=== PATIENT | female | born 1940 | race Caucasian/White ===

== ENCOUNTER → 2017-07-04 14:42 | Outpatient (CLI) | payer MEDICARE, SELFPAY ==
[2017-07-04 15:42] LABS: Absolute Neutrophil Count 4.9 X10^3/uL (2.0-7.7); Basophil# 0.04 X10^3/uL; Basophil% 0.5 % (0-1); Eosinophils% 2.4 % (0-5); Hematocrit 43.8 % (37-47); Hemoglobin 14.2 g/dl (12.0-15.0); Lymphocyte % 29.9 % (19-41); Mean Corp Hgb Conc 32.4 g/gl (32-36); Mean Corpuscular Hgb 28.6 pg (27.0-32.0); Mean Corpuscular Volume 88.3 fL (81-99); Mean Platelet Vol. 11.4 fl (6.2-12.0); Monocyte# 0.65 X10^3/uL; Monocyte% 7.8 % (0-10); Neutrophil # 4.94 X10^3/uL (2.7-7.7); Platelet Count 284 K/mm3 (150-450); RBC Distribution Width CV 13.6 % (11.6-14.6); RBC Distribution Width SD 43.6 fl (35.1-43.9); Red Blood Count 4.96 M/mm3 (4.2-5.4); White Blood Count 8.4 K/mm3 (4.4-11.0)
[2017-07-04 15:50] LABS: Vitamin D,25 Hydroxy 23.8 ng/mL (29.95-100.01)
[2017-07-04 15:55] LABS: ALB/GLOB Ratio 0.9 RATIO (0.9-2.4); AST(SGOT) 24 U/L (15-37); Alanine Aminotransfer ALT/SGPT 22 U/L (13-56); Albumin, Serum 3.6 g/dL (3.2-5.0); Alkaline Phosphatase 93 U/L (45-117); Anion Gap 8 (5-15); BUN 15 mg/dL (7-18); BUN/Creat Ratio 17.2 RATIO (10-20); Calcium,Total 8.7 mg/dL (8.5-10.1); Chloride 107 mmol/L (98-107); Creatinine, Serum 0.87 mg/dL (0.55-1.02); EST Glomerular Filtration Rate 67 mL/min (>60); Est Glom Filt Rate - Afr Amer 81 mL/min (>60); Glucose 98 mg/dL (74-106); Potassium 3.8 mmol/L (3.5-5.1); Protein, Total 7.6 g/dL (6.4-8.2); Sodium Level 141 mmol/L (136-145); Thyroid Stim Hormone (TSH) 1.12 uIU/mL (0.358-3.74)
[2017-07-04 16:31] LABS: POSITIVE COUNT NO; POSITIVE DIFFERENTIAL NO; POSITIVE MORPHOLOGY NO
[2017-07-04 16:56] LABS: Erythrocyte Sedimentation Rate 36 mm/hr (0-30)
[2017-07-04 17:11] LABS: CRP 3.19 mg/L (0.0-3.0)
== END ==
PROVIDERS: Family Provider Family Medicine; PCP Family Medicine; Visit Provider Family Medicine
DX: R53.81 Other malaise (principal); R53.83 Other fatigue; E55.9 Vitamin D deficiency, unspecified
CPT/HCPCS: 36415; 80053; 82306; 84443; 85025; 85652; 86140

== ENCOUNTER → 2017-08-08 11:27 | Outpatient (CLI) | payer MEDICARE, SELFPAY ==
[2017-08-08 14:12] LABS: Rheumatoid Factor < 10.0 IU/mL (<15)
[2017-08-08 14:39] LABS: Erythrocyte Sedimentation Rate 35 mm/hr (0-30)
[2017-08-10 10:50] LABS: ANTINUCLEAR ANTIBODIES DIRECT Negative (Negative)
== END ==
PROVIDERS: Family Provider Family Medicine; PCP Family Medicine; Visit Provider Family Medicine
DX: M79.1 Myalgia (principal)
CPT/HCPCS: 36415; 85652; 86038; 86431

== ENCOUNTER → 2017-08-19 13:09 | Outpatient (CLI) | payer MEDICARE, SELFPAY ==
--- NOTE | 2017-08-19 13:15 | RAD_ITS ---
STUDY: X-RAY CHEST REASON FOR EXAM: Female, 76 years old. 3 week history of worsening cough. TECHNIQUE: PA and lateral views of the chest. COMPARISON: None. FINDINGS: Mild increased markings in the right middle lobe. This may represent early infiltrate. There is also thickening of the right minor fissure. Elevation of the right hemidiaphragm. There is no demonstrated pleural abnormality. Normal size heart. Normal mediastinum and justin. Normal visualized pulmonary arteries. There is atherosclerotic calcification of the aortic arch with tortuosity. There is demineralization of the osseous structures. Increased kyphosis. Loss of height of the lower dorsal vertebrae. Normal visualized ribs, clavicles, and shoulders. There is no demonstrated abnormality of the visualized soft tissue structures of the upper abdomen. RAD/Chest PA and Lateral IMPRESSION: Increased markings in the right middle lobe. Early infiltrate should be ruled out. Thickening of the right minor fissure. Radiographic follow-up is recommended. Electronically Signed: Ken Page MD at 13:37 EDT Tel [phone], Service support ,
== END ==
PROVIDERS: Family Provider Family Medicine; PCP Family Medicine; Visit Provider Family Medicine
DX: R05 Cough (principal)
CPT/HCPCS: 71046

== ENCOUNTER → 2017-09-08 13:48 | Outpatient (CLI) | payer MEDICARE, SELFPAY ==
[2017-09-08 15:50] LABS: Hematocrit 41.8 % (37-47); Hemoglobin 13.3 g/dl (12.0-15.0); Mean Corp Hgb Conc 31.8 g/gl (32-36); Mean Corpuscular Hgb 28.2 pg (27.0-32.0); Mean Corpuscular Volume 88.6 fL (81-99); Mean Platelet Vol. 11.4 fl (6.2-12.0); Platelet Count 282 K/mm3 (150-450); RBC Distribution Width CV 14.7 % (11.6-14.6); RBC Distribution Width SD 47.7 fl (35.1-43.9); Red Blood Count 4.72 M/mm3 (4.2-5.4); White Blood Count 9.2 K/mm3 (4.4-11.0)
[2017-09-08 15:57] LABS: Scan Indicated on CBC? Y/N NO
[2017-09-08 16:11] LABS: ALB/GLOB Ratio 0.9 RATIO (0.9-2.4); AST(SGOT) 16 U/L (15-37); Alanine Aminotransfer ALT/SGPT 21 U/L (13-56); Albumin, Serum 3.4 g/dL (3.2-5.0); Alkaline Phosphatase 67 U/L (45-117); Anion Gap 6 (5-15); BUN 20 mg/dL (7-18); BUN/Creat Ratio 22.9 RATIO (10-20); Calcium,Total 8.4 mg/dL (8.5-10.1); Chloride 103 mmol/L (98-107); Creatinine, Serum 0.87 mg/dL (0.55-1.02); EST Glomerular Filtration Rate 67 mL/min (>60); Est Glom Filt Rate - Afr Amer 81 mL/min (>60); Globulin 3.8 g/dL (2.2-4.2); Glucose 109 mg/dL (74-106); Potassium 3.6 mmol/L (3.5-5.1); Protein, Total 7.2 g/dL (6.4-8.2); Sodium Level 136 mmol/L (136-145); Thyroid Stim Hormone (TSH) 1.03 uIU/mL (0.358-3.74)
[2017-09-09 09:55] LABS: Vitamin D,25 Hydroxy 15.6 ng/mL (29.95-100.01)
== END ==
PROVIDERS: Family Provider Family Medicine; PCP Family Medicine; Visit Provider Family Medicine
DX: R53.81 Other malaise (principal)
CPT/HCPCS: 36415; 80053; 82306; 84443; 85027

== ENCOUNTER → 2017-09-20 16:07 | Outpatient (CLI) | payer MEDICARE, SELFPAY | PROVIDERS: Visit Provider Family Medicine | DX: R39.9 Unspecified symptoms and signs involving the genitourinary system (principal) | CPT/HCPCS: 87086; 87088 ==

== ENCOUNTER → 2017-11-18 14:37 | Outpatient (CLI) | payer MEDICARE, SELFPAY ==
[2017-11-18 16:06] LABS: Vitamin D,25 Hydroxy 30.6 ng/mL (29.95-100.01)
== END ==
PROVIDERS: Family Provider Family Medicine; PCP Family Medicine; Visit Provider Family Medicine
DX: R53.81 Other malaise (principal); R53.83 Other fatigue
CPT/HCPCS: 36415; 82306

== ENCOUNTER 2018-01-17 07:05 | Day surgery (SDC) | payer MEDICARE, SELFPAY ==
[2018-01-17 07:28] VITALS: BP 137/80; PULSE 58; RESP 14; TEMP 37.1; O2SAT 95; BMI 31.6
--- NOTE | 2018-01-17 09:15 | COLBX_PTH ---
PATIENT: MICAELA MARTINEZ LOC: EN U#:[id number] AGE/SX: 77/F ROOM: RE01/17/[address]: Dr. Negrito Darling MD : 1940 BED: DIS: 01/17/2018 SPEC #: [id number] RECD: 01/17/18 11:59 STATUS: MERT SHAINA #: [id number] BRAD: 01/17/18 09:[address]: Negrito Darling DEPT: SURGICAL PATHOLOGY RECD BY: [place] ENTERED: 01/17/18 12:07 SP TYPE: COLON BX OTHR DR: Dr. Demario Madrigal MD Tissues: A - Cecum, NOS B - COLON BIOPSY C - Ascending colon Procedures: Surgery Specimen Level IV HEADER OPERATION: Colonoscopy (MAC) PRE-OP DIAGNOSIS: Personal history of colon polyps TISSUE SUBMITTED: A - Polyp cecum, B - Random colon biopsy, C - Biopsy ascending colon flat polyp MICROSCOPIC DIAGNOSIS A. Polyp cecum, biopsy: Fragments of tubular adenoma. B. Colon, random biopsy: Fragments of colonic mucosa, no pathologic diagnosis. C. Ascending colon, flat polyp, biopsy: A fragment of colonic mucosa, no pathologic diagnosis. LORETO:ray 01/18/18 MICROSCOPIC DESCRIPTION Slides are reviewed. GROSS DESCRIPTION A - Received in fixative is one container labeled with the patient's name and designated polyp cecum. The specimen consists of multiple irregular fragments of light rubio soft tissue that in aggregate measure 2 x 0.3 x 0.1 cm. The specimen is totally submitted in one cassette. B - Received in fixative is one container labeled with the patient's name and designated random colon biopsy. The specimen consists of multiple irregular fragments of light rubio soft tissue that in aggregate measure 1 x 0.5 x 0.1 cm. The specimen is totally submitted in one cassette. C - Received in fixative is one container labeled with the patient's name and designated ascending colon flat polyp. The specimen consists of one irregular fragment of light rubio soft tissue that measures 0.3 x 0.3 x 0.1 cm. The specimen is totally submitted in one cassette. / LORETO:ray 01/17/18 TC:1 CPT: 87223 x3
[2018-01-17 10:37] VITALS: BP 137/80; BP 144/61; PULSE 65; RESP 16; TEMP 36.5; O2SAT 95
--- NOTE | 2018-01-17 10:41 | OP.ENDO_ITS ---
Patient Name: Audrey Olmstead Procedure Date: 01/17/2018 9:56 AM Date of : 1940 Age: 77 Procedure: Colonoscopy Indications: High risk colon cancer surveillance: Personal history of colonic polyps Providers: Negrito Darling MD Referring MD: Negrito Darling MD Medicines: See the Anesthesia note for documentation of the administered medications Patient Profile: Last Colonoscopy: within the past year. Complications: No immediate complications. Procedure: Pre-Anesthesia Assessment: - Prior to the procedure, a History and Physical was performed, and patient medications and allergies were reviewed. The patient's tolerance of previous anesthesia was also reviewed. The risks and benefits of the procedure and the sedation options and risks were discussed with the patient. All questions were answered, and informed consent was obtained. Prior Anticoagulants: The patient has taken no previous anticoagulant or antiplatelet agents. ASA Grade Assessment: II - A patient with mild systemic disease. After reviewing the risks and benefits, the patient was deemed in satisfactory condition to undergo the procedure. After I obtained informed consent, the scope was passed under direct vision. Throughout the procedure, the patient's blood pressure, pulse, and oxygen saturations were monitored continuously. The Colonoscope was introduced through the anus and advanced to the cecum, identified by appendiceal orifice and ileocecal valve. The colonoscopy was performed with difficulty due to a tortuous colon. The patient tolerated the procedure well. The quality of the bowel preparation was good. The ileocecal valve was photographed. Scope In: 10:06:59 AM Scope Withdrawal Time 0 hours 19 minutes 13 seconds Scope Out: 10:32:51 AM Total Procedure Duration Time 0 hours 25 minutes 52 seconds Findings: The digital rectal exam findings include internal hemorrhoids (Grade I). Multiple diverticula were found in the entire colon. Biopsies for histology were taken with a cold forceps from the entire colon for evaluation of microscopic colitis. Three sessile polyps were found in the cecum. The polyps were 5 to 15 mm in size. These polyps were removed with a saline injection-lift technique using a hot snare. Resection and retrieval were complete. Impression: - Internal hemorrhoids (Grade I) found on digital rectal exam. - Diverticulosis in the entire examined colon. Biopsied colon for microcytic colitis - Three 5 to 15 mm polyps in the cecum, removed using injection-lift and a hot snare. Resected and retrieved. Recommendation: - Telephone my office for pathology results in 1 week. - Discharge patient to home. - Resume previous diet. - Continue present medications. - Repeat colonoscopy in 3 years for surveillance based on pathology results. Procedure Code(s): --- Professional --- 89359, Colonoscopy, flexible; with removal of tumor(s), polyp(s), or other lesion(s) by snare technique 35639, 59, Colonoscopy, flexible; with biopsy, single or multiple 97500, Colonoscopy, flexible; with directed submucosal injection(s), any substance Diagnosis Code(s): --- Professional --- Z86.010, Personal history of colonic polyps K64.0, First degree hemorrhoids D12.0, Benign neoplasm of cecum K57.30, Diverticulosis of large intestine without perforation or abscess without bleeding CPT copyright 2017 [employer]. All rights reserved. The codes documented in this report are preliminary and upon heavy media operator review may be revised to meet current compliance requirements. Negrito Darling MD 01/17/2018 10:40:54 AM This report has been signed electronically. Number of Addenda: 1 Note Initiated On: 01/17/2018 9:56 AM Addendum Number: 1 Addendum Date: 01/17/2018 10:55:48 AM Hemostatic clips x2 were applied post polypectomy to the cecal polypectomy sites with good control of the base of the resections for possible bleeding or perforation. There was no adverse finding at the time of clip application. Negrito Darling M.D., F.A.C.S. Negrito Darling MD 01/17/2018 10:57:22 AM This report has been signed electronically.
[2018-01-17 10:42] VITALS: BP 137/80; BP 146/61; PULSE 67; RESP 16; O2SAT 97
[2018-01-17 10:47] VITALS: BP 137/80; BP 142/64; PULSE 66; RESP 16; O2SAT 97
[2018-01-17 10:52] VITALS: BP 137/80; BP 146/61; PULSE 62; RESP 16; TEMP 36.9; O2SAT 96
[2018-01-17 11:10] VITALS: BP 137/80
--- NOTE | 2018-01-17 11:12 | SUR.PHASEII ---
CALL TO LAB PLACED PER THIS NURSE TO REQUEST LAB RESULTS BE SENT TO DR. CROOK AT [facility].
== END 2018-01-17 11:37 | disposition home or self-care (01) ==
LOC: EN 07:05 → AC 07:08
PROVIDERS: Family Provider Family Medicine; PCP Family Medicine; Referring Provider Surgery; Visit Provider Surgery
PROC: 0DJD8ZZ Inspection of Lower Intestinal Tract, Via Natural or Artificial Opening Endoscopic (ICD-10-PCS; CPT 45378; principal; 2018-01-17 09:10)
DX: Z12.11 Encounter for screening for malignant neoplasm of colon (principal); K57.30 Diverticulosis of large intestine without perforation or abscess without bleeding; K64.0 First degree hemorrhoids; K52.839 Microscopic colitis, unspecified; D12.0 Benign neoplasm of cecum; J45.909 Unspecified asthma, uncomplicated; K21.9 Gastro-esophageal reflux disease without esophagitis; I10 Essential (primary) hypertension; F32.9 Major depressive disorder, single episode, unspecified; Z86.010 Personal history of colon polyps; Z87.891 Personal history of nicotine dependence
CPT/HCPCS: 45385; 88305; J7120; A4216

== ENCOUNTER → 2018-02-07 15:48 | Outpatient (CLI) | payer MEDICARE, SELFPAY ==
--- NOTE | 2018-02-07 15:50 | BI_ITS ---
MAMMOGRAPHY - BILATERAL SCREENING REASON FOR EXAM: Female, 77 years old. Routine annual screening examination. PERTINENT HISTORY: Mother with breast cancer. Remote left excisional breast biopsy. TECHNIQUE: Digital bilateral breast carmita (3D mammographic acquisition) in the CC and MLO projections. 2-D mediolateral oblique (MLO) and craniocaudad (CC) views of both breasts were obtained. CAD: Full Field Digital Mammography with Computer Added Detection was performed. COMPARISON: Comparison is made with prior study dated July 09, 2016 and June 27, 2015. FINDINGS: Breast Composition: There are scattered areas of fibroglandular density. There are no dominant masses or suspicious calcifications. Stable small benign-appearing bilateral axillary lymph nodes. No other significant abnormalities are identified. There has been no significant change since the prior study. BI/SCREENING MAMM (CAD), BILAT IMPRESSION: Stable bilateral screening mammogram. Yearly follow-up mammogram recommended. (A) ASSESSMENT CATEGORY: BIRADS Category 2: Benign. A letter regarding these results will be sent to the patient by the facility within 30 days. Approximately 10% of breast cancers are not detected by mammography. A normal mammogram should not delay biopsy of a clinically suspicious abnormality. [id number] Electronically Signed: Ken Page MD at 9:28 EST Tel [phone], Service support ,
== END ==
PROVIDERS: Family Provider Family Medicine; PCP Family Medicine; Visit Provider Obstetrics & Gynecology
DX: Z12.31 Encounter for screening mammogram for malignant neoplasm of breast (principal)
CPT/HCPCS: 77063; 77067

== ENCOUNTER → 2018-03-01 11:22 | Outpatient (CLI) | payer MEDICARE, SELFPAY ==
[2018-03-01 14:26] LABS: Absolute Lymphocyte Count 2.23 X10^3/ul (0.83-4.51); Absolute Neutrophil Count 3.9 X10^3/uL (2.0-7.7); Basophil# 0.05 X10^3/uL; Basophil% 0.7 % (0-1); Eosinophil# 0.14 X10^3/uL; Hematocrit 42.3 % (37-47); Hemoglobin 13.4 g/dl (12.0-15.0); Lymphocyte # 2.23 X10^3/ul (4.0); Lymphocyte % 32.7 % (19-41); Mean Corp Hgb Conc 31.7 g/gl (32-36); Mean Corpuscular Hgb 27.8 pg (27.0-32.0); Mean Corpuscular Volume 87.8 fL (81-99); Mean Platelet Vol. 11.8 fl (6.2-12.0); Monocyte# 0.47 X10^3/uL; Monocyte% 6.9 % (0-10); Neutrophil # 3.93 X10^3/uL (2.7-7.7); Neutrophil % 57.6 % (47-70); Platelet Count 261 K/mm3 (150-450); RBC Distribution Width CV 13.8 % (11.6-14.6); RBC Distribution Width SD 44.1 fl (35.1-43.9); Red Blood Count 4.82 M/mm3 (4.2-5.4); White Blood Count 6.8 K/mm3 (4.4-11.0)
[2018-03-01 14:28] LABS: POSITIVE COUNT NO; POSITIVE DIFFERENTIAL NO; POSITIVE MORPHOLOGY NO
[2018-03-01 14:42] LABS: Vitamin D,25 Hydroxy 21.6 ng/mL (29.95-100.01)
[2018-03-01 14:46] LABS: Anion Gap 9 (5-15); BUN 15 mg/dL (7-18); BUN/Creat Ratio 19.1 RATIO (10-20); Calcium,Total 8.9 mg/dL (8.5-10.1); Chloride 103 mmol/L (98-107); Creatinine, Serum 0.78 mg/dL (0.55-1.02); EST Glomerular Filtration Rate 76 mL/min (>60); Est Glom Filt Rate - Afr Amer 91 mL/min (>60); Glucose 85 mg/dL (74-106); Potassium 3.9 mmol/L (3.5-5.1); Sodium Level 137 mmol/L (136-145); Thyroid Stim Hormone (TSH) 1.44 uIU/mL (0.358-3.74)
--- OUTSIDE RECORDS SUMMARY | 2018-04-17 14:17 | XMS RPT_ITS ---
:1940 Author Organization OHIP Support Name Relationship Address Phone FRANCIS MARTINEZ Unavailable [address] + [place] [address] R Unavailable Unavailable Unavailable FRANCIS MARTINEZ Unavailable [address] + [place] [address] R Unavailable Unavailable Unavailable FRANCIS MARTINEZ Unavailable [address] + [place] [address] R Unavailable Unavailable Unavailable FRANCIS MARTINEZ Unavailable [address] + [place] [address] R Unavailable Unavailable Unavailable FRANCIS MARTINEZ Unavailable [address] + [place] [address] R Unavailable Unavailable Unavailable FRANCIS MARTINEZ Unavailable [address] + [place] [address] R Unavailable Unavailable Unavailable FRANCIS MARTINEZ Unavailable [address] + [place] [address] R Unavailable Unavailable Unavailable FRANCIS MARTINEZ Unavailable [address] + [place] [address] R Unavailable Unavailable Unavailable FRANCIS MARTINEZ Unavailable [address] + [place] [address] R Unavailable Unavailable Unavailable FRANCIS MARTINEZ Unavailable [address] + [place] [address] R Unavailable Unavailable Unavailable FRANCIS MARTINEZ Unavailable [address] + [place] [address] R Unavailable Unavailable Unavailable Care Team Providers Name Role Phone Augusto Cardenas Attending Unavailable Rohan, Augusto Primary Care Unavailable Rohan, Augusto Attending Unavailable Cardenas, Augusto Primary Care Unavailable Augusto Cardenas Attending Unavailable Rohan, Augusto Primary Care Unavailable Rohan, Augusto Attending Unavailable Augusto Cardenas Referring Unavailable Rohan, Augusto Primary Care Unavailable Cardenas, Augusto Attending Unavailable Cardenas, Augusto Primary Care Unavailable Augusto Cardenas Attending Unavailable Cardenas, Augusto Attending Unavailable Cardenas, Augusto Primary Care Unavailable Cebul, Negrito Attending Unavailable Cardenas, Augusto Referring Unavailable Cebul, Negrito Attending Unavailable Cebul, Negrito Referring Unavailable Cardenas, Augusto Primary Care Unavailable Benekos, Attending Unavailable Cardenas, Augusto Primary Care Unavailable Cebul, Negrito Attending Unavailable CARDENAS, AUGUSTO K Referring Unavailable AMBREEN, JOSUE Richardson Attending Unavailable AMBREEN, JOSUE L Referring Unavailable AMBREEN, JOSUE Richardson Attending Unavailable AMBREEN, JOSUE L Referring Unavailable Cardenas, Augusto H Referring Unavailable Cardenas, Augusto H Primary Care Unavailable PROBLEMS PROBLEMS DATE TYPE CONDITION / CODE ATTENDING STATUS SOURCE 02/16/2018 Unknown Z86.010 - Personal CebuNegrito richardson Active [place] history of colonic Community polyps / Hospital Z86.010(ICD-10) Repository 02/16/2018 Unknown D12.0 - Benign CebuNegrito richardson Active [place] neoplasm of cecum / [facility] D12.0(ICD-10) Hospital Repository 02/16/2018 Unknown K64.0 - First degree CebulNegrito Active [place] hemorrhoids / [facility] K64.0(ICD-10) Hospital Repository 02/16/2018 Unknown K57.30 - CebuNegrito richardson Active [place] Diverticulosis of [facility] large intestine [facility] without perforation Repository or abscess without bleeding / K57.30(ICD-10) 11/02/2017 Active Gastro-esophageal JOSUE ROLAND Active [facility] without esophagitis [place] / K21.9(ICD-10) Repository 11/02/2017 Active Personal history of JOSUE ROLAND Active [place] colonic polyps / [facility] Z86.010(ICD-10) [place] Repository 09/20/2017 Unknown R39.9 - Unspecified Augusto Cardenas symptoms and signs Community involving the Hospital genitourinary system Repository / R39.9(ICD-10) 09/16/2017 Active Retention of urine, NA Active [place] unspecified / Clinic Other R33.9(ICD-10) [place] Repository 09/16/2017 Admitting Unknown / NA Active [facility] UNK(Unknown) [facility] Repository 08/19/2017 Unknown R05 - Cough / Augusto Cardenas Active [place] R05(ICD-10) [facility] Repository PROCEDURES PROCEDURES No Procedure Records FoundRESULTS RESULTS CBC W/DIFF, AUTOMATED Collected: 03/01/2018 Status: F Source: [place] 11:23 AM [facility] REPOSITORY TYPE CODE TESTS RESULT OUT OF RANGE REFERENCE UNITS LAB L100.1000 4.4-11.0 K/mm3 Normal WBC 6.8 LAB L100.1200 4.2-5.4 M/mm3 Normal RBC 4.82 LAB L100.1300 12.0-15.0 g/dl Normal HGB 13.4 LAB L100.1400 37-47 % Normal HCT 42.3 LAB L100.1500 81-99 fL Normal MCV 87.8 LAB L100.1600 27.0-32.0 pg Normal MCH 27.8 LAB L100.1700 32-36 g/gl Low MCHC 31.7 LAB L100.1810 11.6-14.6 % Normal RDW CV 13.8 LAB L100.1820 35.1-43.9 fl High RDW SD 44.1 LAB L100.1900 150-450 K/mm3 Normal PLT 261 LAB L100.2000 6.2-12.0 fl Normal MPV 11.8 LAB L100.2100 47-70 % Normal NEUT% 57.6 LAB L100.2200 19-41 % Normal LY% 32.7 LAB L100.2300 0-10 % Normal MONO% 6.9 LAB L100.2400 0-5 % Normal EO% 2.0 LAB L100.2500 0-1 % Normal BASO% 0.7 LAB L100.2550 0.0-0.9 % Normal IM GRAN % 0.100 Result Comment: IG% - Immature Granulocytes (promyelocytes, myelocytes and metamyelocytes) > 1% indicates that a LEFT SHIFT is Present. LAB L100.2620 2.0-7.7 X10 3/uL Normal Absolute Neut 3.9 LAB L100.2720 0.83-4.51 X10 3/ul Normal Absolute Lymph 2.23 Performed By: #### L100.0100 #### [facility] [place], [address] VITAMIN D,25 HYDROXY Collected: 03/01/2018 Status: F Source: [place] 11:23 AM [facility] REPOSITORY TYPE CODE TESTS RESULT OUT OF REFERENCE UNITS RANGE LAB L506.1000 29.95-100.01 ng/mL Low Vitamin D 21.6 25-OH Result Comment: Vitamin D 25(OH) Status Range Deficiency <20 ng/mL (50nmol/L) Insuffciency 20 - 30 ng/mL (50 - 75 nmol/L) Sufficiency 30 - 100 ng/mL (75 - 250 nmol/L) Toxicity >100 ng/mL (>250 nmol/L) Performed By: #### L506.1000 #### [facility] [address] [facility] [place], [place], [address] BASIC METABOLIC Collected: 03/01/2018 Status: F Source: [place] PROFILE (BMP) 11:23 AM [facility] REPOSITORY TYPE CODE TESTS RESULT OUT OF RANGE REFERENCE UNITS LAB L501.0100 74-106 mg/dL Normal GLU 85 Result Comment: Please note revised GLUCOSE reference range effective 2017. LAB L501.1000 7-18 mg/dL Normal BUN 15 LAB L501.1100 0.55-1.02 mg/dL Normal CREAT,SERUM 0.78 Result Comment: The validity of the calculated GFR AND GFRAA in patients over 70 years has not been determined. Clinical correlation is essential. LAB L501.1110 >60 mL/min Normal EST GFR 76 Result Comment: Non- GFR Calc LAB L501.1115 >60 mL/min Normal EST GFR - AA 91 Result Comment: GFR Calc LAB L501.1300 10-20 RATIO Normal BUN/CRE 19.1 LAB L501.2200 8.5-10.1 mg/dL CA Normal 8.9 LAB L501.5300 136-145 mmol/L NA Normal 137 LAB L501.5600 3.5-5.1 mmol/L K Normal 3.9 LAB L501.5900 98-107 mmol/L CL Normal 103 LAB L501.6100 21.0-32.0 mmol/L Normal CO2 25.0 LAB L501.6200 5-15 Normal GAP 9 Performed By: #### L500.2500 #### [facility] [address] [facility] [place], [place], [address] THYROID STIM HORMONE Collected: 03/01/2018 Status: F Source: [place] (TSH) 11:23 AM [facility] REPOSITORY TYPE CODE TESTS RESULT OUT OF RANGE REFERENCE UNITS LAB L501.9520 0.358-3.74 uIU/mL Normal TSH 1.44 Performed By: #### L501.9520 #### [facility] [address] [place], [address] SCREENING MAMM (CAD), Observed: 02/07/2018 Status: F Source: [place] BILAT 3:51 PM [facility] REPOSITORY [facility] Imaging Services [address] [place] [address] SCREENING MAMM (CAD), BILAT MR#: [id number] Acct: [id number] Name: MICAELA MARTINEZ Rep #: [id number] : 1940 F 77 From: Ken Page MD PCP: Augusto Cardenas MD Status: REG CLI Study: SCREENING MAMM (CAD), BILAT Date of Exam: 02/07/18 Exam# [id number] Ordering Dr: Emily Luo MD MAMMOGRAPHY - BILATERAL SCREENING REASON FOR EXAM: Female, 77 years old. Routine annual screening examination. PERTINENT HISTORY: Mother with breast cancer. Remote left excisional breast biopsy. TECHNIQUE: Digital bilateral breast carmita (3D mammographic acquisition) in the CC and MLO projections. 2-D mediolateral oblique (MLO) and craniocaudad (CC) views of both breasts were obtained. CAD: Full Field Digital Mammography with Computer Added Detection was performed. COMPARISON: Comparison is made with prior study dated July 09, 2016 and June 27, 2015. FINDINGS: Breast Composition: There are scattered areas of fibroglandular density. There are no dominant masses or suspicious calcifications. Stable small benign-appearing bilateral axillary lymph nodes. No other significant abnormalities are identified. There has been no significant change since the prior study. BI/SCREENING MAMM (CAD), BILAT IMPRESSION: Stable bilateral screening mammogram. Yearly follow-up mammogram recommended. (A) ASSESSMENT CATEGORY: BIRADS Category 2: Benign. A letter regarding these results will be sent to the patient by the facility within 30 days. Approximately 10% of breast cancers are not detected by mammography. A normal mammogram should not delay biopsy of a clinically suspicious abnormality. [id number] Electronically Signed: Ken Page MD at 9:28 EST Tel [phone], Service support , CC: Emily Luo MD; Augusto Cardenas MD Full Stack Web Developer: Signed OPERATIVE REPORT - Observed: 01/17/2018 Status: F Source: [place] [facility] 10:58 AM [facility] REPOSITORY [facility] Medical Records Department [address] [place] [id number] Operative Report - Endoscopy MR#: [id number] Acct: [id number] Name: MICAELA MARTINEZ Rep #: [id number] : 1940 77 From: Negrito Darling MD PCP: Augusto Cardenas MD Status: [place] [facility] [place] Name: Micaela Martinez Procedure Date: 01/17/2018 9:56 AM Date of : 1940 Age: 77 Procedure: Colonoscopy Indications: High risk colon cancer surveillance: Personal history of colonic polyps Providers: Negrito Darling MD Referring MD: Negrito Darling MD Medicines: See the Anesthesia note for documentation of the administered medications Patient Profile: Last Colonoscopy: within the past year. Complications: No immediate complications. Procedure: Pre-Anesthesia Assessment: - Prior to the procedure, a History and Physical was performed, and patient medications and allergies were reviewed. The patient's tolerance of previous anesthesia was also reviewed. The risks and benefits of the procedure and the sedation options and risks were discussed with the patient. All questions were answered, and informed consent was obtained. Prior Anticoagulants: The patient has taken no previous anticoagulant or antiplatelet agents. ASA Grade Assessment: II - A patient with mild systemic disease. After reviewing the risks and benefits, the patient was deemed in satisfactory condition to undergo the procedure. After I obtained informed consent, the scope was passed under direct vision. Throughout the procedure, the patient's blood pressure, pulse, and oxygen saturations were monitored continuously. The Colonoscope was introduced through the anus and advanced to the cecum, identified by appendiceal orifice and ileocecal valve. The colonoscopy was performed with difficulty due to a tortuous colon. The patient tolerated the procedure well. The quality of the bowel preparation was good. The ileocecal valve was photographed. Scope In: 10:06:59 AM Scope Withdrawal Time 0 hours 19 minutes 13 seconds Scope Out: 10:32:51 AM Total Procedure Duration Time 0 hours 25 minutes 52 seconds Findings: The digital rectal exam findings include internal hemorrhoids (Grade I). Multiple diverticula were found in the entire colon. Biopsies for histology were taken with a cold forceps from the entire colon for evaluation of microscopic colitis. Three sessile polyps were found in the cecum. The polyps were 5 to 15 mm in size. These polyps were removed with a saline injection-lift technique using a hot snare. Resection and retrieval were complete. Impression: - Internal hemorrhoids (Grade I) found on digital rectal exam. - Diverticulosis in the entire examined colon. Biopsied colon for microcytic colitis - Three 5 to 15 mm polyps in the cecum, removed using injection-lift and a hot snare. Resected and retrieved. Recommendation: - Telephone my office for pathology results in 1 week. - Discharge patient to home. - Resume previous diet. - Continue present medications. - Repeat colonoscopy in 3 years for surveillance based on pathology results. Procedure Code(s): --- Professional --- 82118, Colonoscopy, flexible; with removal of tumor(s), polyp(s), or other lesion(s) by snare technique 82257, 59, Colonoscopy, flexible; with biopsy, single or multiple 54712, Colonoscopy, flexible; with directed submucosal injection(s), any substance Diagnosis Code(s): --- Professional --- Z86.010, Personal history of colonic polyps K64.0, First degree hemorrhoids D12.0, Benign neoplasm of cecum K57.30, Diverticulosis of large intestine without perforation or abscess without bleeding CPT copyright 2017 [employer]. All rights reserved. The codes documented in this report are preliminary and upon optical effects line up person review may be revised to meet current compliance requirements. Negrito Darling MD 01/17/2018 10:40:54 AM This report has been signed electronically. Number of Addenda: 1 Note Initiated On: 01/17/2018 9:56 AM Addendum Number: 1 Addendum Date: 01/17/2018 10:55:48 AM Hemostatic clips x2 were applied post polypectomy to the cecal polypectomy sites with good control of the base of the resections for possible bleeding or perforation. There was no adverse finding at the time of clip application. Negrito Darling M.D., F.A.C.S. Negrito Darling MD 01/17/2018 10:57:22 AM This report has been signed electronically. 01/17/18 1057 Date Negrito Darling MD Cosigner Signature: Date (if indicated) CC: Augusto Cardenas MD; Negrito Darling MD Date Dictated: 01/17/18 0956 Date Transcribed: Full Stack Web Developer: GAVIN Signed COLON BIOPSY (CHOOSE Observed: 01/17/2018 Status: F Source: [place] SITE) 9:15 AM [facility] REPOSITORY Patient: MICAELA MARTINEZ : 1940 (77/F) Acct Num: [id number] Phys: Negrito Darling MD Unit Num: [id number] Loc: EN Specimen: [id number] Received: 01/17/18 - 1159 Spec Type: COLON BX TISSUES 1 TISSUES: A. Cecum, NOS B. COLON BIOPSY C. Ascending colon GROSS DESCRIPTION A - Received in fixative is one container labeled with the patient's name and designated polyp cecum. The specimen consists of multiple irregular fragments of light rubio soft tissue that in aggregate measure 2 x 0.3 x 0.1 cm. The specimen is totally submitted in one cassette. B - Received in fixative is one container labeled with the patient's name and designated random colon biopsy. The specimen consists of multiple irregular fragments of light rubio soft tissue that in aggregate measure 1 x 0.5 x 0.1 cm. The specimen is totally submitted in one cassette. C - Received in fixative is one container labeled with the patient's name and designated ascending colon flat polyp. The specimen consists of one irregular fragment of light rubio soft tissue that measures 0.3 x 0.3 x 0.1 cm. The specimen is totally submitted in one cassette. / LORETO:ray 01/17/18 TC:1 CPT: 61209 x3 HEADER OPERATION: Colonoscopy (MAC) PRE-OP DIAGNOSIS: Personal history of colon polyps TISSUE SUBMITTED: A - Polyp cecum, B - Random colon biopsy, C - Biopsy ascending colon flat polyp MICROSCOPIC DESCRIPTION Slides are reviewed. MICROSCOPIC DIAGNOSIS A. Polyp cecum, biopsy: Fragments of tubular adenoma. B. Colon, random biopsy: Fragments of colonic mucosa, no pathologic diagnosis. C. Ascending colon, flat polyp, biopsy: A fragment of colonic mucosa, no pathologic diagnosis. SJ:ray 01/18/18 Signed Bartolome Flower 01/18/18 <signature on file> Performed By: #### PCOLBX #### [facility] [address] [place] [address]. [place], [address] SURGERY VISIT REPORT Observed: 01/03/2018 Status: F Source: [place] 4:53 PM [facility] REPOSITORY [facility] [address] [place] [address]. [address] [place] [address] OFFICE VISIT Date of Service: 01/03/18 MR#: [id number] Acct: [id number] Name: MICHELLEMICAELA E Rep #: [id number] : 1940 Provider: Negrito Darling MD Age/Sex: 77/F Location: [facility] Status: Signed Intake Vital Signs01/03/18 Height 5 ft 3 in 01/03/18 Respiratory Rate 18 01/03/18 Pulse Rate 60 Intake Visit Reasons: needs c-scope,hx of polyps Medical Supply Technician Required: No Is patient in pain?: No Allergies epinephrine Allergy (Severe, Verified 01/03/18 14:57) Anaphylaxis pseudoephedrine [From Sudafed] Allergy (Intermediate, Verified 01/03/18 14:57) Chest tightness Medications albuterol sulfate HFA 90 mcg/actuation aerosol inhaler 1 puff INHALATION Q6H PRN 01/03/18 [History Confirmed 01/03/18] budesonide-formoterol HFA 160 mcg-4.5 mcg/actuation aerosol inhaler 2 puff INHALATION BID 01/03/18 [History Confirmed 01/03/18] hydrochlorothiazide 12.5 mg tablet 12.5 mg PO DAILY 01/03/18 [History Confirmed 01/03/18] losartan 100 mg tablet 100 mg PO DAILY 01/03/18 [History Confirmed 01/03/18] metoprolol succinate ER 25 mg tablet,extended release 24 hr 25 mg PO BID 01/03/18 [History Confirmed 01/03/18] nitrofurantoin macrocrystal 50 mg capsule 50 mg PO Q6H cap 01/03/18 [History Confirmed 01/03/18] omeprazole 40 mg capsule,delayed release 40 mg PO DAILY 01/03/18 [History Confirmed 01/03/18] paroxetine 10 mg tablet 10 mg PO DAILY 01/03/18 [History Confirmed 01/03/18] tamsulosin 0.4 mg capsule 0.4 mg PO DAILY 01/03/18 [History Confirmed 01/03/18] PFSH Medical History Asthma (Acute) Depression (Acute) GERD (gastroesophageal reflux disease) (Acute) UTI (urinary tract infection) (Acute) HTN (hypertension) (Chronic) Surgical History S/P hysterectomy (Acute) S/P right rotator cuff repair (Acute) Status post right hip replacement (Acute) s/p left breast cyst removal (Acute) Social History Smoking Status: Former smoker alcohol intake: current alcohol intake frequency: holidays/special occasions only HPI HPI HPI: MICAELA MARTINEZ, is a 77 F who presents to the office today for surgical consultation regarding follow-up colonoscopy. This was a 15-minute appointment. By patient report she is previously remotely had a colonoscopy performed by Dr. 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 By patient report it was extraordinarily difficult to achieve and the patient awoke during the procedure and discomfort. Approximately 4 years ago the patient believes that Dr. Eran Brown another gastrologist was able to successfully complete a colonoscopy. The patient states that biopsies demonstrated microcytic colitis and then she was placed on Entocort. Her symptoms at that time were diarrhea. She states she was on Entocort for approximately a year and a half. She has also been seen by gastroenterology at [facility]. She has also been seen by gastroenterology at [facility] with the most recent interaction being by Dr. Josue Roland. The patient complained of dysphasia and left lower quadrant abdominal pain and diarrhea. There was a personal history of microcytic colitis and colon polyps. She has a previous history of GE reflux disease. On November 02, 2017 under IV sedation the patient had a upper endoscopy. The examined esophagus was normal. EG junction at 36 cm. 4 cm hiatal hernia noted. Stomach was normal. Duodenum was normal. In addition to the IV sedation the patient received 2 g of ampicillin. The patient had 3 mg of Versed and 75 mcg of fentanyl. At that same setting she then had a colonoscopy. That but it was because of high risk of colon cancer. The colonoscopy note says that 3 mg of Versed and 75 mcg of fentanyl were given but it is not clear from that procedure note whether that was the same medication given for the upper or whether that represented additional medication. A 2 mm polyp was found in the transverse colon. Diverticulosis was seen in the sigmoid and descending colon. The colonoscopy was extremely difficult due to restricted mobility of the colon a redundant colon and a tortuous colon. The note does not state how far the colonoscope was advanced. The patient notes that the patient tolerated it poorly due to discomfort it was recommended that the patient have a repeat exam with anesthesia provided sedation. The transverse colon polyp biopsy was tubular adenoma. ROS General General: Yes weight change, appetite and fatigue; no colon cancer, breast cancer or weakness HEENT HEENT: No difficulty swallowing, eye injury, eye surgery, swollen glands or hoarseness Endo Endocrine: No thyroid disease, diabetes mellitus, thyroid cancer, Hair loss, heat intolerance or cold intolerance Skin Skin: Yes rash; no changing moles Breast Breast: No left breast lump, right breast lump, nipple discharge, breast pain, abnormal mammogram, abnormal US or breast enlargement Musc Musculoskeletal: Yes arthritis; no back problems, rheumatoid arthritis, gout or joint pain Cardio Cardiovascular: Yes high blood pressure; no murmur, pacemaker, heart disease, atrial fibrillation, heart attack, heart stent, palpitations, shortness of breat with exertion or chest pain Psych Psychiatric: Yes depression and anxiety; no hearing voices Resp Respiratory: Yes asthma, No shortness of breath, No sleep apnea, No cough, No COPD, No emphysema, No wheezing Gastro Gastrointestinal: Yes abdominal pain, Yes diarrhea, Yes constipation, Yes acid reflux, No nausea or vomiting, No blood in stool, No hemorrhoids, No ulcers, No gallbladder problem, No black,tarry stools Deep Hematologic: No blood thinners, No blood disorders, No bleeding, No anemia, No blood clots Neuro Neurologic: No system reviewed and no additional complaints, except as docu, No as per HPI, No abnormal walking, No abnormal hearing, No abnormal movements, No abnormal speech, No behavioral changes, No burning sensations, No confusion, No seizure-like activity, No unsteadiness, No dizziness, No localized weakness, No frequent falls, No headache(s), No lack of coordination, No loss of vision, No memory loss, No numbness, No other visual disturbances, No radiating pain, No restless legs, No sensory deficit, No fainting, No tingling, No tremor(s), No weakness, No other Exam Const General: cooperative, no acute distress Nutritional Appearance: overweight Orientation: alert, awake, oriented x3 HENMT Head: normal to inspection Chest Chest palpation AND inspection: normal inspection of the chest Breast Palpation: No nipple discharge Resp Effort AND Inspection: normal respiratory effort Auscultation: clear to auscultation bilaterally Cardio Rate: regular rate Rhythm: regular rhythm Heart Sounds: no murmurs GI Palpation: soft, no hepatosplenomegaly Auscultation: normal bowel sounds Skin General: no rashes or lesions noted Neuro General: CN's II-XI intact bilaterally Extrem General: no calf tenderness Psych Affect: animated Assessment AND Plan Problems 1. Personal history of colonic polyps Z86.010 Plan It has been recommended to the patient by that she has a repeat colonoscopy based upon the finding of a polyp in the current colonoscopy in the incomplete nature of the colonoscopy and the poor patient tolerance. There is recommended that she have this performed with anesthesia provided sedation. The patient provides evidence that Dr. Mickey Egan had great difficulty in achieving a colonoscopy secondary due to patient discomfort. It is noted that Dr. Roland was not able to complete a colonoscopy due to patient discomfort. It is not clear how far he got. It is of note that the patient seemingly had a successful colonoscopy by Dr. Eran Brown gastrology in the past and that was performed with monitored anesthesia care. I have been extraordinarily exacting with the patient stating that at age 77 that she is at increased interventional risk. The indication would be incomplete colonoscopy with finding of colon polyp. In great detail I explained the technique benefit risk complications alternatives. We will schedule this with monitored anesthesia care. The patient is very much acutely aware that the procedure may or may not be able to be accomplished. She is aware of the increased risk of perforation or bleeding. I would anticipate random colonic biopsies since the patient provides a history of microcytic colitis. She has had an opportunity to ask and have questions answered. We will schedule and proceed at her discretion. She has previously weaned her self off of Entocort. She has a degree of diarrhea but nothing severe. Multiple times she suggests that her abdominal pain may be secondary to IBS. She is aware that I am not anticipating an identifying the etiology to her pain. Cc: Dr. KRISTINA Darling M.D., F.A.C.S. Coding Level of Care Code Off vis,new,level 4 Diagnoses Personal history of colonic polyps Z86.010 01/03/18 1653 <Electronically signed by Negrito Darling MD> Date Negrito Darling MD Cosigner Signature: Date (if applicable) CC: Augusto Cardenas MD VITAMIN D,25 HYDROXY Collected: 11/18/2017 Status: F Source: [place] 2:39 PM [facility] REPOSITORY TYPE CODE TESTS RESULT OUT OF RANGE REFERENCE UNITS LAB L506.1000 29.95-100.01 ng/mL Normal Vitamin D 30.6 25-OH Result Comment: Vitamin D 25(OH) Status Range Deficiency <20 ng/mL (50nmol/L) Insuffciency 20 - 30 ng/mL (50 - 75 nmol/L) Sufficiency 30 - 100 ng/mL (75 - 250 nmol/L) Toxicity >100 ng/mL (>250 nmol/L) Performed By: #### L506.1000 #### [place] [facility] [address] [place], [address] SURGICAL PATHOLOGY Observed: 11/02/2017 Status: F Source: [place] 3:40 PM [facility] REPOSITORY Specimen originated from [facility] Specimen #: [id number] Submitting Physician: JOSUE ROLAND MD FINAL DIAGNOSIS Transverse colon polyp, biopsy - Fragments of tubular adenoma. IG/glw 11/03/2017 Guillermina Sheehan M.D., Ph.D. (Electronic Signature) SPECIMEN SUBMITTED A: TRANSVERSE COLON POLYP CLINICAL DATA HX OF POLYPS R/O ADENOMA GROSS DESCRIPTION A. Received in formalin are two pieces of rubio, soft tissue aggregating to 0.5 x 0.2 x 0.1 cm. Totally submitted in one cassette. Gross examination performed at [facility], [address] [place] [address] 11/03/2017 12:09:56 AM Date of Report: 11/03/2017 Date of Procedure: 11/02/2017 Date of Receipt: 11/02/2017 Submitted by: JOSUE ROLAND MD Location: [place] [address] Diagnostic interpretation performed at [place] [address]. CNPN Observed: 10/10/2017 Status: COMPLETED Source: [place] 12:00 AM [facility] REPOSITORY Telephone (GASTMN) MICHELLEMICAELA MUNOZ ([id number]) 1940 F CHT Date Time Provider Department 10/10/17 JOSUE ROLAND During your visit today, we recorded the following information about you: Padmini Salas Sec 10/10/2017 1:23 PM Signed Patient called stating that she is scheduled for both colonoscopy and EGD on 11/02/[address] Roland to know that she had a hip replacement in 2013, and MUST take Amoxillin 500 mg - 4 tablets 1 hour PRIOR to certain procedures only. Says she carries a card detailing this important information, and has confirmed with her Surgeons. They are adamant that she must take this only prior to procedures, including any type of dental work. Also, she would like to review the protocol instructions. I informed she could split the dosing due to her afternoon procedures. But questioning this, and getting confused because the instructions details something different. Can an RN call to discuss please? Please contact her at home/cell at [phone] (okay to leave a message) Note: She will be out of town stating Wed (10/12/17) until next Mon (10/17/17) Padmini Salas Sec 10/10/2017 3:28 PM Signed Lorna Canchola LPN ?You; Josue Roland 16 minutes ago (3:10 PM) ?Called Patient and advised her that is ok. ?She cannot take anything by mouth for 2 hours prior to the procedure. ?We can give her IV antibiotic when she gets here, if that is ok .Patient verbalized understanding and Patient was giving complete and full detail instructions for colonoscopy/EGD on 11/02/17 and gave her my phone number if she had any questions or concerns (Routing comment) Allergies As of Date: 10/10/2017 Noted Allergy Reaction EPINEPHRINE 09/26/2015 12 - Shortness of Breath 14 - Other: See Comments Comments: HEART RACING Increased BP, Trouble breathing Eythro [Other] 08/03/2002 5 - Intolerance Comments: hurts stomach Date Reviewed: 11/17/2016 Reviewed by: Amrita ([facility]) Thomas - Fully Assessed Reason for Visit: TCB [1226] Reason For Visit History Recorded Prescriptions as of 10/10/2017 Sig: CEPHALEXIN 500 MG CAPSULE TAMSULOSIN 0.4 MG CAPSULE Take 1 capsule by mouth once * ALPRAZOLAM 1 MG TABLET Take by mouth. OMEPRAZOLE 20 MG CAPSULE,KANDY* Take 1 capsule by mouth once * Patient taking differently: Take 40 mg by mouth once justice* AMOXICILLIN 500 MG CAPSULE Take 1 capsule by mouth PRN(N* DICYCLOMINE 20 MG TABLET Take 1 tablet by mouth three * BUDESONIDE DR - ER 3 MG CAPSU* Take 1 capsule by mouth once * METOPROLOL SUCCINATE ER 25 MG* Take 25 mg by mouth twice isra* ERGOCALCIFEROL (VITAMIN D2) 5* Take 50,000 Units by mouth on* ALIGN ORAL Take by mouth once daily. VITAMIN D-3 ORAL Take by mouth once daily. OTC PRODUCT as needed. Isaak Burnham wit* ALBUTEROL SULFATE HFA 90 MCG/* Inhale 2 Puffs as instructed * SYMBICORT INHALATION Inhale as instructed once da* METOPROLOL TARTRATE 25 MG TAB* Take 25 mg by mouth twice isra* LOSARTAN 100 MG TABLET Take 100 mg by mouth once isra* SIMVASTATIN 40 MG TABLET Take 40 mg by mouth daily at * PAROXETINE 10 MG TABLET Take 10 mg by mouth once justice* FERROUS SULFATE 325 MG (65 MG* Take one(1) tablet daily. ESTRACE 0.5 MG TABLET Take one(1) tablet daily. MIRALAX 17 GRAM/DOSE ORAL POW* as needed PAROXETINE ER 12.5 MG TABLET,* Take one(1) tablet daily. XANAX 0.25 MG TABLET Take one(1) tablet two(2) lucila* LIPITOR 20 MG TABLET Take one(1) tablet daily. NADOLOL 20 MG TABLET Take one(1) tablet daily. CALCIUM 600 + D(3) 600 MG-125* Take one(1) tablet two(2) lucila* Problem List As Of Date 10/10/2017 Noted Resolved ENTHESOPATHY OF HIP [M76.899] INVALID FOR* ABDOMINAL PAIN LLQ [R10.32] INVALID FOR* BENIGN NEOPLASM STOMACH [D13.1] INVALID FOR* ACUTE GASTRITIS W/O HEMORRHAGE [K29.00] INVALID FOR* Anemia [D64.9] INVALID FOR* Retention of urine [R33.9] INVALID FOR* UTI (urinary tract infection) [N39.0] INVALID FOR* Encounter Status:Closed by PADMINI COY on 10/10/17 YU Observed: 10/10/2017 Status: COMPLETED Source: [place] 12:00 AM [facility] REPOSITORY Telephone (GASTMN) MICAELA MARTINEZ ([id number]) 1940 F T Date Time Provider Department 10/10/17 JOSUE ROLAND GASTOR During your visit today, we recorded the following information about you: Lorna Patel Sushant KARISSA 10/10/2017 3:13 PM Signed Called Patient and advised her that is ok. She cannot take anything by mouth for 2 hours prior to the procedure. We can give her IV antibiotic when she gets here, if that is ok .Patient verbalized understanding and Patient was giving complete and full detail instructions for colonoscopy/EGD on 11/02/17 and gave her my phone number if she had any questions or concerns Padmini Calloway 10/26/2017 12:24 PM Signed Patient called again requesting to review the EGD and Colonoscopy (11-02-17) instructions again; doesn't remember what RN discussed with her last time. However, she does have the instructions which I mailed weeks prior, but she's still confused. Also, she wants to review what medications she can / cannot take in the am, which she takes daily in the am. Alprazolam Losartan Xanax AND Paxil (Nerves) Metoproplol Succinate Understands she can be given an IV for the Amoxicillin, but doesn't remember anything else. I again discussed the split dosing method; still confused. Please contact her at home/cell at [phone] (okay to leave a message) Padmini Calloway 10/27/2017 8:11 AM Signed Lorna Canchola LPN ?You; Josue Roland 17 hours ago (2:32 PM) Called Patient and discussed instructions for EGD/Colonoscopy procedures for the second time in full complete detail about medication and times taking prep and any other questions or concerns I had and she wanted to make sure we sent ?prep order to [facility]. ?Patient stated she will pickle pumper her prep at [facility] . Patient thanked me and verbalized understanding. (Routing comment) Allergies As of Date: 10/10/2017 Noted Allergy Reaction EPINEPHRINE 09/26/2015 12 - Shortness of Breath 14 - Other: See Comments Comments: HEART RACING Increased BP, Trouble breathing Eythro [Other] 08/03/2002 5 - Intolerance Comments: hurts stomach Date Reviewed: 11/17/2016 Reviewed by: Amrita ([facility]) Thomas - Fully Assessed Reason for Visit: procedure instructions [Other] Prescriptions as of 10/10/2017 Sig: CEPHALEXIN 500 MG CAPSULE TAMSULOSIN 0.4 MG CAPSULE Take 1 capsule by mouth once * ALPRAZOLAM 1 MG TABLET Take by mouth. OMEPRAZOLE 20 MG CAPSULE,KANDY* Take 1 capsule by mouth once * Patient taking differently: Take 40 mg by mouth once justice* AMOXICILLIN 500 MG CAPSULE Take 1 capsule by mouth PRN(N* DICYCLOMINE 20 MG TABLET Take 1 tablet by mouth three * BUDESONIDE DR - ER 3 MG CAPSU* Take 1 capsule by mouth once * METOPROLOL SUCCINATE ER 25 MG* Take 25 mg by mouth twice isra* ERGOCALCIFEROL (VITAMIN D2) 5* Take 50,000 Units by mouth on* ALIGN ORAL Take by mouth once daily. VITAMIN D-3 ORAL Take by mouth once daily. OTC PRODUCT as needed. Isaak lopez* ALBUTEROL SULFATE HFA 90 MCG/* Inhale 2 Puffs as instructed * SYMBICORT INHALATION Inhale as instructed once da* METOPROLOL TARTRATE 25 MG TAB* Take 25 mg by mouth twice isra* LOSARTAN 100 MG TABLET Take 100 mg by mouth once isra* SIMVASTATIN 40 MG TABLET Take 40 mg by mouth daily at * PAROXETINE 10 MG TABLET Take 10 mg by mouth once justice* FERROUS SULFATE 325 MG (65 MG* Take one(1) tablet daily. ESTRACE 0.5 MG TABLET Take one(1) tablet daily. MIRALAX 17 GRAM/DOSE ORAL POW* as needed PAROXETINE ER 12.5 MG TABLET,* Take one(1) tablet daily. XANAX 0.25 MG TABLET Take one(1) tablet two(2) lucila* LIPITOR 20 MG TABLET Take one(1) tablet daily. NADOLOL 20 MG TABLET Take one(1) tablet daily. CALCIUM 600 + D(3) 600 MG-125* Take one(1) tablet two(2) lucila* Problem List As Of Date 10/10/2017 Noted Resolved ENTHESOPATHY OF HIP [M76.899] INVALID FOR* ABDOMINAL PAIN LLQ [R10.32] INVALID FOR* BENIGN NEOPLASM STOMACH [D13.1] INVALID FOR* ACUTE GASTRITIS W/O HEMORRHAGE [K29.00] INVALID FOR* Anemia [D64.9] INVALID FOR* Retention of urine [R33.9] INVALID FOR* UTI (urinary tract infection) [N39.0] INVALID FOR* Encounter Status:Closed by LORNA WOODSON LPN on 10/10/17 Observed: 09/20/2017 Status: F Source: [place] CULTURE, URINE 4:08 PM [facility] REPOSITORY Urine Culture ORGANISM 1: Mixed Gram Pos AND Gram Neg Org [place] Count 11,000-25,000 MIX CULTURE Mixed contaminants. Submit a new specimen if indicated. Performed By: #### M100.0650 #### [facility] [address] [place], [address] CNNURSE Observed: 09/16/2017 Status: COMPLETED Source: [place] 10:00 AM [facility] REPOSITORY Nurse Visit (UROLAE) MICAELA MARTINEZ ([id number]) 1940 F CHT Date Time Provider Department 09/16/17 10:00 AM NURSE UROL EXCHANGE UROLAE During your visit today, we recorded the following information about you: Evans Salmeron, RN, RN 09/16/2017 10:12 AM Signed Patient is in today for a PVR. PVR result is 18ml of urine. Patient co lower pubic pain and pressure. CHIRAG Guzman advised. Patient to be straight cathed and urine culture sent to the lab. Patient refused the straight cath to get a urine sample for testing. Patient left office. Evans Salmeron RN Referring Provider: AUGUSTO CARDENAS [[id number]] Allergies As of Date: 09/16/2017 Noted Allergy Reaction EPINEPHRINE 09/26/2015 12 - Shortness of Breath 14 - Other: See Comments Comments: HEART RACING Increased BP, Trouble breathing Eythro [Other] 08/03/2002 5 - Intolerance Comments: hurts stomach Date Reviewed: 11/17/2016 Reviewed by: Amrita (Chirag) Thomas - Fully Assessed Reason for Visit: Post Void Residual [355] Primary Visit Diagnosis:Retention of urine, unspecified [R33.9] Prescriptions as of 09/16/2017 Sig: CEPHALEXIN 500 MG CAPSULE TAMSULOSIN 0.4 MG CAPSULE Take 1 capsule by mouth once * ALPRAZOLAM 1 MG TABLET Take by mouth. OMEPRAZOLE 20 MG CAPSULE,KANDY* Take 1 capsule by mouth once * Patient taking differently: Take 40 mg by mouth once justice* AMOXICILLIN 500 MG CAPSULE Take 1 capsule by mouth PRN(N* DICYCLOMINE 20 MG TABLET Take 1 tablet by mouth three * BUDESONIDE DR - ER 3 MG CAPSU* Take 1 capsule by mouth once * METOPROLOL SUCCINATE ER 25 MG* Take 25 mg by mouth twice isra* ERGOCALCIFEROL (VITAMIN D2) 5* Take 50,000 Units by mouth on* ALIGN ORAL Take by mouth once daily. VITAMIN D-3 ORAL Take by mouth once daily. OTC PRODUCT as needed. Isaak lopez* ALBUTEROL SULFATE HFA 90 MCG/* Inhale 2 Puffs as instructed * SYMBICORT INHALATION Inhale as instructed once da* METOPROLOL TARTRATE 25 MG TAB* Take 25 mg by mouth twice isra* LOSARTAN 100 MG TABLET Take 100 mg by mouth once isra* SIMVASTATIN 40 MG TABLET Take 40 mg by mouth daily at * PAROXETINE 10 MG TABLET Take 10 mg by mouth once justice* FERROUS SULFATE 325 MG (65 MG* Take one(1) tablet daily. ESTRACE 0.5 MG TABLET Take one(1) tablet daily. MIRALAX 17 GRAM/DOSE ORAL POW* as needed PAROXETINE ER 12.5 MG TABLET,* Take one(1) tablet daily. XANAX 0.25 MG TABLET Take one(1) tablet two(2) lucila* LIPITOR 20 MG TABLET Take one(1) tablet daily. NADOLOL 20 MG TABLET Take one(1) tablet daily. CALCIUM 600 + D(3) 600 MG-125* Take one(1) tablet two(2) lucila* Problem List As Of Date 09/16/2017 Noted Resolved ENTHESOPATHY OF HIP [M76.899] INVALID FOR* ABDOMINAL PAIN LLQ [R10.32] INVALID FOR* BENIGN NEOPLASM STOMACH [D13.1] INVALID FOR* ACUTE GASTRITIS W/O HEMORRHAGE [K29.00] INVALID FOR* Anemia [D64.9] INVALID FOR* Retention of urine [R33.9] INVALID FOR* UTI (urinary tract infection) [N39.0] INVALID FOR* Visit Notes: >> Evans (Dino) DINO Salmeron TueSep 16, 2017 10:01 AM Status: Signed Patient is in today for a PVR. PVR result is 18ml of urine. Patient co lower pubic pain and pressure. CHIRAG Guzman advised. Patient to be straight cathed and urine culture sent to the lab. Patient refused the straight cath to get a urine sample for testing. Patient left office. Evans Salmeron RN Encounter Status:Closed by EVANS SALMERON on 09/16/17 CBC-COMPLETE BLOOD CNT Collected: 09/08/2017 Status: F Source: [place] NO DIFF 1:49 PM [facility] REPOSITORY Order Comment: Order Date: 09/07/17 Order Info: [id number] - CBC TYPE CODE TESTS RESULT OUT OF RANGE REFERENCE UNITS LAB L100.1000 4.4-11.0 K/mm3 Normal WBC 9.2 LAB L100.1200 4.2-5.4 M/mm3 Normal RBC 4.72 LAB L100.1300 12.0-15.0 g/dl Normal HGB 13.3 LAB L100.1400 37-47 % Normal HCT 41.8 LAB L100.1500 81-99 fL Normal MCV 88.6 LAB L100.1600 27.0-32.0 pg Normal MCH 28.2 LAB L100.1700 32-36 g/gl Low MCHC 31.8 LAB L100.1810 11.6-14.6 % High RDW CV 14.7 LAB L100.1820 35.1-43.9 fl High RDW SD 47.7 LAB L100.1900 150-450 K/mm3 Normal PLT 282 LAB L100.2000 6.2-12.0 fl Normal MPV 11.4 Performed By: #### L100.0500, L500.4050, L501.9520, L506.1000 #### [facility] [address] [place], [address] COMPREHENSIVE METABOLIC Collected: 09/08/2017 Status: F Source: [facility] 1:49 PM [facility] REPOSITORY Order Comment: Order Date: 09/07/17 Order Info: [id number] - CMP Order Info: 3016-3 - TSH TYPE CODE TESTS RESULT OUT OF RANGE REFERENCE UNITS LAB L501.0100 74-106 mg/dL High GLU 109 Result Comment: Fasting Glucose result from 100 to 125 mg/dL suggests IMPAIRED HOMEOSTASIS per A.D.A. criteria. Please note revised GLUCOSE reference range effective 2017. LAB L501.1000 7-18 mg/dL High BUN 20 LAB L501.1100 0.55-1.02 mg/dL Normal CREAT,SERUM 0.87 Result Comment: The validity of the calculated GFR AND GFRAA in patients over 70 years has not been determined. Clinical correlation is essential. LAB L501.1110 >60 mL/min Normal EST GFR 67 Result Comment: Non- GFR Calc LAB L501.1115 >60 mL/min Normal EST GFR - AA 81 Result Comment: GFR Calc LAB L501.1300 10-20 RATIO High BUN/CRE 22.9 LAB L501.1500 6.4-8.2 g/dL T Normal PROT 7.2 LAB L501.1800 3.2-5.0 g/dL Normal ALB 3.4 LAB L501.1950 2.2-4.2 g/dL Normal GLOB 3.8 LAB L501.2000 0.9-2.4 RATIO Normal A/G 0.9 LAB L501.2200 8.5-10.1 mg/dL Low CA 8.4 LAB L501.4100 15-37 U/L Normal AST 16 LAB L501.4305 45-117 U/L Normal ALK P 67 LAB L501.4405 13-56 U/L Normal ALT 21 LAB L501.4600 0.20-1.00 mg/dL T Normal BILI 0.40 LAB L501.5300 136-145 mmol/L NA Normal 136 LAB L501.5600 3.5-5.1 mmol/L K Normal 3.6 LAB L501.5900 98-107 mmol/L CL Normal 103 LAB L501.6100 21.0-32.0 mmol/L Normal CO2 27.0 LAB L501.6200 5-15 Normal GAP 6 Performed By: #### L100.0500, L500.4050, L501.9520, L506.1000 #### [facility] [address] [place], [address] THYROID STIM HORMONE Collected: 09/08/2017 Status: F Source: [place] (TSH) 1:49 PM [facility] REPOSITORY Order Comment: Order Date: 09/07/17 Order Info: [id number] - CMP Order Info: 3016-3 - TSH TYPE CODE TESTS RESULT OUT OF RANGE REFERENCE UNITS LAB L501.9520 0.358-3.74 uIU/mL Normal TSH 1.03 Performed By: #### L100.0500, L500.4050, L501.9520, L506.1000 #### [facility] [address] [facility] [place], [address] VITAMIN D,25 HYDROXY Collected: 09/08/2017 Status: F Source: [place] 1:49 PM [facility] REPOSITORY Order Comment: Order Date: 09/07/17 Order Info: [id number] - VITD25 TYPE CODE TESTS RESULT OUT OF REFERENCE UNITS RANGE LAB L506.1000 29.95-100.01 ng/mL Low Vitamin D 15.6 25-OH Result Comment: Vitamin D 25(OH) Status Range Deficiency <20 ng/mL (50nmol/L) Insuffciency 20 - 30 ng/mL (50 - 75 nmol/L) Sufficiency 30 - 100 ng/mL (75 - 250 nmol/L) Toxicity >100 ng/mL (>250 nmol/L) Performed By: #### L100.0500, L500.4050, L501.9520, L506.1000 #### [facility] [address] [place], [address] CNPN Observed: 08/24/2017 Status: COMPLETED Source: [place] 12:00 AM [facility] REPOSITORY Telephone (GASTMN) MICAELA MARTINEZ ([id number]) 1940 F CHT Date Time Provider Department 08/24/17 JOSUE ROLAND GASTMN During your visit today, we recorded the following information about you: Padmini Calloway 08/24/2017 3:10 PM Signed Patient called stating that her EGD is next Tue (08/31/17). Does Dr. Roland recommend she still proceed with procedure? Please advise. Details Face had clamminess and sweats Found to have bronchitis Started and Finished on Z-tom Coughing BADLY X-ray showed she has Pneumonia Given Amoxicillin Taking Prednisone One week left of taking Dicyclomine 10 mg BID As of this Tuesday, dosing will be reduced to once daily Now she is up and about; coughing is diminishing Getting around slowly NO fever Still using her Asthma Inhalers Please contact her at home/cell at [phone] (okay to leave a message) Josue Roland MD 08/24/2017 3:18 PM Signed I would recommend delaying the procedure for a few weeks. She should see her PCP or sheet metal contractor prior to the procedure, to ensure that she is fully recovered from pneumonia/bronchitis and ok to be sedated safely Padmini Salas Sec 08/24/2017 3:46 PM Signed Called and relayed physician's below message to patient. She verbalized understanding. [facility] Allergies As of Date: 08/24/2017 Noted Allergy Reaction EPINEPHRINE 09/26/2015 12 - Shortness of Breath 14 - Other: See Comments Comments: HEART RACING Increased BP, Trouble breathing [place] [Other] 08/03/2002 5 - Intolerance Comments: hurts stomach Date Reviewed: 11/17/2016 Reviewed by: Amrita ([facility]) Thomas - Fully Assessed Reason for Visit: Cough [28] Prescriptions as of 08/24/2017 Sig: CEPHALEXIN 500 MG CAPSULE TAMSULOSIN 0.4 MG CAPSULE Take 1 capsule by mouth once * ALPRAZOLAM 1 MG TABLET Take by mouth. OMEPRAZOLE 20 MG CAPSULE,KANDY* Take 1 capsule by mouth once * Patient taking differently: Take 40 mg by mouth once justice* AMOXICILLIN 500 MG CAPSULE Take 1 capsule by mouth PRN(N* DICYCLOMINE 20 MG TABLET Take 1 tablet by mouth three * BUDESONIDE DR - ER 3 MG CAPSU* Take 1 capsule by mouth once * METOPROLOL SUCCINATE ER 25 MG* Take 25 mg by mouth twice isra* ERGOCALCIFEROL (VITAMIN D2) 5* Take 50,000 Units by mouth on* ALIGN ORAL Take by mouth once daily. VITAMIN D-3 ORAL Take by mouth once daily. OTC PRODUCT as needed. Isaak Burnham wit* ALBUTEROL SULFATE HFA 90 MCG/* Inhale 2 Puffs as instructed * SYMBICORT INHALATION Inhale as instructed once da* METOPROLOL TARTRATE 25 MG TAB* Take 25 mg by mouth twice isra* LOSARTAN 100 MG TABLET Take 100 mg by mouth once isra* SIMVASTATIN 40 MG TABLET Take 40 mg by mouth daily at * PAROXETINE 10 MG TABLET Take 10 mg by mouth once justice* FERROUS SULFATE 325 MG (65 MG* Take one(1) tablet daily. ESTRACE 0.5 MG TABLET Take one(1) tablet daily. MIRALAX 17 GRAM/DOSE ORAL POW* as needed PAROXETINE ER 12.5 MG TABLET,* Take one(1) tablet daily. XANAX 0.25 MG TABLET Take one(1) tablet two(2) lucila* LIPITOR 20 MG TABLET Take one(1) tablet daily. NADOLOL 20 MG TABLET Take one(1) tablet daily. CALCIUM 600 + D(3) 600 MG-125* Take one(1) tablet two(2) lucila* Problem List As Of Date 08/24/2017 Noted Resolved ENTHESOPATHY OF HIP [M76.459] INVALID FOR* ABDOMINAL PAIN LLQ [R10.32] INVALID FOR* BENIGN NEOPLASM STOMACH [D13.1] INVALID FOR* ACUTE GASTRITIS W/O HEMORRHAGE [K29.00] INVALID FOR* Anemia [D64.9] INVALID FOR* Retention of urine [R33.9] INVALID FOR* UTI (urinary tract infection) [N39.0] INVALID FOR* Encounter Status:Closed by JOSUE ROLAND MD on 08/24/17 CHEST PA AND LATERAL Observed: 08/19/2017 Status: F Source: [place] 1:16 PM [facility] REPOSITORY [facility] Imaging Services [address] [place] [address] Chest PA and Lateral MR#: [id number] Acct: [id number] Name: MICAELA MARTINEZ Rep #: [id number] : 1940 F 76 From: Ken Page MD PCP: Augusto Cardenas MD Status: REG CLI Study: Chest PA and Lateral Date of Exam: 08/19/17 Exam# [id number] Ordering Dr: Augusto Cardenas MD STUDY: X-RAY CHEST REASON FOR EXAM: Female, 76 years old. 3 week history of worsening cough. TECHNIQUE: PA and lateral views of the chest. COMPARISON: None. FINDINGS: Mild increased markings in the right middle lobe. This may represent early infiltrate. There is also thickening of the right minor fissure. Elevation of the right hemidiaphragm. There is no demonstrated pleural abnormality. Normal size heart. Normal mediastinum and justin. Normal visualized pulmonary arteries. There is atherosclerotic calcification of the aortic arch with tortuosity. There is demineralization of the osseous structures. Increased kyphosis. Loss of height of the lower dorsal vertebrae. Normal visualized ribs, clavicles, and shoulders. There is no demonstrated abnormality of the visualized soft tissue structures of the upper abdomen. RAD/Chest PA and Lateral IMPRESSION: Increased markings in the right middle lobe. Early infiltrate should be ruled out. Thickening of the right minor fissure. Radiographic follow-up is recommended. Electronically Signed: Ken Page MD at 13:37 EDT Tel [phone], Service support , CC: Augusto Cardenas MD Full Stack Web Developer: Signed RHEUMATOID FACTOR Collected: 08/08/2017 Status: F Source: [place] 11:33 AM [facility] [facility] Order Comment: Order Date: 07/12/17 Order Info: 65581-6 - RA TYPE CODE TESTS RESULT OUT OF RANGE REFERENCE UNITS LAB L505.7010 <15 IU/mL Normal RHEUMATOID FAC < 10.0 Performed By: #### L505.7010, L101.9900 #### [facility] [address] [place] [address], [address] #### L3100.5475 #### [facility] (refer to report for specific site) refer to report for address and phone number ERYTHROCYTE SED RATE Collected: 08/08/2017 Status: F Source: [place] 11:33 AM [facility] Order Comment: Order Date: 07/12/17 Order Info: 15355-8 - SED TYPE CODE TESTS RESULT OUT OF RANGE REFERENCE UNITS LAB L102.0000 0-30 mm/hr High SED RATE 35 Performed By: #### L505.7010, L101.9900 #### [facility] [address] [place] [address]. [place], [address] #### L3100.5475 #### [facility] (refer to report for specific site) refer to report for address and phone number ANTINUCLEAR ANTIBODIES Collected: 08/08/2017 Status: F Source: [place] DIRECT 11:33 AM [facility] Order Comment: Order Date: 07/12/17 Order Info: 0270-1 - ALEK TYPE CODE TESTS RESULT OUT OF RANGE REFERENCE UNITS LAB L3100.5475 Negative Normal Negative ALEK-DIRECT Result Comment: Performed at: - [facility] [id number] Backer Up: Eran Valencia PhD, Phone: [phone] Performed By: #### L505.7010, L101.9900 #### [facility] [address] [place], [place], [address] #### L3100.5475 #### [facility] (refer to report for specific site) refer to report for address and phone number VITAMIN D,25 HYDROXY Collected: 07/04/2017 Status: F Source: [place] 2:43 PM [facility] Order Comment: Order Date: 07/04/17 Order Info: 67329-0 - VITD25 TYPE CODE TESTS RESULT OUT OF REFERENCE UNITS RANGE LAB L506.1000 29.95-100.01 ng/mL Low Vitamin D 23.8 25-OH Result Comment: Vitamin D 25(OH) Status Range Deficiency <20 ng/mL (50nmol/L) Insuffciency 20 - 30 ng/mL (50 - 75 nmol/L) Sufficiency 30 - 100 ng/mL (75 - 250 nmol/L) Toxicity >100 ng/mL (>250 nmol/L) Performed By: #### L506.1000, L500.4050, L501.9520, L100.0100 #### [facility] [address] [place], [address] COMPREHENSIVE METABOLIC Collected: 07/04/2017 Status: F Source: [facility] 2:43 PM [facility] Order Comment: Order Date: 07/04/17 Order Info: 0786-1 - CMP Order Info: 3016-3 - TSH TYPE CODE TESTS RESULT OUT OF RANGE REFERENCE UNITS LAB L501.0100 74-106 mg/dL Normal GLU 98 Result Comment: Please note revised GLUCOSE reference range effective 2017. LAB L501.1000 7-18 mg/dL Normal BUN 15 LAB L501.1100 0.55-1.02 mg/dL Normal CREAT,SERUM 0.87 Result Comment: The validity of the calculated GFR AND GFRAA in patients over 70 years has not been determined. Clinical correlation is essential. LAB L501.1110 >60 mL/min Normal EST GFR 67 Result Comment: Non- GFR Calc LAB L501.1115 >60 mL/min Normal EST GFR - AA 81 Result Comment: GFR Calc LAB L501.1300 10-20 RATIO Normal BUN/CRE 17.2 LAB L501.1500 6.4-8.2 g/dL T Normal PROT 7.6 LAB L501.1800 3.2-5.0 g/dL Normal ALB 3.6 LAB L501.1950 2.2-4.2 g/dL Normal GLOB 4.0 LAB L501.2000 0.9-2.4 RATIO Normal A/G 0.9 LAB L501.2200 8.5-10.1 mg/dL CA Normal 8.7 LAB L501.4100 15-37 U/L Normal AST 24 LAB L501.4305 45-117 U/L Normal ALK P 93 LAB L501.4405 13-56 U/L Normal ALT 22 LAB L501.4600 0.20-1.00 mg/dL T Normal BILI 0.40 LAB L501.5300 136-145 mmol/L NA Normal 141 LAB L501.5600 3.5-5.1 mmol/L K Normal 3.8 LAB L501.5900 98-107 mmol/L CL Normal 107 LAB L501.6100 21.0-32.0 mmol/L Normal CO2 26.0 LAB L501.6200 5-15 Normal GAP 8 Performed By: #### L506.1000, L500.4050, L501.9520, L100.0100 #### [facility] [address] [place], [address] THYROID STIM HORMONE Collected: 07/04/2017 Status: F Source: [place] (TSH) 2:43 PM [facility] Order Comment: Order Date: 07/04/17 Order Info: 0786-1 - CMP Order Info: 3016-3 - TSH TYPE CODE TESTS RESULT OUT OF RANGE REFERENCE UNITS LAB L501.9520 0.358-3.74 uIU/mL Normal TSH 1.12 Performed By: #### L506.1000, L500.4050, L501.9520, L100.0100 #### [facility] [address] [place], [address] CBC W/DIFF, AUTOMATED Collected: 07/04/2017 Status: F Source: [place] 2:43 PM [facility] Order Comment: Order Date: 07/04/17 Order Info: 0184-1 - CBCD TYPE CODE TESTS RESULT OUT OF RANGE REFERENCE UNITS LAB L100.1000 4.4-11.0 K/mm3 Normal WBC 8.4 LAB L100.1200 4.2-5.4 M/mm3 Normal RBC 4.96 LAB L100.1300 12.0-15.0 g/dl Normal HGB 14.2 LAB L100.1400 37-47 % Normal HCT 43.8 LAB L100.1500 81-99 fL Normal MCV 88.3 LAB L100.1600 27.0-32.0 pg Normal MCH 28.6 LAB L100.1700 32-36 g/gl Normal MCHC 32.4 LAB L100.1810 11.6-14.6 % Normal RDW CV 13.6 LAB L100.1820 35.1-43.9 fl Normal RDW SD 43.6 LAB L100.1900 150-450 K/mm3 Normal PLT 284 LAB L100.2000 6.2-12.0 fl Normal MPV 11.4 LAB L100.2100 47-70 % Normal NEUT% 59.0 LAB L100.2200 19-41 % Normal LY% 29.9 LAB L100.2300 0-10 % Normal MONO% 7.8 LAB L100.2400 0-5 % Normal EO% 2.4 LAB L100.2500 0-1 % Normal BASO% 0.5 LAB L100.2550 0.0-0.9 % Normal IM GRAN % 0.400 Result Comment: IG% - Immature Granulocytes (promyelocytes, myelocytes and metamyelocytes) > 1% indicates that a LEFT SHIFT is Present. LAB L100.2620 2.0-7.7 X10 3/uL Normal Absolute Neut 4.9 LAB L100.2720 0.83-4.51 X10 3/ul Normal Absolute Lymph 2.50 Performed By: #### L506.1000, L500.4050, L501.9520, L100.0100 #### [facility] [address] [place], [address] ERYTHROCYTE SED RATE Collected: 07/04/2017 Status: F Source: [place] 2:43 PM [facility] Order Comment: Order Date: 07/04/17 Order Info: 0184-1 - CBCD TYPE CODE TESTS RESULT OUT OF RANGE REFERENCE UNITS LAB L102.0000 0-30 mm/hr High SED RATE 36 Performed By: #### L101.9900 #### [facility] [address] [place], [address] CRP Collected: 07/04/2017 Status: F Source: [place] 2:43 PM [facility] Order Comment: Order Date: 07/04/17 Order Info: 0786-1 - CMP Order Info: 3016-3 - TSH TYPE CODE TESTS RESULT OUT OF RANGE REFERENCE UNITS LAB L501.6710 0.0-3.0 mg/L High 3.19 C-REACTIVE PROT Result Comment: C-Reactive Protein (CRP) provides useful information for the diagnosis, therapy and monitoring of inflammatory processes and associated diseases. For the evaluation of Relative Risk for Cardiovascular Disease, a High Sensitivity CRP (HSCRP) should be ordered. Performed By: #### L501.6710 #### [facility] [address] [place], [address] ALLERGIES ALLERGIES DATE TYPE / CODE NAME / CODE REACTION SEVERITY SOURCE Drug prednisone/F0060 HEART RACES Unknown [place] [facility] Allergy/117813131( 21958(RXNORM) Community SNOMED CT) Hospital Repository Drug epinephrine/F006 Anaphylaxis SV [place] 8 Allergy/068319716( 576056(RXNORM) Community SNOMED CT) Hospital Repository Drug pseudoephedrine/ Chest tightness MO [place] 8 Allergy/286606017( [id number](RXNOR Community SNOMED CT) ) Hospital Repository DRUG EPINEPHRINE SHORTNESS OF [place] 6 INGREDI/735782083( Clinic Other SNOMED CT) [place] [facility] DRUG/325605477(SNO HYDROCODONE-PSEU OTHER: SEE C [place] [address]) DOEPHED-GUAIF Clinic Other [place] [facility] DRUG PREDNISONE OTHER: SEE C [place] [facility] INGREDI/979242715( Clinic Other SNOMED CT) [place] [facility] Miscellaneous OTHER INTOLERANCE [facility] 3 Allergy/936624101( Clinic Other SNOMED CT) [place] [facility] Drug SULFA RASH Low [place] 3 Class/543815918(SN (SULFONAMIDE Clinic Other OMED CT) ANTIBIOTICS) [place] [facility] NG/095565377(SNOME EPINEPHRINE [facility] D [facility]) [facility] Repository NG/994620346(SNOME OTHER [facility] D [facility]) [facility] Repository NG/413414716(SNOME HYDROCODONE-PSEU [facility] D CT) [facility] Repository NG/536050849(SNOME PREDNISONE [facility] D CT) Health System Repository NG/509929623(SNOME SULFA [facility] D CT) (SULFONAMIDE Health System ANTIBIOTICS) Repository ENCOUNTERS ENCOUNTERS ADMIT/DISCHARGE ACCOUNT NUMBER ADMITTING ENCOUNTER LOCATION SOURCE CLASS 03/01/2018 [id number] Ambulatory [facility] ding:MFPLAB Repository 02/07/2018 [id number] [facility] ding:OPBI Repository 01/17/2018/01/18/20 [id number] Ambulatory [address] ding:ENRoom: Repository AC17 01/17/2018/01/18/20 [id number] Ambulatory BMSBuilding: [place] 18 [facility] Repository 01/03/2018/01/04/20 [id number] Ambulatory BMSBuilding: [place] 18 [facility] Repository 11/18/2017 [id number] [facility] ding:MFPLAB Repository 11/02/2017/11/03/19 [id number] Ambulatory [address] Main [place] [facility] 11/02/2017/11/03/19 [id number] Ambulatory [address] [facility] [place] [facility] 09/20/2017 [id number] Ambulatory [facility] ding:LABSPEC Repository 09/16/2017/09/17/19 [id number] Ambulatory [address] Other [place] Rep[facility] 09/16/2017/09/17/19 [id number] Ambulatory [address] System MEDICAL Repository CENTERBuildi ng:URAE 09/08/2017 [id number] Ambulatory [facility] ding:MFPLAB Repository 08/19/2017 [id number] [facility] ding:MTRAD Repository 08/08/2017 [id number] [facility] ding:MFPLAB Repository 07/04/2017 [id number] [facility] ding:MFPLAB Repository PAYERS PAYERS ENCOUNTER GUARANTOR PAYER SUBSCRIBER SOURCE 03/01/2018 MICEALA E Primary MICAELA E [place] [id number] Insurance:HUMANA CATALANODOB: Community [place] [employer] [facility] [id number] Number: Repository [address]Jdu: 330 [id number] [phone] (HP) Date:9528-61-37NI [address] [address]AT: 03/01/2018 Secondary NOT GIVENUNK [place] Insurance:SELF PAY [facility] Number: Effective Repository Date:2018-03-01 02/07/2018 MICAELA E Primary MICAELA E [place] [id number] Insurance:HUMANA CATALANODOB: Community [employer] [employer] [facility] [id number] Number: Repository [address]Zbu: 330 [id number] [phone] (HP) Date:3442-23-11VN [address] [address]SK: 02/07/2018 Secondary NOT GIVENUNK [place] Insurance:SELF PAY [facility] Number: Effective Repository Date:2018-01-20 01/17/2018 MICAELA E Primary MICAELA E [place] [id number] Insurance:HUMANA CATALANODOB: Community [employer] [employer] [facility] [id number] Number: Repository [address]Fsu: 330 [id number] [phone] (HP) Date:3288-36-21LS [address] [address]FN: 01/17/2018 Secondary NOT GIVENUNK [place] Insurance:SELF PAY [facility] Number: Effective Repository Date:2018-01-04 01/17/2018 MICAELA E Primary MICAELA E [place] [id number] Insurance:HUMANA CATALANODOB: Community [employer] [employer] [facility] [id number] Number: Repository [address]Vzp: 330 [id number] [phone] (HP) Date:3398-95-14CR[address]4601WP: 01/17/2018 Secondary NOT GIVENUNK [place] Insurance:SELF PAY [facility] Number: Effective Repository Date:2018-01-17 01/03/2018 MICAELA E Primary MICAELA E [place] [id number] Insurance:HUMANA CATALANODOB: Community [employer] [employer] [facility] [id number] [place] Number: Repository [address]Rfk: 330 [id number] [phone] (HP) Date:5992-24-37GV[address]4601WP: 01/03/2018 Secondary NOT GIVENUNK [place] Insurance:SELF PAY [facility] Number: Effective Repository Date:2018-01-03 11/18/2017 MICAELA E Primary MICAELA E [place] [id number] Insurance:HUMANA CATALANODOB: Community [employer] [employer] [facility] [id number] [facility] [place] Number: Repository [address]Iza: (330 [id number] [phone] (HP) Date:5825-38-44TZ [place] [id number]: 11/18/2017 Secondary NOT GIVENUNK [place] Insurance:SELF PAY [facility] Number: Effective Repository Date:2017-11-18 09/20/2017 MICAELA E Primary MICAELA E [place] [id number] Insurance:HUMANA CATALANODOB: Community [employer] [employer] [facility] [id number] [facility] [place] Number: Repository [address]Aau: 330 [id number] [phone] (HP) Date:8529-31-89EF [address] [place] [address]QD: 09/20/2017 Secondary NOT GIVENUNK [place] Insurance:SELF PAY [facility] Number: Effective Repository Date:2017-09-20 09/16/2017 MICAELA Primary MICAELA [facility] CATALANODOB: Insurance:HUMANA CATALANODOB: [facility] [id number] Repository [place] Number: [place], [place] [id number]: (330) Date: [phone] (HP) 09/08/2017 MICAELA E Primary MICAELA E [place] [id number] Insurance:HUMANA CATALANODOB: Community [employer] [employer] [facility] [id number], [place] Number: Repository [address]Bqe: (330) [id number] [phone] (HP) Date:6686-50-17TH [address] [address]FE: 09/08/2017 Secondary NOT GIVENUNK [place] Insurance:SELF PAY [facility] Number: Effective Repository Date:2017-09-08 08/19/2017 MICAELA E Primary MICAELA E [place] [id number] Insurance:HUMANA CATALANODOB: Community [employer] [employer] [facility] [id number], [place] Number: Repository [id number]: (330) [id number] [phone] (HP) Date:7622-81-92TZ [address] [address]JU: 08/19/2017 Secondary NOT GIVENUNK [place] Insurance:SELF PAY [facility] Number: Effective Repository Date:2017-08-19 08/08/2017 MICAELA E Primary MICAELA E [place] [id number] Insurance:HUMANA CATALANODOB: Community [employer] [employer] [facility] [id number], [place] Number: Repository [address]Xmt: (330 [id number] [phone] () Date:7014-63-03DU [address] [place] [address]FE: 08/08/2017 Secondary NOT GIVENUNK [place] Insurance:SELF PAY [facility] Number: Effective Repository Date:2017-08-08 07/04/2017 MICAELA E Primary MICAELA [id number] Insurance:HUMANA CATALALEXANDERDOB: Community [place] [employer] [facility] [id number], [place] Number: Repository [address]Uvz: 330 [id number] [phone] () Date:9665-20-33WM [address] [place] [address]QH: 07/04/2017 Secondary NOT GIVENUNK [place] Insurance:SELF PAY [facility] Number: Effective Repository Date:2017-07-04
== END ==
PROVIDERS: Family Provider Family Medicine; PCP Family Medicine; Visit Provider Family Medicine
DX: R53.81 Other malaise (principal)
CPT/HCPCS: 36415; 80048; 82306; 84443; 85025

== ENCOUNTER → 2018-08-08 12:57 | Outpatient (CLI) | payer MEDICARE, SELFPAY ==
--- NOTE | 2018-08-08 13:03 | CDU_ITS ---
Reason For Study: CAD Rt. Velocities/BP Lt. Velocities/BP Prox CCA 54.2/9.1 cm/sec. Prox CCA 55/6.9 cm/sec. Mid CCA 55.3/10.2 cm/sec. Mid CCA 52.2/9.7 cm/sec. Dist CCA 41.9/9.7 cm/sec. Dist CCA 54.1/13.5 cm/sec. Prox ICA 67.4/20.1 cm/sec. Prox ICA 45.6/9.7 cm/sec. Mid ICA 74/17.3 cm/sec. Mid ICA 59.8/15.4 cm/sec. Dist ICA 76.8/19.2 cm/sec. Dist ICA 90.9/19.2 cm/sec. Rt. ICA/CCA = 1.4. Lt. ICA/CCA = 1.7. Prox ECA 77.8/4.1 cm/sec. Prox ECA 94.7/6.9 cm/sec. Rt. Vert. 54.1/11.6 cm/sec. Lt. Vert. 43.9/12.5 cm/sec. Right Extracranial There is homogeneous, smooth atherosclerotic plaque noted in the right common carotid artery. There is heterogeneous, smooth atherosclerotic plaque noted in the right internal carotid artery. There is intimal thickening but no significant atherosclerotic plaque noted in the right external carotid artery. Antegrade flow is noted in the right vertebral artery. Left Extracranial There is homogeneous, smooth atherosclerotic plaque noted in the left common carotid artery. There is heterogeneous, irregular atherosclerotic plaque noted in the left internal carotid artery. There is intimal thickening but no significant atherosclerotic plaque noted in the left external carotid artery. Antegrade flow is noted in the left vertebral artery. Procedure Carotid Duplex [id number]. Exam performed in department. Interpretation Summary Mild (<50%) stenosis right extracranial internal carotid. Mild (<50%) stenosis left extracranial internal carotid. Flow within the vertebral arteries is antegrade bilaterally. Ordering Physician: Demario Madrigal Referring Physician: Demario Madrigal Performed By: Katie Reid RVT
== END ==
PROVIDERS: Family Provider Family Medicine; PCP Family Medicine; Referring Provider Family Medicine; Visit Provider Family Medicine
DX: I65.23 Occlusion and stenosis of bilateral carotid arteries (principal); I77.9 Disorder of arteries and arterioles, unspecified
CPT/HCPCS: 93880

== ENCOUNTER → 2018-10-18 09:36 | Outpatient (CLI) | payer MEDICARE, SELFPAY ==
[2018-10-18 12:48] LABS: Vitamin D,25 Hydroxy 14.7 ng/mL (29.95-100.01)
[2018-10-18 12:52] LABS: Anion Gap 8 (5-15); BUN 13 mg/dL (7-18); BUN/Creat Ratio 16.1 RATIO (10-20); Chloride 103 mmol/L (98-107); Cholesterol 296 mg/dL (200); Creatinine, Serum 0.81 mg/dL (0.55-1.02); EST Glomerular Filtration Rate 73 mL/min (>60); Est Glom Filt Rate - Afr Amer 88 mL/min (>60); Glucose 82 mg/dL (74-106); High Density Lipoprotein 55 mg/dL; Sodium Level 139 mmol/L (136-145); Triglycerides 334 mg/dL; Very Low Density Lipoprotein 67 mg/dL (5-40)
== END ==
PROVIDERS: Family Provider Family Medicine; PCP Family Medicine; Referring Provider Family Medicine; Visit Provider Family Medicine
DX: E78.00 Pure hypercholesterolemia, unspecified (principal); D50.9 Iron deficiency anemia, unspecified; I10 Essential (primary) hypertension; E55.9 Vitamin D deficiency, unspecified
CPT/HCPCS: 36415; 80048; 80061; 82306

== ENCOUNTER → 2019-01-04 14:24 | Outpatient (CLI) | payer MEDICARE, SELFPAY ==
[2019-01-04 15:07] LABS: Mucous, Urine 0 SEEN /hpf (<or=2+)
[2019-01-04 15:21] LABS: Color, Urine Yellow (Yellow); Glucose, Dipstick Normal (Normal); Ketone-Dipstick Negative (Negative); Leukocyte Esterase-Dipstick 500 /ul (Negative); Nitrite-Dipstick Positive (Negative); Occult Blood-Urine Negative /ul (Negative); Protein-Dipstick Negative (Negative); Specific Gravity, Urine 1.015 (1.002-1.030); Urine Bilirubin Dipstick Negative (Negative); Urine Clarity Clear (Clear); Urine Urobilinogen Normal (Normal)
[2019-01-04 15:29] LABS: Red Blood Cells-Urine 0-5 SEEN /hpf (0-5); Renal Epithelial Cells 0-5 SEEN /hpf (0-5); Squamous Epithelial Cells - UA 0-5 SEEN /hpf (5-10); White Blood Cells 10-25 SEEN /hpf (0-5)
[2019-01-04 15:30] LABS: Bacteria 2+ /hpf (None Seen)
== END ==
PROVIDERS: Family Provider Family Medicine; PCP Family Medicine; Referring Provider Obstetrics & Gynecology; Visit Provider Obstetrics & Gynecology
DX: N39.0 Urinary tract infection, site not specified (principal)
CPT/HCPCS: 81001; 87077; 87086; 87088; 87186

== ENCOUNTER → 2019-02-08 14:30 | Outpatient (CLI) | payer MEDICARE, SELFPAY ==
--- NOTE | 2019-02-08 14:33 | BI_ITS ---
MAMMOGRAPHY - BILATERAL SCREENING REASON FOR EXAM: Female, 78 years old. Routine annual screening examination. PERTINENT HISTORY: Mother with breast cancer. Remote left excisional breast biopsy. TECHNIQUE: Digital bilateral breast stacey (3D mammographic acquisition) in the CC and MLO projections. 2-D mediolateral oblique (MLO) and craniocaudad (CC) views of both breasts were obtained. CAD: Full Field Digital Mammography with Computer Added Detection was performed. COMPARISON: Comparison is made with prior study of February 07, 2018 and July 09, 2016. FINDINGS: Breast Composition: There are scattered areas of fibroglandular density. There are no dominant masses or suspicious calcifications. Stable benign-appearing bilateral axillary lymph nodes. No other significant abnormalities are identified. There has been no significant change since the prior study. BI/SCREEN MAMM (CAD) W/STACEY BILAT IMPRESSION: Stable bilateral screening mammogram. Yearly follow-up mammogram recommended. (A) ASSESSMENT CATEGORY: BIRADS Category 2: Benign. A letter regarding these results will be sent to the patient by the facility within 30 days. Approximately 10% of breast cancers are not detected by mammography. A normal mammogram should not delay biopsy of a clinically suspicious abnormality. [id number] Electronically Signed: Ken Page, at 8:32 EST , Service support ,
== END ==
PROVIDERS: Family Provider Family Medicine; PCP Family Medicine; Referring Provider Obstetrics & Gynecology; Visit Provider Obstetrics & Gynecology
DX: Z12.31 Encounter for screening mammogram for malignant neoplasm of breast (principal); Z80.3 Family history of malignant neoplasm of breast
CPT/HCPCS: 77063; 77067

== ENCOUNTER → 2019-02-20 15:14 | Outpatient (CLI) | payer MEDICARE, SELFPAY ==
[2019-02-21 12:28] LABS: Vitamin D,25 Hydroxy 38.6 ng/mL (29.95-100.01)
[2019-02-22 20:07] LABS: Endomysial Antibody IgA Negative (Negative)
[2019-02-23 15:37] LABS: Immunoglobulin A 261 mg/dL (64-422); t-Transglutaminase IgA <2 U/mL (0-3)
== END ==
PROVIDERS: Family Provider Family Medicine; PCP Family Medicine; Visit Provider Family Medicine
DX: K52.831 Collagenous colitis (principal); E55.9 Vitamin D deficiency, unspecified
CPT/HCPCS: 36415; 82306; 82784; 83516; 86255

== ENCOUNTER → 2019-03-29 09:46 | Outpatient (CLI) | payer MEDICARE, SELFPAY ==
[2019-03-29 12:45] LABS: AST(SGOT) 21 U/L (15-37); Alanine Aminotransfer ALT/SGPT 24 U/L (13-56); Albumin, Serum 3.8 g/dL (3.2-5.0); Alkaline Phosphatase 75 U/L (45-117); Anion Gap 5 (5-15); BUN 13 mg/dL (7-18); BUN/Creat Ratio 14.4 RATIO (10-20); Chloride 105 mmol/L (98-107); Cholesterol 187 mg/dL (200); EST Glomerular Filtration Rate 64 mL/min (>60); Est Glom Filt Rate - Afr Amer 78 mL/min (>60); Glucose 88 mg/dL (74-106); High Density Lipoprotein 61 mg/dL; Potassium 3.5 mmol/L (3.5-5.1); Protein, Total 7.8 g/dL (6.4-8.2); Sodium Level 139 mmol/L (136-145); Triglycerides 151 mg/dL; Very Low Density Lipoprotein 30 mg/dL (5-40)
[2019-03-29 12:52] LABS: Absolute Lymphocyte Count 2.99 X10^3/uL (0.83-4.51); Absolute Neutrophil Count 4.6 X10^3/uL (2.0-7.7); Basophil# 0.08 X10^3/uL; Basophil% 0.9 % (0-1); Eosinophil# 0.23 X10^3/uL; Eosinophils% 2.7 % (0-5); Hematocrit 42.3 % (37-47); Hemoglobin 13.5 g/dL (12.0-15.0); Lymphocyte # 2.99 X10^3/ul (4.0); Lymphocyte % 34.9 % (19-41); Mean Corp Hgb Conc 31.9 g/dL (32-36); Mean Corpuscular Hgb 28.7 pg (27.0-32.0); Mean Corpuscular Volume 89.8 fL (81-99); Mean Platelet Vol. 11.5 fl (6.2-12.0); Monocyte# 0.66 X10^3/uL; Monocyte% 7.7 % (0-10); NRBC Flagged by Analyzer 0 % (0-5); Neutrophil # 4.58 X10^3/uL (2.7-7.7); Neutrophil % 53.6 % (47-70); Platelet Count 301 K/mm3 (150-450); RBC Distribution Width CV 12.9 % (11.6-14.6); RBC Distribution Width SD 42.2 fl (35.1-43.9); Red Blood Count 4.71 M/mm3 (4.2-5.4); White Blood Count 8.6 K/mm3 (4.4-11.0)
== END ==
PROVIDERS: Family Provider Family Medicine; PCP Family Medicine; Visit Provider Family Medicine
DX: E78.5 Hyperlipidemia, unspecified (principal); I10 Essential (primary) hypertension; K52.831 Collagenous colitis
CPT/HCPCS: 36415; 80053; 80061; 85025

== ENCOUNTER → 2019-12-28 11:04 | Outpatient (CLI) | payer MEDICARE, SELFPAY ==
[2019-12-28 12:17] LABS: Absolute Lymphocyte Count 2.85 X10^3/uL (0.83-4.51); Absolute Neutrophil Count 4.1 X10^3/uL (2.0-7.7); Basophil# 0.07 X10^3/uL; Basophil% 0.9 % (0-1); Eosinophil# 0.22 X10^3/uL; Eosinophils% 2.8 % (0-5); Hematocrit 44.6 % (37-47); Hemoglobin 13.7 g/dL (12.0-15.0); Lymphocyte # 2.85 X10^3/ul (4.0); Lymphocyte % 36.2 % (19-41); Mean Corp Hgb Conc 30.7 g/dL (32-36); Mean Corpuscular Hgb 27.6 pg (27.0-32.0); Mean Corpuscular Volume 89.9 fL (81-99); Mean Platelet Vol. 11.3 fl (6.2-12.0); Monocyte# 0.61 X10^3/uL; Monocyte% 7.7 % (0-10); NRBC Flagged by Analyzer 0 % (0-5); Neutrophil # 4.08 X10^3/uL (2.7-7.7); Neutrophil % 51.8 % (47-70); Platelet Count 331 K/mm3 (150-450); RBC Distribution Width CV 13.1 % (11.6-14.6); RBC Distribution Width SD 42.9 fl (35.1-43.9); Red Blood Count 4.96 M/mm3 (4.2-5.4); White Blood Count 7.9 K/mm3 (4.4-11.0)
[2019-12-28 12:51] LABS: AST(SGOT) 20 U/L (15-37); Alanine Aminotransfer ALT/SGPT 17 U/L (13-56); Albumin, Serum 3.8 g/dL (3.2-5.0); Alkaline Phosphatase 77 U/L (45-117); Anion Gap 6 (5-15); BUN 20 mg/dL (7-18); BUN/Creat Ratio 22.4 RATIO (10-20); Calcium,Total 8.7 mg/dL (8.5-10.1); Chloride 101 mmol/L (98-107); Cholesterol 321 mg/dL (200); Creatinine, Serum 0.89 mg/dL (0.55-1.02); EST Glomerular Filtration Rate 65 mL/min (>60); Est Glom Filt Rate - Afr Amer 79 mL/min (>60); Glucose 91 mg/dL (74-106); High Density Lipoprotein 58 mg/dL; Potassium 3.9 mmol/L (3.5-5.1); Protein, Total 7.8 g/dL (6.4-8.2); Sodium Level 136 mmol/L (136-145); Triglycerides 231 mg/dL; Very Low Density Lipoprotein 46 mg/dL (5-40)
[2019-12-28 12:55] LABS: Vitamin D,25 Hydroxy 21.2 ng/mL
== END ==
PROVIDERS: PCP Family Medicine; Visit Provider Family Medicine
DX: I10 Essential (primary) hypertension (principal); E78.5 Hyperlipidemia, unspecified; E55.9 Vitamin D deficiency, unspecified
CPT/HCPCS: 36415; 80053; 80061; 82306; 85025

== ENCOUNTER 2020-03-13 17:35 | Emergency (ER) | payer MEDICARE, SELFPAY ==
[2020-03-13 17:36] VITALS: BP 187/89; PULSE 64; RESP 15; TEMP 36.2; O2SAT 97; BMI 31.8
--- NOTE | 2020-03-13 17:59 | ED.DCSUM_ITS ---
History of Present Illness Chief Complaint: Numb/Ting Narrative: Patient is a 79-year-old female who presents with a change in sensation in her right arm and face. Initially about 2 weeks ago she developed a sinusitis-like illness with sinus congestion pressure rhinorrhea. She had associated vertigo with this. She was managing her symptoms at home and seems to improve. However she states symptoms began to return yesterday. She contacted her physician who called in an antibiotic. She had not mention at that time that yesterday she also had an episode lasting a few minutes of change in sensation in her right arm and face. She states it felt like a fluttering as if it wanted to go numb and that it just did not feel right. She called her physician back to mention this today and she advised her to take an aspirin but if it recurred to seek evaluation in the emergency department. She had 2 further episodes today. No chest pain no difficulty breathing. No vomiting or diarrhea. No history of prior TIA or stroke. Past Medical History - Allergies and Home Meds Allergies/Adverse Reactions: Allergies epinephrine Allergy (Severe, Verified 03/13/20 17:38) Anaphylaxis pseudoephedrine [From Sudafed] Allergy (Intermediate, Verified 03/13/20 17:38) Chest tightness prednisone Adverse Reaction (Verified 03/13/20 17:38) heart races Primary Care Physician: Jennifer Monzon MD [Primary Care Provider] - Past Medical History: - - Hypertension Smoking Status: Former smoker Review of Systems All systems negative except as indicated General: Denies: Fever Eyes: Denies: Visual changes - bilaterally ENT: Reports: Rhinorrhea, - - Sinus congestion. Denies: Bilateral ear pain Cardiovascular: Denies: Chest pain Respiratory: Denies: Dyspnea Gastrointestinal: Denies: Nausea, Vomiting Musculoskeletal: Denies: Myalgias, Arthralgias Skin: Denies: Rash Neurological: Reports: - - Dizziness/vertigo. Denies: Headache Hematologic: Denies: Easy bruising Allergy: Denies: Uticaria Physical Exam Vital Signs/Narrative: Vital Signs Temp Pulse Resp BP Pulse Ox 03/13/20 17:36 97.2 F L 64 15 187/89 H 97 Inital Vital Signs reviewed: Yes General: Well nourished, Well developed Head: Normocephalic Eyes: EOMI ENT: Moist mucous membranes Neck: Supple Cardiovascular: Regular rate, Regular rhythm Respiratory: No distress, CTA bilaterally Abdomen: Soft, Nontender Skin: Normal color Neurological: Alert, Oriented x3, - - NIH stroke scale equals 0 normal strength normal sensation clear speech Psychological: Normal affect Diagnostic/Tx/Re-eval Impressions Chest X-Ray 03/13/20 18:43 IMPRESSION: No acute cardiopulmonary process. Electronically Signed: Renata Cisse MD at 19:18 EST Tel , Service support , Head/Neck CTA 03/13/20 18:48 IMPRESSION: Minimal bilateral atherosclerosis with no hemodynamically significant stenosis. Small vessel ischemia. Electronically Signed: Renata Cisse MD at 19:10 EST Tel , Service support , 03/13/20 18:43 CXR [Chest 1 View (Portable)] [RAD] Stat 03/13/20 18:48 CTA Head AND Neck W/ Contrast [CT] Stat 03/13/20 18:03 Mucosa - Nose SARS-CoV-2 Antigen (Rapid) - Final Laboratory Results 03/13/20 03/13/20 03/13/20 16:00 16:00 16:00 WBC 9.3 RBC 4.51 Hgb 12.7 Hct 39.7 MCV 88.0 MCH 28.2 MCHC 32.0 RDW Std Deviation 41.5 RDW Coeff of [place] 12.9 Plt Count 281 MPV 11.1 Immature Gran % (Auto) 0.200 Neut % (Auto) 50.8 Lymph % (Auto) 38.2 [place] % (Auto) 7.9 Eos % (Auto) 2.4 Baso % (Auto) 0.5 Absolute Neuts (auto) 4.7 Absolute Lymphs (auto) 3.56 Nucleated RBC % 0 PT 12.8 INR 1.0 Sodium 137 Potassium 3.3 L Chloride 104 Carbon Dioxide 28.0 Anion Gap 5 BUN 15 Creatinine 0.75 Estim Creat Clear Calc 37.74 Est GFR (MDRD) Af Amer 96 Est GFR (MDRD) Non-Af 79 BUN/Creatinine Ratio 20.1 H Glucose 82 Calcium 8.7 Troponin I < 0.015 - Medical Decision Making EKG shows sinus bradycardia with a sinus arrhythmia, nonspecific ST T wave changes. There is T wave flattening or inversions in the inferior and lateral precordial leads. Serum laboratory studies are unremarkable with normal coagulation studies and a negative troponin. CTAs of the head and neck show no acute occlusion or acute infarction. However given her symptoms age and risk factors I did recommend observation for further work-up including MRI and echocardiogram. The patient is unwilling to stay. We discussed risks and benefits including having a stroke permanent disability or at home. She vocalized understanding. She wishes to sign out AGAINST MEDICAL ADVICE. She stands she is welcome to return at any point. I also spoke to her primary care physician to update her on the presentation evaluation and recommendation. Patient will follow-up as an outpatient. Patient discharged. ED Disposition - Plan for ED Patient: Disposition: Home or Assisted Living Diagnosis: Paresthesias Instructions: ED Paraesthesias Referrals: Jennifer Monzon MD [Primary Care Provider] -
[2020-03-13 18:25] LABS: Absolute Lymphocyte Count 3.56 X10^3/uL (0.83-4.51); Absolute Neutrophil Count 4.7 X10^3/uL (2.0-7.7); Basophil# 0.05 X10^3/uL; Basophil% 0.5 % (0-1); Eosinophil# 0.22 X10^3/uL; Eosinophils% 2.4 % (0-5); Hematocrit 39.7 % (37-47); Hemoglobin 12.7 g/dL (12.0-15.0); Lymphocyte # 3.56 X10^3/ul (4.0); Lymphocyte % 38.2 % (19-41); Mean Corpuscular Hgb 28.2 pg (27.0-32.0); Mean Platelet Vol. 11.1 fl (6.2-12.0); Monocyte# 0.74 X10^3/uL; Monocyte% 7.9 % (0-10); NRBC Flagged by Analyzer 0 % (0-5); Neutrophil # 4.73 X10^3/uL (2.7-7.7); Neutrophil % 50.8 % (47-70); Platelet Count 281 K/mm3 (150-450); RBC Distribution Width CV 12.9 % (11.6-14.6); RBC Distribution Width SD 41.5 fl (35.1-43.9); Red Blood Count 4.51 M/mm3 (4.2-5.4); White Blood Count 9.3 K/mm3 (4.4-11.0)
[2020-03-13 18:32] LABS: Prothrombin Time (Protime)PT. 12.8 SECONDS (11.7-14.9)
[2020-03-13 18:37] LABS: Anion Gap 5 (5-15); BUN 15 mg/dL (7-18); BUN/Creat Ratio 20.1 RATIO (10-20); Calcium,Total 8.7 mg/dL (8.5-10.1); Chloride 104 mmol/L (98-107); Creatinine, Serum 0.75 mg/dL (0.55-1.02); EST Glomerular Filtration Rate 79 mL/min (>60); Est Glom Filt Rate - Afr Amer 96 mL/min (>60); Estimated Creatinine Clearance 37.74 ml/min; Glucose 82 mg/dL (74-106); Potassium 3.3 mmol/L (3.5-5.1); Sodium Level 137 mmol/L (136-145)
--- NOTE | 2020-03-13 18:43 | RAD_ITS ---
STUDY: X-RAY CHEST REASON FOR EXAM: Female, 79 years old. RT SIDED FACE TINGLING/NUMBNESS; HIGH BLOOD PRESSURE TECHNIQUE: Frontal and lateral views of the chest. COMPARISON: 08/19/2017 FINDINGS: There is no new focal consolidation. There is a stable curvilinear opacity within the right midlung which may be secondary to pleural thickening or may reflect atelectasis and/or scarring. Normal size heart. Normal mediastinum and justin. Normal visualized pulmonary arteries. There is atherosclerotic calcification of the aortic arch with tortuosity. Normal visualized thoracic spine. Normal visualized ribs, clavicles, and shoulders. There is no demonstrated abnormality of the visualized soft tissue structures of the upper abdomen. RAD/Chest 1 View (Portable) IMPRESSION: No acute cardiopulmonary process. Electronically Signed: Renata Cisse MD at 19:18 EST Tel , Service support ,
--- NOTE | 2020-03-13 18:48 | CT_ITS ---
STUDY: CTA HEAD AND NECK WITH CONTRAST REASON FOR EXAM: Female, 79 years old. Right sided numbness and tingling. Last for about 3 mins. Currently being treated for sinus infection. RADIATION DOSAGE (If Supplied By Facility): CTDIvol = ( 29.40 ) mGy, DLP = ( 1455.28 ) mGycm TECHNIQUE: CT angiography was performed with a multi-detector CT scanner. Data acquisition was obtained from the skull base through the vertex following intravenous administration of IV 100mL [id number]-370. MIP images were reconstructed from the axial data set. Post-processing of the angiographic images was performed, with multiplanar reformation and 3D reconstruction. Individualized dose optimization techniques were used for this CT. COMPARISON: No relevant priors. FINDINGS: Normal bilateral petrous carotid arteries. Normal right cavernous carotid artery with a normal supraclinoid bifurcation. Normal left cavernous carotid artery with a normal supraclinoid bifurcation. Normal right A1 segments of the anterior cerebral artery. Normal left A1 segments of the anterior cerebral artery. Normal intact anterior communicating artery (ACOM). Normal bilateral A2 segments of the anterior cerebral arteries. Normal right M1 and M2 segments of the middle cerebral arteries, with a normal M1 bifurcation. Normal left M1 and M2 segments of the middle cerebral arteries, with a normal M1 bifurcation. Normal right posterior communicating artery (PCOM). Normal left posterior communicating artery (PCOM). Normal bilateral vertebral arteries. Normal basilar artery with a normal basilar bifurcation. The visualized bilateral superior cerebellar (SCA) arteries are normal. Normal bilateral P1, P2 and visualized P3 segments of the posterior cerebral arteries. There is no demonstrated aneurysm of the [place]. There are patchy areas of low attenuation within the white matter of the cerebral hemispheres most consistent with small vessel ischemia. AORTIC ARCH: There is atherosclerotic calcific plaque formation of the aortic arch and great vessels arising from the aortic arch, without a hemodynamically significant stenosis. There is a bovine origin of the great vessels with a common origin of the brachiocephalic and left common carotid artery. Normal origin of the left subclavian artery. RIGHT CAROTID ARTERIES: Normal right common carotid artery (CCA). There is mild atherosclerotic plaque formation without narrowing of the right carotid bulb. Normal origin of the right internal carotid (ICA) artery without a hemodynamically significant stenosis. Normal visualized cervical portion of the right internal carotid artery. Normal origin of the right external carotid artery (ECA). LEFT CAROTID ARTERIES: Normal left common carotid artery (CCA). There is mild atherosclerotic plaque formation without narrowing of the left carotid bulb. Normal origin of the left internal carotid (ICA) artery without a hemodynamically significant stenosis. Normal visualized cervical portion of the left internal carotid artery. Normal origin of the left external carotid artery (ECA). VERTEBRAL ARTERIES: Normal bilateral vertebral arteries. There are degenerative changes of the cervical spine. CT/CTA Head AND Neck W/ Contrast IMPRESSION: Minimal bilateral atherosclerosis with no hemodynamically significant stenosis. Small vessel ischemia. Electronically Signed: Renata Cisse MD at 19:10 EST Tel , Service support ,
[2020-03-13 19:54] VITALS: BP 179/89; PULSE 73; RESP 16; O2SAT 96
== END 2020-03-13 20:09 | disposition home or self-care (01) ==
PROVIDERS: Emergency Provider Emergency Medicine; PCP Family Medicine
DX: R20.2 Paresthesia of skin (principal); I67.82 Cerebral ischemia; I10 Essential (primary) hypertension; Z87.891 Personal history of nicotine dependence
CPT/HCPCS: 70496; 70498; 71045; 80048; 84484; 85025; 85610; 87426; 93005; 99283; Q9967; A4216

== ENCOUNTER 2020-03-21 01:02 | Observation (INO) | payer MEDICARE, SELFPAY ==
[2020-03-21] VITALS (12 sets, daily range): BP systolic 131–196; BP diastolic 57–118; PULSE 71–92; RESP 16–17; TEMP 36.7–36.9; O2SAT 93–96; BMI 32.9; BMI 32.4; BMI 32.5
--- NOTE | 2020-03-21 01:32 | EKG12_ITS ---
Test Reason : DYSRYTHMIA Blood Pressure : / mmHG Vent. Rate : 080 BPM Atrial Rate : 080 BPM P-R Int : 162 ms QRS Dur : 086 ms QT Int : 406 ms P-R-T Axes : 057 -17 -86 degrees QTc Int : 468 ms Normal sinus rhythm Minimal voltage criteria for LVH, may be normal variant Septal infarct , age undetermined ST & T wave abnormality, consider inferior ischemia ST & T wave abnormality, consider anterolateral ischemia Abnormal ECG Confirmed by CASSIUS RG, YOLANDA ([id number]), telegraph editor KASSY DE LA GARZA ([id number]) on 03/24/2020 9:04:06 AM Referred By: Myrna Celestin Confirmed By:YOLANDA HAMMONDS MD
--- NOTE | 2020-03-21 01:32 | CT_ITS ---
STUDY: CT BRAIN WITHOUT CONTRAST REASON FOR EXAM: Female, 79 years old. HOWELL/N/T BILATERAL ARMS. Same symptoms continuing from 03/13/20 when patient was here and had CTA head and neck done RADIATION DOSAGE (If Supplied By Facility): CTDIvol = ( 44.99 ) mGy, DLP = ( 779.24 ) mGycm TECHNIQUE: Transaxial CT imaging of the brain was performed without administration of intravenous contrast material. Individualized dose optimization techniques were used for this CT. COMPARISON: No relevant priors. FINDINGS: Normal soft tissue structures. Normal calvarium. There is mild cerebral atrophy with widening of the extra-axial spaces and ventricular dilatation. There are areas of decreased attenuation within the white matter tracts of the supratentorial brain, consistent with microvascular disease changes. Normal basal ganglia and thalami. Normal brainstem. Normal cerebellum. There is no intracranial hemorrhage. There are no findings of an acute ischemic infarction. Normal visualized paranasal sinuses. CT/Brain/Head without Contrast IMPRESSION: Involutional changes along with microangiopathic white matter disease. No acute intracranial hemorrhage or space-occupying lesion. Electronically Signed: Delmis David MD at 2:30 EST , Service support ,
--- NOTE | 2020-03-21 01:35 | ED.VIS.GEN ---
History of Present Illness Chief Complaint: Numb/Ting Informant: Patient Narrative: Patient stated she was here on [place]. She had a sinus infection that developed some vertigo prior to coming in on [place] [facility]. She subsequently developed some paresthesias on her right lower lip and bilateral hands that come and go. She was seen in the emergency department and had a work-up that showed nothing acute at the time. She had a CT angio of her head and neck that showed minimal disease and no significant blockage. Patient did sign out AGAINST MEDICAL ADVICE as the physician requested she be admitted for an inpatient MRI. No history of stroke in the past patient followed up with her family doctor who did order an outpatient MRI to be done next Tuesday. The patient stated she has continued to intermittently for a few seconds have some numbness and tingling in her bilateral hands and right lower lip. Today she stated she developed a mild frontal achy headache. She did take Tylenol twice with good relief of symptoms. It is minimal at this time. Patient stated when she lays down flat she is noticed some palpitations this evening. She denies any chest pain. This concerned her so she came in for further evaluation. No history of arrhythmia in the past. She does not significantly have palpitations when she sits up per patient. Is on 2 different blood pressure medications at this time. - Past Medical History (1) Personal history of colonic polyps Status: Acute Past Medical History - Allergies and Home Meds Allergies/Adverse Reactions: Allergies epinephrine Allergy (Severe, Verified 03/21/20 01:03) Anaphylaxis pseudoephedrine [From Sudafed] Allergy (Intermediate, Verified 03/21/20 01:03) Chest tightness prednisone Adverse Reaction (Verified 03/21/20 01:03) heart races Primary Care Physician: Jennifer Monzon MD [Primary Care Provider] - Prior records reviewed: Yes Past Medical History: - - Problem list Surgical History: - - Reviewed Lives: With Family Smoking Status: Former smoker Alcohol: None Drugs: None - Family History Maternal Family History: Reports: Cancer - Mother with a history of breast cancer, past age 64. Paternal Family History: Reports: Cancer - Father with a history of metastatic prostate cancer passed in his 60s. Review of Systems General: Denies: Chills, Fever, Sweats Eyes: Denies: Visual changes - bilaterally, Diplopia ENT: Denies: Rhinorrhea, Sore throat Cardiovascular: Reports: Palpitations. Denies: Chest pain Respiratory: Denies: Dyspnea, Cough, Dyspnea on exertion Gastrointestinal: Denies: Abdominal pain, Nausea, Vomiting, Diarrhea, Melena, Hematochezia Genitourinary: Denies: Dysuria, Hematuria, Frequency Musculoskeletal: Denies: Back pain, Extremity Pain Skin: Denies: Rash, Wounds Neurological: Reports: Headache, Parasthesia. Denies: Weakness Physical Exam Vital Signs/Narrative: Vital Signs Temp Pulse Resp BP Pulse Ox 03/21/20 01:03 98.2 F 92 16 195/118 H 95 General: Well nourished, Well developed, No Acute Distress Head: Normocephalic, Atraumatic Eyes: Perrl, EOMI ENT: Moist mucous membranes, No rhinorrhea Neck: Supple, Nontender Cardiovascular: Regular rate, Regular rhythm, No murmurs Respiratory: No distress, CTA bilaterally, Chest nontender Abdomen: Soft, Nontender, Nondistended, Normal bowel sounds Back: Nontender, Normal Inspection Extremities: Nontender, No edema Skin: Normal color, No rash Neurological: Alert, Oriented x3, Cranial nerves II-XII grossly intact, Normal Strength, Normal Sensation, - - NIH stroke scale 0. Negative for: Parasthesia Psychological: Normal affect, Normal Mood Diagnostic/Tx/Re-eval - Medical Decision Making Patient resting comfortably. Blood pressure is elevated on arrival given a dose of labetalol. Lab work EKG CT head obtained. Shows nothing acute including CBC BMP troponin. EKG shows normal sinus rhythm at a rate of 80. Old Q waves V1 and V2. T wave inversion lead 4 and 5[address] CT head shows chronic changes with no acute findings. Blood pressure remains elevated therefore given a second dose of labetalol. At this time the patient will be admitted for her intermittent paresthesias and hypertension established [id number]. ED Disposition - Plan for ED Patient: Disposition: Home or Assisted Living Diagnosis: Hypertension, Paresthesia
[2020-03-21] MEDS: Labetalol (Prefilled) 20 MG/4 ML 10 MG IV (01:47)
[2020-03-21 01:48] LABS: Absolute Lymphocyte Count 4.15 X10^3/uL (0.83-4.51); Absolute Neutrophil Count 4.7 X10^3/uL (2.0-7.7); Basophil# 0.08 X10^3/uL; Basophil% 0.8 % (0-1); Eosinophil# 0.22 X10^3/uL; Eosinophils% 2.2 % (0-5); Hematocrit 44.3 % (37-47); Hemoglobin 14.3 g/dL (12.0-15.0); Lymphocyte # 4.15 X10^3/ul (4.0); Lymphocyte % 41.3 % (19-41); Mean Corp Hgb Conc 32.3 g/dL (32-36); Mean Corpuscular Hgb 28.4 pg (27.0-32.0); Mean Corpuscular Volume 88.1 fL (81-99); Mean Platelet Vol. 10.9 fl (6.2-12.0); Monocyte# 0.84 X10^3/uL; Monocyte% 8.4 % (0-10); NRBC Flagged by Analyzer 0 % (0-5); Neutrophil # 4.72 X10^3/uL (2.7-7.7); Platelet Count 314 K/mm3 (150-450); RBC Distribution Width CV 13.2 % (11.6-14.6); RBC Distribution Width SD 42.4 fl (35.1-43.9); Red Blood Count 5.03 M/mm3 (4.2-5.4)
[2020-03-21 02:02] LABS: Anion Gap 8 (5-15); BUN 14 mg/dL (7-18); BUN/Creat Ratio 15.4 RATIO (10-20); Calcium,Total 9.2 mg/dL (8.5-10.1); Chloride 105 mmol/L (98-107); Creatinine, Serum 0.91 mg/dL (0.55-1.02); EST Glomerular Filtration Rate 63 mL/min (>60); Est Glom Filt Rate - Afr Amer 77 mL/min (>60); Estimated Creatinine Clearance 41.47 ml/min; Glucose 96 mg/dL (74-106); Potassium 3.5 mmol/L (3.5-5.1); Sodium Level 139 mmol/L (136-145)
--- NOTE | 2020-03-21 02:08 | PCM.HP.STD ---
Problem List (1) Paresthesias Status: Acute (2) Uncontrolled hypertension Status: Acute (3) Hyperlipidemia Status: Chronic Qualifiers: Hyperlipidemia type: unspecified Qualified Code(s): E78.5 - Hyperlipidemia, unspecified (4) Asthma Status: Chronic Qualifiers: Asthma severity: unspecified severity Asthma persistence: unspecified Asthma complication type: unspecified Qualified Code(s): J45.909 - Unspecified asthma, uncomplicated (5) GERD (gastroesophageal reflux disease) Status: Chronic Qualifiers: Esophagitis presence: esophagitis presence not specified Qualified Code(s): K21.9 - Gastro-esophageal reflux disease without esophagitis (6) Anxiety and depression Status: Chronic (7) Obesity (BMI 30.0-34.9) Status: Chronic History of Present Illness Date of Admission: 03/21/20 Chief Complaint: Paresthesias The patient is a 79 y/o F w/ PMHx: Asthma, Depression and Anxiety, GERD, HTN, HLD who recently presented to the [facility] ED on 03/13/20 with history of ongoing intermittent paresthesias to the R lower lip and BL hands with also concurrent history of recent URI/sinus type symptoms ~ 2 weeks prior with associated vertigo which seemed initially to improve but again returned prompting her to contact her PCP who initiated abx regimen with TIA evaluation with unremarkable labs, EKG w/ sinus bradycardia with a sinus arrhythmia, nonspecific ST-T wave changes, CTA head and neck unremarkable with no acute occlusion or acute infarction, unremarkable cardiac enzyme, negative rapid covid testing, signing out AMA at that time who now re-presents to the [facility] ED on 03/21/19 with similar symptoms, lasting only seconds as well as a mild frontal headache in addition to occasional sensation of palpitations. Work-up in the ED included T 98.2, HR 92, BP 195/118, RR 16, 95% on RA. Of note per records 08/08/18 Carotid US w/ < 50% stenosis R extracranial internal carotid, M 50% stenosis L extracranial internal carotid, vertebral arteries with antegrade bilaterally. Repeat CT head, CBC, BMP and troponin ordered per ED physician. Past Medical History Past Medical History (Chronic Problems): Chronic Problems (Last Reviewed 01/03/18 @ 14:55 by Karissa Barrera) Hyperlipidemia (Chronic) Asthma (Chronic) GERD (gastroesophageal reflux disease) (Chronic) Anxiety and depression (Chronic) Obesity (BMI 30.0-34.9) (Chronic) Medical History: Medical History (Last Reviewed 01/03/18 @ 14:55 by Karissa Barrera) Personal history of colonic polyps (Acute) Z86.010 Asthma J45.909 Depression F32.9 GERD (gastroesophageal reflux disease) K21.9 UTI (urinary tract infection) N39.0 HTN (hypertension) I10 Allergies epinephrine Allergy (Severe, Verified 03/21/20 01:03) Anaphylaxis pseudoephedrine [From Sudafed] Allergy (Intermediate, Verified 03/21/20 01:03) Chest tightness prednisone Adverse Reaction (Verified 03/21/20 01:03) heart races Home Medications: Ambulatory Orders Medication Instructions Recorded albuterol sulfate 90 mcg/actuation 1 puff INHALATION Q6H PRN 01/03/18 aerosol inhaler hydrochlorothiazide 12.5 mg tablet 12.5 mg PO DAILY 01/03/18 losartan 100 mg tablet 100 mg PO DAILY 01/03/18 omeprazole 40 mg capsule,delayed 20 mg PO DAILY 01/03/18 release paroxetine HCl 10 mg tablet 10 mg PO DAILY 01/03/18 Alprazolam [Xanax] 0.5 - 1 mg PO TID PRN PRN 01/12/18 Amlodipine [Norvasc] 5 mg PO DAILY 03/21/20 Aspirin 81 mg PO DAILY 03/21/20 Atorvastatin Calcium 20 mg PO DAILY 03/21/20 Budesonide/Formoterol Fumarate 6 gm IH DAILY 03/21/20 [Symbicort 160-4.5 Mcg Inhaler] Fluticasone 0.05% [Flonase Nasal 1 spray NASAL DAILY 03/21/20 [place]] Surgical History: Surgical History (Last Reviewed 01/03/18 @ 14:56 by Karissa Barrera) S/P hysterectomy Z90.710 S/P right rotator cuff repair Z98.890 Status post right hip replacement Z96.641 s/p left breast cyst removal Surgical History: - - Hysterectomy, left breast cyst removal, right rotator cuff surgery, right total hip replacement. 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 Paternal History Items: Cancer - Father with a history of metastatic prostate cancer passed in his 60s. Review of Systems Constitutional: Reports: Fatigue. Denies: Anorexia, Chills, Fever, Malaise, Weakness, Weight Change HEENT: Reports: Head Aches, - - Intermittent facial paresthesias.. Denies: Sinus Congestion, Sinus Drainage Cardiovascular: Reports: Palpitations. Denies: Chest Pain Respiratory: Denies: Cough, Shortness of breath at rest, Sputum production Gastrointestinal: Denies: Abdominal Pain, Nausea, Vomiting Genitourinary: Denies: Dysuria Musculoskeletal: Reports: Joint Pain. Denies: Joint Tenderness Skin: Denies: Rash, Wounds Neurological: Reports: Headaches, Numbness, Tingling. Denies: Focal weakness Psychiatric: Reports: Anxiety, Depression. Denies: Homicidal Ideations, Suicidal Ideations Hematologic/ Lymphatic: Denies: Easy Bruising, Easy Bleeding VTE Information - Inpt Only VTE Present on Admission: No VTE Mechan Device Prophylaxis: SCD's VTE Pharm Prophylaxis ordered?: Yes Patient Problems: Active and Suspected Problems (Last Reviewed 01/03/18 @ 14:55 by aKrissa Barrera) Paresthesias (Acute) Uncontrolled hypertension (Acute) Personal history of colonic polyps (Acute) Subjective: Patient seated upright in the ED bed, denies any current paresthesias, no obvious distress. Objective: Physical Examination: General: awake, alert, oriented x 3 and cooperative, seated upright in the ED bed in no apparent distress. Skin: normal color, turgor, no icterus, cyanosis. HEENT: AT/NC, EOMI, PERRLA, MMM, no carotid bruits or JVD noted. Lungs: Diminished breath sounds, greater bases, no rales, ronchi or wheezing. Heart: Regular rate and rhythm; no gallop, rub audible. Abdomen: soft, obese, NTTP, ND, normal BS, no HSM. Extremities: no cyanosis, clubbing, or edema. Neurological: patient awake, alert, oriented x 3; cognitive function appears baseline intact; pupils equally reactive to light and accomodation; cranial nerves II-XII grossly normal, moving all 4 extremities, no focal deficits, strength preserved, currently sensation normal and intact, [id number] and [id number] intact, negative Babinski. Psychiatric: affect appears fatigued otherwise normal, no acute evidence of depressive or anxiety feelings. - Physical Exam Vitals/I&O's: Vital Signs Temp Pulse Resp BP Pulse Ox 98.2 F 75 16 196/88 H 93 03/21/20 01:03 03/21/20 01:50 03/21/20 01:50 03/21/20 01:50 03/21/20 01:50 Oxygen Delivery Method Room Air Weight: 186 lb 1.122 oz Body Mass Index (BMI) 32.9 Laboratory Results 03/21/20 01:14: WBC 10.0, RBC 5.03, Hgb 14.3, Hct 44.3, MCV 88.1, MCH 28.4, MCHC 32.3, RDW Std Deviation 42.4, RDW Coeff of [place] 13.2, Plt Count 314, MPV 10.9, Immature Gran % (Auto) 0.300, Neut % (Auto) 47.0, Lymph % (Auto) 41.3 H, [place] % (Auto) 8.4, Eos % (Auto) 2.2, Baso % (Auto) 0.8, Absolute Neuts (auto) 4.7, Absolute Lymphs (auto) 4.15, Nucleated RBC % 0 03/21/20 01:14: Sodium 139, Potassium 3.5, Chloride 105, Carbon Dioxide 26.0, Anion Gap 8, BUN 14, Creatinine 0.91, Estim Creat Clear Calc 41.47, Est GFR (MDRD) Af Amer 77, Est GFR (MDRD) Non-Af 63, BUN/Creatinine Ratio 15.4, Glucose 96, Calcium 9.2, Troponin I < 0.015 Assessment/Plan All Active Problems (Last Reviewed 01/03/18 @ 14:55 by Karissa Barrera) Paresthesias (Acute) Uncontrolled hypertension (Acute) Personal history of colonic polyps (Acute) The patient is a 79 y/o F w/ PMHx: Asthma, Depression and Anxiety, GERD, HTN, HLD who recently presented to the [facility] ED on 03/13/20 with history of ongoing intermittent paresthesias to the R lower lip and BL hands with also concurrent history of recent URI/sinus type symptoms ~ 2 weeks prior with associated vertigo which seemed initially to improve but again returned. 1. Atypical Facial and BL Hand paresthesias, Possible CVA: Will admit to PCU, will obtain MRI Brain, recent CTA Head and Neck not marked appearing, will obtain ECHO, PT/OT/Speech/Nutrition evaluation per protocol. Given ongoing timeline will continue patient HTN regimen with additionally PRN agents given elevated BPs, maintain on asa, continue home statin with consideration for increase w/ AM FLP, fall precautions. Mag, TSH, HgbA1c requested. 2. Hypertension: Given ongoing symptoms x 2 weeks will continue patient HTN regimen including metoprolol, losartan, HCTZ and initiate additional IV PRN agents given elevated BPs, likely contributing to her headache. Likely will require additional oral agent addition. 3. Chronic Asthma: Will continue PRN albuterol, symbicort, encourage HOB, IS. 4. Anxiety and Depression: Will continue home paroxetine and xanax regimen. 5. GERD: Continue home PPI. 6. Hyperlipidemia: Continue home statin regimen, may need increase pending evaluation as noted above, FLP in AM. 7. DVT Prophylaxis: SCDs, lovenox. 8. CODE status: Patient KRISTEN is her and she is not sure if she has a living will in place. Encouraged her to review these items and to set up a living will if it has not been done. Discussed CODE status at length including difference between FULL code, DNR-CCA and DNR-CC status. Following discussions about the differences in these status, requested Full Code status. Advanced Care Planning Face to Face Time: 16 minutes. OBSV E&M: 60523 Initial observation care L3 Procedures: 22808 Advncd Care Plan 30 Min
--- NOTE | 2020-03-21 03:06 | ED.RN ---
PT PRIMARY PHONE NUMBER [phone], SECONDARY [phone]. PER PT REQUEST NOTIFIED OF PT ADMISSION.
--- NOTE | 2020-03-21 03:28 | MRI_ITS ---
STUDY: MRI BRAIN WITHOUT CONTRAST REASON FOR EXAM: Female, 79 years old. Bilateral upper extremity paresthesia, numbness and tingling. TECHNIQUE: Standardized multiplanar fat and water weighted pulse sequences were obtained. COMPARISON: MRI brain with and without contrast 10/13/2013. CT head without contrast 03/21/2020. FINDINGS: No diffusion restriction throughout the brain parenchyma. Normal size of the ventricles and extra-axial spaces for the patient''s age. Progression of T2 FLAIR hyperintensity foci in the white matter of both cerebral hemispheres due to chronic white matter ischemic changes. Normal bilateral basal ganglia. Normal thalami. There is no extra-axial fluid accumulation. Normal flow voids within the major intracranial circulation suggesting patency by spin echo criteria. Normal sella turcica, pituitary gland, infundibular stalk, optic chiasm and hypothalamus. Normal tectal plate and pineal gland. Normal midbrain, hardik and medulla. Normal cerebellum. Normal basal cisterns. Normal bilateral temporal bones. Normal bilateral internal auditory canals. No demonstrated orbital abnormality, within the constraints of a routine brain study. Normal visualized paranasal sinuses. Normal calvarium and skull base. Normal visualized soft tissue structures. Normal visualized upper cervical spine. MRI/Brain without Contrast IMPRESSION: 1. Progression of chronic white matter ischemic changes in both cerebral hemispheres. 2. No MRI evidence of acute or subacute ischemic infarct or acute intracranial abnormality. Electronically Signed: Ravi Zelaya MD at 12:21 EST , Service support ,
[2020-03-21 04:02] LABS: Absolute Lymphocyte Count 3.68 X10^3/uL (0.83-4.51); Absolute Neutrophil Count 4.7 X10^3/uL (2.0-7.7); Basophil# 0.06 X10^3/uL; Basophil% 0.6 % (0-1); Eosinophil# 0.21 X10^3/uL; Eosinophils% 2.2 % (0-5); Hematocrit 40.4 % (37-47); Hemoglobin 13.1 g/dL (12.0-15.0); Lymphocyte # 3.68 X10^3/ul (4.0); Lymphocyte % 39.3 % (19-41); Mean Corp Hgb Conc 32.4 g/dL (32-36); Mean Corpuscular Hgb 28.6 pg (27.0-32.0); Mean Corpuscular Volume 88.2 fL (81-99); Mean Platelet Vol. 10.8 fl (6.2-12.0); Monocyte# 0.69 X10^3/uL; Monocyte% 7.4 % (0-10); NRBC Flagged by Analyzer 0 % (0-5); Neutrophil % 50.2 % (47-70); Platelet Count 292 K/mm3 (150-450); RBC Distribution Width CV 13.2 % (11.6-14.6); RBC Distribution Width SD 42.9 fl (35.1-43.9); Red Blood Count 4.58 M/mm3 (4.2-5.4); White Blood Count 9.4 K/mm3 (4.4-11.0)
[2020-03-21 04:19] LABS: ALB/GLOB Ratio 1.2 RATIO (0.9-2.4); AST(SGOT) 25 U/L (15-37); Alanine Aminotransfer ALT/SGPT 25 U/L (13-56); Albumin, Serum 3.8 g/dL (3.2-5.0); Alkaline Phosphatase 83 U/L (45-117); Anion Gap 10 (5-15); BUN 14 mg/dL (7-18); BUN/Creat Ratio 16.4 RATIO (10-20); Calcium,Total 8.8 mg/dL (8.5-10.1); Chloride 106 mmol/L (98-107); Cholesterol 271 mg/dL (200); Creatinine, Serum 0.85 mg/dL (0.55-1.02); EST Glomerular Filtration Rate 68 mL/min (>60); Est Glom Filt Rate - Afr Amer 82 mL/min (>60); Estimated Creatinine Clearance 44.39 ml/min; Globulin 3.3 g/dL (2.2-4.2); Glucose 115 mg/dL (74-106); High Density Lipoprotein 65 mg/dL; Potassium 3.4 mmol/L (3.5-5.1); Protein, Total 7.1 g/dL (6.4-8.2); Sodium Level 140 mmol/L (136-145); Triglycerides 142 mg/dL; Very Low Density Lipoprotein 28 mg/dL (5-40)
[2020-03-21 04:40] LABS: Magnesium 1.8 mg/dL (1.6-2.6); T4 Free Direct 0.88 ng/dL (0.76-1.46); Thyroid Stim Hormone (TSH) 3.77 uIU/mL (0.358-3.74)
[2020-03-21] MEDS: ALPRAZolam 0.5 MG Tablet PO ×2 (05:18→10:36)
[2020-03-21] MEDS: Acetaminophen 325 MG Tablet 650 MG PO (05:18)
--- NOTE | 2020-03-21 05:55 | EKG12_ITS ---
Test Reason : AM EKG Blood Pressure : / mmHG Vent. Rate : 078 BPM Atrial Rate : 078 BPM P-R Int : 140 ms QRS Dur : 084 ms QT Int : 432 ms P-R-T Axes : 054 -05 -88 degrees QTc Int : 492 ms Normal sinus rhythm Septal infarct , age undetermined ST & T wave abnormality, consider inferior ischemia ST & T wave abnormality, consider anterolateral ischemia Abnormal ECG Confirmed by CASSIUS RG, YOLANDA ([id number]), food editor KASSY DE LA GARZA ([id number]) on 03/25/2020 9:22:36 AM Referred By: Myrna Celestin Confirmed By:YOLANDA HAMMONDS MD
--- NOTE | 2020-03-21 07:12 | CPS ---
Pt takes ProAir prn @home so she doesn't want Albuterol scheduled. She will call if she feels she needs it. Lis did talk with patient about her Symbicort use at home. She takes Symbicort prn, R.T. explained that it is a maintenance drug and needed to be used BID, not prn. Pk. answered all of her questions about it.
[2020-03-21] MEDS: Budesonide Respules 0.5 MG/2 ML AMPUL.NEB. INHALATION (07:21)
[2020-03-21 07:45] LABS: Hemoglobin A1c 5.5 % (3.8-5.6)
[2020-03-21] MEDS: Pantoprazole Sodium 20 MG Tablet PO (09:34)
[2020-03-21] MEDS: hydroCHLOROthiazide 12.5mg 12.5 MG PO (09:34)
[2020-03-21] MEDS: PARoxetine 10 MG Tablet PO (09:34)
[2020-03-21] MEDS: amLODIPine 5 MG Tablet PO (09:34)
[2020-03-21] MEDS: Losartan Potassium 100 MG Tablet PO (09:35)
[2020-03-21] MEDS: Aspirin 81 MG TAB.CHEW PO (09:35)
--- NOTE | 2020-03-21 09:39 | MRI_ITS ---
STUDY: MRI CERVICAL SPINE WITHOUT CONTRAST REASON FOR EXAM: Female, 79 years old. BILATERAL UPPER EXTREMITY PARATHESIA, NUMBNESS/TINGLING IN MOUTH TECHNIQUE: Standardized fat and water weighted pulse sequences were obtained in the sagittal and axial planes. COMPARISON: None FINDINGS: Normal foramen magnum and brainstem-cervical cord junction. Normal craniovertebral junction. Normal anterior atlantoaxial articulation. Normal odontoid process. Normal cervical lordosis. Normal vertebral bodies and posterior osseous elements. C2-3: Normal endplates. Normal disc height, signal and morphology. Normal central canal and intervertebral neural foramina. C3-4: Small central disc protrusion produces mild spinal stenosis but no neural foraminal stenosis. C4-5: Moderate broad disc osteophyte complex with a central disc protrusion produces moderate spinal stenosis with abutment the central spinal cord. Mild bilateral neural foraminal stenosis. C5-6: Moderate broad disc osteophyte complex produces moderate spinal stenosis with abutment central spinal cord and mild bilateral neural foraminal stenosis. C6-7: Mild broad disc osteophyte complex produces mild spinal stenosis. No neural foraminal stenosis. C7-T1: Normal endplates. Normal disc height, signal and morphology. Normal central canal and intervertebral neural foramina. Normal cervical cord. Normal visualized soft tissue structures. MRI/Spine Cervical (Routine) IMPRESSION: Multilevel degenerative changes, as described above. Electronically Signed: Brooks Proctor MD at 12:33 EST Tel , Service support ,
[2020-03-21] MEDS: Enoxaparin 40 MG/0.4 ML Syringe SC (10:01)
--- NOTE | 2020-03-21 13:11 | PCM.DC.SUM ---
Discharge Date and Diagnosis - Problem List Patient Problems: Active and Suspected Problems (Last Reviewed 01/03/18 @ 14:55 by Karissa Barrera) Paresthesias (Acute) Uncontrolled hypertension (Acute) Personal history of colonic polyps (Acute) Date of Admission: 03/21/20 Date of Discharge: 03/21/20 - Primary Discharge Diagnosis Acute Problems: Active Problems (Last Reviewed 01/03/18 @ 14:55 by Karissa Barrera) Paresthesias (Acute) Uncontrolled hypertension (Acute) Personal history of colonic polyps (Acute) - Secondary Discharge Diagnosis Chronic Problems: Chronic Problems (Last Reviewed 01/03/18 @ 14:55 by Karissa Barrera) Hyperlipidemia (Chronic) Asthma (Chronic) GERD (gastroesophageal reflux disease) (Chronic) Anxiety and depression (Chronic) Obesity (BMI 30.0-34.9) (Chronic) Hypertension (Chronic) Hospital Course and Treatment Imaging Results: Clinical Impression(s) from Imaging Studies Brain CT 03/21/20 01:32 IMPRESSION: Involutional changes along with microangiopathic white matter disease. No acute intracranial hemorrhage or space-occupying lesion. Electronically Signed: Delmis David MD at 2:30 EST , Service support , Brain MRI 03/21/20 03:28 IMPRESSION: 1. Progression of chronic white matter ischemic changes in both cerebral hemispheres. 2. No MRI evidence of acute or subacute ischemic infarct or acute intracranial abnormality. Electronically Signed: Ravi Zelaya MD at 12:21 EST , Service support , Cervical Spine MRI 03/21/20 09:39 IMPRESSION: Multilevel degenerative changes, as described above. Electronically Signed: Brooks Proctor MD at 12:33 EST Tel , Service support , Summary of Care Provided: The patient is a 79 year old F with multiple comorbidities B paresthesias involving the left lower leg and both hands 1. Seizures ?Admitted to monitored bed acute CVA was ruled out with a negative MRI. Patient had undergone CTA of the head and neck on 13 March 2020 which did not show any hemodynamically significant lesions involving the carotid arteries. Patient also underwent MRI of the cervical spine consistent with joint disease involving the cervical spine 2. Hypertension - Blood pressure controlled, home medications continued with dose adjustment as needed 3. Depression with anxiety ?Patient is on SSRI as well as the Xanax did continue 4. Dyslipidemia -Patient is on statin therapy, continued at home dose 5. GERD ?On PPI 6. Obesity with BMI of 32.5 ?Weight loss advised Patient Problems: Active and Suspected Problems (Last Reviewed 01/03/18 @ 14:55 by Karissa Barrera) Paresthesias (Acute) Uncontrolled hypertension (Acute) Personal history of colonic polyps (Acute) - Physical Exam Vitals/I&O's: Vital Signs Temp Pulse Resp BP Pulse Ox 98.1 F 81 16 131/57 H 94 03/21/20 09:15 03/21/20 09:15 03/21/20 09:15 03/21/20 09:15 03/21/20 10:55 Oxygen Delivery Method Room Air Weight: 83.1 kg Body Mass Index (BMI) 32.4 Intake and Output for Last 24 Hours 03/19/20 03/20/20 03/21/20 23:59 23:59 23:59 Intake Total 510 / 510 Balance 510 / 510 General: Alert HEENT: Atraumatic Lungs: Normal air movement Neurological: Neuro grossly intact Psych/Mental Status: Flat Affect Laboratory Results 03/21/20 01:14: WBC 10.0, RBC 5.03, Hgb 14.3, Hct 44.3, MCV 88.1, MCH 28.4, MCHC 32.3, RDW Std Deviation 42.4, RDW Coeff of [place] 13.2, Plt Count 314, MPV 10.9, Immature Gran % (Auto) 0.300, Neut % (Auto) 47.0, Lymph % (Auto) 41.3 H, Butts % (Auto) 8.4, Eos % (Auto) 2.2, Baso % (Auto) 0.8, Absolute Neuts (auto) 4.7, Absolute Lymphs (auto) 4.15, Nucleated RBC % 0 03/21/20 01:14: Sodium 139, Potassium 3.5, Chloride 105, Carbon Dioxide 26.0, Anion Gap 8, BUN 14, Creatinine 0.91, Estim Creat Clear Calc 41.47, Est GFR (MDRD) Af Amer 77, Est GFR (MDRD) Non-Af 63, BUN/Creatinine Ratio 15.4, Glucose 96, Calcium 9.2, Troponin I < 0.015 03/21/20 02:30: Troponin I Cancelled 03/21/20 02:30: Hemoglobin A1c 5.5 03/21/20 03:55: Magnesium 1.8, TSH 3.77 H, Free T4 0.88 03/21/20 03:55: WBC 9.4, RBC 4.58, Hgb 13.1, Hct 40.4, MCV 88.2, MCH 28.6, MCHC 32.4, RDW Std Deviation 42.9, RDW Coeff of [place] 13.2, Plt Count 292, MPV 10.8, Immature Gran % (Auto) 0.300, Neut % (Auto) 50.2, Lymph % (Auto) 39.3, Butts % (Auto) 7.4, Eos % (Auto) 2.2, Baso % (Auto) 0.6, Absolute Neuts (auto) 4.7, Absolute Lymphs (auto) 3.68, Nucleated RBC % 0 03/21/20 03:55: Sodium 140, Potassium 3.4 L, Chloride 106, Carbon Dioxide 24.0, Anion Gap 10, BUN 14, Creatinine 0.85, Estim Creat Clear Calc 44.39, Est GFR (MDRD) Af Amer 82, Est GFR (MDRD) Non-Af 68, BUN/Creatinine Ratio 16.4, Glucose 115 H, Calcium 8.8, Total Bilirubin 0.30, AST 25, ALT 25, Alkaline Phosphatase 83, Total Protein 7.1, Albumin 3.8, Globulin 3.3, Albumin/Globulin Ratio 1.2, Triglycerides 142, Cholesterol 271 H, LDL Cholesterol 178 H, VLDL Cholesterol 28, HDL Cholesterol 65 03/21/20 03:55: Troponin I < 0.015 03/21/20 06:33: Troponin I < 0.015 Current Medications Acetaminophen (Acetaminophen 325 Mg Tablet) 650 mg PO Q6H PRN PRN PRN Reason: Pain Score 1-10/Temp > 100.7 F Last Admin: 03/21/20 05:18 Dose: 650 mg Documented by: Acetaminophen (Acetaminophen 325 Mg Suppository) 650 mg RECTAL Q4H PRN PRN PRN Reason: Pain Score 1-10/Temp > 100.7 F Al Hydroxide/Mg Hydroxide (Mag Hydrox/Al Hydrox/Simeth 30 Ml Udc) 30 ml PO Q6H PRN PRN PRN Reason: Gastric Burning Albuterol Sulfate (Albuterol 2.5 Mg/3 Ml Vial.Neb.) 2.5 mg INHALATION Q2H PRN PRN PRN Reason: Dyspnea, wheezing Albuterol Sulfate (Albuterol 2.5 Mg/3 Ml Vial.Neb.) 2.5 mg INHALATION Q6HWA.RT [facility] Alprazolam (Alprazolam 0.5 Mg Tablet) 0.5 - 1 mg PO TID PRN PRN PRN Reason: ANXIETY Last Admin: 03/21/20 10:36 Dose: 0.5 mg Documented by: Amlodipine Besylate (Amlodipine 5 Mg Tablet) 5 mg PO DAILY [facility] Last Admin: 03/21/20 09:34 Dose: 5 mg Documented by: Aspirin (Aspirin 81 Mg Tab.Chew) 81 mg PO DAILYCM [facility] Last Admin: 03/21/20 09:35 Dose: 81 mg Documented by: Atorvastatin Calcium (Atorvastatin Calcium 20 Mg Tablet) 20 mg PO QHS [facility] Budesonide (Budesonide Respules 0.5 Mg/2 Ml Ampul.Neb.) 0.5 mg INHALATION Q12H.RT [facility] Last Admin: 03/21/20 07:21 Dose: 0.5 mg Documented by: Enoxaparin Sodium (Enoxaparin 40 Mg/0.4 Ml Syringe) 40 mg SC DAILY [facility] Last Admin: 03/21/20 10:01 Dose: 40 mg Documented by: Fluticasone Propionate (Fluticasone 0.05% 1 [place] Nasal.Sry) 1 spray NASAL DAILY [facility] Last Admin: 03/21/20 09:32 Dose: Not Given Documented by: Guaifenesin (Guaifenesin 10 Ml Udc (200mg/10ml)) 20 ml PO Q4H PRN PRN PRN Reason: COUGH Hydralazine HCl (Hydralazine 20 Mg/Ml Vial) 10 mg IV Q4H PRN PRN PRN Reason: SBP > 160 Hydrochlorothiazide (Hydrochlorothiazide 12.5mg) 12.5 mg PO DAILY [facility] Last Admin: 03/21/20 09:34 Dose: 12.5 mg Documented by: Sodium Chloride () 250 mls @ 15 mls/hr IV .[id number] PRN PRN Reason: Saline Flush Sodium Chloride () 250 mls @ 15 mls/hr IV .[id number] PRN PRN Reason: Additional IVPB Infusion Labetalol HCl (Labetalol (Prefilled) 20 Mg/4 Ml) 10 - 20 mg IV Q4H PRN PRN PRN Reason: SBP > 160 Losartan Potassium (Losartan Potassium 100 Mg Tablet) 100 mg PO DAILY [facility] Last Admin: 03/21/20 09:35 Dose: 100 mg Documented by: Magnesium Hydroxide (Magnesium Hydroxide 30 Ml Udc) 30 ml PO DAILY PRN PRN PRN Reason: Constipation Melatonin (Melatonin 3 Mg Tablet) 3 mg PO QHS PRN PRN PRN Reason: INSOMNIA Nitroglycerin (Nitroglycerin (Inpatient Use) 0.4 Mg Tab.Subl) 0.4 mg SUBLINGUAL Q5M PRN PRN Reason: CARDIAC/CHEST PAIN Ondansetron HCl (Ondansetron 4 Mg/2 Ml Vial) 4 mg IV Q8H PRN PRN PRN Reason: NAUSEA/VOMITING Pantoprazole Sodium (Pantoprazole Sodium 20 Mg Tablet) 20 mg PO DAILY [facility] Last Admin: 03/21/20 09:34 Dose: 20 mg Documented by: Paroxetine HCl (Paroxetine 10 Mg Tablet) 10 mg PO DAILY [facility] Last Admin: 03/21/20 09:34 Dose: 10 mg Documented by: Potassium Chloride (Potassium Chloride 20 Meq Tablet) 40 meq PO X1 ONE Stop: 03/21/20 12:46 Prochlorperazine Edisylate (Prochlorperazine 10 Mg/2 Ml Vial) 5 mg IV Q4H PRN PRN PRN Reason: Breakthrough Nausea/Vomiting Psyllium Hydrophilic Mucilloid (Psyllium 1 Packet) 1 packet PO DAILY PRN PRN PRN Reason: Constipation Senna/Docusate Sodium (Senna/Docusate Sodium 1 Tablet) 2 tablet PO BID PRN PRN PRN Reason: Constipation Sodium Chloride (0.9% Saline Lock 10 Ml Syringe) 10 - 40 ml IV UD PRN PRN Reason: SALINE FLUSH Throat Lozenges (Benzocaine/Menthol 1 Lozenge) 1 lozenge MUCOUS MEM Q2H PRN PRN PRN Reason: SORE THROAT Discharge Diet: No Restrictions Discharge Activity: Return to Normal Activity Home Medications: Medications to take at Discharge albuterol sulfate 90 mcg/actuation aerosol inhaler 1 puff INHALATION Q6H PRN 01/03/18 hydrochlorothiazide 12.5 mg tablet 12.5 mg PO DAILY 01/03/18 losartan 100 mg tablet 100 mg PO DAILY 01/03/18 omeprazole 40 mg capsule,delayed release 20 mg PO DAILY 01/03/18 paroxetine HCl 10 mg tablet 10 mg PO DAILY 01/03/18 Alprazolam [Xanax] 0.5 - 1 mg PO TID PRN PRN 01/12/18 Amlodipine [Norvasc] 5 mg PO DAILY 03/21/20 Aspirin 81 mg PO DAILY 03/21/20 Atorvastatin Calcium 20 mg PO DAILY 03/21/20 Budesonide/Formoterol Fumarate [Symbicort 160-4.5 Mcg Inhaler] 6 gm IH DAILY 03/21/20 Fluticasone 0.05% [Flonase Nasal [place]] 1 spray NASAL DAILY 03/21/20 Primary Care Physician: Jennifer Monzon MD [Primary Care Provider] - Please follow up with your Primary Care Physician in: in 1 week Disposition: Home Minutes spent on discharge:: 35 Patient Condition:: Stable Medical Necessity - Tobacco Use Smoking Status: Former smoker Tobacco Use: Non-smoker Meaningful Use Info Meaningful Use Diagnoses (Choose all that apply): None applicable OBSV E&M: 26203 Observation care discharge
--- NOTE | 2020-03-21 14:00 | PCM.DC ---
- Discharge Diagnoses Current Active Problems: Current Active and Chronic Problems (Last Reviewed 01/03/18 @ 14:55 by Karissa Barrera) Paresthesias (Acute) Uncontrolled hypertension (Acute) Hyperlipidemia (Chronic) Asthma (Chronic) GERD (gastroesophageal reflux disease) (Chronic) Anxiety and depression (Chronic) Obesity (BMI 30.0-34.9) (Chronic) Hypertension (Chronic) Personal history of colonic polyps (Acute) You will use the following diet at home:: No restrictions Discharge Activity: Return to Normal Activity Allergies/Adverse Reactions: Allergies epinephrine Allergy (Severe, Verified 03/21/20 01:03) Anaphylaxis pseudoephedrine [From Sudafed] Allergy (Intermediate, Verified 03/21/20 01:03) Chest tightness prednisone Adverse Reaction (Verified 03/21/20 01:03) heart races Medications to take at Discharge albuterol sulfate 90 mcg/actuation aerosol inhaler 1 puff INHALATION Q6H PRN 01/03/18 hydrochlorothiazide 12.5 mg tablet 12.5 mg PO DAILY 01/03/18 losartan 100 mg tablet 100 mg PO DAILY 01/03/18 omeprazole 40 mg capsule,delayed release 20 mg PO DAILY 01/03/18 paroxetine HCl 10 mg tablet 10 mg PO DAILY 01/03/18 Alprazolam [Xanax] 0.5 - 1 mg PO TID PRN PRN 01/12/18 Amlodipine [Norvasc] 5 mg PO DAILY 03/21/20 Aspirin 81 mg PO DAILY 03/21/20 Atorvastatin Calcium 20 mg PO DAILY 03/21/20 Budesonide/Formoterol Fumarate [Symbicort 160-4.5 Mcg Inhaler] 6 gm IH DAILY 03/21/20 Fluticasone 0.05% [Flonase Nasal [place]] 1 spray NASAL DAILY 03/21/20 Primary Care Physician: Jennifer Monzon MD [Primary Care Provider] - Please follow up with your Primary Care Physician in: in 1 week Test Results: Test results from this visit will be discussed in further detail at your follow-up appointment, if applicable. Proposed Discharge Date: 03/21/20
== END 2020-03-21 14:01 | disposition home or self-care (01) ==
LOC: ED 02:41 → PCU 02:57
PROVIDERS: Admitting Provider Family Medicine; Emergency Provider Emergency Medicine; PCP Family Medicine; Referring Provider Family Medicine; Visit Provider Internal Medicine
DX: R20.2 Paresthesia of skin (principal); I10 Essential (primary) hypertension; E78.5 Hyperlipidemia, unspecified; J45.909 Unspecified asthma, uncomplicated; K21.9 Gastro-esophageal reflux disease without esophagitis; F41.8 Other specified anxiety disorders; E66.9 Obesity, unspecified; Z79.51 Long term (current) use of inhaled steroids; Z79.899 Other long term (current) drug therapy; Z79.82 Long term (current) use of aspirin; Z87.19 Personal history of other diseases of the digestive system; Z87.891 Personal history of nicotine dependence; Z68.32 Body mass index [BMI] 32.0-32.9, adult; R56.9 Unspecified convulsions
CPT/HCPCS: 70450; 70551; 72141; 80048; 80053; 80061; 83036; 83735; 84439; 84443; 84484; 85025; 92610; 93005; 94640; 94762; 96372; 96374; 97162; 97165; 99218; 99251; 99285; A4216; G0378; G0463

== ENCOUNTER 2020-08-12 20:32 | Inpatient (IN) | payer MEDICARE, SELFPAY ==
[2020-03-21 10:40] VITALS: BMI 32.4
[2020-08-12 20:46] VITALS: BP 148/55; PULSE 92; RESP 16; RESP 18; TEMP 36.9; O2SAT 95; BMI 31.8
--- NOTE | 2020-08-12 20:46 | HP.PCM_ITS ---
HPI - General General Date of Admission: 08/12/20 HPI Narrative 07/27/2020 MICAELA MARTINEZ, is a 79 Female admitted to [facility] with left hip fracture. 07/28/2020 Dr. Zelaya performed left hip fracture repair, recommended orthopedic follow up in [place], Aspirin 81MG twice daily for DVT prophylaxis. Patient developed acute metabolic encephalopathy secondary to urinary tract infection, hospital related delirium. UTI treated with Rocephin IV. Psychiatry consulted for delirium, recommended Seroquel 25MG TID with plan to taper over 3 weeks following discharge. 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 Patient developed urinary retention but family states this is a chronic p roblem, discharge on Flomax BID. 08/12/2020 Admit to TCU with debility, here for rehabilitation, strengthening, prior to discharge home with . [facility] Medical History (Updated 08/12/20 @ 20:[address] Renan Ovalle MD) Asthma Depression Fracture of left hip requiring operative repair GERD (gastroesophageal reflux disease) HTN (hypertension) Personal history of colonic polyps UTI (urinary tract infection) Home Medications albuterol sulfate 90 mcg/actuation aerosol inhaler 2 puff INHALATION Q6H PRN 01/03/18 [History Last Taken Unknown] hydrochlorothiazide 12.5 mg tablet 12.5 mg PO DAILY 01/03/18 [History Last Taken 03/20/20] losartan 100 mg tablet 100 mg PO DAILY 01/03/18 [History Last Taken 03/20/20] omeprazole 40 mg capsule,delayed release 20 mg PO DAILY 01/03/18 [History Last Taken 03/20/20] paroxetine HCl 10 mg tablet 10 mg PO DAILY 01/03/18 [History Last Taken 03/20/20] alprazolam [Xanax] 0.5 mg PO BID 01/12/18 [History Last Taken 01/17/18 04:00 0.5 MG] amlodipine 5 mg PO DAILY 03/21/20 [History Last Taken Unknown] aspirin 81 mg PO BID 03/21/20 [History Last Taken 03/20/20] atorvastatin 20 mg PO DAILY 03/21/20 [History Last Taken 03/20/20] budesonide-formoterol 6 gm IH DAILY 03/21/20 [History Last Taken Unknown] fluticasone propionate 1 spray NASAL DAILY 03/21/20 [History Last Taken Unknown] Allergy/AdvReac Type Severity Reaction Status Date / Time epinephrine Allergy Severe Anaphylaxis Verified 03/21/20 01:03 pseudoephedrine Allergy Intermediate Chest Verified 03/21/20 01:03 [From [facility]] tightness prednisone AdvReac heart races Verified 03/21/20 01:03 Surgical History (Updated 03/13/20 @ 18:[address] Sim Siu MD) S/P hysterectomy s/p left breast cyst removal S/P right rotator cuff repair Status post right hip replacement Social History (Updated 08/12/20 @ 20:[address] Renan Ovalle MD) household members: spouse Smoking Status: Former smoker alcohol intake: current alcohol intake frequency: holidays/special occasions only ROS Constitutional Constitutional: Denies chills, fever(s) or weight gain ENT HEENT: Denies headache(s), nasal congestion or nasal discharge Cardiovascular Cardiovascular: Denies chest pain or palpitations Respiratory/Chest Respiratory/Chest: Denies cough, excessive phlegm production or shortness of breath with exertion Gastrointestinal Gastrointestinal: Denies abdominal pain, nausea or vomiting Genitourinary Genitourinary: Denies dysuria Musculoskeletal Musculoskeletal: Denies joint pain or joint swelling Integumentary Integumentary: Denies rash or wounds Neurologic Neurologic: Denies focal weakness, numbness or tingling Psychiatric Psychiatric: Reports auditory hallucinations; Denies anxiety, depression, homicidal ideation or suicidal ideation Vital Signs Vital Signs Vital Signs: Weight Body Mass Index (BMI) 32.4 Physical Exam Const alert and oriented x3 General Appearance: cooperative HEENT normocephalic Eyes PERRL and EOMs intact bilaterally Neck supple, no JVD and no carotid bruits Resp normal respiratory effort, normal air movement and clear to auscultation bilaterally Cardio regular rate and regular rhythm GI normal to inspection, nondistended, normoactive bowel sounds, non-tender and non -distended Extremity normal capillary refill General Extremity: Negative for edema Skin no rashes or lesions noted General Skin Exam: no breakdown Psych affect normal Appearance: appropriate Lab / Micro Data Result Diagrams: 08/13/20 05:22 08/13/20 05:22 Assessment & Plan Assessment/Plan (1) Debility: (2) Closed left hip fracture: (3) Urinary tract infection: (4) Urinary retention: (5) Acute metabolic encephalopathy: (6) Gastroesophageal reflux disease: (7) Anxiety: (8) Benzodiazepine dependence: (9) Asthma: (10) Hyperlipidemia: (11) Hypertension: (12) Depression: PLAN: 79 year old female with below past medical history hospitalized for left hip fracture, underwent intramedullary nail fixation 07/28/2020, postoperative course complicated by urinary tract infection, urinary retention, acute encephalopathy, admitted to TCU with debility, here for rehabilitation, strengthening, prior to discharge home with . * Debility - PT/OT. * Pain - Tylenol 1000MG Q6H PRN pain (1-10). * Bowel - Miralax 17GM daily, Senna/colace 1 tablet BID, Dulcolax 10MG daily PRN. * Adult immunization - Administer Prevnar 13, Pneumovax 23, COVID19 vaccine as appropriate. * DVT prophylaxis - Aspirin 81MG twice daily thru 08/28/2020. * GERD - Pantoprazole 40MG daily. * Acute encephalopathy - Seroquel 25MG TID x7 days, 25MG BID x 7 days, 25MG QPM x 7 days, then stop. GDR implemented. * Urinary retention - Tamsulosin 0.4MG BID. * Anxiety - Xanax 0.5MG BID, Hydroxyzine 25MG TID PRN. * Asthma - Symbicort 160/4.5MG 2 puffs BID, Albuterol 2 puffs Q6H PRN. * Hyperlipidemia - Atorvastatin 20MG QHS. * Hypertension - Metoprolol 25MG BID, Losartan 100MG daily, HCTZ 25MG daily. 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
--- NOTE | 2020-08-12 21:09 | NURSING ---
Patient wishes to be a Full Code at this time.
--- NOTE | 2020-08-12 21:45 | NURSING ---
Patient stated her will be in today to sign paperwork.
[2020-08-12] MEDS: Atorvastatin Calcium 20 MG Tablet PO (22:26)
[2020-08-12 22:27] VITALS: PULSE 92
[2020-08-12] MEDS: hydrOXYzine PAM 25 MG Capsule PO (22:27)
[2020-08-12] MEDS: Metoprolol Tartrate 25 MG Tablet PO (22:27)
[2020-08-12] MEDS: QUEtiapine 25 MG Tablet PO (22:27)
[2020-08-12] MEDS: ALPRAZolam 0.5 MG Tablet PO (22:30)
--- NOTE | 2020-08-13 02:45 | NURSING ---
Patient still awake at this time. Very anxious. States shes having restless legs. Patient offered pain analgesic x2 and patient refused. {patio
--- NOTE | 2020-08-13 02:45 | NURSING ---
Addendum entered by Sara Ramos 08/13/20 05:27: Patient resting comfortably at this time. Original Note: Patient awake still at this time. Complaining of restless legs and very anxious. 1:1 with patient in room. Attempted to administer pain analgesic to patient x2, but patient refused. Repositioned several times.
[2020-08-13 05:46] LABS: Absolute Lymphocyte Count 2.36 X10^3/uL (0.83-4.51); Absolute Neutrophil Count 5.3 X10^3/uL (2.0-7.7); Basophil# 0.09 X10^3/uL; Eosinophils% 6.4 % (0-5); Hematocrit 32.5 % (37-47); Hemoglobin 9.8 g/dL (12.0-15.0); Lymphocyte # 2.36 X10^3/ul (0.83-4.51); Lymphocyte % 25.1 % (19-41); Mean Corp Hgb Conc 30.2 g/dL (32-36); Mean Corpuscular Hgb 28.5 pg (27.0-32.0); Mean Corpuscular Volume 94.5 fL (81-99); Mean Platelet Vol. 10.1 fl (6.2-12.0); Monocyte# 0.93 X10^3/uL; Monocyte% 9.9 % (0-10); NRBC Flagged by Analyzer 0 % (0-5); Neutrophil # 5.27 X10^3/uL (2.7-7.7); Neutrophil % 55.8 % (47-70); Platelet Count 421 K/mm3 (150-450); RBC Distribution Width CV 15.3 % (11.6-14.6); Red Blood Count 3.44 M/mm3 (4.2-5.4); White Blood Count 9.4 K/mm3 (4.4-11.0)
[2020-08-13 06:04] LABS: Anion Gap 6 (5-15); BUN 13 mg/dL (7-18); Calcium,Total 8.8 mg/dL (8.5-10.1); Chloride 110 mmol/L (98-107); Creatinine, Serum 0.59 mg/dL (0.55-1.02); EST Glomerular Filtration Rate 104 mL/min (>60); Est Glom Filt Rate - Afr Amer 126 mL/min (>60); Estimated Creatinine Clearance 37.74 ml/min; Glucose 117 mg/dL (74-106); Potassium 3.7 mmol/L (3.5-5.1); Sodium Level 142 mmol/L (136-145)
[2020-08-13 08:12] VITALS: PULSE 97
[2020-08-13] MEDS: Senna/Docusate Sodium 1 Tablet PO ×2 (08:12→17:15)
[2020-08-13] MEDS: Metoprolol Tartrate 25 MG Tablet PO ×2 (08:12→17:14)
[2020-08-13] MEDS: Pantoprazole Sodium 40 MG Tablet PO (08:12)
[2020-08-13] MEDS: Tamsulosin HCl 0.4 MG Capsule PO ×2 (08:12→17:15)
[2020-08-13] MEDS: hydroCHLOROthiazide 12.5mg 12.5 MG PO (08:12)
[2020-08-13] MEDS: Losartan Potassium 100 MG Tablet PO (08:12)
[2020-08-13] MEDS: QUEtiapine 25 MG Tablet PO ×3 (08:13→21:18)
[2020-08-13] MEDS: Aspirin 81 MG TAB.CHEW PO ×2 (08:13→17:15)
[2020-08-13] MEDS: Fluticasone/Salmeterol 232-14 Inhaler 1 PUFF INHALATION ×2 (08:14→17:13)
[2020-08-13] MEDS: ALPRAZolam 0.5 MG Tablet PO ×2 (08:20→17:15)
[2020-08-13 10:00] VITALS: PULSE 102; RESP 18; O2SAT 91
--- NOTE | 2020-08-13 10:38 | CASEMGMT ---
Social Work SW met w/pt in room for initial assessment. SW did not review CODE status or MOLST form as pt's family requested pt not sign anything yet, given the delirium she had at the hospital prior to TCU stay, and her anxiety. Pt's goal is to return home. Pt fell at her granddaughter's graduation in [place] and was hospitalized there. Pt arrived yesterday evening to TCU for rehab. Pt has five children who are supportive, however they all live out of town. Some are visiting at present and are going home on the weekend. Pt's and daughter Radha from [place] entered room while SW was speaking w/pt. They confirm plan will be for pt to return home at discharge. Daughter Radha spoke w/SW in the hallway to reiterate the family's concern about pt having delirium at the hospital prior to this stay in TCU, and her concern for pt's mental health. She asked if pt could have compassionate visitation as much as is allowed to help w/pt's mental status. SW advised her to speak w/Raya in activities, she states she has already and told Raya the same thing. (SW did speak w/Raya, she is fully aware of family's request.) SW explained to daughter that pt's insurance will be having the first review tomorrow to help determine how long pt will be authorized to be here. SW explained to her that if more time is needed beyond what is authorized initially, TCU staff will go back to insurance and ask for more time. Daughter states understanding. Plan will be for home w/home health, SW will continue to follow. EMELY Ayoub
--- NOTE | 2020-08-13 11:01 | NURSING ---
Contacted Ghazala Paniagua CNP, received order to remove dressing from left hip surgical site.
[2020-08-13] MEDS: FLUCONAZOLE 150 MG TABLET PO (11:39)
--- NOTE | 2020-08-13 11:53 | PHA.CONS_ITS ---
Progress Note - Pharmacy Subjective: TCU Admission Objective: Allergies epinephrine Allergy (Severe, Verified 03/21/20 01:03) Anaphylaxis pseudoephedrine [From Sudafed] Allergy (Intermediate, Verified 03/21/20 01:03) Chest tightness prednisone Adverse Reaction (Verified 03/21/20 01:03) heart races Current Medications Generic Name Dose Route Start Last Admin Trade Name Freq PRN Reason Stop Dose Admin Acetaminophen 1,000 mg 08/12/20 21:20 Acetaminophen 500 Mg Tablet PO Q6H PRN PRN Pain Score 1-10 Albuterol Sulfate 2 puff 08/12/20 21:05 Albuterol Sulfate 8 Gm Inhaler (60 Puffs) INHALATION Q6H PRN PRN COUGH Alprazolam 0.5 mg 08/12/20 21:15 08/13/20 08:20 Alprazolam 0.5 Mg Tablet PO 08/17/20 21:16 0.5 mg BID BLAIR Administration Aspirin 81 mg 08/13/20 08:00 08/13/20 08:13 Aspirin 81 Mg Tab.Chew PO 08/28/20 23:59 81 mg BIDCM BLAIR Administration Atorvastatin Calcium 20 mg 08/12/20 22:00 08/12/20 22:26 Atorvastatin Calcium 20 Mg Tablet PO 20 mg QHS BLAIR Administration Bisacodyl 10 mg 08/12/20 21:20 Bisacodyl 5 Mg Tablet PO DAILY PRN CONSTIPATION Hydrochlorothiazide 12.5 mg 08/13/20 06:00 08/13/20 08:12 Hydrochlorothiazide 12.5mg PO 12.5 mg DAILY BLAIR Administration Hydroxyzine Pamoate 25 mg 08/12/20 22:00 08/12/20 22:27 Hydroxyzine Yu 25 Mg Capsule PO 25 mg QHS BLAIR Administration Losartan Potassium 100 mg 08/13/20 06:00 08/13/20 08:12 Losartan Potassium 100 Mg Tablet PO 100 mg DAILY BLAIR Administration Metoprolol Tartrate 25 mg 08/12/20 21:45 08/13/20 08:12 Metoprolol Tartrate 25 Mg Tablet PO 25 mg BID BLAIR Administration Pantoprazole Sodium 40 mg 08/13/20 06:00 08/13/20 08:12 Pantoprazole Sodium 40 Mg Tablet PO 40 mg DAILY BLAIR Administration Paroxetine HCl 10 mg 08/13/20 06:00 08/13/20 08:16 Paroxetine 10 Mg Tablet PO Not Given DAILY [facility] Pramipexole Dihydrochloride 0.5 mg 08/13/20 22:00 Pramipexole Di-Hcl 0.5 Mg Tablet PO QHS [facility] Psyllium Hydrophilic Mucilloid 1 packet 08/13/20 22:00 Psyllium 1 Packet PO QHS [facility] Quetiapine Fumarate 25 mg 08/12/20 22:00 08/13/20 08:13 Quetiapine 25 Mg Tablet PO 08/19/20 22:01 25 mg TID BLAIR Administration Fluticasone/Salmeterol 1 puff 08/13/20 06:00 08/13/20 08:14 Fluticasone/Salmeterol 232-14 Inhaler INHALATION 1 puff Q12 [facility] Administration Senna/Docusate Sodium 1 tablet 08/13/20 06:00 08/13/20 08:12 Senna/Docusate Sodium 1 Tablet PO 1 tablet BID BLAIR Administration Tamsulosin HCl 0.4 mg 08/13/20 06:00 08/13/20 08:12 Tamsulosin Hcl 0.4 Mg Capsule PO 0.4 mg BID BLAIR Administration Tramadol HCl 50 mg 08/12/20 21:48 Tramadol 50 Mg Tablet PO Q6H PRN PRN Pain Score 1-10 Tuberculin PPD 0.1 ml 08/20/20 10:00 Tuberculin,Purif.Prot.Deriv. 50 Tu/Ml Vial ID 08/20/20 10:01 X1 ONE Problem List (Last Updated 08/12/20 @ 20:[address] Renan Ovalle MD) Depression (Acute) Hypertension (Chronic) Hyperlipidemia (Acute) Asthma (Acute) Benzodiazepine dependence (Acute) Anxiety (Acute) Gastroesophageal reflux disease (Acute) Acute metabolic encephalopathy (Acute) Urinary retention (Acute) Urinary tract infection (Acute) Closed left hip fracture (Acute) Debility (Acute) Vital Signs Temp Pulse Resp BP Pulse Ox 98.5 F 97 16 148/55 H 95 08/12/20 20:46 08/13/20 08:12 08/12/20 20:46 08/12/20 20:46 08/12/20 20:46 Oxygen Delivery Method Room Air Weight: 81.647 kg Body Mass Index (BMI) 31.8 Sodium 142 mmol/L (136-145) 08/13/20 05:22 Potassium 3.7 mmol/L (3.5-5.1) 08/13/20 05:22 Chloride 110 mmol/L (98-107) H 08/13/20 05:22 Carbon Dioxide 26.0 mmol/L (21.0-32.0) 08/13/20 05:22 Anion Gap 6 (5-15) 08/13/20 05:22 BUN 13 mg/dL (7-18) 08/13/20 05:22 Creatinine 0.59 mg/dL (0.55-1.02) 08/13/20 05:22 Est GFR (MDRD) Af Amer 126 mL/min (>60) 08/13/20 05:22 Est GFR (MDRD) Non-Af 104 mL/min (>60) 08/13/20 05:22 BUN/Creatinine Ratio 22.0 RATIO (10-20) H 08/13/20 05:22 Glucose 117 mg/dL (74-106) H 08/13/20 05:22 Assessment/Plan: 1. Pain: acetaminophen 1000mg PO Q6H PRN pain 1-10 and tramadol 50mg PO Q6H PRN pain. Please continue to monitor for pain and PRN usage. 2. DVT prophylaxis: aspirin 81mg PO BIDCM thru 08/28/20. Please continue to monitor for S/S of bleeding/DVT and hemoglobin (last 9.8g/dL). 3. GERD: pantoprazole 40mg PO daily. Please continue to monitor for S/S of GERD and diarrhea. 4. Urinary retention: tamsulosin 0.4mg PO BID. Please continue to monitor for hypotension and urinary retention. 5. Asthma: fluticasone/salmeterol 232/14mcg 1inhalation BID and albuterol inhaler 2puffs Q6H PRN cough. Please continue to monitor for S/S of asthma and PRN usage. Please have patient rinse mouth with water and spit to prevent thrush after administration of fluticasone/salmeterol. 6. Hyperlipidemia: atorvastatin 20mg PO QHS. Please continue to monitor for muscle pain and lipid panel (last 03/21/20). 7. Hypertension: metoprolol 25mg PO BID, losartan 100mg PO daily and hydrochlorothiazide 25mg PO daily. Please continue to monitor BP (last 148/55), HR (last 97) and potassium (3.7mmol/L). Psychotropic Medications: 1. Acute encephalopathy: quetiapine 25mg PO TID x 7 days, then 25mg PO BID x 7 days, then 25mg PO QHS x 7 days, then stop. (GDR in place). Please continue to monitor. 2. Depression: paroxetine 10mg PO daily. Please see physician note regrading GDR. 3. Anxiety: alprazolam 0.5mg PO BID thru 08/17/20 and hydroxyzine 25mg PO QHS. Please continue to monitor for S/S of withdrawal. *Unnecessary Medications: Pramipexole 0.5mg PO QHS. There is no documented indication for this medication. Please consider adding an indication if clinically indicated. Bowel Regimen: Miralax 17gm PO daily, senna/docusate 1T PO BID, psyllium 1packet PO QHS and bisacodyl 10mg PO daily PRN constipation. Please continue to monitor for constipation and PRN usage. Date of Note:: 08/13/20
[2020-08-13] MEDS: Tuberculin,Purif.prot.deriv. 50 TU/ML Vial 0.1 ML ID (13:20)
[2020-08-13 13:57] VITALS: BP 104/53; PULSE 91; RESP 16; TEMP 36.8; O2SAT 93
[2020-08-13 17:14] VITALS: PULSE 91
[2020-08-13] MEDS: hydrOXYzine PAM 25 MG Capsule PO (21:18)
[2020-08-13] MEDS: Pramipexole Di-HCl 0.5 MG Tablet PO (21:18)
[2020-08-13] MEDS: Atorvastatin Calcium 20 MG Tablet PO (21:19)
[2020-08-13] MEDS: Psyllium 1 PACKET PO (21:19)
[2020-08-14 05:16] VITALS: BP 137/62; PULSE 94; RESP 17; TEMP 36.3; O2SAT 95
[2020-08-14] MEDS: Tamsulosin HCl 0.4 MG Capsule PO ×2 (05:16→18:15)
[2020-08-14] MEDS: Metoprolol Tartrate 25 MG Tablet PO ×2 (05:16→18:15)
[2020-08-14] MEDS: hydroCHLOROthiazide 12.5mg 12.5 MG PO (05:17)
[2020-08-14] MEDS: PARoxetine 10 MG Tablet PO (05:17)
[2020-08-14] MEDS: QUEtiapine 25 MG Tablet PO ×3 (05:17→21:01)
[2020-08-14] MEDS: Losartan Potassium 100 MG Tablet PO (05:17)
[2020-08-14] MEDS: Senna/Docusate Sodium 1 Tablet PO ×2 (05:17→18:18)
[2020-08-14] MEDS: Omeprazole 20 MG Capsule PO (05:18)
[2020-08-14] MEDS: ALPRAZolam 0.5 MG Tablet PO ×2 (05:21→18:14)
[2020-08-14] MEDS: Fluticasone/Salmeterol 232-14 Inhaler 1 PUFF INHALATION ×2 (05:23→18:17)
[2020-08-14] MEDS: Acetaminophen 500 MG Tablet 1000 MG PO (08:40)
[2020-08-14] MEDS: Aspirin 81 MG TAB.CHEW PO ×2 (08:41→18:19)
[2020-08-14 13:58] VITALS: BP 111/66; PULSE 87; RESP 18; TEMP 36.1; O2SAT 95
--- NOTE | 2020-08-14 17:22 | CHAPLAIN ---
Type of Pastoral Visit _x__ Initial Visit ___ Follow-up Visit ___ On-call Visit ___ General Patient Visit ___ Spiritual Assessment ___ Family Conference ___ Bereavement ___ Rapid Response ___ Code Blue ___ Other (describe below) Pastoral Care Referral From _x__ Patient ___ Family ___ Nurse ___ Physician ___ Electrical Systems Design Engineer ___ Associate Professor Of Radiology ___ Other (describe below) Sacrament/Intervention _x__ Active listening ___ Anointing ___ Orthodox ___ Bereavement ___ Communion ___ Rita exploration ___ _x__ Life review _x__ Prayer ___ Reconciliation ___ Sacrament of Sick _x__ Supportive presence ___ Wedding ___ Other (describe below) Pastoral Comments
[2020-08-14 18:15] VITALS: PULSE 72
[2020-08-14] MEDS: Pramipexole Di-HCl 0.5 MG Tablet PO (21:01)
[2020-08-14] MEDS: Atorvastatin Calcium 20 MG Tablet PO (21:01)
[2020-08-14] MEDS: Psyllium 1 PACKET PO (21:01)
[2020-08-14] MEDS: hydrOXYzine PAM 25 MG Capsule PO (21:01)
[2020-08-15 04:00] VITALS: BP 131/77; PULSE 92; RESP 18; TEMP 36.7; O2SAT 91
[2020-08-15] MEDS: ALPRAZolam 0.5 MG Tablet PO ×2 (06:15→17:35)
[2020-08-15] MEDS: Fluticasone/Salmeterol 232-14 Inhaler 1 PUFF INHALATION (06:15)
[2020-08-15] MEDS: hydroCHLOROthiazide 12.5mg 12.5 MG PO (06:15)
[2020-08-15] MEDS: Losartan Potassium 100 MG Tablet PO (06:15)
[2020-08-15] MEDS: PARoxetine 10 MG Tablet PO (06:15)
[2020-08-15 06:16] VITALS: BP 131/77; PULSE 92
[2020-08-15] MEDS: Tamsulosin HCl 0.4 MG Capsule PO ×2 (06:16→17:35)
[2020-08-15] MEDS: Metoprolol Tartrate 25 MG Tablet PO ×2 (06:16→17:35)
[2020-08-15] MEDS: Senna/Docusate Sodium 1 Tablet PO ×2 (06:17→17:35)
[2020-08-15] MEDS: QUEtiapine 25 MG Tablet PO ×3 (06:18→21:02)
[2020-08-15] MEDS: Omeprazole 20 MG Capsule PO (06:18)
[2020-08-15] MEDS: Aspirin 81 MG TAB.CHEW PO ×2 (08:43→17:40)
[2020-08-15] MEDS: Acetaminophen 500 MG Tablet 1000 MG PO (11:38)
[2020-08-15 14:12] VITALS: BP 147/62; PULSE 88; RESP 17; TEMP 36.4; O2SAT 94
--- NOTE | 2020-08-15 14:58 | CASEMGMT ---
BIMS and PHQ9 interviews completed on this date for MDS assessment. JITENDRA Conti
[2020-08-15 17:35] VITALS: BP 148/61; PULSE 94
[2020-08-15] MEDS: Psyllium 1 PACKET PO (21:00)
[2020-08-15] MEDS: hydrOXYzine PAM 25 MG Capsule PO (21:01)
[2020-08-15] MEDS: Atorvastatin Calcium 20 MG Tablet PO (21:01)
[2020-08-15] MEDS: Pramipexole Di-HCl 0.5 MG Tablet PO (21:02)
[2020-08-16 02:51] VITALS: BP 126/56; PULSE 83; RESP 16; TEMP 37.2; O2SAT 97
--- NOTE | 2020-08-16 02:59 | NURSING ---
DINO Alanis, calls this nurse to room. Gown and linens wet. Vitals obtained and recorded. Temp 99.0. Gown and wet linens changed. Purwick not working properly. Incontinent of urine. Calmoseptine applied to buttocks. Positioned for comfort. Pt consumed some water. Call light w/ in reach. Will continue to monitor.
[2020-08-16 06:34] VITALS: BP 146/61; PULSE 87; RESP 16; TEMP 36.7; O2SAT 95
[2020-08-16] MEDS: QUEtiapine 25 MG Tablet PO ×3 (06:39→22:33)
[2020-08-16] MEDS: hydroCHLOROthiazide 12.5mg 12.5 MG PO (06:39)
[2020-08-16] MEDS: Losartan Potassium 100 MG Tablet PO (06:39)
[2020-08-16] MEDS: Menthol/Lanolin/Calamine/Znox 113 GM Tube 1 APPLIC TOPICAL ×2 (06:39→17:36)
[2020-08-16 06:40] VITALS: BP 146/61; PULSE 87
[2020-08-16] MEDS: Metoprolol Tartrate 25 MG Tablet PO ×2 (06:40→17:31)
[2020-08-16] MEDS: Tamsulosin HCl 0.4 MG Capsule PO ×2 (06:40→17:31)
[2020-08-16] MEDS: PARoxetine 10 MG Tablet PO (06:40)
[2020-08-16] MEDS: ALPRAZolam 0.5 MG Tablet PO ×2 (06:49→17:34)
[2020-08-16] MEDS: Omeprazole 20 MG Capsule PO (06:50)
[2020-08-16] MEDS: Aspirin 81 MG TAB.CHEW PO ×2 (08:32→17:31)
[2020-08-16] MEDS: Acetaminophen 500 MG Tablet 1000 MG PO (12:08)
[2020-08-16 15:41] VITALS: BP 139/64; PULSE 91; RESP 18; TEMP 36.9; O2SAT 97
[2020-08-16 17:31] VITALS: PULSE 91
[2020-08-16] MEDS: Senna/Docusate Sodium 1 Tablet PO (17:31)
[2020-08-16] MEDS: Fluticasone/Salmeterol 232-14 Inhaler 1 PUFF INHALATION (17:31)
[2020-08-16] MEDS: Psyllium 1 PACKET PO (22:24)
[2020-08-16] MEDS: Atorvastatin Calcium 20 MG Tablet PO (22:31)
[2020-08-16] MEDS: Pramipexole Di-HCl 0.5 MG Tablet PO (22:32)
[2020-08-16] MEDS: hydrOXYzine PAM 25 MG Capsule PO (22:36)
[2020-08-17 04:00] VITALS: BP 151/72; PULSE 93; RESP 18; TEMP 36.7; O2SAT 92
[2020-08-17] MEDS: Menthol/Lanolin/Calamine/Znox 113 GM Tube 1 APPLIC TOPICAL ×2 (06:03→17:04)
[2020-08-17] MEDS: ALPRAZolam 0.5 MG Tablet PO ×2 (06:03→17:09)
[2020-08-17] MEDS: PARoxetine 10 MG Tablet PO (06:03)
[2020-08-17 06:04] VITALS: BP 151/72; PULSE 93
[2020-08-17] MEDS: Fluticasone/Salmeterol 232-14 Inhaler 1 PUFF INHALATION (06:04)
[2020-08-17] MEDS: hydroCHLOROthiazide 12.5mg 12.5 MG PO (06:04)
[2020-08-17] MEDS: Metoprolol Tartrate 25 MG Tablet PO ×2 (06:04→17:02)
[2020-08-17] MEDS: Tamsulosin HCl 0.4 MG Capsule PO ×2 (06:04→17:02)
[2020-08-17] MEDS: Losartan Potassium 100 MG Tablet PO (06:04)
[2020-08-17] MEDS: Omeprazole 20 MG Capsule PO (06:04)
[2020-08-17] MEDS: QUEtiapine 25 MG Tablet PO ×3 (06:04→20:40)
[2020-08-17] MEDS: Aspirin 81 MG TAB.CHEW PO ×2 (08:12→17:09)
[2020-08-17 15:47] VITALS: BP 141/67; PULSE 92; RESP 18; TEMP 36.9; O2SAT 92
[2020-08-17 17:02] VITALS: BP 141/67; PULSE 92
[2020-08-17] MEDS: Psyllium 1 PACKET PO (20:39)
[2020-08-17] MEDS: hydrOXYzine PAM 25 MG Capsule PO (20:39)
[2020-08-17] MEDS: Pramipexole Di-HCl 0.5 MG Tablet PO (20:40)
[2020-08-17] MEDS: Atorvastatin Calcium 20 MG Tablet PO (20:41)
[2020-08-18 04:34] VITALS: BP 110/68; PULSE 86; RESP 15; TEMP 36.6; O2SAT 92
[2020-08-18] MEDS: Omeprazole 20 MG Capsule PO (05:46)
[2020-08-18 05:47] VITALS: PULSE 88
[2020-08-18] MEDS: Metoprolol Tartrate 25 MG Tablet PO ×2 (05:47→16:57)
[2020-08-18] MEDS: PARoxetine 10 MG Tablet PO (05:47)
[2020-08-18] MEDS: Tamsulosin HCl 0.4 MG Capsule PO ×2 (05:48→16:58)
[2020-08-18] MEDS: Senna/Docusate Sodium 1 Tablet PO ×2 (05:48→16:58)
[2020-08-18] MEDS: hydroCHLOROthiazide 12.5mg 12.5 MG PO (05:48)
[2020-08-18] MEDS: QUEtiapine 25 MG Tablet PO ×3 (05:48→20:29)
[2020-08-18] MEDS: Losartan Potassium 100 MG Tablet PO (05:48)
[2020-08-18] MEDS: Menthol/Lanolin/Calamine/Znox 113 GM Tube 1 APPLIC TOPICAL ×2 (05:55→16:58)
[2020-08-18] MEDS: Aspirin 81 MG TAB.CHEW PO ×2 (08:22→16:57)
[2020-08-18 09:03] VITALS: PULSE 97; RESP 18; O2SAT 96
[2020-08-18 14:17] VITALS: BP 135/71; PULSE 88; RESP 18; TEMP 36.7; O2SAT 90
[2020-08-18 16:57] VITALS: PULSE 88
[2020-08-18] MEDS: Fluticasone/Salmeterol 232-14 Inhaler 1 PUFF INHALATION (16:57)
[2020-08-18] MEDS: Pramipexole Di-HCl 0.5 MG Tablet PO ×2 (20:28→20:29)
[2020-08-18] MEDS: Atorvastatin Calcium 20 MG Tablet PO (20:29)
[2020-08-18] MEDS: hydrOXYzine PAM 25 MG Capsule PO (20:29)
[2020-08-18] MEDS: Acetaminophen 500 MG Tablet 1000 MG PO (20:30)
[2020-08-18] MEDS: Psyllium 1 PACKET PO (20:30)
--- NOTE | 2020-08-18 22:48 | PCA ---
patient care done by RN due to request for no male care
[2020-08-19 04:00] VITALS: BP 141/99; PULSE 89; RESP 16; TEMP 36.7; O2SAT 95
[2020-08-19] MEDS: QUEtiapine 25 MG Tablet PO ×3 (06:24→20:04)
[2020-08-19 06:25] VITALS: BP 141/99; PULSE 89
[2020-08-19] MEDS: Losartan Potassium 100 MG Tablet PO (06:25)
[2020-08-19] MEDS: Tamsulosin HCl 0.4 MG Capsule PO ×2 (06:25→17:33)
[2020-08-19] MEDS: hydroCHLOROthiazide 12.5mg 12.5 MG PO (06:25)
[2020-08-19] MEDS: Senna/Docusate Sodium 1 Tablet PO ×2 (06:25→17:34)
[2020-08-19] MEDS: Metoprolol Tartrate 25 MG Tablet PO ×2 (06:25→17:33)
[2020-08-19] MEDS: PARoxetine 10 MG Tablet PO (06:26)
[2020-08-19] MEDS: Menthol/Lanolin/Calamine/Znox 113 GM Tube 1 APPLIC TOPICAL ×2 (06:50→17:33)
[2020-08-19] MEDS: Omeprazole 20 MG Capsule PO (06:51)
[2020-08-19] MEDS: Aspirin 81 MG TAB.CHEW PO ×2 (08:49→18:20)
[2020-08-19 13:34] VITALS: BP 111/54; PULSE 91; RESP 17; TEMP 36.7; O2SAT 92
--- NOTE | 2020-08-19 14:40 | MDS.RN ---
Resident resting in bed, eyes closed, will do staff assessment for pain.
[2020-08-19 14:47] VITALS: RESP 18
[2020-08-19 17:33] VITALS: BP 125/53; PULSE 104
--- NOTE | 2020-08-19 18:33 | NURSING ---
Updated Family in pt's Room.
[2020-08-19] MEDS: hydrOXYzine PAM 25 MG Capsule PO (20:03)
[2020-08-19] MEDS: Atorvastatin Calcium 20 MG Tablet PO (20:05)
[2020-08-19] MEDS: MELATONIN 10 MG TABLET PO (20:05)
[2020-08-20 05:41] VITALS: BP 116/58; PULSE 85
[2020-08-20] MEDS: Metoprolol Tartrate 25 MG Tablet PO ×2 (05:41→16:46)
[2020-08-20] MEDS: Tamsulosin HCl 0.4 MG Capsule PO ×2 (05:41→16:45)
[2020-08-20] MEDS: Losartan Potassium 100 MG Tablet PO (05:41)
[2020-08-20 05:43] LABS: Absolute Lymphocyte Count 2.47 X10^3/uL (0.83-4.51); Absolute Neutrophil Count 5.4 X10^3/uL (2.0-7.7); Basophil# 0.07 X10^3/uL; Basophil% 0.8 % (0-1); Eosinophil# 0.43 X10^3/uL; Eosinophils% 4.7 % (0-5); Hematocrit 32.5 % (37-47); Hemoglobin 10.1 g/dL (12.0-15.0); Lymphocyte # 2.47 X10^3/ul (0.83-4.51); Lymphocyte % 26.9 % (19-41); Mean Corp Hgb Conc 31.1 g/dL (32-36); Mean Corpuscular Hgb 28.4 pg (27.0-32.0); Mean Corpuscular Volume 91.3 fL (81-99); Mean Platelet Vol. 10.4 fl (6.2-12.0); Monocyte# 0.78 X10^3/uL; Monocyte% 8.5 % (0-10); NRBC Flagged by Analyzer 0 % (0-5); Neutrophil # 5.35 X10^3/uL (2.7-7.7); Neutrophil % 58.2 % (47-70); Platelet Count 424 K/mm3 (150-450); RBC Distribution Width CV 14.7 % (11.6-14.6); RBC Distribution Width SD 49.5 fl (35.1-43.9); Red Blood Count 3.56 M/mm3 (4.2-5.4); White Blood Count 9.2 K/mm3 (4.4-11.0)
[2020-08-20] MEDS: Omeprazole 20 MG Capsule PO (05:45)
[2020-08-20] MEDS: hydroCHLOROthiazide 12.5mg 12.5 MG PO (05:45)
[2020-08-20] MEDS: PARoxetine 10 MG Tablet PO (05:45)
[2020-08-20] MEDS: QUEtiapine 25 MG Tablet PO ×2 (05:47→16:46)
[2020-08-20] MEDS: Menthol/Lanolin/Calamine/Znox 113 GM Tube 1 APPLIC TOPICAL ×2 (05:54→16:47)
[2020-08-20 05:55] VITALS: BP 116/58; PULSE 83; RESP 18; TEMP 36.3; O2SAT 91
[2020-08-20 06:00] LABS: Anion Gap 7 (5-15); BUN 23 mg/dL (7-18); BUN/Creat Ratio 27.5 RATIO (10-20); Calcium,Total 8.9 mg/dL (8.5-10.1); Chloride 103 mmol/L (98-107); Creatinine, Serum 0.84 mg/dL (0.55-1.02); EST Glomerular Filtration Rate 70 mL/min (>60); Est Glom Filt Rate - Afr Amer 84 mL/min (>60); Estimated Creatinine Clearance 44.92 ml/min; Glucose 109 mg/dL (74-106); Potassium 3.7 mmol/L (3.5-5.1); Sodium Level 136 mmol/L (136-145)
[2020-08-20] MEDS: Aspirin 81 MG TAB.CHEW PO ×2 (07:59→16:49)
[2020-08-20] MEDS: Tuberculin,Purif.prot.deriv. 50 TU/ML Vial 0.1 ML ID (12:18)
--- NOTE | 2020-08-20 12:22 | CASEMGMT ---
Social Work IDT met with patient, and dtr for care plan meeting. Discussed patient's progress in therapy and nursing. Pt progressing well. Explained [facility] insurance with NRD 08/21 and continued stay is not guaranteed. Discussed goal's for DC as she was independent prior. states he can assist CGA-SBA but not more r/t strength. SW discussed at length resources available for pt at DC and provided resources to dtr - skilled and nonskilled HHC, driving test, counseling resources, ramp/handrail/grab bar, insurance plans. Pt requesting 3-in-1 commode, PT/OT/HOWELL at DC. SW will order once DC date is issued. Family appreciative of resources and information. SW to continue to follow. NAIDA PedrazaW
--- NOTE | 2020-08-20 13:50 | PCA ---
Called and spoke with Dejuan regarding a follow up appt with an orthopedic doctor around this area. Per , family needs to discuss and get recommendations. Family will call us once they decide. Nursing updated
[2020-08-20 14:43] VITALS: BP 138/58; PULSE 76; RESP 16; TEMP 36.3; O2SAT 95
[2020-08-20 16:46] VITALS: PULSE 76
[2020-08-20] MEDS: MELATONIN 10 MG TABLET PO (22:11)
[2020-08-20] MEDS: Psyllium 1 PACKET PO (22:11)
[2020-08-20] MEDS: Atorvastatin Calcium 20 MG Tablet PO (22:11)
[2020-08-20] MEDS: hydrOXYzine PAM 25 MG Capsule PO (22:11)
[2020-08-20] MEDS: Pramipexole Di-HCl 0.5 MG Tablet PO (22:11)
[2020-08-21 04:00] VITALS: BP 152/68; PULSE 85; RESP 16; TEMP 36.5; O2SAT 93
[2020-08-21 05:47] VITALS: BP 152/68; PULSE 85
[2020-08-21] MEDS: Tamsulosin HCl 0.4 MG Capsule PO ×2 (05:47→18:15)
[2020-08-21] MEDS: PARoxetine 10 MG Tablet PO (05:47)
[2020-08-21] MEDS: Omeprazole 20 MG Capsule PO (05:47)
[2020-08-21] MEDS: Metoprolol Tartrate 25 MG Tablet PO ×2 (05:47→18:15)
[2020-08-21] MEDS: QUEtiapine 25 MG Tablet PO ×2 (05:49→18:14)
[2020-08-21] MEDS: hydroCHLOROthiazide 12.5mg 12.5 MG PO (05:49)
[2020-08-21] MEDS: Losartan Potassium 100 MG Tablet PO (05:50)
[2020-08-21] MEDS: Aspirin 81 MG TAB.CHEW PO ×2 (08:28→18:18)
[2020-08-21] MEDS: Menthol/Lanolin/Calamine/Znox 113 GM Tube 1 APPLIC TOPICAL ×2 (08:29→18:18)
[2020-08-21] MEDS: Acetaminophen 500 MG Tablet 1000 MG PO (09:37)
[2020-08-21 14:00] VITALS: BP 132/54; PULSE 93; RESP 18; TEMP 36.5; O2SAT 92
[2020-08-21 18:15] VITALS: PULSE 82
[2020-08-21] MEDS: MELATONIN 10 MG TABLET PO (22:33)
[2020-08-21] MEDS: Pramipexole Di-HCl 0.5 MG Tablet PO (22:33)
[2020-08-21] MEDS: hydrOXYzine PAM 25 MG Capsule PO (22:33)
[2020-08-21] MEDS: Atorvastatin Calcium 20 MG Tablet PO (22:34)
--- NOTE | 2020-08-21 22:35 | NURSING ---
Pt questions this nurse if purewick is in place when INSIDE PARTS SALES recently exited room. Assessed status of purewick and informed pt device is connected to tubing, canister, and wall suction. Verbalizes continued struggles w/ insomnia. Given Melatonin and Hydroxyzine per dr order. Offered Tylenol in addition to hs regimen and pt declines. Encouraged to call staff if unable to sleep for additional intervention. Has own supply of Metamucil from home. Unsure why pt does not wish to utilize hospital's supply. Pt mixed Metamucil w/ own supply of ICE water and consumed entire dose. Assessment completed. Call light w/ in reach. Curtain pulled partially and all lights turned out when this nurse finished in pt's room to prevent insomnia.
[2020-08-22 06:18] VITALS: BP 147/65; PULSE 81; RESP 16; TEMP 36.8; O2SAT 91
[2020-08-22] MEDS: Menthol/Lanolin/Calamine/Znox 113 GM Tube 1 APPLIC TOPICAL ×2 (06:21→17:17)
[2020-08-22] MEDS: Tamsulosin HCl 0.4 MG Capsule PO ×2 (06:22→17:14)
[2020-08-22] MEDS: QUEtiapine 25 MG Tablet PO ×2 (06:22→17:15)
[2020-08-22] MEDS: hydroCHLOROthiazide 12.5mg 12.5 MG PO (06:22)
[2020-08-22] MEDS: Losartan Potassium 100 MG Tablet PO (06:22)
[2020-08-22 06:23] VITALS: BP 147/65; PULSE 81
[2020-08-22] MEDS: PARoxetine 10 MG Tablet PO (06:23)
[2020-08-22] MEDS: Metoprolol Tartrate 25 MG Tablet PO ×2 (06:23→17:17)
[2020-08-22] MEDS: Omeprazole 20 MG Capsule PO (06:24)
[2020-08-22] MEDS: Aspirin 81 MG TAB.CHEW PO ×2 (08:43→17:29)
[2020-08-22 14:48] VITALS: BP 127/72; PULSE 79; RESP 18; TEMP 36.7; O2SAT 94
--- NOTE | 2020-08-22 15:04 | CASEMGMT ---
Social Work Notified pt and dtr that insurance approved additional days with NRD 08/28 and continued stay is not guaranteed. Both expressed understanding. Will continue to follow. Sherrie Sinclair, SALES AND SERVICE CONSULTANT [employer]
[2020-08-22 17:17] VITALS: BP 127/72; PULSE 79
[2020-08-22] MEDS: Atorvastatin Calcium 20 MG Tablet PO (21:27)
[2020-08-22] MEDS: Pramipexole Di-HCl 0.5 MG Tablet PO (21:27)
[2020-08-22] MEDS: hydrOXYzine PAM 25 MG Capsule PO (21:28)
[2020-08-22] MEDS: MELATONIN 10 MG TABLET PO (21:28)
[2020-08-23 04:15] VITALS: BP 140/61; PULSE 80; RESP 16; TEMP 36.6; O2SAT 93
[2020-08-23 04:21] VITALS: BP 140/61; PULSE 80
[2020-08-23] MEDS: PARoxetine 10 MG Tablet PO (04:21)
[2020-08-23] MEDS: Senna/Docusate Sodium 1 Tablet PO (04:21)
[2020-08-23] MEDS: Metoprolol Tartrate 25 MG Tablet PO ×2 (04:21→17:44)
[2020-08-23] MEDS: hydroCHLOROthiazide 12.5mg 12.5 MG PO (04:22)
[2020-08-23] MEDS: QUEtiapine 25 MG Tablet PO ×2 (04:22→17:45)
[2020-08-23] MEDS: Tamsulosin HCl 0.4 MG Capsule PO ×2 (04:22→17:45)
[2020-08-23] MEDS: Losartan Potassium 100 MG Tablet PO (04:22)
[2020-08-23] MEDS: Omeprazole 20 MG Capsule PO (04:23)
[2020-08-23] MEDS: Menthol/Lanolin/Calamine/Znox 113 GM Tube 1 APPLIC TOPICAL ×2 (04:25→17:48)
[2020-08-23] MEDS: Aspirin 81 MG TAB.CHEW PO ×2 (08:23→17:48)
[2020-08-23 14:16] VITALS: BP 145/60; PULSE 72; RESP 16; TEMP 36.6; O2SAT 93
[2020-08-23 17:44] VITALS: PULSE 72
[2020-08-23] MEDS: Pramipexole Di-HCl 0.5 MG Tablet PO (20:58)
[2020-08-23] MEDS: Atorvastatin Calcium 20 MG Tablet PO (20:58)
[2020-08-23] MEDS: MELATONIN 10 MG TABLET PO (20:58)
[2020-08-23] MEDS: hydrOXYzine PAM 25 MG Capsule PO (20:58)
[2020-08-23] MEDS: Psyllium 1 PACKET PO (20:59)
[2020-08-23 21:02] VITALS: PULSE 79; RESP 16; O2SAT 93
[2020-08-24 03:49] VITALS: BP 123/53; PULSE 79; RESP 16; TEMP 36.9; O2SAT 93
[2020-08-24 05:34] VITALS: BP 123/53; PULSE 79
[2020-08-24] MEDS: PARoxetine 10 MG Tablet PO (05:34)
[2020-08-24] MEDS: QUEtiapine 25 MG Tablet PO ×2 (05:34→17:17)
[2020-08-24] MEDS: Metoprolol Tartrate 25 MG Tablet PO ×2 (05:34→17:16)
[2020-08-24] MEDS: Losartan Potassium 100 MG Tablet PO (05:35)
[2020-08-24] MEDS: Tamsulosin HCl 0.4 MG Capsule PO ×2 (05:35→17:16)
[2020-08-24] MEDS: Omeprazole 20 MG Capsule PO (05:35)
[2020-08-24] MEDS: hydroCHLOROthiazide 12.5mg 12.5 MG PO (05:35)
[2020-08-24] MEDS: Menthol/Lanolin/Calamine/Znox 113 GM Tube 1 APPLIC TOPICAL ×2 (05:37→17:17)
[2020-08-24] MEDS: Aspirin 81 MG TAB.CHEW PO ×2 (08:43→17:16)
[2020-08-24 14:04] VITALS: BP 122/53; PULSE 62; RESP 14; TEMP 36.8; O2SAT 94
[2020-08-24 17:16] VITALS: BP 143/80; PULSE 93
[2020-08-24] MEDS: MELATONIN 10 MG TABLET PO (21:15)
[2020-08-24] MEDS: hydrOXYzine PAM 25 MG Capsule PO (21:15)
[2020-08-24] MEDS: Psyllium 1 PACKET PO (21:15)
[2020-08-24] MEDS: Pramipexole Di-HCl 0.5 MG Tablet PO (21:15)
[2020-08-24] MEDS: Atorvastatin Calcium 20 MG Tablet PO (21:15)
[2020-08-25 04:58] VITALS: PULSE 90
[2020-08-25] MEDS: Tamsulosin HCl 0.4 MG Capsule PO ×2 (04:58→18:38)
[2020-08-25] MEDS: Metoprolol Tartrate 25 MG Tablet PO ×2 (04:58→18:38)
[2020-08-25] MEDS: hydroCHLOROthiazide 12.5mg 12.5 MG PO (04:59)
[2020-08-25] MEDS: Losartan Potassium 100 MG Tablet PO (04:59)
[2020-08-25] MEDS: QUEtiapine 25 MG Tablet PO ×2 (04:59→18:43)
[2020-08-25] MEDS: PARoxetine 10 MG Tablet PO (04:59)
[2020-08-25] MEDS: Omeprazole 20 MG Capsule PO (05:03)
[2020-08-25 05:06] VITALS: BP 143/58; PULSE 77; RESP 16; TEMP 37.1; O2SAT 92
[2020-08-25] MEDS: Menthol/Lanolin/Calamine/Znox 113 GM Tube 1 APPLIC TOPICAL ×2 (05:11→18:37)
[2020-08-25] MEDS: Aspirin 81 MG TAB.CHEW PO ×2 (09:58→18:43)
--- NOTE | 2020-08-25 11:42 | MDS.RN ---
Information for the mds was obtained from review of the clinical record, interview of resident, staff, and direct observation of resident's care.
[2020-08-25 13:00] VITALS: PULSE 76; RESP 18; O2SAT 95
--- NOTE | 2020-08-25 13:56 | CASEMGMT ---
Addendum entered by Sherrie Sinclair 08/26/20 10:35: Spoke with pt. Pt agreeable to remain until insurance issues DC date. Explained NRD is 08/28. Pt will DC home with . No changes in DC plan. Original Note: Social Work Attempted to follow up with pt on DC plans. Pt asleep and did not awaken to knock. Will continue to follow. Sherrie Sinclair, NAIDA ROBLEDOW
[2020-08-25 15:34] VITALS: BP 124/59; PULSE 75; RESP 16; TEMP 36.2; O2SAT 96
[2020-08-25 18:38] VITALS: BP 124/59; PULSE 75
[2020-08-25] MEDS: Atorvastatin Calcium 20 MG Tablet PO (21:20)
[2020-08-25] MEDS: Psyllium 1 PACKET PO (21:21)
[2020-08-25] MEDS: hydrOXYzine PAM 25 MG Capsule PO (21:21)
[2020-08-25] MEDS: Pramipexole Di-HCl 0.5 MG Tablet PO (21:21)
[2020-08-25] MEDS: MELATONIN 10 MG TABLET PO (21:21)
[2020-08-26 04:00] VITALS: BP 147/70; PULSE 75; RESP 18; TEMP 36.6; O2SAT 94
[2020-08-26] MEDS: Menthol/Lanolin/Calamine/Znox 113 GM Tube 1 APPLIC TOPICAL ×2 (04:58→17:43)
[2020-08-26 04:59] VITALS: BP 147/70; PULSE 75
[2020-08-26] MEDS: hydroCHLOROthiazide 12.5mg 12.5 MG PO (04:59)
[2020-08-26] MEDS: Losartan Potassium 100 MG Tablet PO (04:59)
[2020-08-26] MEDS: Metoprolol Tartrate 25 MG Tablet PO ×2 (04:59→17:40)
[2020-08-26] MEDS: Tamsulosin HCl 0.4 MG Capsule PO ×2 (04:59→17:39)
[2020-08-26] MEDS: QUEtiapine 25 MG Tablet PO ×2 (04:59→17:41)
[2020-08-26] MEDS: PARoxetine 10 MG Tablet PO (04:59)
[2020-08-26] MEDS: Omeprazole 20 MG Capsule PO (05:00)
[2020-08-26] MEDS: Aspirin 81 MG TAB.CHEW PO ×2 (08:06→17:39)
[2020-08-26 13:37] VITALS: BP 134/52; PULSE 69; RESP 16; TEMP 36; O2SAT 94
[2020-08-26 17:40] VITALS: BP 134/52; PULSE 69
[2020-08-26] MEDS: Psyllium 1 PACKET PO (20:32)
[2020-08-26] MEDS: Pramipexole Di-HCl 0.5 MG Tablet PO (20:32)
[2020-08-26] MEDS: Atorvastatin Calcium 20 MG Tablet PO (20:32)
[2020-08-26] MEDS: hydrOXYzine PAM 25 MG Capsule PO (20:32)
[2020-08-26] MEDS: MELATONIN 10 MG TABLET PO (20:32)
[2020-08-27 04:00] VITALS: BP 142/57; PULSE 87; RESP 18; TEMP 36.4; O2SAT 91
[2020-08-27 05:48] LABS: Absolute Lymphocyte Count 2.42 X10^3/uL (0.83-4.51); Absolute Neutrophil Count 5.8 X10^3/uL (2.0-7.7); Basophil# 0.08 X10^3/uL; Basophil% 0.8 % (0-1); Eosinophil# 0.42 X10^3/uL; Eosinophils% 4.4 % (0-5); Hemoglobin 10.2 g/dL (12.0-15.0); Lymphocyte # 2.42 X10^3/ul (0.83-4.51); Lymphocyte % 25.5 % (19-41); Mean Corp Hgb Conc 30.9 g/dL (32-36); Mean Corpuscular Hgb 28.4 pg (27.0-32.0); Mean Corpuscular Volume 91.9 fL (81-99); Mean Platelet Vol. 10.1 fl (6.2-12.0); Monocyte# 0.71 X10^3/uL; Monocyte% 7.5 % (0-10); NRBC Flagged by Analyzer 0 % (0-5); Neutrophil % 61.2 % (47-70); Platelet Count 337 K/mm3 (150-450); RBC Distribution Width CV 14.6 % (11.6-14.6); RBC Distribution Width SD 49.1 fl (35.1-43.9); Red Blood Count 3.59 M/mm3 (4.2-5.4); White Blood Count 9.5 K/mm3 (4.4-11.0)
[2020-08-27] MEDS: Polyethylene Glycol 3350 17 GM PACKET PO (06:10)
[2020-08-27 06:11] VITALS: BP 142/57; PULSE 87
[2020-08-27] MEDS: Omeprazole 20 MG Capsule PO (06:11)
[2020-08-27] MEDS: hydroCHLOROthiazide 12.5mg 12.5 MG PO (06:11)
[2020-08-27] MEDS: PARoxetine 10 MG Tablet PO (06:11)
[2020-08-27] MEDS: Tamsulosin HCl 0.4 MG Capsule PO ×2 (06:11→17:04)
[2020-08-27] MEDS: Metoprolol Tartrate 25 MG Tablet PO ×2 (06:11→17:05)
[2020-08-27] MEDS: Menthol/Lanolin/Calamine/Znox 113 GM Tube 1 APPLIC TOPICAL ×2 (06:11→17:05)
[2020-08-27] MEDS: Losartan Potassium 100 MG Tablet PO (06:11)
[2020-08-27 06:12] LABS: Anion Gap 7 (5-15); BUN 20 mg/dL (7-18); BUN/Creat Ratio 26.2 RATIO (10-20); Chloride 107 mmol/L (98-107); Creatinine, Serum 0.76 mg/dL (0.55-1.02); EST Glomerular Filtration Rate 78 mL/min (>60); Est Glom Filt Rate - Afr Amer 94 mL/min (>60); Estimated Creatinine Clearance 37.74 ml/min; Glucose 99 mg/dL (74-106); Potassium 3.7 mmol/L (3.5-5.1); Sodium Level 139 mmol/L (136-145)
[2020-08-27] MEDS: Aspirin 81 MG TAB.CHEW PO ×2 (08:25→17:04)
[2020-08-27 13:54] VITALS: BP 155/64; PULSE 76; RESP 16; TEMP 36.4; O2SAT 93
--- NOTE | 2020-08-27 16:44 | CHAPLAIN ---
Type of Pastoral Visit ___ Initial Visit _x__ Follow-up Visit ___ On-call Visit ___ General Patient Visit ___ Spiritual Assessment ___ Family Conference ___ Bereavement ___ Rapid Response ___ Code Blue ___ Other (describe below) Pastoral Care Referral From _x__ Patient ___ Family ___ Nurse ___ Physician ___ Shag Truck Driver ___ Wood Router ___ Other (describe below) Sacrament/Intervention _x__ Active listening ___ Anointing ___ Spiritism ___ Bereavement ___ Communion ___ Rita exploration ___ _x__ Life review _x__ Prayer ___ Reconciliation ___ Sacrament of Sick ___ Supportive presence ___ Wedding ___ Other (describe below) Pastoral Comments
[2020-08-27 17:05] VITALS: PULSE 76
[2020-08-27] MEDS: MELATONIN 10 MG TABLET PO (21:11)
[2020-08-27] MEDS: Atorvastatin Calcium 20 MG Tablet PO (21:11)
[2020-08-27] MEDS: Psyllium 1 PACKET PO (21:11)
[2020-08-27] MEDS: Pramipexole Di-HCl 0.5 MG Tablet PO (21:11)
[2020-08-27] MEDS: QUEtiapine 25 MG Tablet PO (21:11)
[2020-08-27] MEDS: hydrOXYzine PAM 25 MG Capsule PO (21:11)
[2020-08-28 06:03] VITALS: BP 119/56; PULSE 78; RESP 16; TEMP 37.1; O2SAT 94
[2020-08-28 06:05] VITALS: BP 119/56; PULSE 78
[2020-08-28] MEDS: Omeprazole 20 MG Capsule PO (06:05)
[2020-08-28] MEDS: PARoxetine 10 MG Tablet PO (06:05)
[2020-08-28] MEDS: hydroCHLOROthiazide 12.5mg 12.5 MG PO (06:05)
[2020-08-28] MEDS: Tamsulosin HCl 0.4 MG Capsule PO ×2 (06:05→18:14)
[2020-08-28] MEDS: Metoprolol Tartrate 25 MG Tablet PO ×2 (06:05→18:14)
[2020-08-28] MEDS: Losartan Potassium 100 MG Tablet PO (06:05)
[2020-08-28] MEDS: Menthol/Lanolin/Calamine/Znox 113 GM Tube 1 APPLIC TOPICAL ×2 (06:07→18:15)
[2020-08-28] MEDS: Aspirin 81 MG TAB.CHEW PO ×2 (09:24→18:15)
[2020-08-28 14:12] VITALS: BP 133/54; PULSE 80; RESP 17; TEMP 36.8; O2SAT 94
--- NOTE | 2020-08-28 14:37 | CASEMGMT ---
Social Work Insurance issued LCD 09/01, DC 09/02. Spoke with pt and she is agreeable. Provided list of [facility] agencies. Pt will receive PT/OT/HOWELL. Referred to [facility] for FWW and 3-in-1 commode and [facility] for half-bed rail. Dtr to transport pt. Spoke with dtr Audrey, explained all of the above. Dtr agreeable to DC and services ordered. Plan: DC home 09/02, [facility] PT/OT/SN, FWW, 3-in-1 commode, half-bed rail Sherrie Sinclair, HOISTER SUPERVISOR MARBLE
--- NOTE | 2020-08-28 16:16 | CASEMGMT ---
Addendum entered by Maryuri Hilliard 08/28/20 16:31: Social Work Return call from [facility] and they are able to accept pt with start date of Sunday 09/03. Plan: home with [facility] PT/OT/ASSURANCE MANAGER INSURANCE JITENDRA Conti Original Note: Social Work Pt was provided list of home health providers including quality and resource use data and consistent with the patients preferred geographic region, medical needs, and insurance network. Pt preferred provider is [facility]. Referral made to Zoey at [facility]. SW will await determination of acceptance. JITENDRA Conti
[2020-08-28 18:14] VITALS: BP 153/58; PULSE 92
--- NOTE | 2020-08-28 20:03 | DS.PCM_ITS ---
Providers Date of Admission: 08/12/20 Primary Care Physician: Dr. Jennifer Monzon MD Reason For Visit: LEFT HIP FRACTURE Diagnosis Discharge Diagnosis (1) Debility: Status: Acute Code(s): R53.81 - Other malaise (2) Closed left hip fracture: Status: Acute Code(s): S72.002A - Fracture of unspecified part of neck of left femur, initial encounter for closed fracture (3) Urinary tract infection: Status: Acute Code(s): N39.0 - Urinary tract infection, site not specified (4) Urinary retention: Status: Acute Code(s): R33.9 - Retention of urine, unspecified (5) Acute metabolic encephalopathy: Status: Acute Code(s): G93.41 - Metabolic encephalopathy (6) Gastroesophageal reflux disease: Status: Acute Code(s): K21.9 - Gastro-esophageal reflux disease without esophagitis (7) Anxiety: Status: Acute Code(s): F41.9 - Anxiety disorder, unspecified (8) Benzodiazepine dependence: Status: Acute Code(s): F13.20 - Sedative, hypnotic or anxiolytic dependence, uncomplicated (9) Asthma: Status: Acute Code(s): J45.909 - Unspecified asthma, uncomplicated (10) Hyperlipidemia: Status: Acute Code(s): E78.5 - Hyperlipidemia, unspecified (11) Hypertension: Status: Chronic Code(s): I10 - Essential (primary) hypertension (12) Depression: Status: Acute Code(s): F32.9 - Major depressive disorder, single episode, unspecified Medications at Discharge Home Medications albuterol sulfate 90 mcg/actuation aerosol inhaler 2 puff INHALATION Q6H PRN 01/03/18 hydrochlorothiazide 12.5 mg tablet 12.5 mg PO DAILY 01/03/18 losartan 100 mg tablet 100 mg PO DAILY 01/03/18 omeprazole 40 mg capsule,delayed release 20 mg PO DAILY 01/03/18 paroxetine HCl 10 mg tablet 10 mg PO DAILY 01/03/18 aspirin 81 mg PO BID 03/21/20 atorvastatin 20 mg PO DAILY 03/21/20 budesonide-formoterol 6 gm IH DAILY 03/21/20 fluticasone propionate 1 spray NASAL DAILY 03/21/20 melatonin 10 mg PO QHS #0 tab 06/10/21 metoprolol tartrate 25 mg PO BID 30 Days #60 tab 08/28/20 pramipexole 0.5 mg PO QHS 30 Days #30 tab 08/28/20 tamsulosin 0.4 mg PO BID 30 Days #60 cap 08/28/20 Hospital Course Operations None Procedures None Summary of Care Provided Minutes Spent on Discharge: 35 Hospital Course: 79 year old female with below past medical history hospitalized for left hip fracture, underwent intramedullary nail fixation 07/28/2020, postoperative course complicated by urinary tract infection, urinary retention, acute encephalopathy, admitted to TCU with debility, here for rehabilitation, strengthening, prior to discharge home with . Discharge home with 09/02/2020, [facility] PT/OT/GROUNDS FOREMAN, Front Wheeled Walker, 3-in-1 commode, half-bed rail. Physical Exam Const alert and oriented x3 General Appearance: cooperative HEENT normocephalic Eyes PERRL and EOMs intact bilaterally Neck supple, no JVD and no carotid bruits Resp normal respiratory effort, normal air movement and clear to auscultation bilaterally Cardio regular rate and regular rhythm GI normal to inspection, nondistended, normoactive bowel sounds, non-tender and non-distended Extremity normal capillary refill General Extremity: Negative for edema Skin no rashes or lesions noted General Skin Exam: no breakdown Psych affect normal Appearance: appropriate Weight / BMI Weight Weight: 80.059 kg Body Mass Index (BMI) 31.8 ABG / Lab / Microbiology Data Result Diagrams: 08/27/20 05:22 08/27/20 05:22 D/C Instructions Discharge Diet: No restrictions Discharge Activity: Return to Normal Activity Weight Bearing Status: Weight bearing as tolerated Call your doctor if you observe: Fever of 101 or Higher, Inability to urinate, Inability to have a bowel movement, Shortness of breath, Fainting spells, Chest pain, Calf discomfort and Uncontrolled pain Additional Instructions: Discharge home with 09/02/2020, [facility] PT/OT/GROUNDS FOREMAN, Front Wheeled Walker, 3-in-1 commode, half-bed rail. Please Follow Up With: Jennifer Monzon MD When: 1 week. Meaningful Use Info Meaningful Use Diagnoses (Choose all that apply): None applicable Discharge Plan Admission Admit Date/Time: 08/12/20 20:32 Primary Reason for Your Visit: Debility Attending Provider: Renan Ovalle Chi Primary Care Provider: Jennifer Monzon Instructions Additional Instructions / Restrictions: Discharge home with 09/02/2020, [facility] PT/OT/GROUNDS FOREMAN, Front Wheeled Walker, 3-in-1 commode, half-bed rail. Discharge Orders/Prescriptions Prescriptions: New melatonin 10 mg Tablet, Sublingual 10 mg PO QHS Qty: 0 RF: 0 pramipexole 0.5 mg Tablet 0.5 mg PO QHS 30 Days Qty: 30 RF: 0 tamsulosin 0.4 mg Capsule 0.4 mg PO BID 30 Days Qty: 60 RF: 0 metoprolol tartrate 25 mg Tablet 25 mg PO BID 30 Days Qty: 60 RF: 0 Continued losartan 100 mg tablet 100 mg PO DAILY RF: 0 paroxetine HCl 10 mg tablet 10 mg PO DAILY RF: 0 omeprazole 40 mg capsule,delayed release(DR/EC) 20 mg PO DAILY RF: 0 ProAir HFA 90 mcg/actuation HFA aerosol inhaler 2 puff INHALATION Q6H PRN (Reason: Cough) RF: 0 hydrochlorothiazide 12.5 mg tablet 12.5 mg PO DAILY RF: 0 atorvastatin 20 MG tablet 20 mg PO DAILY RF: 0 aspirin 81 MG tablet,chewable 81 mg PO BID RF: 0 fluticasone propionate 1 SPRAY spray,suspension 1 spray NASAL DAILY RF: 0 budesonide-formoterol 6 GM HFA aerosol inhaler 6 gm IH DAILY RF: 0 Discontinued alprazolam [Xanax] 0.5 MG tablet 0.5 mg PO BID RF: 0 amlodipine 5 MG tablet 5 mg PO DAILY RF: 0 Referrals / Follow Up: Jennifer Monzon MD [Primary Care Provider] - Disposition Disposition (needs filled in before D/C Order can be placed): Home Health Service
[2020-08-28] MEDS: Atorvastatin Calcium 20 MG Tablet PO (22:56)
[2020-08-28] MEDS: MELATONIN 10 MG TABLET PO (22:56)
[2020-08-28] MEDS: hydrOXYzine PAM 25 MG Capsule PO (22:57)
[2020-08-28] MEDS: QUEtiapine 25 MG Tablet PO (22:57)
[2020-08-28] MEDS: Psyllium 1 PACKET PO (22:57)
[2020-08-28] MEDS: Pramipexole Di-HCl 0.5 MG Tablet PO (22:57)
[2020-08-29 04:00] VITALS: BP 139/61; PULSE 73; RESP 16; TEMP 36.7; O2SAT 92
[2020-08-29] MEDS: Losartan Potassium 100 MG Tablet PO (05:16)
[2020-08-29] MEDS: Tamsulosin HCl 0.4 MG Capsule PO ×2 (05:16→16:56)
[2020-08-29] MEDS: Menthol/Lanolin/Calamine/Znox 113 GM Tube 1 APPLIC TOPICAL ×2 (05:16→16:57)
[2020-08-29 05:17] VITALS: PULSE 73
[2020-08-29] MEDS: Metoprolol Tartrate 25 MG Tablet PO ×2 (05:17→16:56)
[2020-08-29] MEDS: hydroCHLOROthiazide 12.5mg 12.5 MG PO (05:17)
[2020-08-29] MEDS: Omeprazole 20 MG Capsule PO (05:18)
[2020-08-29] MEDS: PARoxetine 10 MG Tablet PO (05:18)
--- NOTE | 2020-08-29 08:48 | CASEMGMT ---
Addendum entered by Rosalind Doyle 09/02/20 11:30: [facility] per nursing recommendation. Original Note: Social Work Phone call placed to pt dgt Maryuri and updated on discharge plan. Pt to discharge home on 09/02/20 with family transport at 1200. Home health PT/OT/GREEN BUILDING MATERIALS DISTRIBUTOR has been arranged with [facility] and will call Maryuri to set up start of care. FWW and BSC ordered from [employer] and half bedrail ordered from [employer]. Family to machine operator hop picker. Maryuri agreeable to d/c plan. SW met with pt and reviewed the above. Pt is agreeable. D/C complete. Plan: home 09/02 with [facility] PT/OT/GREEN BUILDING MATERIALS DISTRIBUTOR JITENDRA Gray
[2020-08-29 11:15] VITALS: PULSE 70; RESP 16
[2020-08-29 13:53] VITALS: BP 138/53; PULSE 75; RESP 16; TEMP 36.3; O2SAT 93
[2020-08-29 16:56] VITALS: PULSE 75
[2020-08-29] MEDS: MELATONIN 10 MG TABLET PO (22:25)
[2020-08-29] MEDS: Pramipexole Di-HCl 0.5 MG Tablet PO (22:26)
[2020-08-29] MEDS: Atorvastatin Calcium 20 MG Tablet PO (22:27)
[2020-08-29] MEDS: QUEtiapine 25 MG Tablet PO (22:28)
[2020-08-29] MEDS: hydrOXYzine PAM 25 MG Capsule PO (22:30)
[2020-08-30 04:00] VITALS: BP 154/68; PULSE 78; RESP 18; TEMP 36.7; O2SAT 93
[2020-08-30] MEDS: PARoxetine 10 MG Tablet PO (05:30)
[2020-08-30] MEDS: Tamsulosin HCl 0.4 MG Capsule PO ×2 (05:30→17:10)
[2020-08-30] MEDS: Losartan Potassium 100 MG Tablet PO (05:30)
[2020-08-30 05:31] VITALS: BP 154/68; PULSE 78
[2020-08-30] MEDS: Metoprolol Tartrate 25 MG Tablet PO ×2 (05:31→17:10)
[2020-08-30] MEDS: Omeprazole 20 MG Capsule PO (05:32)
[2020-08-30] MEDS: Menthol/Lanolin/Calamine/Znox 113 GM Tube 1 APPLIC TOPICAL ×2 (05:32→17:11)
[2020-08-30] MEDS: hydroCHLOROthiazide 12.5mg 12.5 MG PO (05:32)
[2020-08-30 10:00] VITALS: PULSE 73; RESP 18; O2SAT 98
[2020-08-30 14:51] VITALS: BP 138/53; PULSE 76; RESP 16; TEMP 36.8; O2SAT 92
[2020-08-30 17:10] VITALS: PULSE 76
[2020-08-30] MEDS: MELATONIN 10 MG TABLET PO (22:21)
[2020-08-30] MEDS: Pramipexole Di-HCl 0.5 MG Tablet PO (22:22)
[2020-08-30] MEDS: QUEtiapine 25 MG Tablet PO (22:22)
[2020-08-30] MEDS: hydrOXYzine PAM 25 MG Capsule PO (22:23)
[2020-08-30] MEDS: Atorvastatin Calcium 20 MG Tablet PO (22:25)
[2020-08-31 06:06] VITALS: BP 147/64; PULSE 78; RESP 16; TEMP 36.6; O2SAT 92
[2020-08-31] MEDS: Menthol/Lanolin/Calamine/Znox 113 GM Tube 1 APPLIC TOPICAL ×2 (06:08→16:51)
[2020-08-31] MEDS: hydroCHLOROthiazide 12.5mg 12.5 MG PO (06:08)
[2020-08-31] MEDS: Tamsulosin HCl 0.4 MG Capsule PO ×2 (06:08→16:51)
[2020-08-31] MEDS: Losartan Potassium 100 MG Tablet PO (06:08)
[2020-08-31 06:09] VITALS: BP 147/64; PULSE 78
[2020-08-31] MEDS: Metoprolol Tartrate 25 MG Tablet PO (06:09)
[2020-08-31] MEDS: Omeprazole 20 MG Capsule PO (06:09)
[2020-08-31] MEDS: PARoxetine 10 MG Tablet PO (06:09)
[2020-08-31 14:45] VITALS: BP 113/44; PULSE 78; RESP 17; TEMP 36.9; O2SAT 95
[2020-08-31] MEDS: Atorvastatin Calcium 20 MG Tablet PO (22:27)
[2020-08-31] MEDS: MELATONIN 10 MG TABLET PO (22:28)
[2020-08-31] MEDS: Polyethylene Glycol 3350 17 GM PACKET PO (22:29)
[2020-08-31] MEDS: Psyllium 1 PACKET PO (22:30)
[2020-08-31] MEDS: Pramipexole Di-HCl 0.5 MG Tablet PO (22:31)
[2020-08-31] MEDS: QUEtiapine 25 MG Tablet PO (22:31)
[2020-08-31] MEDS: hydrOXYzine PAM 25 MG Capsule PO (22:31)
[2020-09-01 06:00] VITALS: BP 163/83; PULSE 96; RESP 16; TEMP 36.6; O2SAT 93
[2020-09-01] MEDS: Menthol/Lanolin/Calamine/Znox 113 GM Tube 1 APPLIC TOPICAL ×2 (06:00→17:15)
[2020-09-01] MEDS: Omeprazole 20 MG Capsule PO (06:01)
[2020-09-01 06:02] VITALS: BP 163/83; PULSE 96
[2020-09-01] MEDS: hydroCHLOROthiazide 12.5mg 12.5 MG PO (06:02)
[2020-09-01] MEDS: Metoprolol Tartrate 25 MG Tablet PO ×2 (06:02→17:15)
[2020-09-01] MEDS: PARoxetine 10 MG Tablet PO (06:02)
[2020-09-01] MEDS: Tamsulosin HCl 0.4 MG Capsule PO ×2 (06:02→17:15)
[2020-09-01] MEDS: Losartan Potassium 100 MG Tablet PO (06:03)
[2020-09-01 13:33] VITALS: PULSE 75; RESP 16; O2SAT 97
[2020-09-01 14:43] VITALS: BP 130/66; PULSE 84; RESP 16; TEMP 36.8; O2SAT 96
--- NOTE | 2020-09-01 15:39 | CASEMGMT ---
Social Work Brief interview for mental status (BIMS) and resident mood assessment (PHQ-9) completed on this day. Yessica PASCAL, ROSARIOS
[2020-09-01 17:15] VITALS: PULSE 84
[2020-09-01] MEDS: Psyllium 1 PACKET PO (21:13)
[2020-09-01] MEDS: hydrOXYzine PAM 25 MG Capsule PO (21:13)
[2020-09-01] MEDS: Atorvastatin Calcium 20 MG Tablet PO (21:13)
[2020-09-01] MEDS: QUEtiapine 25 MG Tablet PO (21:13)
[2020-09-01] MEDS: Pramipexole Di-HCl 0.5 MG Tablet PO (21:14)
[2020-09-01] MEDS: MELATONIN 10 MG TABLET PO (21:14)
[2020-09-02] MEDS: Menthol/Lanolin/Calamine/Znox 113 GM Tube 1 APPLIC TOPICAL (05:45)
[2020-09-02] MEDS: Tamsulosin HCl 0.4 MG Capsule PO (05:46)
[2020-09-02] MEDS: Losartan Potassium 100 MG Tablet PO (05:46)
[2020-09-02 05:47] VITALS: BP 152/61; PULSE 80; RESP 18; TEMP 36.9; O2SAT 95
[2020-09-02] MEDS: hydroCHLOROthiazide 12.5mg 12.5 MG PO (05:47)
[2020-09-02] MEDS: Metoprolol Tartrate 25 MG Tablet PO (05:47)
[2020-09-02] MEDS: PARoxetine 10 MG Tablet PO (05:48)
[2020-09-02] MEDS: Omeprazole 20 MG Capsule PO (05:48)
[2020-09-02 11:10] VITALS: PULSE 71; RESP 18; O2SAT 94
[2020-09-02 11:22] VITALS: BP 147/72; PULSE 77; RESP 18; TEMP 36.8; O2SAT 94
== END 2020-09-02 12:00 | disposition home health service (06) | DRG 559 ==
PROVIDERS: Admitting Provider Family Medicine Geriatric Medicine; PCP Family Medicine; Visit Provider Family Medicine Geriatric Medicine
DX: S72.002D Fracture of unspecified part of neck of left femur, subsequent encounter for closed fracture with routine healing (principal); G93.41 Metabolic encephalopathy; F13.20 Sedative, hypnotic or anxiolytic dependence, uncomplicated; X58.XXXD Exposure to other specified factors, subsequent encounter; E78.5 Hyperlipidemia, unspecified; K21.9 Gastro-esophageal reflux disease without esophagitis; F32.9 Major depressive disorder, single episode, unspecified; I10 Essential (primary) hypertension; J45.909 Unspecified asthma, uncomplicated; F41.9 Anxiety disorder, unspecified; R33.9 Retention of urine, unspecified; Z87.440 Personal history of urinary (tract) infections; Z79.899 Other long term (current) drug therapy; Z79.82 Long term (current) use of aspirin; Z79.51 Long term (current) use of inhaled steroids; Z87.891 Personal history of nicotine dependence
CPT/HCPCS: 36415; 80048; 85025; 87635; 92523; 97110; 97116; 97162; 97166; 97530; 97535; 97802; U0005; U0003

== ENCOUNTER 2020-09-05 14:24 | Outpatient (RCR) | payer MEDICARE, SELFPAY ==
[2020-09-05 15:11] LABS: Color, Urine Yellow (Yellow); Glucose, Dipstick Normal (Normal); Ketone-Dipstick Negative (Negative); Leukocyte Esterase-Dipstick 500 /ul (Negative); Nitrite-Dipstick Negative (Negative); Occult Blood-Urine 10 /ul (Negative); Protein-Dipstick 15 mg/dl (Negative); Urine Bilirubin Dipstick Negative (Negative); Urine Clarity Cloudy (Clear); Urine Urobilinogen Normal (Normal)
== END 2020-09-05 18:00 | disposition home or self-care (01) ==
LOC: HHLAB 14:24
PROVIDERS: PCP Family Medicine; Visit Provider Family Medicine
DX: N39.0 Urinary tract infection, site not specified (principal)
CPT/HCPCS: 81002; 87077; 87086; 87088; 87186

== ENCOUNTER 2020-09-06 06:29 | Emergency (ER) | payer MEDICARE, SELFPAY ==
[2020-09-06 06:30] VITALS: BP 188/85; PULSE 80; RESP 18; TEMP 36.2; O2SAT 100; BMI 32.1
[2020-09-06 06:32] VITALS: BP 188/85; PULSE 80; RESP 18; TEMP 36.2; O2SAT 100
--- NOTE | 2020-09-06 07:19 | EKG12_ITS ---
Test Reason : ILLNESS Blood Pressure : / mmHG Vent. Rate : 072 BPM Atrial Rate : 072 BPM P-R Int : 164 ms QRS Dur : 086 ms QT Int : 412 ms P-R-T Axes : 072 000 001 degrees QTc Int : 451 ms Normal sinus rhythm Normal ECG Confirmed by MANJIT RG, COURT ([id number]), film editor supervisor KASSY DE LA GARZA ([id number]) on 09/08/2020 10:41:40 A M Referred By: BREE Confirmed By:ORTIZ SARAVIA MD
[2020-09-06 07:32] VITALS: BP 219/96; PULSE 73; RESP 14; TEMP 37.2; O2SAT 93
--- NOTE | 2020-09-06 07:34 | EDS_ITS ---
HPI History of Present Illness Chief Complaint: Nausea/Vomiting Narrative Narrative: Vomiting after taking Macrobid for UTI. Patient is status post left hip surgery at [facility] recently rehab at this facility went home doing well she developed UTI symptoms has history of urinary retention UTI had a virtual visit by her physician, had a nurse visit to the house yesterday started on Macrobid took a Macrobid tablet and a few hours later vomited, she is having no abdominal pain no fever no cough no shortness of breath the only new medication and no exposures to the Macrobid she has no known allergies to Macrobid, daughter reports she is constantly urinating she has history of retaining more than 500 cc of urine she has been evaluated by she has dysfunctional bladder she is been told she might need some procedure done to discuss diminish the urinary retention she is not interested in that she is never been told she needs a Grigsby catheter and the patient is not interested in a Grigsby catheter Patient this time states she feels back to her baseline with no complaints, because of the concern for UTI and complications and the vomiting she was brought to the hospital [facility] Medical History (Updated 09/06/20 @ 08:[address] Radha Cook MD) Asthma Depression Fracture of left hip requiring operative repair GERD (gastroesophageal reflux disease) HTN (hypertension) Personal history of colonic polyps UTI (urinary tract infection) Home Medications albuterol sulfate 90 mcg/actuation aerosol inhaler 2 puff INHALATION Q6H PRN 1 [History Last Taken Unknown] hydrochlorothiazide 12.5 mg tablet 12.5 mg PO DAILY 01/03/18 [History Last Taken 03/20/20] losartan 100 mg tablet 100 mg PO DAILY 01/03/18 [History Last Taken 03/20/20] omeprazole 40 mg capsule,delayed release 20 mg PO DAILY 01/03/18 [History Last Taken 03/20/20] paroxetine HCl 10 mg tablet 10 mg PO DAILY 01/03/18 [History Last Taken 03/20/20] aspirin 81 mg PO BID 03/21/20 [History Last Taken 03/20/20] atorvastatin 20 mg PO DAILY 03/21/20 [History Last Taken 03/20/20] budesonide-formoterol 6 gm IH DAILY 03/21/20 [History Last Taken Unknown] fluticasone propionate 1 spray NASAL DAILY 03/21/20 [History Last Taken Unknown] melatonin 10 mg PO QHS #0 tab 08/28/20 [Rx Last Taken Unknown] metoprolol tartrate 25 mg PO BID 30 Days #60 tab 08/28/20 [Rx Last Taken Unknown] pramipexole 0.5 mg PO QHS 30 Days #30 tab 08/28/20 [Rx Last Taken Unknown] tamsulosin 0.4 mg PO BID 30 Days #60 cap 08/28/20 [Rx Last Taken Unknown] cephalexin 500 mg PO Q6 #40 capsule 09/06/20 [Rx Last Taken Unknown] nitrofurantoin monohyd/m-cryst 09/06/20 [History Last Taken Unknown] ondansetron 4 mg PO Q8H PRN PRN #10 tab 09/06/20 [Rx Last Taken Unknown] Allergy/AdvReac Type Severity Reaction Status Date / Time epinephrine Allergy Severe Anaphylaxis Verified 03/21/20 01:03 pseudoephedrine Allergy Intermediate Chest Verified 03/21/20 01:03 [facility] tightness prednisone AdvReac heart races Verified 03/21/20 01:03 Surgical History (Updated 03/13/20 @ 18:[address] Sim Siu MD) S/P hysterectomy s/p left breast cyst removal S/P right rotator cuff repair Status post right hip replacement Social History (Updated 08/12/20 @ 20:[address] Renan Ovalle MD) household members: spouse Smoking Status: Former smoker alcohol intake: current alcohol intake frequency: holidays/special occasions only ROS ROS ED ROS Narrative Vomiting after taking medications as above see below Constitutional Constitutional ED: Reports subjective, sweats and other; Denies chills, fever(s) or weight loss Eyes Eyes: Denies blurry vision or change in vision ENT ENT ED: Denies ear pain Cardiovascular Cardiovascular: Denies chest pain or palpitations Respiratory/Chest Respiratory/Chest: Denies dyspnea Gastrointestinal Gastrointestinal: Denies abdominal pain, nausea or vomiting Genitourinary Genitourinary ED: Denies dysuria or hematuria Musculoskeletal Musculoskeletal: Denies arthralgias or myalgias Integumentary Reports rash; Denies abscess Neurologic Neurologic: Denies weakness Psychiatric Psychiatric: Denies anxiety or depression Endocrine Endocrinology: Denies polydipsia or polyuria Allergic/Immunologic Allergic/Immunologic ED: Denies urticaria EXAM Physical Exam Narrative Exam Narrative: Resting company bed vital signs are unremarkable abdomen soft and nontender awake and alert she may have some slight bladder distention Const Vital Signs: 09/06/20 06:30 09/06/20 06:32 09/06/20 07:32 Temperature 97.2 F L 97.2 F L 98.9 F Temperature Source Temporal Temporal Temporal Pulse Rate 80 80 73 Respiratory Rate 18 18 14 Blood Pressure 188/85 H 188/85 H 219/96 H Blood Pressure Mean 119 119 137 Pulse Ox 100 100 93 Oxygen Delivery Method Room Air Room Air Room Air 09/06/20 08:00 Temperature 98.9 F Temperature Source Temporal Pulse Rate 67 Respiratory Rate 16 Blood Pressure 184/72 H Blood Pressure Mean 109 Pulse Ox 94 Oxygen Delivery Method Room Air Positive well developed General Appearance ED: well developed HEENT Reports normocephalic Negative for trauma Eyes EOMs intact bilaterally Neck supple Chest Wall inspection of chest normal Resp normal respiratory effort Cardio regular rate GI non-tender and non-distended Back/Spine Back/Spine Narrative: unremarkable Extremity normal to inspection Neuro oriented x3 and CN's II-XII intact bilaterally Sensorium / Orientation: alert Psych mental status grossly normal Skin no rashes or lesions noted MDM MDM MDM Narrative Medical decision making narrative: Given all the above 80 screen evaluation straight cath to empty the bladder check residual urine culture UA screening labs IV fluids Zofran, the family states she is doing well at home they do not feel she requires admission they do not recall the last time she had a UTI Patient's ED screening evaluation is generally unremarkable see all those labs are you a shows subtle signs for UTI urine culture sent IV Rocephin given, she was able to take her oral meds without difficulty she is having no abdominal pain the patient and daughter feel comfortable discharge home we will switch her to Keflex family will have a urine culture checked Zofran as needed and return for change in symptoms Home stable Final impression vomiting after taking Macrobid, UTI, recent left hip surgery Lab Data Labs: Laboratory Results - last 24 hr 09/06/20 09/06/20 09/06/20 07:35 07:35 07:50 WBC 12.1 H RBC 4.01 L Hgb 11.5 L Hct 36.2 L MCV 90.3 MCH 28.7 MCHC 31.8 L RDW Std Deviation 46.5 H RDW Coeff of [place] 14.2 Plt Count 305 MPV 10.7 Immature Gran % (Auto) 0.900 Neut % (Auto) 82.8 H Lymph % (Auto) 10.5 L [place] % (Auto) 5.4 Eos % (Auto) 0.1 Baso % (Auto) 0.3 Absolute Neuts (auto) 10.0 H Absolute Lymphs (auto) 1.27 Nucleated RBC % 0 Sodium 140 Potassium 3.4 L Chloride 106 Carbon Dioxide 26.0 Anion Gap 8 BUN 15 Creatinine 0.92 Estim Creat Clear Calc 41.02 Est GFR (MDRD) Af Amer 76 Est GFR (MDRD) Non-Af 63 BUN/Creatinine Ratio 16.3 Glucose 134 H Calcium 9.3 Total Bilirubin 0.40 AST 17 ALT 11 L Alkaline Phosphatase 135 H Troponin I < 0.015 Total Protein 7.8 Albumin 3.7 Globulin 4.1 Albumin/Globulin Ratio 0.9 Lipase 129 Urine Color Yellow Urine Clarity Clear Urine pH 6.0 Ur Specific [place] 1.010 Urine Protein 15 H Urine Glucose (UA) Normal Urine Ketones Negative Urine Occult Blood Negative Urine Nitrite Negative Urine Bilirubin Negative Urine Urobilinogen Normal Ur Leukocyte Esterase 25 H Urine RBC 0 SEEN Urine WBC 0 SEEN Ur Squamous Epith Cells 0-5 SEEN Urine Bacteria 2+ Urine Mucus 0 SEEN Discharge Plan Triage Chief Complaint: Nausea/Vomiting ED Provider: Radha Cook Dx/Rx/DC Orders Clinical Impression: Urinary tract infection Instructions: ED Bladder Infection, Female (Adult), ED Vomiting (Adult) Prescriptions: New cephalexin [cephalexin] 500 MG capsule 500 mg PO Q6 Qty: 40 RF: 0 ondansetron [ondansetron] 4 MG tablet 4 mg PO Q8H PRN PRN (Reason: Nausea) Qty: 10 RF: 0 No Action losartan 100 mg tablet 100 mg PO DAILY RF: 0 paroxetine HCl 10 mg tablet 10 mg PO DAILY RF: 0 omeprazole 40 mg capsule,delayed release(DR/EC) 20 mg PO DAILY RF: 0 ProAir HFA 90 mcg/actuation HFA aerosol inhaler 2 puff INHALATION Q6H PRN (Reason: Cough) RF: 0 hydrochlorothiazide 12.5 mg tablet 12.5 mg PO DAILY RF: 0 atorvastatin 20 MG tablet 20 mg PO DAILY RF: 0 aspirin 81 MG tablet,chewable 81 mg PO BID RF: 0 fluticasone propionate 1 SPRAY spray,suspension 1 spray NASAL DAILY RF: 0 budesonide-formoterol 6 GM HFA aerosol inhaler 6 gm IH DAILY RF: 0 melatonin 10 mg Tablet, Sublingual 10 mg PO QHS Qty: 0 RF: 0 pramipexole 0.5 mg Tablet 0.5 mg PO QHS 30 Days Qty: 30 RF: 0 tamsulosin 0.4 mg Capsule 0.4 mg PO BID 30 Days Qty: 60 RF: 0 metoprolol tartrate 25 mg Tablet 25 mg PO BID 30 Days Qty: 60 RF: 0 nitrofurantoin monohyd/m-cryst 100 mg capsule RF: 0 Primary Care Provider: Ashish Castillo Referrals: Ashish Castillo MD [Primary Care Provider] -
[2020-09-06] MEDS: Ceftriaxone 1 GM/50 ML BAG IV (07:44)
[2020-09-06] MEDS: Ondansetron 4 MG/2 ML Vial IV (07:44)
[2020-09-06 07:46] LABS: Absolute Lymphocyte Count 1.27 X10^3/uL (0.83-4.51); Basophil# 0.04 X10^3/uL; Basophil% 0.3 % (0-1); Eosinophil# 0.01 X10^3/uL; Eosinophils% 0.1 % (0-5); Hematocrit 36.2 % (37-47); Hemoglobin 11.5 g/dL (12.0-15.0); Lymphocyte # 1.27 X10^3/ul (0.83-4.51); Lymphocyte % 10.5 % (19-41); Mean Corp Hgb Conc 31.8 g/dL (32-36); Mean Corpuscular Hgb 28.7 pg (27.0-32.0); Mean Corpuscular Volume 90.3 fL (81-99); Mean Platelet Vol. 10.7 fl (6.2-12.0); Monocyte# 0.65 X10^3/uL; Monocyte% 5.4 % (0-10); NRBC Flagged by Analyzer 0 % (0-5); Neutrophil # 10.04 X10^3/uL (2.7-7.7); Neutrophil % 82.8 % (47-70); Platelet Count 305 K/mm3 (150-450); RBC Distribution Width CV 14.2 % (11.6-14.6); RBC Distribution Width SD 46.5 fl (35.1-43.9); Red Blood Count 4.01 M/mm3 (4.2-5.4); White Blood Count 12.1 K/mm3 (4.4-11.0)
[2020-09-06 07:58] LABS: Mucous, Urine 0 SEEN /hpf (<or=2+); Red Blood Cells-Urine 0 SEEN /hpf (0-5); White Blood Cells 0 SEEN /hpf (0-5)
[2020-09-06 08:00] VITALS: BP 184/72; PULSE 67; RESP 16; TEMP 37.2; O2SAT 94
[2020-09-06 08:03] LABS: ALB/GLOB Ratio 0.9 RATIO (0.9-2.4); AST(SGOT) 17 U/L (15-37); Alanine Aminotransfer ALT/SGPT 11 U/L (13-56); Albumin, Serum 3.7 g/dL (3.2-5.0); Alkaline Phosphatase 135 U/L (45-117); Anion Gap 8 (5-15); BUN 15 mg/dL (7-18); BUN/Creat Ratio 16.3 RATIO (10-20); Calcium,Total 9.3 mg/dL (8.5-10.1); Chloride 106 mmol/L (98-107); Creatinine, Serum 0.92 mg/dL (0.55-1.02); EST Glomerular Filtration Rate 63 mL/min (>60); Est Glom Filt Rate - Afr Amer 76 mL/min (>60); Estimated Creatinine Clearance 41.02 ml/min; Globulin 4.1 g/dL (2.2-4.2); Glucose 134 mg/dL (74-106); Lipase 129 U/L (73-393); Potassium 3.4 mmol/L (3.5-5.1); Protein, Total 7.8 g/dL (6.4-8.2); Sodium Level 140 mmol/L (136-145)
[2020-09-06 08:13] LABS: Color, Urine Yellow (Yellow); Glucose, Dipstick Normal (Normal); Ketone-Dipstick Negative (Negative); Leukocyte Esterase-Dipstick 25 /ul (Negative); Nitrite-Dipstick Negative (Negative); Occult Blood-Urine Negative /ul (Negative); Protein-Dipstick 15 mg/dl (Negative); Urine Bilirubin Dipstick Negative (Negative); Urine Clarity Clear (Clear); Urine Urobilinogen Normal (Normal)
[2020-09-06 08:30] LABS: Bacteria 2+ /hpf (None Seen); Squamous Epithelial Cells - UA 0-5 SEEN /hpf (5-10)
[2020-09-06 09:31] VITALS: BP 177/80
== END 2020-09-06 09:43 | disposition home or self-care (01) ==
PROVIDERS: Emergency Provider Emergency Medicine; PCP Family Medicine
DX: N39.0 Urinary tract infection, site not specified (principal); Z87.891 Personal history of nicotine dependence; F32.9 Major depressive disorder, single episode, unspecified; I10 Essential (primary) hypertension; J45.909 Unspecified asthma, uncomplicated; K21.9 Gastro-esophageal reflux disease without esophagitis; Z79.52 Long term (current) use of systemic steroids; Z79.82 Long term (current) use of aspirin; Z87.19 Personal history of other diseases of the digestive system; Z87.440 Personal history of urinary (tract) infections
CPT/HCPCS: 80053; 81001; 83690; 84484; 85025; 87077; 87086; 87088; 87186; 93005; 96365; 96375; 99285; P9612; A4216; J2405

== ENCOUNTER → 2020-11-27 14:53 | Outpatient (CLI) | payer MEDICARE, SELFPAY | PROVIDERS: PCP Family Medicine; Referring Provider Otolaryngology Otolaryngology/Facial Plastic Surgery; Visit Provider Otolaryngology Otolaryngology/Facial Plastic Surgery | DX: J02.9 Acute pharyngitis, unspecified (principal) | CPT/HCPCS: 87070 ==

== ENCOUNTER → 2021-03-19 15:03 | Outpatient (CLI) | payer MEDICARE, SELFPAY ==
[2021-03-19 16:23] LABS: ALB/GLOB Ratio 0.9 RATIO (0.9-2.4); AST(SGOT) 19 U/L (15-37); Alanine Aminotransfer ALT/SGPT 26 U/L (13-56); Albumin, Serum 3.7 g/dL (3.2-5.0); Alkaline Phosphatase 95 U/L (45-117); Anion Gap 9 (5-15); BUN 18 mg/dL (7-18); BUN/Creat Ratio 18.7 RATIO (10-20); Calcium,Total 8.9 mg/dL (8.5-10.1); Chloride 105 mmol/L (98-107); Creatinine, Serum 0.96 mg/dL (0.55-1.02); EST Glomerular Filtration Rate 59 mL/min (>60); Est Glom Filt Rate - Afr Amer 72 mL/min (>60); Glucose 91 mg/dL (74-106); Potassium 3.6 mmol/L (3.5-5.1); Protein, Total 7.7 g/dL (6.4-8.2); Sodium Level 139 mmol/L (136-145)
== END ==
PROVIDERS: PCP Internal Medicine; Visit Provider Surgery
DX: R10.30 Lower abdominal pain, unspecified (principal)
CPT/HCPCS: 36415; 80053

== ENCOUNTER 2021-03-30 14:55 | Outpatient (CLI) | payer MEDICARE, SELFPAY ==
--- NOTE | 2021-03-30 14:56 | CT_ITS ---
STUDY: CT ABDOMEN AND PELVIS WITH CONTRAST REASON FOR EXAM: Female, 80 years old. Generalized abdominal. Recurrent UTIs. RADIATION DOSAGE (If Supplied By Facility): CTDIvol = ( 20.52 ) mGy, DLP = ( 854.61 ) mGycm TECHNIQUE: Transaxial images were obtained from the dome of the diaphragm to the symphysis pubis with oral contrast. Oral and amp; IV Readi-CAT and amp; 100mL Isovue-300 was administered. Sagittal and coronal images were reconstructed. Individualized dose optimization techniques were used for this CT. COMPARISON: None. FINDINGS: Minimal linear scarring in the posterior medial segment of the left lower lobe. Coronary artery calcification. There is decreased attenuation of the liver consistent with steatosis. Normal gallbladder and extrahepatic biliary system. Normal spleen. Normal pancreas. Normal bilateral adrenal glands. Normal right kidney. Normal left kidney. There is a small hiatal hernia. Normal small intestine. There are scattered colonic diverticula consistent with diverticulosis. The patient is status post appendectomy. There is diffuse atherosclerotic calcification of the abdominal aorta, without a demonstrated aneurysm. Normal inferior vena cava. Normal retroperitoneum. Normal urinary bladder. There is absence of the uterus consistent with a prior hysterectomy. Normal abdominal wall. There are degenerative changes of the visualized lumbar spine. 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 Loss of height of the T10, T11 and T12 vertebral bodies. Status post right total hip replacement and prior left intertrochanteric fracture repair. CT/Abdomen/Pelvis WITH Contrast IMPRESSION: Fatty infiltration of the liver. Small hiatal hernia. Scattered sigmoid diverticula. Electronically Signed: Ken Page MD at 15:37 EST , Service support ,
== END 2021-03-30 23:59 | disposition short-term general hospital (02) ==
LOC: CT 14:56
PROVIDERS: PCP Internal Medicine; Visit Provider Surgery
DX: K76.0 Fatty (change of) liver, not elsewhere classified (principal); K44.9 Diaphragmatic hernia without obstruction or gangrene; K57.30 Diverticulosis of large intestine without perforation or abscess without bleeding; R10.84 Generalized abdominal pain; R10.30 Lower abdominal pain, unspecified
CPT/HCPCS: 74177; Q9967

== ENCOUNTER 2021-05-22 13:36 | Outpatient (CLI) | payer MEDICARE, SELFPAY ==
--- NOTE | 2021-05-22 13:38 | BI_ITS ---
MAMMOGRAPHY - BILATERAL SCREENING REASON FOR EXAM: Female, 80 years old. Routine annual screening examination. PERTINENT HISTORY: Mother with breast cancer. Remote left excisional breast biopsy. TECHNIQUE: Digital bilateral breast carmita (3D mammographic acquisition) in the CC and MLO projections. 2-D mediolateral oblique (MLO) and craniocaudad (CC) views of both breasts were obtained. CAD: Full Field Digital Mammography with Computer Added Detection was performed. COMPARISON: Comparison is made with prior study dated 02/08/2019 and 02/07/2018. FINDINGS: Breast Composition: There are scattered areas of fibroglandular density. There are no dominant masses or suspicious calcifications. Stable small benign-appearing bilateral axillary lymph nodes. No other significant abnormalities are identified. There has been no significant change since the prior study. BI/SCREENING MAMM (CAD), BILAT IMPRESSION: Stable bilateral screening mammogram. Yearly follow-up mammogram recommended. (A) ASSESSMENT CATEGORY: BIRADS Category 2: Benign. A letter regarding these results will be sent to the patient by the facility within 30 days. Approximately 10% of breast cancers are not detected by mammography. A normal mammogram should not delay biopsy of a clinically suspicious abnormality. [id number] Electronically Signed: Ken Page MD at 14:47 EST ,
== END 2021-05-22 23:59 | disposition home or self-care (01) ==
LOC: OPBI 13:36
PROVIDERS: PCP Internal Medicine; Visit Provider Student in an Organized Health Care Education/Training Program
DX: Z12.31 Encounter for screening mammogram for malignant neoplasm of breast (principal); Z80.3 Family history of malignant neoplasm of breast
CPT/HCPCS: 77067

== ENCOUNTER 2021-06-12 15:41 | Outpatient (CLI) | payer MEDICARE, SELFPAY ==
[2021-06-12 15:43] LABS: Bacteria 0 SEEN /hpf (None Seen); Mucous, Urine 0 SEEN /hpf (<or=2+); Red Blood Cells-Urine 0 SEEN /hpf (0-5)
[2021-06-12 16:37] LABS: Color, Urine Yellow (Yellow); Glucose, Dipstick Normal (Normal); Ketone-Dipstick 5 mg/dl (Negative); Leukocyte Esterase-Dipstick 100 /ul (Negative); Nitrite-Dipstick Negative (Negative); Occult Blood-Urine Negative /ul (Negative); Protein-Dipstick 15 mg/dl (Negative); Urine Bilirubin Dipstick Negative (Negative); Urine Clarity Clear (Clear); Urine Urobilinogen Normal (Normal)
[2021-06-12 16:46] LABS: Squamous Epithelial Cells - UA 0-5 SEEN /hpf (5-10); White Blood Cells 0-5 SEEN /hpf (0-5)
== END 2021-06-12 23:59 | disposition home or self-care (01) ==
LOC: LABSPEC 15:42
PROVIDERS: PCP Internal Medicine; Referring Provider Nurse Practitioner Family; Visit Provider Nurse Practitioner Family
DX: R30.0 Dysuria (principal)
CPT/HCPCS: 81001; 87086; 87088

== ENCOUNTER → 2021-07-24 | Outpatient (CLI) | payer MEDICARE, SELFPAY ==
[2021-07-24 14:00] LABS: Absolute Lymphocyte Count 3.08 X10^3/uL (0.83-4.51); Absolute Neutrophil Count 5.7 X10^3/uL (2.0-7.7); Basophil# 0.06 X10^3/uL; Basophil% 0.6 % (0-1); Eosinophil# 0.22 X10^3/uL; Eosinophils% 2.2 % (0-5); Hematocrit 41.5 % (37-47); Hemoglobin 13.4 g/dL (12.0-15.0); Lymphocyte # 3.08 X10^3/ul (0.83-4.51); Lymphocyte % 31.2 % (19-41); Mean Corp Hgb Conc 32.3 g/dL (32-36); Mean Corpuscular Hgb 28.9 pg (27.0-32.0); Mean Corpuscular Volume 89.4 fL (81-99); Mean Platelet Vol. 10.6 fl (6.2-12.0); Monocyte# 0.76 X10^3/uL; Monocyte% 7.7 % (0-10); NRBC Flagged by Analyzer 0 % (0-5); Neutrophil # 5.72 X10^3/uL (2.7-7.7); Neutrophil % 57.9 % (47-70); Platelet Count 309 K/mm3 (150-450); RBC Distribution Width CV 12.5 % (11.6-14.6); RBC Distribution Width SD 40.8 fl (35.1-43.9); Red Blood Count 4.64 M/mm3 (4.2-5.4); White Blood Count 9.9 K/mm3 (4.4-11.0)
[2021-07-24 14:25] LABS: Vitamin D,25 Hydroxy 22.4 ng/mL
[2021-07-24 14:34] LABS: AST(SGOT) 15 U/L (15-37); Alanine Aminotransfer ALT/SGPT 15 U/L (13-56); Albumin, Serum 3.8 g/dL (3.2-5.0); Alkaline Phosphatase 74 U/L (45-117); Anion Gap 7 (5-15); BUN 18 mg/dL (7-18); BUN/Creat Ratio 22.3 RATIO (10-20); Calcium,Total 8.6 mg/dL (8.5-10.1); Chloride 104 mmol/L (98-107); Cholesterol 164 mg/dL (200); Creatinine, Serum 0.81 mg/dL (0.55-1.02); EST Glomerular Filtration Rate 72 mL/min (>60); Est Glom Filt Rate - Afr Amer 88 mL/min (>60); Globulin 3.8 g/dL (2.2-4.2); Glucose 94 mg/dL (74-106); High Density Lipoprotein 60 mg/dL; Potassium 3.7 mmol/L (3.5-5.1); Protein, Total 7.6 g/dL (6.4-8.2); Sodium Level 138 mmol/L (136-145); Triglycerides 185 mg/dL; Very Low Density Lipoprotein 37 mg/dL (5-40)
[2021-07-27 17:14] LABS: Gastrin, Serum 586 pg/mL (0-115)
== END | disposition home or self-care (01) ==
LOC: LAB 13:32
PROVIDERS: Internal Medicine; PCP Family Medicine; Referring Provider Internal Medicine Gastroenterology; Visit Provider Internal Medicine Gastroenterology
DX: E55.9 Vitamin D deficiency, unspecified (principal); R19.7 Diarrhea, unspecified; I10 Essential (primary) hypertension; E78.5 Hyperlipidemia, unspecified; F41.9 Anxiety disorder, unspecified; R20.2 Paresthesia of skin
CPT/HCPCS: 36415; 80053; 80061; 82306; 82941; 84443; 85025

== ENCOUNTER 2021-08-06 07:48 | Day surgery (SDC) | payer MEDICARE, SELFPAY ==
--- NOTE | 2021-08-06 | GASB_PTH ---
PATIENT: MICAELA MARTINEZ LOC: [facility] U#:[id number] AGE/SX: 80/F ROOM: RE08/06/[address]: Dr. Logan Pitts DO : 1940 BED: DIS: 08/06/2021 SPEC #: RECD: 08/06/21 12:05 STATUS: MERT SHAINA #: [id number] BRAD: 08/06/21 00:[address]: Logan Pitts DEPT: SURGICAL PATHOLOGY RECD BY: Van Cross ENTERED: 08/06/21 12:05 SP TYPE: Gastric Bx OTHR DR: Dr. Demario Rivera MD Tissues: A - Gastric mucous membrane B - Gastric mucous membrane C - Esophageal mucous membrane Procedures: Special Stain Group II Surgery Specimen Level IV Alcian Blue/PAS (control) HEADER OPERATION[place] PRE-OP DIAGNOSIS: Diarrhea TISSUE SUBMITTED: A ? Gastric incisor biopsy, B ? Gastric body biopsy, C ? Distal esophageal biopsy MICROSCOPIC DIAGNOSIS A. Gastric incisor, biopsy: Minimal gastritis. B. Gastric body, biopsy: Minimal gastritis. See microscopic description and comment. C. Distal esophagus, biopsy: Fragments of gastroesophageal mucosa with moderate chronic inflammation. Intestinal metaplasia (goblet cell metaplasia) not identified. See comment. SJ:ray 08/07/2021 COMMENT B. The results of immunohistochemistry for Helicobacter pylori will be reported separately ([id number]). C. Alcian blue/PAS stain with matched control is used in the evaluation of the specimen. MICROSCOPIC DESCRIPTION Slides are reviewed. A & B. The specimen shows fragments of gastric mucosa with chronic inflammatory cell infiltrates in the lamina propria consisting of lymphocytes and plasma cells, consistent with minimal chronic gastritis. GROSS DESCRIPTION A - Received in fixative is one container labeled with the patient's name and designated gastric incisor biopsy. The specimen consists of multiple irregular fragments of light rubio soft tissue that in aggregate measure 0.8 x 0.3 x 0.1 cm. The specimen is totally submitted in one cassette. B - Received in fixative is one container labeled with the patient's name and designated gastric body biopsy. The specimen consists of two irregular fragments of light rubio soft tissue that in aggregate measure 0.6 x 0.3 x 0.1 cm. The specimen is totally submitted in one cassette. C - Received in fixative is one container labeled with the patient's name and designated distal esophagus biopsy. The specimen consists of multiple irregular fragments of light rubio soft tissue that in aggregate measure 0.8 x 0.3 x 0.1 cm. The specimen is totally submitted in one cassette. / SJ:ray 08/06/2021 TC:3 CPT: 55780 x3, 95702
[2021-08-06 08:20] VITALS: BP 190/83; PULSE 64; RESP 16; TEMP 36.8; O2SAT 100; BMI 31.7
[2021-08-06] MEDS: Lactated Ringers 1,000 ML 15 ML IV (08:22)
--- NOTE | 2021-08-06 09:00 | IMM_PTH ---
PATIENT: MICAELA MARTINEZ LOC: [facility] U#:[id number] AGE/SX: 80/F ROOM: RE08/06/[address]: Dr. Logan Pitts DO : 1940 BED: DIS: 08/06/2021 SPEC #: [id number] RECD: 08/06/21 13:05 STATUS: MERT REQ #: [id number] BRAD: 08/06/21 09:[address]: Logan Pitts DEPT: IMMUNOHISTOCHEMISTRY RECD BY: Amelia Nelson ENTERED: 08/06/21 13:05 SP TYPE: IMMUNO OTHR DR: Dr. Demario Rivera MD Tissues: B - Stomach, NOS Procedures: H Pylori (initial) PHYSICIAN & INSTITUTION [place] [id number] SPECIMEN INFORMATION: Tissue Source: B ? Gastric body biopsy Clinical Info: Diarrhea Specimen Number: [id number] CPT code: 10268 METHODOLOGY: Deparaffinized sections of prefer/formalin-fixed tissue or PAP/DQ stained slides are incubated with monoclonal/polyclonal antibodies/oligonucleotide probes. Localization is made via biotin free immunoperoxidase method. Appropriate controls are performed and reacted as expected. Results on target cell population are indicated in the following table: RESULTS: ANTIBODY / CLONE RESULT Block B H Pylori (polyclonal) negative These tests were developed and their performance characteristics determined by [facility]. They may not have been cleared or approved by the U.S. Food and Drug Administration. The FDA has determined that such clearance or approval is not necessary. The above immunohistochemical/dualISH markers are ordered and reviewed by the Pathologist. INTERPRETATION: B. Gastric body, biopsy: Negative for Helicobacter pylori organisms. SJ:ray 08/07/2021
--- NOTE | 2021-08-06 09:08 | PCM.HP.BLA ---
History and Physical Date of Admission: 08/06/21 AUDREY MARTINEZ, is a 80 F who presents to the office today for Follow up visit. Audrey established with this clinic 05.25.21 for evaluation of abdominal pain and urgent, watery diarrhea causing some incontinence occurring 2-3 times a day. Onset of symptoms around 1999. She has a hiatal hernia for which she takes omeprazole and feels this may be the cause of her diarrhea. Colonoscopy Biopsy suggestive of collagenous colitis. EGD with noted hiatal hernia. Colonoscopy performed 01.17.[address] Zach Darling finding internal hemorrhoids, diverticulosis in entire examine colon and three polyps removed, one of which was tubular adenoma. Remaining biopsies without pathologic diagnosis. CT abd/pel 03.30.21 finding liver steatosis; small hiatal hernia; colonic diverticulosis; atherosclerotic calcification of abdominal aorta without aneurysm; degenerative changes of lumbar spine. Plan last visit 05.25.21: Diarrhea ? she stopped PPI for two days and reflux has significantly worsened during this time. Recommend baking soda and famotidine. GERD ? see above. Believes the PPI is the cause of her diarrhea; when she does not take it her diarrhea is much improved. Famotidine and baking soda attempted and this has been ineffective. When attempting a different medication she has difficulty with reflux ?feels like my esophagus is eaten up?; denies difficulty swallowing or decreased appetite. ROS Const Constitutional: No fatigue, malaise, night sweats, weight change, sleep problems, abnormal sleep pattern or change in appetite ENT ENT: No difficulty swallowing, hoarseness or sore throat Cardio Cardiology: No chest pain at rest Gastro GI: No abdominal pain, belching, bloating, change in bowel habits, change in stool character, coffee ground emesis, constipation, cramping, difficulty swallowing, feeling full early, excessive flatus, incontinent of stools, Vomiting blood/hematemesis, Blood in stool, loose stools, Black,tarry stools, nausea/dyspepsia, pain with swallowing, vomiting or other Musc Musculoskeletal: No joint pain Skin Skin: No yellowing of the eye or itchy eyes Neuro Neurology: No behavioral changes Psych Psychiatric: No abnormal sleep pattern, No anxiety, No behavioral changes, No change in appetite and No depression Endo Endocrine: No fatigue or weight change Aller/Imm Allergy/Immunologic: No itchy eyes Deep/Lymp Hematologic/Lymphatic: No easy bleeding or easy bruising Exam Const General: cooperative and comfortable Nutritional Appearance: average body habitus and well nourished [facility] Head: normal to inspection Ears: hearing grossly normal bilaterally Nose: external nose normal Face and sinus: normal facial exam Mouth: oral mucosae normal Throat: posterior oropharynx normal Eyes General: appearance normal, both eyes and all related structures Neck Neck: normal visual inspection Chest Chest palpation & inspection: normal inspection of the chest and normal palpation of entire chest wall Resp Effort & Inspection: normal respiratory effort Auscultation: Bilateral: Clear to Auscultation Cardio Palpation: normal PMI Rate: regular rate Rhythm: regular rhythm GI Inspection: normal to inspection Auscultation: normal bowel sounds Percussion: normal to percussion Palpation: no hepatosplenomegaly Skin General: no rashes or lesions noted Neuro General: patient alert Extrem General: normal to inspection Psych Affect: normal affect Quality Reporting Tobacco Screening ([facility] 138) Smoking Status: Former smoker Assessment and Plan Assessment and Plan (1) Diarrhea: Status: Acute Orders: Orders: Gastrin, Serum 07/24/21 Plan - Dr. Ford Friend, DO: Diarrhea in the setting of PPI usage is usually an indicator of hypergastrinemia. The extent of the hypergastrinemia can really tell you if there is elevated gastrin coming from somewhere else in the body besides the stomach. There is documentation from previous surgeon who is seeing her that she had had a diarrhea prior to her using omeprazole therapy. So we will check a gastrin level. I want her to take the omeprazole because her reflux is really bad without it and we will give her her concentrated fiber for her to take because she does not want any other side effects from other medicines at this time. (2) Gastroesophageal reflux disease: Status: Acute Plan - Dr. Ford Friend, DO: She can stop the famotidine and just continue omeprazole therapy because it really works for her. Plan Details Other Medications: I have re-examined the patient. There are no clinical changes since date of exam.
[2021-08-06 09:35] VITALS: BP 190/83; BP 91/67; PULSE 62; RESP 18; TEMP 37.2; O2SAT 94
[2021-08-06 09:40] VITALS: BP 118/53; BP 190/83; PULSE 59; RESP 20; O2SAT 96
--- NOTE | 2021-08-06 09:40 | OP.EGD_ITS ---
Patient Name: Audrey Olmstead Procedure Date: 08/06/2021 9:04 AM Date of : 1940 Age: 80 Procedure: Upper GI endoscopy Indications: Abdominal pain in the left upper quadrant Providers: Logan Pitts DO Medicines: Monitored Anesthesia Care Patient Profile: This is an 80 year old female. Refer to note in patient chart for documentation of history and physical. Patient has symptoms. Complications: No immediate complications. Procedure: Pre-Anesthesia Assessment: - Prior to the procedure, a History and Physical was performed, and patient medications and allergies were reviewed. The patient is competent. The risks and benefits of the procedure and the sedation options and risks were discussed with the patient. All questions were answered and informed consent was obtained. Patient identification and proposed procedure were verified by the physician in the pre-procedure area. Mental Status Examination: alert and oriented. Airway Examination: normal oropharyngeal airway and neck mobility. Respiratory Examination: clear to auscultation. CV Examination: normal. Prophylactic Antibiotics: The patient does not require prophylactic antibiotics. Prior Anticoagulants: The patient has taken no previous anticoagulant or antiplatelet agents. ASA Grade Assessment: II - A patient with mild systemic disease. After reviewing the risks and benefits, the patient was deemed in satisfactory condition to undergo the procedure. The anesthesia plan was to use moderate sedation / analgesia (conscious sedation). Immediately prior to administration of medications, the patient was re-assessed for adequacy to receive sedatives. The heart rate, respiratory rate, oxygen saturations, blood pressure, adequacy of pulmonary ventilation, and response to care were monitored throughout the procedure. The physical status of the patient was re-assessed after the procedure. After obtaining informed consent, the endoscope was passed under direct vision. Throughout the procedure, the patient's blood pressure, pulse, and oxygen saturations were monitored continuously. The gastroscope was introduced through the mouth, and advanced to the second part of duodenum. The upper GI endoscopy was accomplished without difficulty. The patient tolerated the procedure well. Scope In: 9:21:35 AM Scope Out: 9:29:03 AM Total Procedure Duration Time 0 hours 7 minutes 28 seconds Findings: LA Grade A (one or more mucosal breaks less than 5 mm, not extending between tops of 2 mucosal folds) esophagitis with no bleeding was found 37 to 40 cm from the incisors. Biopsies were taken with a cold forceps for histology. Verification of patient identification for the specimen was done. Estimated blood loss was minimal. A medium-sized hiatal hernia was present. Patchy mildly erythematous mucosa without bleeding was found in the gastric body and at the incisura. Patchy mildly erythematous mucosa without active bleeding and with no stigmata of bleeding was found in the duodenal bulb. Impression: - LA Grade A reflux esophagitis. Biopsied. - Medium-sized hiatal hernia. - Erythematous mucosa in the gastric body and incisura. - Erythematous duodenopathy. Recommendation: - Discharge patient to home. - Resume previous diet. - Continue present medications. - Continue present medications. - Await pathology results. -Doxycycline 100 mg p.o. twice daily x1 month for bacterial overgrowth. Procedure Code(s): --- Professional --- 62388, Esophagogastroduodenoscopy, flexible, transoral; with biopsy, single or multiple CPT copyright 2017 [employer]. All rights reserved. The codes documented in this report are preliminary and upon media developer review may be revised to meet current compliance requirements. Logan Pitts DO 08/06/2021 9:39:57 AM This report has been signed electronically. Number of Addenda: 1 Note Initiated On: 08/06/2021 9:04 AM Addendum Number: 1 Addendum Date: 12/18/2021 6:16:25 AM MAC was used as sedation for this procedure. Logan Pitts DO 12/18/2021 6:16:29 AM This report has been signed electronically.
--- NOTE | 2021-08-06 09:41 | OP.CCLET_ITS ---
12/18/2021 Demario Rivera [address] [place] [address] Re : Upper GI endoscopy procedure for Audrey Upano Dear Dr. Rivera This procedure was performed on July. My impressions and recommendations are as follows: Impressions : - LA Grade A reflux esophagitis. Biopsied. - Medium-sized hiatal hernia. - Erythematous mucosa in the gastric body and incisura. - Erythematous duodenopathy. Recommendations : - Discharge patient to home. - Resume previous diet. - Continue present medications. - Continue present medications. - Await pathology results. -Doxycycline 100 mg p.o. twice daily x1 month for bacterial overgrowth. My findings are described in the full procedure note, which is enclosed. If I can be of further assistance, please feel free to contact me at . Sincerely, Logan Friend, 08/06/2021 9:39:57 AM This report has been signed electronically.
[2021-08-06 09:45] VITALS: BP 126/50; BP 190/83; PULSE 58; RESP 18; O2SAT 96
[2021-08-06 09:51] VITALS: BP 144/63; BP 190/83; PULSE 59; RESP 18; TEMP 36.7; O2SAT 95
[2021-08-06 10:20] VITALS: BP 190/83
== END 2021-08-06 10:33 | disposition home or self-care (01) ==
LOC: EN 07:49 → AC 07:53
PROVIDERS: PCP Family Medicine; Referring Provider Family Medicine; Visit Provider Internal Medicine Gastroenterology
PROC: 0DJ08ZZ Inspection of Upper Intestinal Tract, Via Natural or Artificial Opening Endoscopic (ICD-10-PCS; CPT 43235; principal; 2021-08-06 08:55)
DX: K21.00 Gastro-esophageal reflux disease with esophagitis, without bleeding (principal); R19.7 Diarrhea, unspecified; K44.9 Diaphragmatic hernia without obstruction or gangrene; Z87.891 Personal history of nicotine dependence
CPT/HCPCS: 43239; 88305; 88313; 88342; J7120; J2405

== ENCOUNTER → 2021-08-10 | Outpatient (CLI) | payer MEDICARE, SELFPAY ==
--- NOTE | 2021-08-10 09:28 | NM_ITS ---
INDICATION: abd pain, elevated gastrin level EXAMINATION: NUCLEAR MEDICINE OCTREOTIDE SCAN - NM SPECT Tumor Localization, Single Area, 2 or more days with Vascular Flow and Blood Pool Imaging i TECHNIQUE: 6.7 mCi of indium 111 octreotide were intravenously administered. Six hour anterior and posterior whole body images were obtained. 24 hour whole body images and SPECT images were also obtained. COMPARISON: None. FINDINGS: There is physiologic activity seen in the liver, spleen, kidneys, and GI tract. There is no abnormal accumulation. NM/Tumor Localization SPECT IMPRESSION: Negative octreotide scan. Electronically Signed: Jacob Sabillon MD at 3:41 EDT ,
== END | disposition home or self-care (01) ==
LOC: NM 09:25
PROVIDERS: PCP Family Medicine; Visit Provider Internal Medicine Gastroenterology
DX: R10.84 Generalized abdominal pain (principal)
CPT/HCPCS: 78803; 78804; A9572

== ENCOUNTER 2021-09-07 13:23 | Observation (INO) | payer MEDICARE, SELFPAY ==
[2021-09-07] VITALS (14 sets, daily range): BP systolic 133–251; BP diastolic 68–154; PULSE 64–92; RESP 14–20; TEMP 36.4–36.9; O2SAT 94–97; BMI 30.9; BMI 30.6
--- NOTE | 2021-09-07 14:19 | EKG12_ITS ---
Test Reason : HTN Blood Pressure : / mmHG Vent. Rate : 062 BPM Atrial Rate : 062 BPM P-R Int : 160 ms QRS Dur : 090 ms QT Int : 442 ms P-R-T Axes : 053 -06 -25 degrees QTc Int : 448 ms Normal sinus rhythm Septal infarct , age undetermined Nonspecific T wave abnormality Abnormal ECG Confirmed by MIKE GR, LUIZA ([id number]), health editor KASSY DE LA GARZA ([id number]) on 09/08/2021 9:02:12 AM Referred By: YUSUF Confirmed By:LUIZA MCKEON MD
--- NOTE | 2021-09-07 14:20 | EX.ED.DYSGE1 ---
HPI History of Present Illness Chief Complaint: Hypertension Narrative Narrative: Patient presents with her because of elevated blood pressure above 200 systolic. She states that she went to her primary care physician recently, sometime last week, and was started on lisinopril once a day. She has noticed that her blood pressures have been elevated over the last week. She called Dr. Blackman's office the other day and was told to take another lisinopril because she only takes it once a day. She had intermittent headaches and fogginess. She denies any chest pain or shortness of breath. No leg swelling or other symptoms. She presents mainly because her blood pressure has been elevated consistently above 200 today according to her . Her heart rate ranges in the 60s. She denies any dysuria or hematuria or any other symptoms but is here for better control of her blood pressure. [facility] Medical History (Updated 09/07/21 @ 18:[address] Francisco Moon MD) Acute cystitis Asthma COPD (chronic obstructive pulmonary disease) Depression Femur fracture Former smoker Fracture of left hip requiring operative repair GERD (gastroesophageal reflux disease) High cholesterol History of stress test HTN (hypertension) Hypergastrinemia Lower abdominal pain Personal history of colonic polyps Uncontrolled hypertension UTI (urinary tract infection) Wears hearing aid Home Medications albuterol sulfate 90 mcg/actuation aerosol inhaler (ProAir HFA) 2 puff inhalation Q6H PRN Cough 01/03/18 [History Last Taken 09/06/21] fluticasone propionate 50 mcg/actuation nasal spray,suspension 1 spray NASAL DAILY Check with primary doctor 03/21/20 [History Last Taken Unknown] hydrochlorothiazide 12.5 mg tablet 12.5 mg PO DAILY BP #90 tabs 04/22/21 [Rx Last Taken 09/07/21] paroxetine HCl 10 mg tablet 10 mg PO DAILY depression/anxiety #90 tabs 05/29/21 [Rx Last Taken 09/07/21] atorvastatin 20 mg tablet 20 mg PO DAILY cholesterol 08/04/21 [History Last Taken 09/06/21] hydroxyzine HCl 25 mg tablet 25 mg PO QHS PRN Sleep 08/04/21 [History Last Taken Unknown] omeprazole 20 mg delayed release,disintegrating tablet 20 mg PO DAILY acid refulx 08/04/21 [History Last Taken 09/07/21] latanoprost 0.005 % eye drops 1 drp RIGHT EYE QHS eye health 09/07/21 [History Last Taken 09/06/21] lisinopril 20 mg tablet 1 tab PO DAILY blood pressure 09/07/21 [History Last Taken 09/07/21] metoprolol tartrate 25 mg tablet 25 mg PO BID blood pressure 09/07/21 [History Last Taken 09/07/21] zolpidem 5 mg tablet 5 tab PO QHS PRN PRN Sleep 09/07/21 [History Last Taken 09/06/21] Allergy/AdvReac Type Severity Reaction Status Date / Time epinephrine Allergy Severe Anaphylaxis Verified 08/10/21 13:47 pseudoephedrine Allergy Intermediate Chest Verified 08/10/21 13:47 [From Sudafed] tightness prednisone AdvReac heart races Verified 08/10/21 13:47 Family History (Updated 09/07/21 @ 18:[address] Francisco Moon MD) Other Hypertension Surgical History History of colonoscopy History of surgery on lower extremity S/P hysterectomy s/p left breast cyst removal S/P right rotator cuff repair Status post right hip replacement Social History household members: spouse Smoking Status: Former smoker alcohol intake: current alcohol intake frequency: holidays/special occasions only ROS ROS ED ROS Narrative Constitutional: No fever, no chills. Consistently elevated systolic blood pressure. HEENT: No sore throat. No neck pain. No loss of vision. No rhinorrhea. Cardiovascular: No chest pain. No palpitations. No pedal edema. Respiratory: No cough, no shortness of breath. Abdominal: No abdominal pain. No nausea. No vomiting. Genitourinary: No dysuria. No hematuria. Musculoskeletal: No myalgias. No arthralgias. Neurologic: Intermittent headaches. No dizziness. No lightheadedness. Reports fogginess. Skin: No rash. No change in color. Psychiatric: No depression. No anxiety. EXAM Physical Exam Narrative Exam Narrative: Afebrile. Vital signs noted. HEENT: Normocephalic. Atraumatic. PERRL, EOMI. Neck soft and supple. No point tenderness or step off. Cardiovascular: Regular rate and rhythm. No murmurs, rubs, or gallops appreciated. Respiratory: No tachypnea. Lungs clear to auscultation bilaterally. Gastrointestinal: Abdomen soft, nontender, with normoactive bowel sounds. No rebound or guarding. Neurological: Awake. Alert. Nonfocal, nonlateralizing. Skin: No rash. Normal color. No pallor. Musculoskeletal: No pedal edema. Full range of motion extremities. Const Vital Signs: 09/07/21 13:24 09/07/21 13:44 09/07/21 13:44 Temperature 97.5 F L Temperature Source Temporal Pulse Rate 71 64 Respiratory Rate 16 19 H Respiratory Effort Normal Respiratory Pattern Normal Blood Pressure 224/80 H Blood Pressure Mean 128 Pulse Ox 95 Oxygen Delivery Method Room Air 09/07/21 14:15 09/07/21 14:45 09/07/21 15:19 Temperature Temperature Source Pulse Rate 67 68 65 Respiratory Rate Respiratory Effort Respiratory Pattern Blood Pressure 159/121 H 251/96 H 203/68 H Blood Pressure Mean 133 147 113 Pulse Ox Oxygen Delivery Method 09/07/21 15:48 09/07/21 16:16 Temperature Temperature Source Pulse Rate 73 83 Respiratory Rate 18 20 H Respiratory Effort Respiratory Pattern Blood Pressure 236/90 H 181/154 H Blood Pressure Mean 138 163 Pulse Ox Oxygen Delivery Method MDM MDM MDM Narrative Medical decision making narrative: Comprehensive work-up was pursued. Her initial blood pressure was 224 systolic. She was administered hydralazine 10 mg intravenously and placed on a residential monitor. Given her fogginess and concern for encephalopathy, CT of the brain was ordered including chest x-ray, EKG, and basic lab work to look for endorgan damage. Her EKG which was interpreted by myself demonstrates normal sinus rhythm at 62 bpm without ectopy or acute ST changes. No STEMI. CBC shows slightly elevated white count of 11.6 which think is nonspecific, hemoglobin normal at 13.8 with hematocrit 41.1. Normal platelet count of 279. CMP shows potassium slightly low at 3.1 which was replaced orally. Glucose appropriately elevated at 109 with a normal anion gap of 9. LFTs are grossly unremarkable. High-sensitivity troponin normal at 6. Urinalysis is positive for nitrites with 25-50 WBCs. I will send her urine for culture, and give her a dose of Rocephin. Chest x-ray in 1 view interpreted by myself shows no acute process, no pneumonia or pneumothorax. CT of the brain shows no acute process, no hemorrhage. Her blood pressure continues to fluctuate with the most recent reading of 236/90. She was given an additional dose of hydralazine. I will consider starting her on a Cardene drip. Given her uncontrolled hypertension, patient was discussed with the hospitalist for admission. I discussed the patient with Dr. Moon. Additional antihypertensives were deferred. She was admitted to the PCU in stable condition. Lab Data Attestation: I reviewed the patient's lab results. Labs: Laboratory Results - last 24 hr 09/07/21 09/07/21 09/07/21 14:30 15:00 15:00 WBC 11.6 H RBC 4.74 Hgb 13.8 Hct 41.1 MCV 86.7 MCH 29.1 MCHC 33.6 RDW Std Deviation 39.5 RDW Coeff of [place] 12.5 Plt Count 279 MPV 10.8 Immature Gran % (Auto) 0.400 Neut % (Auto) 69.5 Lymph % (Auto) 21.3 Brooke % (Auto) 7.9 Eos % (Auto) 0.4 Baso % (Auto) 0.5 Absolute Neuts (auto) 8.0 H Absolute Lymphs (auto) 2.47 Nucleated RBC % 0 Sodium 138 Potassium 3.1 L Chloride 104 Carbon Dioxide 25.0 Anion Gap 9 BUN 13 Creatinine 0.76 Estim Creat Clear Calc 37.12 Est GFR (MDRD) Af Amer 94 Est GFR (MDRD) Non-Af 78 BUN/Creatinine Ratio 17.1 Glucose 109 H Calcium 9.5 Total Bilirubin 0.60 AST 17 ALT 14 Alkaline Phosphatase 77 Troponin I High Sens 6 Total Protein 7.8 Albumin 3.8 Globulin 4.0 Albumin/Globulin Ratio 1.0 Urine Color Straw Urine Clarity Clear Urine pH 6.5 Ur Specific [place] 1.010 Urine Protein 15 H Urine Glucose (UA) Normal Urine Ketones Negative Urine Occult Blood Negative Urine Nitrite Positive H Urine Bilirubin Negative Urine Urobilinogen Normal Ur Leukocyte Esterase 500 H Urine RBC 0-5 SEEN Urine WBC 25-50 SEEN Ur Squamous Epith Cells 0-5 SEEN Urine Bacteria 4+ Urine Mucus 0 SEEN Radiography Diagnostic Testing: Clinical Impression(s) from Imaging Studies Chest X-Ray 09/07/21 15:02 IMPRESSION: There are no acute findings. Electronically Signed: Giovanni Patel MD at 15:16 EDT , Brain CT 09/07/21 15:07 IMPRESSION: There are no acute intracranial findings. Electronically Signed: Giovanni Patel MD at 15:19 EDT , Discharge Plan Dx/Rx/DC Orders Clinical Impression: Severe uncontrolled hypertension, Hypertensive encephalopathy, Hypokalemia, UTI (urinary tract infection) Disposition Disposition: Acute Care [facility] Discharge Date/Time: 09/07/21 16:53
[2021-09-07 14:46] LABS: Mucous, Urine 0 SEEN /hpf (<or=2+)
[2021-09-07 14:49] LABS: Color, Urine Straw (Yellow); Glucose, Dipstick Normal (Normal); Ketone-Dipstick Negative (Negative); Leukocyte Esterase-Dipstick 500 /ul (Negative); Nitrite-Dipstick Positive (Negative); Occult Blood-Urine Negative /ul (Negative); Protein-Dipstick 15 mg/dl (Negative); Urine Bilirubin Dipstick Negative (Negative); Urine Clarity Clear (Clear); Urine Urobilinogen Normal (Normal); Urine pH 6.5 (5.0 - 8.0)
[2021-09-07] MEDS: hydrALAZINE 20 MG/ML Vial 10 MG IV ×3 (14:51→18:41)
[2021-09-07 14:59] LABS: Bacteria 4+ /hpf (None Seen); Red Blood Cells-Urine 0-5 SEEN /hpf (0-5); Squamous Epithelial Cells - UA 0-5 SEEN /hpf (5-10); White Blood Cells 25-50 SEEN /hpf (0-5)
--- NOTE | 2021-09-07 15:02 | RAD_ITS ---
STUDY: X-RAY CHEST REASON FOR EXAM: Female, 80 years old. Technologist Notes HIGH BLOOD PRESSURE Coronary artery disease TECHNIQUE: XR Chest 1 View COMPARISON: Prior comparison studies are not available for review at this time. FINDINGS: There is no demonstrated pleural abnormality. Normal size heart. Normal mediastinum and justin. Normal visualized pulmonary arteries. There is atherosclerotic calcification of the aortic arch with tortuosity. There are diffuse degenerative changes of the visualized thoracic spine. There is degenerative osteoarthritis of the bilateral shoulders. There is no demonstrated abnormality of the visualized soft tissue structures of the upper abdomen. RAD/Chest 1 View (Portable) IMPRESSION: There are no acute findings. Electronically Signed: Giovanni Patel MD at 15:16 EDT ,
--- NOTE | 2021-09-07 15:07 | CT_ITS ---
STUDY: CT BRAIN WITHOUT CONTRAST REASON FOR EXAM: Female, 80 years old. Encephalopathy TECHNIQUE: Transaxial CT imaging of the brain was performed without administration of intravenous contrast material. Individualized dose optimization techniques were used for this CT. COMPARISON: 03.21.20 FINDINGS: Normal calvarium. Normal soft tissues. There is mild cerebral atrophy with widening of the extra-axial spaces and ventricular dilatation. There are areas of decreased attenuation within the white matter tracts of the supratentorial brain, consistent with microvascular disease changes. Normal basal ganglia and thalami. Normal brainstem. Normal cerebellum. There is no intracranial hemorrhage. There are no findings of an acute ischemic infarction. Normal visualized paranasal sinuses. ASPECTS 10 CT/Brain/Head without Contrast IMPRESSION: There are no acute intracranial findings. Electronically Signed: Giovanni Patel MD at 15:19 EDT ,
[2021-09-07 15:12] LABS: Absolute Lymphocyte Count 2.47 X10^3/uL (0.83-4.51); Basophil# 0.06 X10^3/uL; Basophil% 0.5 % (0-1); Eosinophil# 0.05 X10^3/uL; Eosinophils% 0.4 % (0-5); Hematocrit 41.1 % (37-47); Hemoglobin 13.8 g/dL (12.0-15.0); Lymphocyte # 2.47 X10^3/ul (0.83-4.51); Lymphocyte % 21.3 % (19-41); Mean Corp Hgb Conc 33.6 g/dL (32-36); Mean Corpuscular Hgb 29.1 pg (27.0-32.0); Mean Corpuscular Volume 86.7 fL (81-99); Mean Platelet Vol. 10.8 fl (6.2-12.0); Monocyte# 0.92 X10^3/uL; Monocyte% 7.9 % (0-10); NRBC Flagged by Analyzer 0 % (0-5); Neutrophil # 8.03 X10^3/uL (2.7-7.7); Neutrophil % 69.5 % (47-70); Platelet Count 279 K/mm3 (150-450); RBC Distribution Width CV 12.5 % (11.6-14.6); RBC Distribution Width SD 39.5 fl (35.1-43.9); Red Blood Count 4.74 M/mm3 (4.2-5.4); White Blood Count 11.6 K/mm3 (4.4-11.0)
[2021-09-07 15:48] LABS: AST(SGOT) 17 U/L (15-37); Alanine Aminotransfer ALT/SGPT 14 U/L (13-56); Albumin, Serum 3.8 g/dL (3.2-5.0); Alkaline Phosphatase 77 U/L (45-117); Anion Gap 9 (5-15); BUN 13 mg/dL (7-18); BUN/Creat Ratio 17.1 RATIO (10-20); Calcium,Total 9.5 mg/dL (8.5-10.1); Chloride 104 mmol/L (98-107); Creatinine, Serum 0.76 mg/dL (0.55-1.02); EST Glomerular Filtration Rate 78 mL/min (>60); Est Glom Filt Rate - Afr Amer 94 mL/min (>60); Estimated Creatinine Clearance 37.12 ml/min; Glucose 109 mg/dL (74-106); Potassium 3.1 mmol/L (3.5-5.1); Protein, Total 7.8 g/dL (6.4-8.2); Sodium Level 138 mmol/L (136-145); Troponin-I HS 6 pg/mL (3.0-54.0)
[2021-09-07] MEDS: Potassium Chloride Oral Tablet 20 MEQ 40 MEQ PO (16:07)
[2021-09-07] MEDS: Ceftriaxone 1 GM/50 ML BAG IV (16:34)
--- NOTE | 2021-09-07 17:05 | ECHOD_ITS ---
Reason For Study: HYPERTENSION Procedure This was a 2D Doppler, Color Flow transthoracic echocardiogram. The exam was of adequate technical quality. Exam performed portable in patient room. Left Ventricle Normal LV size. Left ventricular systolic function is normal. The estimated ejection fraction is 70 %. Diastolic function is indeterminate. No regional wall motion abnormalities noted. Right Ventricle Normal RV size. Normal systolic function. Atria Normal left atrium. Normal right atrium. No doppler evidence for ASD. Mitral Valve There is no mitral annular calcification. Normal mitral valve. Trivial mitral valve insufficiency. Tricuspid Valve Normal tricuspid valve. Trivial tricuspid valve insufficiency. Right ventricular systolic pressure estimated to be 32 mmHg. Aortic Valve Trisinus/trileaflet aortic valve. Mild focal aortic valve calcification. Trivial aortic valve insufficiency. Pulmonic Valve The pulmonic valve is not well visualized. Trivial pulmonic valve insufficiency. Great Vessels Normal sized aortic root. Pericardium/Pleural No pericardial effusion. MMode/2D Measurements & Calculations LVIDd: 4.2 cm IVSd: 1.0 cm Ao root diam: 3.0 cm LVIDs: 2.7 cm LVPWd: 1.1 cm RVDd: 3.4 cm FS: 35.4 % LAV(MOD-bp): 45.6 ml LVAd ap4: 33.0 cm2 SV(MOD-sp4): 80.1 ml LAV(MOD-bp) Indexed: 25.1 ml/m2 LVLd ap4: 7.5 cm LAV(MOD-sp2): 45.1 ml EDV(MOD-sp4): 118.4 ml LAV(MOD-sp4): 45.4 ml EDV(sp4-el): 123.1 ml LVAs ap4: 16.9 cm2 LVLs ap4: 6.5 cm ESV(MOD-sp4): 38.4 ml ESV(sp4-el): 37.4 ml EF(MOD-sp4): 67.6 % EF(sp4-el): 69.6 % SV(sp4-el): 85.7 ml LA A4 area: 16.8 cm2 LA dimension(2D): 3.8 cm RA A4 area: 15.3 cm2 Time Measurements MV dec time: 0.30 sec Doppler Measurements & Calculations MV E max marcello: 74.0 cm/sec Lat Peak E' Marcello: 9.9 cm/sec Med Peak E' Marcello: 5.2 cm/sec MV A max marcello: 111.2 cm/sec E/E' lat: 7.5 E/E' med: 14.3 MV E/A: 0.67 Ao V2 max: 133.9 cm/sec AI max marcello: 330.4 cm/sec LV V1 max: 121.5 cm/sec Ao max P.2 mmHg AI max P.7 mmHg LV V1 max P.9 mmHg AI dec slope: 200.9 cm/sec2 AI P1/2t: 481.7 msec PA V2 max: 135.9 cm/sec TR max marcello: 268.0 cm/sec TR max P.7 mmHg ECHO/Echo Complete Interpretation Summary Left ventricular systolic function is normal. The estimated ejection fraction is 70 %. Trivial mitral valve insufficiency. Trivial tricuspid valve insufficiency. Mild focal aortic valve calcification. Trivial aortic valve insufficiency. Trivial pulmonic valve insufficiency. Right ventricular systolic pressure estimated to be 32 mmHg. Diastolic function is indeterminate. Ordering Physician: Francisco Moon Referring Physician: AUGUSTO RENEE Performed By: Ruth Jade RDCS
--- NOTE | 2021-09-07 18:00 | HP.PCM.HOS_ITS ---
HPI - General General Date of Admission: 09/07/21 HPI Narrative MICAELA MARTINEZ, is a 80 F who presents after she knows that her blood pressure was high on her home blood pressure machine. She denies any significant symptoms, she denies any blurry vision or headache. She has been dealing with a sinus infection and been having head pressure but she has been seeing ENT as an outpatient for that. She denies any significant chest pain or shortness of breath and in the ER they noticed that her blood pressure was over 200 and she was given some doses of hydralazine. Urine did show a possible UTI with 500 leukocyte esterase as well as urine nitrites and she was given a dose of Rocephi n as well. Brain CT and chest x-ray were unremarkable [facility] Medical History (Updated 09/07/21 @ 18:[address] Francisco Moon MD) Acute cystitis Asthma COPD (chronic obstructive pulmonary disease) Depression Femur fracture Former smoker Fracture of left hip requiring operative repair GERD (gastroesophageal reflux disease) High cholesterol History of stress test HTN (hypertension) Hypergastrinemia Lower abdominal pain Personal history of colonic polyps Uncontrolled hypertension UTI (urinary tract infection) Wears hearing aid Home Medications albuterol sulfate 90 mcg/actuation aerosol inhaler (ProAir HFA) 2 puff inhalation Q6H PRN Cough 01/03/18 [History Last Taken 09/06/21] fluticasone propionate 50 mcg/actuation nasal spray,suspension 1 spray NASAL DAILY Check with primary doctor 03/21/20 [History Last Taken Unknown] hydrochlorothiazide 12.5 mg tablet 12.5 mg PO DAILY BP #90 tabs 04/22/21 [Rx Last Taken 09/07/21] paroxetine HCl 10 mg tablet 10 mg PO DAILY depression/anxiety #90 tabs 05/29/21 [Rx Last Taken 09/07/21] atorvastatin 20 mg tablet 20 mg PO DAILY cholesterol 08/04/21 [History Last Taken 09/06/21] hydroxyzine HCl 25 mg tablet 25 mg PO QHS PRN Sleep 08/04/21 [History Last Taken Unknown] omeprazole 20 mg delayed release,disintegrating tablet 20 mg PO DAILY acid refulx 08/04/21 [History Last Taken 09/07/21] latanoprost 0.005 % eye drops 1 drp RIGHT EYE QHS eye health 09/07/21 [History Last Taken 09/06/21] lisinopril 20 mg tablet 1 tab PO DAILY blood pressure 09/07/21 [History Last Taken 09/07/21] metoprolol tartrate 25 mg tablet 25 mg PO BID blood pressure 09/07/21 [History Last Taken 09/07/21] zolpidem 5 mg tablet 5 tab PO QHS PRN PRN Sleep 09/07/21 [History Last Taken 09/06/21] Allergy/AdvReac Type Severity Reaction Status Date / Time epinephrine Allergy Severe Anaphylaxis Verified 08/10/21 13:47 pseudoephedrine Allergy Intermediate Chest Verified 08/10/21 13:47 [From Sudafed] tightness prednisone AdvReac heart races Verified 08/10/21 13:47 Family History (Updated 09/07/21 @ 18:[address] Francisco Moon MD) Other Hypertension Surgical History History of colonoscopy History of surgery on lower extremity S/P hysterectomy s/p left breast cyst removal S/P right rotator cuff repair Status post right hip replacement Social History household members: spouse Smoking Status: Former smoker alcohol intake: current alcohol intake frequency: holidays/special occasions only ROS Constitutional Constitutional: Denies chills, fatigue, fever(s) or malaise Eyes Eyes: Denies blurry vision ENT HEENT: Reports post nasal drip and sinus pressure; Denies headache(s) or nasal discharge Cardiovascular Cardiovascular: Denies chest pain, dyspnea on exertion or syncope Respiratory/Chest Respiratory/Chest: Denies cough, shortness of breath at rest or shortness of breath with exertion Gastrointestinal Gastrointestinal: Denies constipation, diarrhea, nausea or vomiting Genitourinary Genitourinary: Denies dysuria Neurologic Neurologic: Denies focal weakness, numbness or tremor(s) Psychiatric Psychiatric: Denies anxiety or depression Vital Signs Vital Signs Vital Signs: 09/07/21 13:24 09/07/21 13:44 09/07/21 13:44 Temperature 97.5 F L Temperature Source Temporal Pulse Rate 71 64 Respiratory Rate 16 19 H Respiratory Effort Normal Respiratory Depth Respiratory Pattern Normal Blood Pressure 224/80 H Blood Pressure Mean 128 Blood Pressure Source Blood Pressure Position Blood Pressure Location Pulse Ox 95 Oxygen Delivery Method Room Air 09/07/21 14:15 09/07/21 14:45 09/07/21 15:19 Temperature Temperature Source Pulse Rate 67 68 65 Respiratory Rate Respiratory Effort Respiratory Depth Respiratory Pattern Blood Pressure 159/121 H 251/96 H 203/68 H Blood Pressure Mean 133 147 113 Blood Pressure Source Blood Pressure Position Blood Pressure Location Pulse Ox Oxygen Delivery Method 09/07/21 15:48 09/07/21 16:16 09/07/21 16:52 Temperature 98.0 F Temperature Source Temporal Pulse Rate 73 83 67 Respiratory Rate 18 20 H 19 H Respiratory Effort Respiratory Depth Respiratory Pattern Blood Pressure 236/90 H 181/154 H 133/119 H Blood Pressure Mean 138 163 123 Blood Pressure Source Blood Pressure Position Blood Pressure Location Pulse Ox Oxygen Delivery Method 09/07/21 17:15 09/07/21 17:41 Temperature 98.4 F Temperature Source Oral Pulse Rate 84 Respiratory Rate 18 Respiratory Effort Normal Respiratory Depth Normal Respiratory Pattern Normal Blood Pressure 189/77 H Blood Pressure Mean 114 Blood Pressure Source Monitor Blood Pressure Position Semi-Fowlers Blood Pressure Location Right Arm Pulse Ox 96 Oxygen Delivery Method Room Air Room Air Weight Weight: 173 lb Body Mass Index (BMI) 30.6 Physical Exam Const alert, oriented x3 and no apparent distress General Appearance: cooperative HEENT normocephalic and moist oral mucous membranes Eyes PERRL, EOMs intact bilaterally and conjunctivae normal Neck supple and no JVD Resp normal respiratory effort, no retractions, no use of accessory muscles and clear to auscultation bilaterally Auscultation: Negative for crackles, rales, rhonchi or wheezes Cardio regular rate, regular rhythm, S1 normal heart sound, S2 normal heart sound and no murmurs GI soft to palpation, non-tender and non-distended; Negative for hepatosplenomegaly Extremity no clubbing, cyanosis or edema Skin no rashes or lesions noted Neuro no focal motor deficits and no sensory deficits noted Psych affect normal Appearance: appropriate Results Lab / Micro Data Result Diagrams: 09/08/21 05:30 09/08/21 05:30 Labs: Laboratory Results - last 24 hr 09/07/21 14:30: Urine Color Straw, Urine Clarity Clear, Urine pH 6.5, Ur Specifi c [place] 1.010, Urine Protein 15 H, Urine Glucose (UA) Normal, Urine Ketones Negative, Urine Occult Blood Negative, Urine Nitrite Positive H, Urine Bilirubin Negative, Urine Urobilinogen Normal, Ur Leukocyte Esterase 500 H, Urine RBC 0-5 SEEN, Urine WBC 25-50 SEEN, Ur Squamous Epith Cells 0-5 SEEN, Urine Bacteria 4+, Urine Mucus 0 SEEN 09/07/21 15:00: WBC 11.6 H, RBC 4.74, Hgb 13.8, Hct 41.1, MCV 86.7, MCH 29.1, MCHC 33.6, RDW Std Deviation 39.5, RDW Coeff of [place] 12.5, Plt Count 279, MPV 10.8, Immature Gran % (Auto) 0.400, Neut % (Auto) 69.5, Lymph % (Auto) 21.3, [place] % (Auto) 7.9, Eos % (Auto) 0.4, Baso % (Auto) 0.5, Absolute Neuts (auto) 8.0 H, Absolute Lymphs (auto) 2.47, Nucleated RBC % 0 09/07/21 15:00: Sodium 138, Potassium 3.1 L, Chloride 104, Carbon Dioxide 25.0, Anion Gap 9, BUN 13, Creatinine 0.76, Estim Creat Clear Calc 37.12, Est GFR (MDRD) Af Amer 94, Est GFR (MDRD) Non-Af 78, BUN/Creatinine Ratio 17.1, Glucose 109 H, Calcium 9.5, Total Bilirubin 0.60, AST 17, ALT 14, Alkaline Phosphatase 77, Troponin I High Sens 6, Total Protein 7.8, Albumin 3.8, Globulin 4.0, A lbumin/Globulin Ratio 1.0 Radiology Impression Chest X-Ray 09/07/21 15:02 IMPRESSION: There are no acute findings. Electronically Signed: Giovanni Patel MD at 15:16 EDT , Brain CT 09/07/21 15:07 IMPRESSION: There are no acute intracranial findings. Electronically Signed: Giovanni Patel MD at 15:19 EDT , Assessment & Plan Assessment/Plan (1) Urinary tract infection: (2) Hypertensive urgency: PLAN: Plan 1. Hypertensive urgency, there is no signs of endorgan damage at this time/H ? We will obtain an echo ? Continue with Coreg, lisinopril, hydrochlorothiazide ? We will discontinue her home metoprolol ? As needed hydralazine ? Continue with Lipitor 2. Sinus congestion ? She follows up with ENT as an outpatient and does have an outpatient CT of her sinuses scheduled 3. GERD ? Stable ? Continue with PPI 4. Anxiety/depression ? Stable ? Continue with Paxil DVT: Lovenox Charges/Coding Visit Charges Inpatient E&M: 79929 Init Hosp L2
[2021-09-07] MEDS: Acetaminophen 325 MG Tablet 650 MG PO (18:05)
[2021-09-07] MEDS: Ondansetron 4 MG/2 ML Vial IV (18:53)
[2021-09-07] MEDS: Atorvastatin Calcium 20 MG Tablet PO (20:13)
[2021-09-07] MEDS: Carvedilol 6.25 MG Tablet PO (20:13)
[2021-09-07] MEDS: LORazepam 1 MG Tablet PO (20:23)
[2021-09-08] VITALS (9 sets, daily range): BP systolic 132–227; BP diastolic 75–102; PULSE 71–98; RESP 16–20; TEMP 36.2–36.9; O2SAT 94–95
[2021-09-08] MEDS: Acetaminophen 325 MG Tablet 650 MG PO ×3 (00:12→20:32)
[2021-09-08] MEDS: Zolpidem Tartrate 5 MG Tablet PO ×2 (00:12→01:42)
[2021-09-08 06:43] LABS: Absolute Neutrophil Count 7.9 X10^3/uL (2.0-7.7); Basophil# 0.07 X10^3/uL; Basophil% 0.5 % (0-1); Eosinophil# 0.13 X10^3/uL; Hematocrit 38.1 % (37-47); Hemoglobin 12.6 g/dL (12.0-15.0); Lymphocyte % 26.7 % (19-41); Mean Corp Hgb Conc 33.1 g/dL (32-36); Mean Corpuscular Volume 87.6 fL (81-99); Mean Platelet Vol. 11.5 fl (6.2-12.0); Monocyte# 1.39 X10^3/uL; Monocyte% 10.6 % (0-10); NRBC Flagged by Analyzer 0 % (0-5); Neutrophil # 7.94 X10^3/uL (2.7-7.7); Neutrophil % 60.6 % (47-70); Platelet Count 298 K/mm3 (150-450); RBC Distribution Width CV 12.8 % (11.6-14.6); RBC Distribution Width SD 41.2 fl (35.1-43.9); Red Blood Count 4.35 M/mm3 (4.2-5.4); White Blood Count 13.1 K/mm3 (4.4-11.0)
[2021-09-08 07:04] LABS: BUN 15 mg/dL (7-18); BUN/Creat Ratio 19.7 RATIO (10-20); Calcium,Total 8.6 mg/dL (8.5-10.1); Creatinine, Serum 0.76 mg/dL (0.55-1.02); EST Glomerular Filtration Rate 78 mL/min (>60); Est Glom Filt Rate - Afr Amer 94 mL/min (>60); Estimated Creatinine Clearance 37.12 ml/min; Glucose 106 mg/dL (74-106)
[2021-09-08 07:05] LABS: Anion Gap 11 (5-15); Chloride 98 mmol/L (98-107); Sodium Level 133 mmol/L (136-145)
[2021-09-08] MEDS: Potassium Chloride Oral Tablet 20 MEQ 40 MEQ PO (09:13)
[2021-09-08] MEDS: hydroCHLOROthiazide 12.5mg 12.5 MG PO (09:13)
[2021-09-08] MEDS: Lisinopril 20 MG Tablet PO (09:13)
[2021-09-08] MEDS: Carvedilol 6.25 MG Tablet PO ×2 (09:13→20:31)
[2021-09-08] MEDS: Enoxaparin 40 MG/0.4 ML Syringe SC (09:14)
[2021-09-08] MEDS: Ceftriaxone 1 GM/50 ML BAG IV (09:14)
--- NOTE | 2021-09-08 11:10 | CASEMGMT ---
DINO ALAMO Face to Face with patient for initial transition planning/care coordination assessment. RN CM introduced self and role at [facility]. Patient lying in bed, alert and oriented, at bedside. Patient willing to participate in assessment and is able to answer all questions appropriately. Care providers, pharmacy, and demographics verified. Patient wishes to discharge home, denies need for home health at this time. Patient states she has no further needs or concerns at this time. CM to follow for discharge planning needs that may arise. PCP: Nicole Specialists: BIBI Baxter Preferred Pharmacy: [facility] Insurance: [place] [facility] Prescription Benefit: yes Living Will/HPOA: none LNOK: Living Arrangements: Patient lives with in a single story home with 3 steps and railing to enter. Patient states she is independent at home. Transportation: self, DME/HHC: Patient states she has shower chair, raised toilet, grab bars, walker, and BP cuff. Patient has been to TCU in the past. Patient has been setup with [facility] previously Disposition Plan: Patient to discharge home with family support and follow-up plans in place. Katie RODGERS, RN, CM
--- NOTE | 2021-09-08 11:30 | PN.HOSP_ITS ---
Subjective Subjective Doing well today, still has some sinus pressure but otherwise blood pressure seem to be a little bit better controlled Objective Data Objective Data Vital Signs: Vital Signs Temp Pulse Resp BP Pulse Ox 97.2 F L 94 20 H 162/77 H 94 09/08/21 09:12 09/08/21 09:12 09/08/21 09:12 09/08/21 09:12 09/08/21 09:12 Oxygen Delivery Method Room Air Weight: 173 lb 1.006 oz Body Mass Index (BMI) 30.6 Intake & Output: Intake and Output for Last 24 Hours 09/07/21 09/08/21 09/09/21 03:59 03:59 03:59 Intake Total 450 / 450 850 / 850 Output Total 1100 / 1100 400 / 400 Balance -650 / -650 450 / 450 Lab / Micro Data Result Diagrams: 09/08/21 05:30 09/08/21 05:30 Labs: Laboratory Results - last 24 hr 09/07/21 14:30: Urine Color Straw, Urine Clarity Clear, Urine pH 6.5, Ur Specific [place] 1.010, Urine Protein 15 H, Urine Glucose (UA) Normal, Urine Ketones Negative, Urine Occult Blood Negative, Urine Nitrite Positive H, Urine Bilirubin Negative, Urine Urobilinogen Normal, Ur Leukocyte Esterase 500 H, Urine RBC 0-5 SEEN, Urine WBC 25-50 SEEN, Ur Squamous Epith Cells 0-5 SEEN, Urine Bacteria 4+, Urine Mucus 0 SEEN 09/07/21 15:00: WBC 11.6 H, RBC 4.74, Hgb 13.8, Hct 41.1, MCV 86.7, MCH 29.1, MCHC 33.6, RDW Std Deviation 39.5, RDW Coeff of [place] 12.5, Plt Count 279, MPV 10.8, Immature Gran % (Auto) 0.400, Neut % (Auto) 69.5, Lymph % (Auto) 21.3, [place] % (Auto) 7.9, Eos % (Auto) 0.4, Baso % (Auto) 0.5, Absolute Neuts (auto) 8.0 H, Absolute Lymphs (auto) 2.47, Nucleated RBC % 0 09/07/21 15:00: Sodium 138, Potassium 3.1 L, Chloride 104, Carbon Dioxide 25.0, Anion Gap 9, BUN 13, Creatinine 0.76, Estim Creat Clear Calc 37.12, Est GFR (MDRD) Af Amer 94, Est GFR (MDRD) Non-Af 78, BUN/Creatinine Ratio 17.1, Glucose 109 H, Calcium 9.5, Total Bilirubin 0.60, AST 17, ALT 14, Alkaline Phosphatase 77, Troponin I High Sens 6, Total Protein 7.8, Albumin 3.8, Globulin 4.0, Albumin/Globulin Ratio 1.0 09/08/21 05:30: WBC 13.1 H, RBC 4.35, Hgb 12.6, Hct 38.1, MCV 87.6, MCH 29.0, MCHC 33.1, RDW Std Deviation 41.2, RDW Coeff of [place] 12.8, Plt Count 298, MPV 11.5, Immature Gran % (Auto) 0.600, Neut % (Auto) 60.6, Lymph % (Auto) 26.7, [place] % (Auto) 10.6 H, Eos % (Auto) 1.0, Baso % (Auto) 0.5, Absolute Neuts (auto) 7.9 H, Absolute Lymphs (auto) 3.50, Nucleated RBC % 0 09/08/21 05:30: Sodium 133 L, Potassium 3.0 L, Chloride 98, Carbon Dioxide 24.0, Anion Gap 11, BUN 15, Creatinine 0.76, Estim Creat Clear Calc 37.12, Est GFR (MDRD) Af Amer 94, Est GFR (MDRD) Non-Af 78, BUN/Creatinine Ratio 19.7, Glucose 106, Calcium 8.6 Micro: Microbiology 09/07/21 14:30 Urine, Clean Catch Urine Culture - Preliminary GNR lactose noise tester Radiography Diagnostic Testing: Radiology Impression Chest X-Ray 09/07/21 15:02 IMPRESSION: There are no acute findings. Electronically Signed: Giovanni Patel MD at 15:16 EDT , Brain CT 09/07/21 15:07 IMPRESSION: There are no acute intracranial findings. Electronically Signed: Giovanni Patel MD at 15:19 EDT , Physical Exam Const alert, oriented x3 and no apparent distress General Appearance: cooperative HEENT normocephalic and moist oral mucous membranes Eyes PERRL, EOMs intact bilaterally and conjunctivae normal Neck supple and no JVD Resp normal respiratory effort, no retractions, no use of accessory muscles and clear to auscultation bilaterally Auscultation: Negative for crackles, rales, rhonchi or wheezes Cardio regular rate, regular rhythm, S1 normal heart sound, S2 normal heart sound and no murmurs GI soft to palpation, non-tender and non-distended; Negative for hepatosplenomegaly Extremity no clubbing, cyanosis or edema Skin no rashes or lesions noted Neuro no focal motor deficits and no sensory deficits noted Psych affect normal Appearance: appropriate Assessment & Plan Assessment/Plan (1) Urinary tract infection: (2) Hypertensive urgency: PLAN: Plan 1. Hypertensive urgency, there is no signs of endorgan damage at this time/HTN ? We will obtain an echo ? Continue with Coreg, lisinopril, hydrochlorothiazide ? We will discontinue her home metoprolol ? As needed hydralazine ? Continue with Lipitor 2. Sinus congestion/UTI ? She follows up with ENT as an outpatient and does have an outpatient CT of her sinuses scheduled ? UA is consistent with UTI, urine culture is coming back with a gram negative organism based on previous urine cultures she has a fairly resistant Klebsiella therefore we will transition her antibiotics from Rocephin to Cipro ? Urine culture still pending sensitivities and identification. 3. GERD ? Stable ? Continue with PPI 4. Anxiety/depression ? Stable ? Continue with Paxil DVT: Lovenox Charges/Coding Visit Charges Inpatient E&M: 22821 Subs Hosp L2
[2021-09-08] MEDS: Ciprofloxacin 500 MG Tablet PO ×2 (13:09→20:32)
[2021-09-08] MEDS: Ondansetron 4 MG/2 ML Vial IV (16:11)
[2021-09-08] MEDS: Latanoprost 0.005% 1 Bottle 1 DRP RIGHT EYE (20:31)
[2021-09-08] MEDS: Atorvastatin Calcium 20 MG Tablet PO (20:31)
[2021-09-08] MEDS: hydrOXYzine PAM 25 MG Capsule PO (20:31)
[2021-09-08] MEDS: 0.9% Saline Lock 10 ML Syringe IV (22:38)
[2021-09-08] MEDS: hydrALAZINE 20 MG/ML Vial 10 MG IV (22:38)
[2021-09-09] VITALS (7 sets, daily range): BP systolic 162–205; BP diastolic 78–114; PULSE 81–114; RESP 16–20; TEMP 36.9–37.1; O2SAT 94–97
[2021-09-09] MEDS: cloNIDine HCl 0.2 MG Tablet PO (01:05)
[2021-09-09 07:08] LABS: Absolute Lymphocyte Count 2.31 X10^3/uL (0.83-4.51); Absolute Neutrophil Count 7.5 X10^3/uL (2.0-7.7); Basophil# 0.05 X10^3/uL; Basophil% 0.5 % (0-1); Eosinophil# 0.09 X10^3/uL; Eosinophils% 0.8 % (0-5); Hematocrit 40.7 % (37-47); Hemoglobin 13.3 g/dL (12.0-15.0); Lymphocyte # 2.31 X10^3/ul (0.83-4.51); Lymphocyte % 20.8 % (19-41); Mean Corp Hgb Conc 32.7 g/dL (32-36); Mean Corpuscular Hgb 28.7 pg (27.0-32.0); Mean Corpuscular Volume 87.9 fL (81-99); Mean Platelet Vol. 11.5 fl (6.2-12.0); Monocyte# 1.12 X10^3/uL; Monocyte% 10.1 % (0-10); NRBC Flagged by Analyzer 0 % (0-5); Neutrophil # 7.48 X10^3/uL (2.7-7.7); Neutrophil % 67.4 % (47-70); Platelet Count 303 K/mm3 (150-450); RBC Distribution Width CV 12.8 % (11.6-14.6); RBC Distribution Width SD 41.6 fl (35.1-43.9); Red Blood Count 4.63 M/mm3 (4.2-5.4); White Blood Count 11.1 K/mm3 (4.4-11.0)
[2021-09-09 07:36] LABS: Anion Gap 10 (5-15); BUN 10 mg/dL (7-18); BUN/Creat Ratio 14.5 RATIO (10-20); Calcium,Total 9.3 mg/dL (8.5-10.1); Chloride 102 mmol/L (98-107); Creatinine, Serum 0.69 mg/dL (0.55-1.02); EST Glomerular Filtration Rate 87 mL/min (>60); Est Glom Filt Rate - Afr Amer 105 mL/min (>60); Estimated Creatinine Clearance 37.12 ml/min; Glucose 115 mg/dL (74-106); Potassium 3.3 mmol/L (3.5-5.1); Sodium Level 135 mmol/L (136-145)
[2021-09-09] MEDS: Enoxaparin 40 MG/0.4 ML Syringe SC (09:32)
[2021-09-09] MEDS: Ciprofloxacin 500 MG Tablet PO (09:33)
[2021-09-09] MEDS: Pantoprazole Sodium 20 MG Tablet PO (09:33)
[2021-09-09] MEDS: Potassium Chloride Oral Tablet 20 MEQ 40 MEQ PO (09:33)
[2021-09-09] MEDS: amLODIPine 5 MG Tablet PO (09:33)
[2021-09-09] MEDS: Lisinopril 20 MG Tablet PO (09:33)
[2021-09-09] MEDS: Paroxetine 20 MG Tablet PO (09:33)
[2021-09-09] MEDS: hydroCHLOROthiazide 12.5mg 12.5 MG PO (09:33)
[2021-09-09] MEDS: Carvedilol 12.5 MG Tablet PO (09:33)
[2021-09-09] MEDS: Fluticasone 0.05% 1 SPRAY NASAL.SRY NASAL (09:34)
--- NOTE | 2021-09-09 14:00 | DCINST_ITS ---
Discharge Instructions Diet Discharge Diet: Low fat / Low cholesterol Activity Discharge Activity: Return to Normal Activity Dressing / Incision Call your doctor if you observe: Fever of 101 or Higher, Shortness of breath, Dizziness, Fainting spells, Swelling in the ankles, Chest pain and Increased palpitations (irregular heartbeat) Follow Up Care Test Results: Test results from this visit will be discussed in further detail at your follow- up appointment, if applicable. Discharge Plan Admission Admit Date/Time: 09/07/21 16:23 Attending Provider: Francisco Moon Primary Care Provider: Demario Rivera Instructions Additional Instructions / Restrictions: Follow-up with your PCP in 3 to 5 days to obtain outpatient lab work to monitor renal function as well as to have your blood pressure closely monitored. Discharge Orders/Prescriptions Prescriptions: New carvedilol 12.5 mg Tablet 12.5 mg PO BID 30 Days Qty: 60 0RF amlodipine 5 mg Tablet 5 mg PO DAILY 30 Days Qty: 30 0RF ciprofloxacin HCl 500 mg Tablet 500 mg PO BID 7 Days Qty: 14 0RF Continued ProAir HFA 90 mcg/actuation HFA aerosol inhaler 2 puff INHALATION Q6H PRN (Reason: Cough) fluticasone propionate 1 SPRAY spray,suspension 1 spray NASAL DAILY omeprazole 20 mg Tablet,Disintegrat, Delay Rel 20 mg PO DAILY atorvastatin 20 mg tablet 20 mg PO DAILY hydroxyzine HCl 25 mg tablet 25 mg PO QHS PRN (Reason: Sleep) lisinopril 20 mg tablet 1 tab PO DAILY Label Comments: Take 1 tablet by mouth daily latanoprost 0.005 % drops 1 drp RIGHT EYE QHS Label Comments: Instill 1 drop in right eye at bedtime zolpidem 5 mg tablet 5 tab PO QHS PRN PRN (Reason: Sleep) Label Comments: TAKE 1 TABLET BY MOUTH EVERY DAY AT BEDTIME NEEDED FOR INSOMNIA hydrochlorothiazide 12.5 mg tablet 12.5 mg PO DAILY Qty: 90 3RF Changed paroxetine HCl 10 mg tablet 20 mg PO DAILY Qty: 90 3RF Discontinued metoprolol tartrate 25 mg tablet 25 mg PO BID Referrals / Follow Up: Demario Rivera MD [Primary Care Provider] - Within 1 Week Disposition Disposition (needs filled in before D/C Order can be placed): Home, Self Care
--- NOTE | 2021-09-09 15:01 | PHA.DC.MC ---
Pharmacy Service has performed discharge medication reconciliation and counseling for this patient. Patient was taking doxycycline 100mg PO BID x [address] Pitts and wanted to know if she should also take the ciprofloxacin. It appears the prescription should be completed because it was filled on 08/06/21 so she should just take the ciprofloxacin. 1. AMLODIPINE 5MG PO DAILY 2. CARVEDILOL 12.5MG PO BID 3. CIPROFLOXACIN 500MG PO BID X 7 DAYS The patient's discharge medication list was reviewed for discrepancies and discrepancies were resolved. Home Medications albuterol sulfate 90 mcg/actuation aerosol inhaler (ProAir HFA) 2 puff inhalation Q6H PRN Cough 01/03/18 fluticasone propionate 50 mcg/actuation nasal spray,suspension 1 spray NASAL DAILY Check with primary doctor 03/21/20 hydrochlorothiazide 12.5 mg tablet 12.5 mg PO DAILY BP #90 tabs 04/22/21 atorvastatin 20 mg tablet 20 mg PO DAILY cholesterol 08/04/21 hydroxyzine HCl 25 mg tablet 25 mg PO QHS PRN Sleep 08/04/21 omeprazole 20 mg delayed release,disintegrating tablet 20 mg PO DAILY acid refulx 08/04/21 latanoprost 0.005 % eye drops 1 drp RIGHT EYE QHS eye health 09/07/21 lisinopril 20 mg tablet 1 tab PO DAILY blood pressure 09/07/21 zolpidem 5 mg tablet 5 tab PO QHS PRN PRN Sleep 09/07/21 amlodipine 5 mg tablet 5 mg PO DAILY 30 days #30 tabs 09/09/21 carvedilol 12.5 mg tablet 12.5 mg PO BID 30 days #60 tabs 09/09/21 ciprofloxacin HCl 500 mg tablet 500 mg PO BID 7 days #14 tabs 09/09/21 paroxetine HCl 10 mg tablet 20 mg PO DAILY depression/anxiety #90 tabs 09/09/21 The patient was counseled on the following discharge medications and changes in medications for homegoing were reviewed. The Reason for Use, instructions for use, and potential side effects were reviewed for all new medications. The patient's questions regarding all of their medications were answered. The patient was able to verbally demonstrate an understanding of their discharge medications.
--- NOTE | 2021-09-09 15:40 | CASEMGMT ---
Per nursing, pt has been up independent in room. No therapy was ordered. Pt declines need for HHC at d/c. Antoni SUN CM
--- NOTE | 2021-09-09 17:08 | DS.PCM_ITS ---
Providers Date of Admission: 09/07/21 Primary Care Physician: Dr. Demario Rivera MD Reason For Visit: HYPERTENSIVE URGENCY Diagnosis Discharge Diagnosis (1) Urinary tract infection: Status: Acute Code(s): N39.0 - Urinary tract infection, site not specified (2) Hypertensive urgency: Status: Acute Code(s): I16.0 - Hypertensive urgency Plan 1. Hypertensive urgency, there is no signs of endorgan damage at this time/HTN ? We will obtain an echo ? Continue with Coreg, lisinopril, hydrochlorothiazide ? We will discontinue her home metoprolol ? As needed hydralazine ? Continue with Lipitor 2. Sinus congestion/UTI ? She follows up with ENT as an outpatient and does have an outpatient CT of her sinuses scheduled ? UA is consistent with UTI, urine culture is coming back with a gram negative organism based on previous urine cultures she has a fairly resistant Klebsiella therefore we will transition her antibiotics from Rocephin to Cipro ? Urine culture still pending sensitivities and identification. 3. GERD ? Stable ? Continue with PPI 4. Anxiety/depression ? Stable ? Continue with Paxil DVT: Lovenox Medications at Discharge Home Medications albuterol sulfate 90 mcg/actuation aerosol inhaler (ProAir HFA) 2 puff inhalation Q6H PRN Cough 01/03/18 fluticasone propionate 50 mcg/actuation nasal spray,suspension 1 spray NASAL DAILY Check with primary doctor 03/21/20 hydrochlorothiazide 12.5 mg tablet 12.5 mg PO DAILY BP #90 tabs 04/22/21 atorvastatin 20 mg tablet 20 mg PO DAILY cholesterol 08/04/21 hydroxyzine HCl 25 mg tablet 25 mg PO QHS PRN Sleep 08/04/21 omeprazole 20 mg delayed release,disintegrating tablet 20 mg PO DAILY acid refulx 08/04/21 latanoprost 0.005 % eye drops 1 drp RIGHT EYE QHS eye health 09/07/21 lisinopril 20 mg tablet 1 tab PO DAILY blood pressure 09/07/21 zolpidem 5 mg tablet 5 tab PO QHS PRN PRN Sleep 09/07/21 amlodipine 5 mg tablet 5 mg PO DAILY 30 days #30 tabs 09/09/21 carvedilol 12.5 mg tablet 12.5 mg PO BID 30 days #60 tabs 09/09/21 ciprofloxacin HCl 500 mg tablet 500 mg PO BID 7 days #14 tabs 09/09/21 paroxetine HCl 10 mg tablet 20 mg PO DAILY depression/anxiety #90 tabs 09/09/21 Hospital Course Operations None Procedures 2-D Echocardiogram Summary of Care Provided Minutes Spent on Discharge: 60 Hospital Course: Per HPI: MICAELA MARTINEZ, is a 80 F who presents after she knows that her blood pressure was high on her home blood pressure machine.? She denies any significant symptoms, she denies any blurry vision or headache.? She has been dealing with a sinus infection and been having head pressure but she has been seeing ENT as an outpatient for that.? She denies any significant chest pain or shortness of breath and in the ER they noticed that her blood pressure was over 200 and she was given some doses of hydralazine.? Urine did show a possible UTI with 500 leukocyte esterase as well as urine nitrites and she was given a dose of Rocephin as well.? Brain CT and chest x-ray were unremarkable. Hospital Course: 1. Hypertensive urgency/UTI/anxiety and depression?80-year-old female presents to the hospital with blood pressures in the 200s. Over the course of her hospitalization does appear that this is related to anxiety. She has baseline blood pressures in the 130s to 150s when she is calm however when she gets extremely agitated and anxious I climbs over 200. I had extensive discussion with her today about her mental health and I did increase her Paxil to 20 mg p.o. daily. I also transitioned her metoprolol to Coreg to 12-1/2 p.o. twice daily, I resumed her lisinopril and her hydrochlorothiazide and also added Norvasc at 5 mg p.o. daily. Echo was unremarkable for any type of endorgan damage. UA did have some protein in it however she also had a UTI which was treated with Cipro 500 mg p.o. twice daily. We will do the treatment for 7 days that she is also been complaining of sinus congestion and follows up with ENT. I do recommend that she follow-up with her PCP as an outpatient in 3 to 5 days for further management of her anxiety and depression. Also recommend following up her blood pressures as well. I discussed with her the plan for discharge t [place] and she expressed understanding of the risk benefits going home and is okay with going home today. Physical Exam Narrative Const alert, oriented x3 and no apparent distress General Appearance: cooperative HEENT normocephalic and moist oral mucous membranes Eyes PERRL, EOMs intact bilaterally and conjunctivae normal Neck supple and no JVD Resp normal respiratory effort, no retractions, no use of accessory muscles and clear to auscultation bilaterally Auscultation: Negative for crackles, rales, rhonchi or wheezes Cardio regular rate, regular rhythm, S1 normal heart sound, S2 normal heart sound and no murmurs GI soft to palpation, non-tender and non-distended; Negative for hepatosplenomegaly Extremity no clubbing, cyanosis or edema Skin no rashes or lesions noted Neuro no focal motor deficits and no sensory deficits noted Psych affect normal Appearance: appropriate Weight / BMI Weight Weight: 174 lb 6.17 oz Body Mass Index (BMI) 30.6 ABG / Lab / Microbiology Data Result Diagrams: 09/09/21 05:46 09/09/21 05:46 Laboratory: Laboratory Results - last 24 hr 09/09/21 05:46: WBC 11.1 H, RBC 4.63, Hgb 13.3, Hct 40.7, MCV 87.9, MCH 28.7, MCHC 32.7, RDW Std Deviation 41.6, RDW Coeff of [place] 12.8, Plt Count 303, MPV 11.5, Immature Gran % (Auto) 0.400, Neut % (Auto) 67.4, Lymph % (Auto) 20.8, [place] % (Auto) 10.1 H, Eos % (Auto) 0.8, Baso % (Auto) 0.5, Absolute Neuts (auto) 7.5, Absolute Lymphs (auto) 2.31, Nucleated RBC % 0 09/09/21 05:46: Sodium 135 L, Potassium 3.3 L, Chloride 102, Carbon Dioxide 23.0, Anion Gap 10, BUN 10, Creatinine 0.69, Estim Creat Clear Calc 37.12, Est GFR (MDRD) Af Amer 105, Est GFR (MDRD) Non-Af 87, BUN/Creatinine Ratio 14.5, Glucose 115 H, Calcium 9.3 Microbiology: Microbiology 09/07/21 14:30 Urine, Clean Catch Urine Culture - Final Klebsiella pneumoniae sp pneum D/C Instructions Discharge Diet: Low fat / Low cholesterol Call your doctor if you observe: Fever of 101 or Higher, Shortness of breath, Dizziness, Fainting spells, Swelling in the ankles, Chest pain and Increased palpitations (irregular heartbeat) Meaningful Use Info Meaningful Use Diagnoses (Choose all that apply): None applicable Discharge Plan Admission Admit Date/Time: 09/07/21 16:23 Attending Provider: Francisco Moon Primary Care Provider: Demario Rivera Instructions Additional Instructions / Restrictions: Follow-up with your PCP in 3 to 5 days to obtain outpatient lab work to monitor renal function as well as to have your blood pressure closely monitored. Discharge Orders/Prescriptions Prescriptions: New carvedilol 12.5 mg Tablet 12.5 mg PO BID 30 Days Qty: 60 0RF amlodipine 5 mg Tablet 5 mg PO DAILY 30 Days Qty: 30 0RF ciprofloxacin HCl 500 mg Tablet 500 mg PO BID 7 Days Qty: 14 0RF Continued ProAir HFA 90 mcg/actuation HFA aerosol inhaler 2 puff INHALATION Q6H PRN (Reason: Cough) fluticasone propionate 1 SPRAY spray,suspension 1 spray NASAL DAILY omeprazole 20 mg Tablet,Disintegrat, Delay Rel 20 mg PO DAILY atorvastatin 20 mg tablet 20 mg PO DAILY hydroxyzine HCl 25 mg tablet 25 mg PO QHS PRN (Reason: Sleep) lisinopril 20 mg tablet 1 tab PO DAILY Label Comments: Take 1 tablet by mouth daily latanoprost 0.005 % drops 1 drp RIGHT EYE QHS Label Comments: Instill 1 drop in right eye at bedtime zolpidem 5 mg tablet 5 tab PO QHS PRN PRN (Reason: Sleep) Label Comments: TAKE 1 TABLET BY MOUTH EVERY DAY AT BEDTIME NEEDED FOR INSOMNIA hydrochlorothiazide 12.5 mg tablet 12.5 mg PO DAILY Qty: 90 3RF Changed paroxetine HCl 10 mg tablet 20 mg PO DAILY Qty: 90 3RF Discontinued metoprolol tartrate 25 mg tablet 25 mg PO BID Referrals / Follow Up: Demario Rivera MD [Primary Care Provider] - Within 1 Week Disposition Disposition (needs filled in before D/C Order can be placed): Home, Self Care Charges/Coding Visit Charges Inpatient E&M: 71701 Disch Hosp
== END 2021-09-09 16:08 | disposition home or self-care (01) | DRG 305 ==
LOC: ED 15:59 → PCU 16:54
PROVIDERS: Admitting Provider Family Medicine; Emergency Provider Emergency Medicine; PCP Family Medicine; Visit Provider Family Medicine
DX: I16.0 Hypertensive urgency (principal); J44.9 Chronic obstructive pulmonary disease, unspecified; N39.0 Urinary tract infection, site not specified; E78.00 Pure hypercholesterolemia, unspecified; E87.6 Hypokalemia; I10 Essential (primary) hypertension; K21.9 Gastro-esophageal reflux disease without esophagitis; F41.9 Anxiety disorder, unspecified; Z87.891 Personal history of nicotine dependence; F32.A Depression, unspecified; Z79.899 Other long term (current) drug therapy
CPT/HCPCS: 36415; 70450; 71045; 80048; 80053; 81001; 84484; 85025; 87077; 87086; 87088; 87186; 93005; 93306; 96365; 96366; 96372; 96375; 96376; 99218; 99285; A4216; G0378; J2405

== ENCOUNTER 2021-09-09 19:13 | Emergency (ER) | payer MEDICARE, SELFPAY ==
[2021-09-09 19:15] VITALS: BP 232/109; PULSE 97; RESP 18; TEMP 36.6; O2SAT 96; BMI 30.8
[2021-09-09 19:58] VITALS: BP 199/105
[2021-09-09 21:27] VITALS: BP 262/116; PULSE 109; RESP 18; O2SAT 95
[2021-09-09 21:31] VITALS: BP 236/84
--- NOTE | 2021-09-09 21:37 | EKG12_ITS ---
Test Reason : DYSRHYTHMIA Blood Pressure : / mmHG Vent. Rate : 109 BPM Atrial Rate : 109 BPM P-R Int : 150 ms QRS Dur : 080 ms QT Int : 382 ms P-R-T Axes : 057 -13 003 degrees QTc Int : 514 ms Sinus tachycardia Septal infarct , age undetermined, cannot be excluded Nonspecific ST-segment abnormality Abnormal ECG Confirmed by MIKE RG, LUIZA ([id number]), news videotape editor KASSY DE LA GARZA ([id number]) on 09/11/2021 11:39:56 AM Referred By: KRISTINA Confirmed By:LUIZA MCKEON MD
--- NOTE | 2021-09-09 21:39 | EX.ED.DYSGE1 ---
HPI History of Present Illness Chief Complaint: Anxiety Detail of Chief Complaint: Hypertension Informant: patient and spouse/S.O. Narrative Narrative: Patient was discharged in the hospital earlier today with a stay for hypertensive urgency. Blood pressures have been in the low 200s. It is felt that her hypertension is significantly related to anxiety as well and she is calm her systolic blood pressures in the 130-160 range. Patient states she was discharged shortly after noon today. She has not yet picked up her new medications from the pharmacy. She became anxious and noted her blood pressure to be significantly elevated tonight and called EMS to come back to the ER. She does complain of some head pressure when she gets anxious. She denies chest pain. He does appear that recent changes to her medications from this hospital stay include increasing her Paxil, changing her metoprolol to Coreg, adding Norvasc, and continuing her lisinopril and hydrochlorothiazide. [facility] Medical History Acute cystitis Asthma COPD (chronic obstructive pulmonary disease) Depression Femur fracture Former smoker Fracture of left hip requiring operative repair GERD (gastroesophageal reflux disease) High cholesterol History of stress test HTN (hypertension) Hypergastrinemia Lower abdominal pain Personal history of colonic polyps Uncontrolled hypertension UTI (urinary tract infection) Wears hearing aid Home Medications albuterol sulfate 90 mcg/actuation aerosol inhaler (ProAir HFA) 2 puff inhalation Q6H PRN Cough 01/03/18 [History Last Taken 09/06/21] fluticasone propionate 50 mcg/actuation nasal spray,suspension 1 spray NASAL DAILY Check with primary doctor 03/21/20 [History Last Taken Unknown] hydrochlorothiazide 12.5 mg tablet 12.5 mg PO DAILY BP #90 tabs 04/22/21 [Rx Last Taken 09/07/21] atorvastatin 20 mg tablet 20 mg PO DAILY cholesterol 08/04/21 [History Last Taken 09/06/21] hydroxyzine HCl 25 mg tablet 25 mg PO QHS PRN Sleep 08/04/21 [History Last Taken Unknown] omeprazole 20 mg delayed release,disintegrating tablet 20 mg PO DAILY acid refulx 08/04/21 [History Last Taken 09/07/21] latanoprost 0.005 % eye drops 1 drp RIGHT EYE QHS eye health 09/07/21 [History Last Taken 09/06/21] lisinopril 20 mg tablet 1 tab PO DAILY blood pressure 09/07/21 [History Last Taken 09/07/21] zolpidem 5 mg tablet 5 tab PO QHS PRN PRN Sleep 09/07/21 [History Last Taken 09/06/21] amlodipine 5 mg tablet 5 mg PO DAILY 30 days #30 tabs 09/09/21 [Rx Last Taken Unknown] carvedilol 12.5 mg tablet 12.5 mg PO BID 30 days #60 tabs 09/09/21 [Rx Last Taken Unknown] ciprofloxacin HCl 500 mg tablet 500 mg PO BID 7 days #14 tabs 09/09/21 [Rx Last Taken Unknown] lorazepam 1 mg tablet (Ativan) 1 mg PO TID PRN anxiety #14 tabs 09/09/21 [Rx Last Taken Unknown] paroxetine HCl 10 mg tablet 20 mg PO DAILY depression/anxiety #90 tabs 09/09/21 [Rx Last Taken 09/07/21] Allergy/AdvReac Type Severity Reaction Status Date / Time epinephrine Allergy Severe Anaphylaxis Verified 09/09/21 19:18 pseudoephedrine Allergy Intermediate Chest Verified 09/09/21 19:18 [From Sudafed] tightness prednisone AdvReac heart races Verified 09/09/21 19:18 Family History Other Hypertension Surgical History History of colonoscopy History of surgery on lower extremity S/P hysterectomy s/p left breast cyst removal S/P right rotator cuff repair Status post right hip replacement Social History household members: spouse Smoking Status: Former smoker alcohol intake: current alcohol intake frequency: holidays/special occasions only ROS ROS ED Constitutional Constitutional ED: Denies chills or fever(s) Eyes Eyes: Denies change in vision or discharge from eye(s) ENT ENT ED: Denies discharge from eye(s), rhinorrhea or sore throat Cardiovascular Cardiovascular: Denies chest pain or palpitations Respiratory/Chest Respiratory/Chest: Denies cough or dyspnea Gastrointestinal Gastrointestinal: Denies abdominal pain, diarrhea, nausea or vomiting Genitourinary Genitourinary ED: Denies difficulty urinating or dysuria Musculoskeletal Musculoskeletal: Denies back pain or extremity pain Integumentary Denies Abrasions or rash Neurologic Neurologic: Denies headache(s) or weakness Psychiatric Psychiatric: Reports anxiety Allergic/Immunologic Allergic/Immunologic ED: Denies lip swelling or urticaria EXAM Physical Exam Const Vital Signs: 09/09/21 19:15 09/09/21 19:58 09/09/21 21:27 Temperature 97.8 F Temperature Source Oral Pulse Rate 97 109 H Respiratory Rate 18 18 Blood Pressure 232/109 H 199/105 H 262/116 H Blood Pressure Mean 150 136 164 Pulse Ox 96 95 Oxygen Delivery Method Room Air Room Air 09/09/21 21:31 09/09/21 23:03 09/09/21 23:34 Temperature Temperature Source Pulse Rate 87 Respiratory Rate 20 H Blood Pressure 236/84 H 159/89 H 161/75 H Blood Pressure Mean 134 112 103 Pulse Ox 94 93 Oxygen Delivery Method Room Air Room Air Positive obese Nutritional Appearance: obese HEENT Reports moist mucous membranes and dry mucous membranes Mouth ED: Yes dry mucous membranes Mouth: dry mucous membranes Eyes PERRL and EOMs intact bilaterally Neck no lymphadenopathy Chest Wall inspection of chest normal and palpation of chest normal Cardio regular rate and regular rhythm GI normal to inspection, nondistended, normoactive bowel sounds, non-tender and non-distended Extremity normal to inspection Neuro oriented x3 and CN's II-XII intact bilaterally Neuro Narrative: No acute focal deficits. Skin no rashes or lesions noted MDM MDM MDM Narrative Medical decision making narrative: Patient is placed on cardiac cath lab manager. EKG and lab work obtained. I did review her notes from her recent hospitalization and discharge instructions. She was given 20 mg of IV labetalol and 0.5 mg of IV Ativan. Patient does admit that she did not make it to the pharmacy today to roller picker her medications. She has not taken any blood pressure medication since leaving the hospital. Lab Data Attestation: I reviewed the patient's lab results. Labs: Laboratory Results - last 24 hr 09/09/21 09/09/21 22:00 22:00 WBC 12.5 H RBC 4.81 Hgb 14.1 Hct 41.4 MCV 86.1 MCH 29.3 MCHC 34.1 RDW Std Deviation 39.4 RDW Coeff of [place] 12.5 Plt Count 305 MPV 11.4 Immature Gran % (Auto) 1.900 H Neut % (Auto) 75.1 H Lymph % (Auto) 16.4 L [place] % (Auto) 5.9 Eos % (Auto) 0.2 Baso % (Auto) 0.5 Absolute Neuts (auto) 9.4 H Absolute Lymphs (auto) 2.04 Nucleated RBC % 0 Sodium 130 L Potassium 3.6 Chloride 97 L Carbon Dioxide 22.0 Anion Gap 11 BUN 9 Creatinine 0.76 Estim Creat Clear Calc 37.12 Est GFR (MDRD) Af Amer 94 Est GFR (MDRD) Non-Af 78 BUN/Creatinine Ratio 11.8 Glucose 131 H Calcium 9.5 EKG Initial EKG: Interpretation: Sinus Tachycardia (Sinus tach at 109. No acute ischemia.) Treatment and Re-Evaluation Narrative: On repeat evaluation patient's blood pressure is 158/84. With patient just having a hospitalization with similar complaints and full work-up obtained, I do not feel there would be great benefit in readmitting her. Her blood pressure at this time is better than it was at discharge from the hospital. We reviewed her discharge instructions and medication changes. She was not given Ativan at home which she thought she did had. I gave her a dose of her Coreg tonight that she had missed. I also gave her her Cipro for her UTI. She is given 1 dose of p.o. Ativan here and a prescription was sent to the pharmacy for her. She is an appointment with her PCP next week. Return instructions are provided. Discharge Plan Triage Chief Complaint: Anxiety ED Provider: Sara Dow Dx/Rx/DC Orders Clinical Impression: Anxiety, Hypertension Instructions: ED Anxiety Reaction, ED Hypertension, Established Prescriptions: New lorazepam [Ativan] 1 mg tablet 1 mg PO TID PRN (Reason: anxiety) Qty: 14 0RF No Action ProAir HFA 90 mcg/actuation HFA aerosol inhaler 2 puff INHALATION Q6H PRN (Reason: Cough) fluticasone propionate 1 SPRAY spray,suspension 1 spray NASAL DAILY omeprazole 20 mg Tablet,Disintegrat, Delay Rel 20 mg PO DAILY atorvastatin 20 mg tablet 20 mg PO DAILY hydroxyzine HCl 25 mg tablet 25 mg PO QHS PRN (Reason: Sleep) lisinopril 20 mg tablet 1 tab PO DAILY Label Comments: Take 1 tablet by mouth daily latanoprost 0.005 % drops 1 drp RIGHT EYE QHS Label Comments: Instill 1 drop in right eye at bedtime zolpidem 5 mg tablet 5 tab PO QHS PRN PRN (Reason: Sleep) Label Comments: TAKE 1 TABLET BY MOUTH EVERY DAY AT BEDTIME NEEDED FOR INSOMNIA carvedilol 12.5 mg Tablet 12.5 mg PO BID 30 Days Qty: 60 0RF amlodipine 5 mg Tablet 5 mg PO DAILY 30 Days Qty: 30 0RF ciprofloxacin HCl 500 mg Tablet 500 mg PO BID 7 Days Qty: 14 0RF paroxetine HCl 10 mg tablet 20 mg PO DAILY Qty: 90 3RF hydrochlorothiazide 12.5 mg tablet 12.5 mg PO DAILY Qty: 90 3RF Primary Care Provider: Demario Rivera Referrals: Demario Rivera MD [Primary Care Provider] - Keep [facility] appointment Disposition Disposition: Home, Self Care Discharge Date/Time: 09/09/21 23:50
[2021-09-09] MEDS: Labetalol (Prefilled) 20 MG/4 ML IV (22:09)
[2021-09-09] MEDS: LORazepam 2 MG/ML Syringe 0.5 MG IV (22:09)
[2021-09-09 22:40] LABS: Absolute Lymphocyte Count 2.04 X10^3/uL (0.83-4.51); Absolute Neutrophil Count 9.4 X10^3/uL (2.0-7.7); Basophil# 0.06 X10^3/uL; Basophil% 0.5 % (0-1); Eosinophil# 0.02 X10^3/uL; Eosinophils% 0.2 % (0-5); Hematocrit 41.4 % (37-47); Hemoglobin 14.1 g/dL (12.0-15.0); Lymphocyte # 2.04 X10^3/ul (0.83-4.51); Lymphocyte % 16.4 % (19-41); Mean Corp Hgb Conc 34.1 g/dL (32-36); Mean Corpuscular Hgb 29.3 pg (27.0-32.0); Mean Corpuscular Volume 86.1 fL (81-99); Mean Platelet Vol. 11.4 fl (6.2-12.0); Monocyte# 0.73 X10^3/uL; Monocyte% 5.9 % (0-10); NRBC Flagged by Analyzer 0 % (0-5); Neutrophil # 9.36 X10^3/uL (2.7-7.7); Neutrophil % 75.1 % (47-70); Platelet Count 305 K/mm3 (150-450); RBC Distribution Width CV 12.5 % (11.6-14.6); RBC Distribution Width SD 39.4 fl (35.1-43.9); Red Blood Count 4.81 M/mm3 (4.2-5.4); White Blood Count 12.5 K/mm3 (4.4-11.0)
[2021-09-09 22:50] LABS: Anion Gap 11 (5-15); BUN 9 mg/dL (7-18); BUN/Creat Ratio 11.8 RATIO (10-20); Calcium,Total 9.5 mg/dL (8.5-10.1); Chloride 97 mmol/L (98-107); Creatinine, Serum 0.76 mg/dL (0.55-1.02); EST Glomerular Filtration Rate 78 mL/min (>60); Est Glom Filt Rate - Afr Amer 94 mL/min (>60); Estimated Creatinine Clearance 37.12 ml/min; Glucose 131 mg/dL (74-106); Potassium 3.6 mmol/L (3.5-5.1); Sodium Level 130 mmol/L (136-145)
[2021-09-09 23:03] VITALS: BP 159/89; PULSE 87; RESP 20; O2SAT 94
[2021-09-09 23:34] VITALS: BP 161/75; O2SAT 93
[2021-09-09] MEDS: LORazepam 1 MG Tablet PO (23:35)
[2021-09-09] MEDS: Ciprofloxacin 500 MG Tablet PO (23:35)
[2021-09-09] MEDS: Carvedilol 12.5 MG Tablet PO (23:35)
--- NOTE | 2021-09-09 23:45 | ED.RN ---
Patients has been called to take patient home. , Dejuan states he will be here in about 20 minutes
--- NOTE | 2021-09-09 23:54 | ED.RN ---
Patient left discharge paperwork. Patients Dejuan called and message was left on answering machine to call ED if he had any questions. Dejuan also informed patient had prescription to picker packer at [facility] to picker packer tomorrow and to keep appointment with Nicole. Patients discharge paperwork left with DINO Robles if patient would like her paperwork.
== END 2021-09-09 23:50 | disposition home or self-care (01) ==
PROVIDERS: Emergency Provider Emergency Medicine; PCP Family Medicine; Visit Provider Emergency Medicine
DX: F41.9 Anxiety disorder, unspecified (principal); J44.9 Chronic obstructive pulmonary disease, unspecified; I10 Essential (primary) hypertension; E78.00 Pure hypercholesterolemia, unspecified; Z87.891 Personal history of nicotine dependence
CPT/HCPCS: 80048; 85025; 93005; 99285; A4216

== ENCOUNTER → 2021-09-15 | Outpatient (CLI) | payer MEDICARE, SELFPAY ==
[2021-09-15 18:43] LABS: Anion Gap 7 (5-15); BUN 18 mg/dL (7-18); BUN/Creat Ratio 15.5 RATIO (10-20); Calcium,Total 9.1 mg/dL (8.5-10.1); Chloride 104 mmol/L (98-107); Creatinine, Serum 1.16 mg/dL (0.55-1.02); EST Glomerular Filtration Rate 48 mL/min (>60); Est Glom Filt Rate - Afr Amer 58 mL/min (>60); Glucose 122 mg/dL (74-106); Potassium 5.5 mmol/L (3.5-5.1); Sodium Level 138 mmol/L (136-145)
== END | disposition home or self-care (01) ==
LOC: MFPLAB 15:58
PROVIDERS: PCP Family Medicine; Visit Provider Family Medicine
DX: I10 Essential (primary) hypertension (principal)
CPT/HCPCS: 36415; 80048

== ENCOUNTER 2021-09-18 16:36 | Emergency (ER) | payer MEDICARE, SELFPAY ==
[2021-09-18 16:37] VITALS: BP 170/89; PULSE 90; RESP 18; TEMP 36.9; O2SAT 97; BMI 30.4
--- NOTE | 2021-09-18 18:10 | EKG12_ITS ---
Test Reason : HTN Blood Pressure : / mmHG Vent. Rate : 093 BPM Atrial Rate : 093 BPM P-R Int : 180 ms QRS Dur : 086 ms QT Int : 402 ms P-R-T Axes : 066 -01 -15 degrees QTc Int : 499 ms Normal sinus rhythm Septal infarct , age undetermined Abnormal ECG Confirmed by MIKE RG, LUIZA ([id number]), city editor KASSY DE LA GARZA ([id number]) on 09/22/2021 10:05:45 AM Referred By: LAURA Confirmed By:LUIZA MCKEON MD
--- NOTE | 2021-09-18 18:10 | CT_ITS ---
STUDY: CT BRAIN WITHOUT CONTRAST REASON FOR EXAM: Female, 80 years old. paresthesias, HTN TECHNIQUE: Transaxial CT imaging of the brain was performed without administration of intravenous contrast material. Individualized dose optimization techniques were used for this CT. COMPARISON: 09.07.21 FINDINGS: Normal calvarium. Normal soft tissues. There is mild cerebral atrophy with widening of the extra-axial spaces and ventricular dilatation. There are areas of decreased attenuation within the white matter tracts of the supratentorial brain, consistent with microvascular disease changes. Normal basal ganglia and thalami. Normal brainstem. Normal cerebellum. There is no intracranial hemorrhage. There are no findings of an acute ischemic infarction. Normal visualized paranasal sinuses. ASPECTS 10 CT/Brain/Head without Contrast IMPRESSION: There are no acute intracranial findings. Electronically Signed: Giovanni Patel MD at 19:25 EDT ,
--- NOTE | 2021-09-18 18:11 | EX.ED.DYSGE1 ---
HPI History of Present Illness Chief Complaint: Hypertension Informant: patient Narrative Narrative: Patient present secondary to continued hypertension. She states today she just does not feel well. Her doctor told her to go ahead and take an extra carvedilol. She states if anything it made her feel worse so she came to the emergency room. Patient did have a recent ED stay as well as a recent hospital admission for hypertensive urgency. Her doctors been making multiple medication adjustments. On her last visit I felt she had significant anxiety and wrote her for a short course of Ativan. She states her primary care physician did not continue this. She states that she will intermittently have a tingling sensation in the left side of her body. [facility] Medical History Acute cystitis Asthma COPD (chronic obstructive pulmonary disease) Depression Femur fracture Former smoker Fracture of left hip requiring operative repair GERD (gastroesophageal reflux disease) High cholesterol History of stress test HTN (hypertension) Hypergastrinemia Lower abdominal pain Personal history of colonic polyps Uncontrolled hypertension UTI (urinary tract infection) Wears hearing aid Home Medications albuterol sulfate 90 mcg/actuation aerosol inhaler (ProAir HFA) 2 puff inhalation Q6H PRN Cough 01/03/18 [History Last Taken 09/06/21] fluticasone propionate 50 mcg/actuation nasal spray,suspension 1 spray NASAL DAILY Check with primary doctor 03/21/20 [History Last Taken Unknown] hydrochlorothiazide 12.5 mg tablet 12.5 mg PO DAILY BP #90 tabs 04/22/21 [Rx Last Taken 09/07/21] atorvastatin 20 mg tablet 20 mg PO DAILY cholesterol 08/04/21 [History Last Taken 09/06/21] omeprazole 20 mg delayed release,disintegrating tablet 20 mg PO DAILY acid refulx 08/04/21 [History Last Taken 09/07/21] latanoprost 0.005 % eye drops 1 drp RIGHT EYE QHS eye health 09/07/21 [History Last Taken 09/06/21] lisinopril 20 mg tablet 1 tab PO DAILY blood pressure 09/07/21 [History Last Taken 09/07/21] zolpidem 5 mg tablet 5 tab PO QHS PRN PRN Sleep 09/07/21 [History Last Taken 09/06/21] amlodipine 5 mg tablet 5 mg PO DAILY 30 days #30 tabs 09/09/21 [Rx Last Taken Unknown] lorazepam 1 mg tablet (Ativan) 1 mg PO TID PRN anxiety #14 tabs 09/09/21 [Rx Last Taken Unknown] paroxetine HCl 10 mg tablet 20 mg PO DAILY depression/anxiety #90 tabs 09/09/21 [Rx Last Taken 09/07/21] calcium carbonate 600 mg calcium (1,500 mg) tablet (Calcium) 600 mg PO DAILY 09/18/21 [History Last Taken Unknown] carvedilol 12.5 mg tablet 25 mg PO BID 09/18/21 [History Last Taken Unknown] cholecalciferol (vitamin D3) 50 mcg (2,000 unit) capsule (Vitamin D3) 50 mcg PO DAILY 09/18/21 [History Last Taken Unknown] lorazepam 1 mg tablet (Ativan) 1 mg PO TID PRN PRN anxiety #10 tabs 09/18/21 [Rx Last Taken Unknown] Allergy/AdvReac Type Severity Reaction Status Date / Time epinephrine Allergy Severe Anaphylaxis Verified 09/18/21 16:37 pseudoephedrine Allergy Intermediate Chest Verified 09/18/21 16:37 [From Sudafed] tightness prednisone AdvReac heart races Verified 09/18/21 16:37 Family History Other Hypertension Surgical History History of colonoscopy History of surgery on lower extremity S/P hysterectomy s/p left breast cyst removal S/P right rotator cuff repair Status post right hip replacement Social History household members: spouse Smoking Status: Former smoker alcohol intake: current alcohol intake frequency: holidays/special occasions only ROS ROS ED Constitutional Constitutional ED: Denies chills or fever(s) Eyes Eyes: Denies change in vision or discharge from eye(s) ENT ENT ED: Denies discharge from eye(s), rhinorrhea or sore throat Cardiovascular Cardiovascular: Denies chest pain or palpitations Respiratory/Chest Respiratory/Chest: Denies cough or dyspnea Gastrointestinal Gastrointestinal: Denies abdominal pain, diarrhea, nausea or vomiting Genitourinary Genitourinary ED: Reports urinary frequency; Denies dysuria Musculoskeletal Musculoskeletal: Reports back pain; Denies extremity pain Integumentary Denies Abrasions or rash Neurologic Neurologic: Reports paresthesias; Denies headache(s) or weakness Psychiatric Psychiatric: Reports anxiety; Denies depression Allergic/Immunologic Allergic/Immunologic ED: Denies lip swelling or urticaria EXAM Physical Exam Const Vital Signs: 09/18/21 16:37 09/18/21 17:46 09/18/21 20:00 Temperature 98.5 F 98.9 F Temperature Source Temporal Temporal Pulse Rate 90 92 Respiratory Rate 18 14 Respiratory Effort Normal Respiratory Pattern Normal Blood Pressure 170/89 H 179/98 H Blood Pressure Mean 116 125 Pulse Ox 97 98 Oxygen Delivery Method Room Air Room Air 09/18/21 21:45 09/18/21 22:26 09/18/21 23:47 Temperature Temperature Source Pulse Rate 84 Respiratory Rate 15 Respiratory Effort Respiratory Pattern Blood Pressure 196/93 H 168/77 H 151/77 H Blood Pressure Mean 127 107 Pulse Ox 99 Oxygen Delivery Method Positive well nourished and well developed General Appearance ED: well developed HEENT Reports normocephalic and head/scalp atraumatic Eyes PERRL and EOMs intact bilaterally Neck supple Chest Wall inspection of chest normal and palpation of chest normal Resp normal respiratory effort and clear to auscultation bilaterally Cardio regular rate and regular rhythm GI normal to inspection, nondistended, normoactive bowel sounds Palpation: soft Extremity normal to inspection Neuro oriented x3 and no sensory deficits noted Sensorium / Orientation: alert Motor Exam: strength 5/5 throughout Psych Mood & Affect: anxious Skin no rashes or lesions noted MDM MDM MDM Narrative Medical decision making narrative: Lab work, urinalysis, head CT obtained. EKG ordered. Lab Data Attestation: I reviewed the patient's lab results. Labs: Laboratory Results - last 24 hr 09/18/21 09/18/21 09/18/21 18:45 18:45 19:10 WBC 11.7 H RBC 4.65 Hgb 13.5 Hct 41.0 MCV 88.2 MCH 29.0 MCHC 32.9 RDW Std Deviation 40.6 RDW Coeff of [place] 12.6 Plt Count 284 MPV 10.5 Immature Gran % (Auto) 0.600 Neut % (Auto) 71.6 H Lymph % (Auto) 21.2 Rains % (Auto) 6.0 Eos % (Auto) 0.3 Baso % (Auto) 0.3 Absolute Neuts (auto) 8.4 H Absolute Lymphs (auto) 2.48 Nucleated RBC % 0 Sodium 133 L Potassium 3.7 Chloride 100 Carbon Dioxide 25.0 Anion Gap 8 BUN 15 Creatinine 1.07 H Estim Creat Clear Calc 34.69 Est GFR (MDRD) Af Amer 63 Est GFR (MDRD) Non-Af 52 L BUN/Creatinine Ratio 14.0 Glucose 109 H Calcium 9.7 Urine Color Yellow Urine Clarity Clear Urine pH 6.5 Ur Specific [place] 1.010 Urine Protein Negative Urine Glucose (UA) Normal Urine Ketones 15 H Urine Occult Blood Negative Urine Nitrite Negative Urine Bilirubin Negative Urine Urobilinogen Normal Ur Leukocyte Esterase 25 H Urine RBC 0 SEEN Urine WBC 0-5 SEEN Ur Squamous Epith Cells 0-5 SEEN Urine Bacteria 0 SEEN Urine Mucus 0 SEEN Radiography Diagnostic Testing: Clinical Impression(s) from Imaging Studies Brain CT 09/18/21 18:10 IMPRESSION: There are no acute intracranial findings. Electronically Signed: Giovanni Patel MD at 19:25 EDT Reading Location ID and State: [facility] / [place] , Service support , Treatment and Re-Evaluation Narrative: Patient's blood pressure was observed and did increase from 170 up to 200. At that time she was given a dose of Ativan and labetalol. This is worked well for her on last ED visit. Lab work is largely unremarkable. Head CT reveals no acute findings. On repeat evaluation she is complaining of a mild headache. She is given Tylenol. Blood pressure has improved down to 151/77. Patient states that the Ativan I prescribed for her previously was stopped by her primary care physician. While I understand we do not want the patient to get addicted, she certainly has a significant component of anxiety leading to her hypertension. When she was taking it at home she was only using a half a tab maybe once a day and then lying down to rest. I will write her for Ativan through this holiday weekend that she does not have her primary care physician available for immediate follow-up. Family will monitor blood pressure at home. Return instructions provided. Discharge Plan Triage Chief Complaint: Hypertension ED Provider: Sara Dow Dx/Rx/DC Orders Clinical Impression: Hypertension, Anxiety Instructions: ED Anxiety Reaction, ED Hypertension, Established Prescriptions: New lorazepam [Ativan] 1 mg tablet 1 mg PO TID PRN PRN (Reason: anxiety) Qty: 10 0RF Rx Instructions: 1/2-1 tab every 8 hours as needed anxiety No Action ProAir HFA 90 mcg/actuation HFA aerosol inhaler 2 puff INHALATION Q6H PRN (Reason: Cough) fluticasone propionate 1 SPRAY spray,suspension 1 spray NASAL DAILY omeprazole 20 mg Tablet,Disintegrat, Delay Rel 20 mg PO DAILY atorvastatin 20 mg tablet 20 mg PO DAILY lisinopril 20 mg tablet 1 tab PO DAILY Label Comments: Take 1 tablet by mouth daily latanoprost 0.005 % drops 1 drp RIGHT EYE QHS Label Comments: Instill 1 drop in right eye at bedtime zolpidem 5 mg tablet 5 tab PO QHS PRN PRN (Reason: Sleep) Label Comments: TAKE 1 TABLET BY MOUTH EVERY DAY AT BEDTIME NEEDED FOR INSOMNIA amlodipine 5 mg Tablet 5 mg PO DAILY 30 Days Qty: 30 0RF paroxetine HCl 10 mg tablet 20 mg PO DAILY Qty: 90 3RF lorazepam [Ativan] 1 mg tablet 1 mg PO TID PRN (Reason: anxiety) Qty: 14 0RF calcium carbonate [Calcium 600] 600 mg calcium (1,500 mg) Tablet 600 mg PO DAILY cholecalciferol (vitamin D3) [Vitamin D3] 50 mcg (2,000 unit) Capsule 50 mcg PO DAILY carvedilol 12.5 mg tablet 25 mg PO BID hydrochlorothiazide 12.5 mg tablet 12.5 mg PO DAILY Qty: 90 3RF Primary Care Provider: Demario Rivera Referrals: Demario Rivera MD [Primary Care Provider] - 1 Week Disposition Disposition: Home, Self Care Discharge Date/Time: 09/18/21 23:48
[2021-09-18 18:53] LABS: Absolute Lymphocyte Count 2.48 X10^3/uL (0.83-4.51); Absolute Neutrophil Count 8.4 X10^3/uL (2.0-7.7); Basophil# 0.04 X10^3/uL; Basophil% 0.3 % (0-1); Eosinophil# 0.04 X10^3/uL; Eosinophils% 0.3 % (0-5); Hemoglobin 13.5 g/dL (12.0-15.0); Lymphocyte # 2.48 X10^3/ul (0.83-4.51); Lymphocyte % 21.2 % (19-41); Mean Corp Hgb Conc 32.9 g/dL (32-36); Mean Corpuscular Volume 88.2 fL (81-99); Mean Platelet Vol. 10.5 fl (6.2-12.0); NRBC Flagged by Analyzer 0 % (0-5); Neutrophil # 8.37 X10^3/uL (2.7-7.7); Neutrophil % 71.6 % (47-70); Platelet Count 284 K/mm3 (150-450); RBC Distribution Width CV 12.6 % (11.6-14.6); RBC Distribution Width SD 40.6 fl (35.1-43.9); Red Blood Count 4.65 M/mm3 (4.2-5.4); White Blood Count 11.7 K/mm3 (4.4-11.0)
[2021-09-18 19:07] LABS: Anion Gap 8 (5-15); BUN 15 mg/dL (7-18); Calcium,Total 9.7 mg/dL (8.5-10.1); Chloride 100 mmol/L (98-107); Creatinine, Serum 1.07 mg/dL (0.55-1.02); EST Glomerular Filtration Rate 52 mL/min (>60); Est Glom Filt Rate - Afr Amer 63 mL/min (>60); Estimated Creatinine Clearance 34.69 ml/min; Glucose 109 mg/dL (74-106); Potassium 3.7 mmol/L (3.5-5.1); Sodium Level 133 mmol/L (136-145)
[2021-09-18 19:18] LABS: Bacteria 0 SEEN /hpf (None Seen); Mucous, Urine 0 SEEN /hpf (<or=2+); Red Blood Cells-Urine 0 SEEN /hpf (0-5)
[2021-09-18 19:19] LABS: Color, Urine Yellow (Yellow); Glucose, Dipstick Normal (Normal); Ketone-Dipstick 15 mg/dl (Negative); Leukocyte Esterase-Dipstick 25 /ul (Negative); Nitrite-Dipstick Negative (Negative); Occult Blood-Urine Negative /ul (Negative); Protein-Dipstick Negative (Negative); Urine Bilirubin Dipstick Negative (Negative); Urine Clarity Clear (Clear); Urine Urobilinogen Normal (Normal); Urine pH 6.5 (5.0 - 8.0)
[2021-09-18 20:00] VITALS: BP 179/98; PULSE 92; RESP 14; TEMP 37.2; O2SAT 98
[2021-09-18 20:07] LABS: Squamous Epithelial Cells - UA 0-5 SEEN /hpf (5-10); White Blood Cells 0-5 SEEN /hpf (0-5)
[2021-09-18] MEDS: LORazepam 2 MG/ML Syringe 0.5 MG IV (21:41)
[2021-09-18] MEDS: Labetalol (Prefilled) 20 MG/4 ML IV (21:41)
[2021-09-18 21:45] VITALS: BP 196/93
[2021-09-18 22:26] VITALS: BP 168/77
[2021-09-18] MEDS: Acetaminophen 500 MG Tablet 1000 MG PO (23:22)
[2021-09-18 23:47] VITALS: BP 151/77; PULSE 84; RESP 15; O2SAT 99
== END 2021-09-18 23:48 | disposition home or self-care (01) ==
PROVIDERS: Emergency Provider Emergency Medicine; PCP Family Medicine; Visit Provider Emergency Medicine
DX: I10 Essential (primary) hypertension (principal); J44.9 Chronic obstructive pulmonary disease, unspecified; F41.9 Anxiety disorder, unspecified; E78.00 Pure hypercholesterolemia, unspecified; Z87.891 Personal history of nicotine dependence
CPT/HCPCS: 36415; 70450; 80048; 81001; 85025; 93005; 96374; 96375; 99285; A4216

== ENCOUNTER → 2021-09-18 | Outpatient (CLI) | payer MEDICARE, SELFPAY ==
[2021-09-18 12:49] LABS: Anion Gap 12 (5-15); BUN 15 mg/dL (7-18); BUN/Creat Ratio 12.6 RATIO (10-20); Calcium,Total 9.5 mg/dL (8.5-10.1); Chloride 100 mmol/L (98-107); Creatinine, Serum 1.19 mg/dL (0.55-1.02); EST Glomerular Filtration Rate 46 mL/min (>60); Est Glom Filt Rate - Afr Amer 56 mL/min (>60); Glucose 125 mg/dL (74-106); Potassium 3.9 mmol/L (3.5-5.1); Sodium Level 135 mmol/L (136-145)
== END | disposition home or self-care (01) ==
LOC: MFPLAB 09:53
PROVIDERS: PCP Family Medicine; Visit Provider Family Medicine
DX: E87.5 Hyperkalemia (principal); I10 Essential (primary) hypertension
CPT/HCPCS: 36415; 80048

== ENCOUNTER → 2021-10-07 | Outpatient (CLI) | payer MEDICARE, SELFPAY ==
--- NOTE | 2021-10-07 12:47 | US_ITS ---
EXAM: US RETROPERITONEAL LIMITED, RENAL CLINICAL INDICATION: FLANK PAIN TECHNIQUE: Limited grayscale and color Doppler sonographic evaluation of the retroperitoneum was performed. This report was created using [employer] report generation technology. COMPARISON: None. FINDINGS: RIGHT KIDNEY: Unremarkable. No hydronephrosis. No shadowing calculus. No perinephric collection is demonstrated. The right kidney measures 9.8 cm in length. LEFT KIDNEY: Unremarkable. No hydronephrosis. No shadowing calculus. No perinephric collection is demonstrated. The left kidney measures 9.7 cm in length. US/Kidney and Bladder IMPRESSION: Normal kidneys. Electronically Signed: Ryder Truong MD at 4:12 EDT ,
== END | disposition home or self-care (01) ==
LOC: US 12:46
PROVIDERS: PCP Family Medicine; Referring Provider Family Medicine; Visit Provider Family Medicine
DX: R10.9 Unspecified abdominal pain (principal); I10 Essential (primary) hypertension
CPT/HCPCS: 76770

== ENCOUNTER 2021-10-08 11:02 | Outpatient (CLI) | payer MEDICARE, SELFPAY ==
[2021-10-08 12:18] LABS: Absolute Neutrophil Count 5.9 X10^3/uL (2.0-7.7); Basophil# 0.05 X10^3/uL; Basophil% 0.5 % (0-1); Eosinophil# 0.33 X10^3/uL; Eosinophils% 3.5 % (0-5); Hematocrit 38.9 % (37-47); Hemoglobin 12.6 g/dL (12.0-15.0); Lymphocyte % 23.5 % (19-41); Mean Corp Hgb Conc 32.4 g/dL (32-36); Mean Corpuscular Hgb 28.8 pg (27.0-32.0); Mean Corpuscular Volume 88.8 fL (81-99); Mean Platelet Vol. 11.1 fl (6.2-12.0); Monocyte# 0.79 X10^3/uL; Monocyte% 8.4 % (0-10); NRBC Flagged by Analyzer 0 % (0-5); Neutrophil # 5.89 X10^3/uL (2.7-7.7); Neutrophil % 63.1 % (47-70); Platelet Count 308 K/mm3 (150-450); RBC Distribution Width CV 13.2 % (11.6-14.6); RBC Distribution Width SD 42.8 fl (35.1-43.9); Red Blood Count 4.38 M/mm3 (4.2-5.4); White Blood Count 9.4 K/mm3 (4.4-11.0)
[2021-10-08 12:55] LABS: AST(SGOT) 17 U/L (15-37); Alanine Aminotransfer ALT/SGPT 24 U/L (13-56); Albumin, Serum 3.7 g/dL (3.2-5.0); Alkaline Phosphatase 76 U/L (45-117); Anion Gap 8 (5-15); BUN 17 mg/dL (7-18); BUN/Creat Ratio 20.5 RATIO (10-20); Calcium,Total 9.3 mg/dL (8.5-10.1); Chloride 107 mmol/L (98-107); Creatinine, Serum 0.83 mg/dL (0.55-1.02); EST Glomerular Filtration Rate 70 mL/min (>60); Est Glom Filt Rate - Afr Amer 85 mL/min (>60); Globulin 3.7 g/dL (2.2-4.2); Glucose 107 mg/dL (74-106); Potassium 3.7 mmol/L (3.5-5.1); Protein, Total 7.4 g/dL (6.4-8.2); Sodium Level 138 mmol/L (136-145)
== END 2021-10-08 23:59 | disposition home or self-care (01) ==
LOC: MFPLAB 11:06
PROVIDERS: PCP Family Medicine; Referring Provider Family Medicine; Visit Provider Family Medicine
DX: E87.5 Hyperkalemia (principal); R19.7 Diarrhea, unspecified; I10 Essential (primary) hypertension; F41.9 Anxiety disorder, unspecified
CPT/HCPCS: 36415; 80053; 85025

== ENCOUNTER → 2021-10-09 | Outpatient (CLI) | payer MEDICARE, SELFPAY ==
--- NOTE | 2021-10-09 12:58 | CT_ITS ---
STUDY: CT MAXILLOFACIAL SINUSES REASON FOR EXAM: Female, 80 years old. SUNSUITS RADIATION DOSAGE (If Supplied By Facility): CTDIvol = ( 28.14 ) mGy, DLP = ( 693.43 ) mGycm TECHNIQUE: The patient was scanned in a multi detector CT scanner. High resolution axial imaging was performed without the administration of intravenous contrast material. Sagittal and coronal images were reconstructed. Individualized dose optimization techniques were used for this CT. COMPARISON: None. FINDINGS: FRONTAL SINUSES: Normal aeration, without mucosal inflammatory disease. ETHMOIDAL SINUSES: Partial opacification of the posterior aspect of the right ethmoid sinus. MAXILLARY SINUSES: Normal aeration, without mucosal inflammatory disease. SPHENOIDAL SINUSES: Normal aeration, without mucosal inflammatory disease. There is patency of the bilateral maxillary infundibuli with normal uncinate processes, ethmoid bullae, and hiatus semilunaris. Normal bilateral middle turbinates. Normal bilateral inferior turbinates. There is a right sided nasal septal deviation with a right sided nasal septal spur. There is patency of the bilateral nasal airways. The visualized osseous structures are normal. The visualized bilateral orbital contents are normal. CT/Sinus/Facial Bone IMPRESSION: Partial opacification of the posterior aspect of the right ethmoid sinus. Electronically Signed: Ken Page MD at 13:44 EDT ,
== END | disposition home or self-care (01) ==
LOC: CT 12:56
PROVIDERS: PCP Family Medicine; Referring Provider Otolaryngology; Visit Provider Otolaryngology
DX: J01.80 Other acute sinusitis (principal)
CPT/HCPCS: 70486

== ENCOUNTER → 2021-10-29 | Outpatient (CLI) | payer MEDICARE, SELFPAY ==
--- NOTE | 2021-10-29 08:58 | RDU_ITS ---
Reason For Study: HTN Right Renal Artery Left Renal Artery Right renal artery ostium Left renal artery ostium 127.1/32.7 108.1/25.9 RSV/EDV. PSV/EDV. Right renal artery proximal Left renal artery proximal PSV/EDV 140.9/31.2 PSV/EDV. 129.3/28.3 . Right renal artery mid 149.7/29.0 Left renal artery mid 153.4/26.1 PSV/EDV. PSV/EDV . Right renal artery distal 97.2/27.8 Left renal artery distal 92.0/26.1 PSV/EDV. PSV/EDV. Right Renal Parenchyma Left Renal Parenchyma Upper Pole Medula 39.7/9.0 PSV/EDV. Left upper pole medulla 35.8/9.3 Right upper pole medulla EDR .23 . PSV/EDV . Right upper pole medulla R.I. .77 . Left upper pole medulla EDR .26 . Upper Michael Cortx 33.1/7.5 PSV/EDV. Left upper pole medulla R.I. .74 . Right upper pole cortex EDR .23 . UP Cortex 19.4/5.7 PSV/EDV. Right upper pole cortex R.I. .77 . Left upper pole cortex EDR .29 . Right lower Pole medulla 25.8/8.4 Left upper pole cortex R.I. .71 . PSV/EDV . Left lower Pole medulla 34.9/10.2 Right lower pole medulla EDR .33 . PSV/EDV . Right lower pole medulla R.I. .67 . Left lower pole medulla EDR .29 . Lower Pole Cortex 24.8/7.5 PSV/EDV. Left lower pole medulla R.I. .71 . Right lower pole cortex EDR .3 . Lower Pole Cortx 28.5/7.5 PSV/EDV. Right lower pole cortex R.I. .7 . Left lower pole cortex EDR .26 . Right Renal Hilar Left lower pole cortex R.I. .74 . Right Hilar avg 46.8/11.1 PSV/EDV. Left Renal Hilar Right hilar acceleration time 50 LT Hilar avg 42.2/11.1 PSV/EDV . m/sec. Left hilar acceleration time 50.0 Right Renal Dimensions m/sec. Right kidney size 9.8 cm . Left Renal Dimensions Right cortical dimension 1.54 cm . Left kidney size 10.19 cm . Left cortical dimension 1.55 cm . Aorta Proximal abdominal aorta 1.24 x 1.33 cm . Proximal abdominal aorta peak systolic velocity is 117.3 cm/sec . Distal abdominal aorta 1.06 x 1.08 cm . Distal abdominal aorta peak systolic velocity is 122.7 cm/sec . Normal renal veins. VL/Renal Artery Duplex Ultrasound Interpretation Summary Dimensions of the intra-abdominal aorta appear normal, without evidence of aneu rysmal dilatation. Renal artery velocities are bilaterally normal. Acceleration times are normal b ilaterally. There is no evidence of hemodynamically significant renal artery stenosis on either side . Renovascular resistance appears to be bilaterally elevated . The right cortical dimension is increased. The left cortical dimension is increased. Kidneys appear normal in size bilaterally. Ordering Physician: Armani Nuñez Performed By: Eric Vieira RVT
== END | disposition home or self-care (01) ==
LOC: US 08:56
PROVIDERS: PCP Family Medicine; Referring Provider Family Medicine; Visit Provider Family Medicine
DX: I10 Essential (primary) hypertension (principal)
CPT/HCPCS: 93975

== ENCOUNTER → 2022-02-23 | Outpatient (CLI) | payer MEDICARE, SELFPAY ==
[2022-02-23 15:06] LABS: Absolute Lymphocyte Count 2.16 X10^3/uL (0.83-4.51); Absolute Neutrophil Count 5.9 X10^3/uL (2.0-7.7); Basophil# 0.06 X10^3/uL; Basophil% 0.7 % (0-1); Eosinophil# 0.18 X10^3/uL; Lymphocyte # 2.16 X10^3/ul (0.83-4.51); Lymphocyte % 23.9 % (19-41); Mean Corp Hgb Conc 31.7 g/dL (32-36); Mean Corpuscular Hgb 29.5 pg (27.0-32.0); Mean Corpuscular Volume 93.2 fL (81-99); Mean Platelet Vol. 11.5 fl (6.2-12.0); Monocyte# 0.71 X10^3/uL; Monocyte% 7.9 % (0-10); NRBC Flagged by Analyzer 0 % (0-5); Neutrophil # 5.88 X10^3/uL (2.7-7.7); Neutrophil % 64.9 % (47-70); Platelet Count 306 K/mm3 (150-450); RBC Distribution Width CV 12.5 % (11.6-14.6); RBC Distribution Width SD 42.7 fl (35.1-43.9)
[2022-02-23 15:23] LABS: Vitamin D,25 Hydroxy 22.6 ng/mL
[2022-02-23 15:51] LABS: ALB/GLOB Ratio 1.1 RATIO (0.9-2.4); AST(SGOT) 19 U/L (15-37); Alanine Aminotransfer ALT/SGPT 15 U/L (13-56); Albumin, Serum 3.9 g/dL (3.2-5.0); Alkaline Phosphatase 72 U/L (45-117); Anion Gap 8 (5-15); BUN 19 mg/dL (7-18); BUN/Creat Ratio 20.8 RATIO (10-20); Calcium,Total 9.1 mg/dL (8.5-10.1); Chloride 107 mmol/L (98-107); Creatinine, Serum 0.91 mg/dL (0.55-1.02); EST Glomerular Filtration Rate 63 mL/min (>60); Est Glom Filt Rate - Afr Amer 76 mL/min (>60); Globulin 3.5 g/dL (2.2-4.2); Glucose 107 mg/dL (74-106); Potassium 4.9 mmol/L (3.5-5.1); Protein, Total 7.4 g/dL (6.4-8.2); Sodium Level 137 mmol/L (136-145); Thyroid Stim Hormone (TSH) 0.82 uIU/mL (0.358-3.74)
[2022-02-24 10:55] LABS: Hemoglobin A1c 5.9 % (3.8-5.6)
== END | disposition home or self-care (01) ==
LOC: MFPLAB 12:23
PROVIDERS: PCP Family Medicine; Referring Provider Family Medicine; Visit Provider Family Medicine
DX: R73.09 Other abnormal glucose (principal); M81.0 Age-related osteoporosis without current pathological fracture; I10 Essential (primary) hypertension
CPT/HCPCS: 36415; 80053; 82306; 83036; 84443; 85025

== ENCOUNTER 2022-06-18 08:42 | Emergency (ER) | payer MEDICARE, SELFPAY ==
[2022-06-18 08:43] VITALS: BP 143/89; PULSE 80; RESP 16; TEMP 36.6; O2SAT 100; BMI 29.2
--- NOTE | 2022-06-18 09:01 | EX.ED.GENINJ ---
HPI History of Present Illness Chief Complaint: Laceration Informant: patient and spouse/S.O. Onset/Context/Timing Onset: Today and Hours Mechanism/Context: Blunt Injury and Fall Current Severity: Mild Associated Symptoms Associated Symptoms: Negative for Parasthesias, Weakness, Loss of function, Inability to ambulate, Loss of consciousness or Amnesia Narrative Narrative: 81-year-old female history of hypertension. She was getting out of bed, rolled and struck her right face and eyebrow against the nightstand causing a laceration. This occurred around 1 AM this morning. She denied any LOC. No headache. No neck pain. No other injuries. She is on no blood thinners. Does not remember if she has had any recent tetanus. Denies any recent illness. Tetanus Immunization: Unknown Prior similar symptoms: No Recent Illness/Hospitalization: No PFSH PFSH Medical History Acute cystitis Asthma COPD (chronic obstructive pulmonary disease) Depression Femur fracture Former smoker Fracture of left hip requiring operative repair GERD (gastroesophageal reflux disease) High cholesterol History of stress test Lower abdominal pain Personal history of colonic polyps Uncontrolled hypertension UTI (urinary tract infection) Wears hearing aid Home Medications albuterol sulfate 90 mcg/actuation aerosol inhaler (ProAir HFA) 2 puff inhalation Q6H PRN Cough 01/03/18 [History Last Taken 09/06/21] fluticasone propionate 50 mcg/actuation nasal spray,suspension 1 spray NASAL DAILY Check with primary doctor 03/21/20 [History Last Taken Unknown] hydrochlorothiazide 12.5 mg tablet 12.5 mg PO DAILY BP #90 tabs 04/22/21 [Rx Last Taken 09/07/21] atorvastatin 20 mg tablet 20 mg PO DAILY cholesterol 08/04/21 [History Last Taken 09/06/21] omeprazole 20 mg delayed release,disintegrating tablet 20 mg PO DAILY acid refulx 08/04/21 [History Last Taken 09/07/21] latanoprost 0.005 % eye drops 1 drp RIGHT EYE QHS eye health 09/07/21 [History Last Taken 09/06/21] lisinopril 20 mg tablet 1 tab PO DAILY blood pressure 09/07/21 [History Last Taken 09/07/21] zolpidem 5 mg tablet 5 tab PO QHS PRN PRN Sleep 09/07/21 [History Last Taken 09/06/21] amlodipine 5 mg tablet 5 mg PO DAILY 30 days #30 tabs 09/09/21 [Rx Last Taken Unknown] paroxetine HCl 10 mg tablet 20 mg PO DAILY depression/anxiety #90 tabs 09/09/21 [Rx Last Taken 09/07/21] calcium carbonate 600 mg calcium (1,500 mg) tablet (Calcium) 600 mg PO DAILY 09/18/21 [History Last Taken Unknown] carvedilol 12.5 mg tablet 25 mg PO BID 09/18/21 [History Last Taken Unknown] cholecalciferol (vitamin D3) 50 mcg (2,000 unit) capsule (Vitamin D3) 50 mcg PO DAILY 09/18/21 [History Last Taken Unknown] olanzapine 5 mg tablet 5 mg PO 10/05/21 [History Last Taken Unknown] Allergy/AdvReac Type Severity Reaction Status Date / Time epinephrine Allergy Severe Anaphylaxis Verified 06/18/22 08:43 pseudoephedrine Allergy Intermediate Chest Verified 06/18/22 08:43 [From [facility]] tightness prednisone AdvReac heart races Verified 06/18/22 08:43 Family History Other Hypertension Surgical History History of colonoscopy History of surgery on lower extremity S/P hysterectomy s/p left breast cyst removal S/P right rotator cuff repair Status post right hip replacement Social History household members: spouse Smoking Status: Former smoker alcohol intake: current alcohol intake frequency: holidays/special occasions only ROS ROS ED ROS Narrative Denies recent illness. Review of Systems ROS Unobtainable: Denies due to encephalopathy Constitutional Constitutional ED: Denies chills or fever(s) Eyes Eyes: Denies blurry vision ENT ENT ED: Denies ear pain Cardiovascular Cardiovascular: Denies chest pain Respiratory/Chest Respiratory/Chest: Denies cough or dyspnea Gastrointestinal Gastrointestinal: Denies abdominal pain Genitourinary Genitourinary ED: Denies dysuria or hematuria Musculoskeletal Musculoskeletal: Denies arthralgias Integumentary Denies abscess Neurologic Neurologic: Denies headache(s) Psychiatric Psychiatric: Denies anxiety Endocrine Endocrinology: Denies cold intolerance or heat intolerance Allergic/Immunologic Allergic/Immunologic ED: Denies mouth swelling EXAM Physical Exam Narrative Exam Narrative: 81-year-old female no acute distress. Vital signs are stable afebrile. HEENT exam she has about a 1 to 2 inch laceration on the medial upper eyelid between her nose and the eyebrow. No active bleeding. Dried blood at the site. Pupils round reactive light. Noticed signs of trauma to her face or scalp. C-spine and nontender. Trachea midline. Lungs clear. Heart regular rhythm no murmur. Chest wall nontender. Back and spine nontender. Abdomen soft nontender. Pelvic girdle intact. Moving all 4 extremities. Nontender. Full range of motion. No deformity. Neurologically she is awake and alert with no focal motor deficits. GCS of 15. Const Vital Signs: 06/18/22 08:43 Temperature 97.8 F Temperature Source Temporal Pulse Rate 80 Respiratory Rate 16 Blood Pressure 143/89 H Blood Pressure Mean 107 Pulse Ox 100 Oxygen Delivery Method Room Air Positive well nourished and well developed; Negative for obese, cachectic, contractures or unkempt General Appearance ED: well developed and NAD; Negative for unkempt, cachectic or contractures Nutritional Appearance: Negative for cachectic or obese HEENT HEENT Narrative: Right upper eyelid and eyebrow laceration 1 to 2 inches in length. trauma and tenderness; Negative for atraumatic Nose: Negative for septum abnormal Eyes PERRL and EOMs intact bilaterally General Eye ED: Negative for other Neck full ROM General: Negative for tenderness Chest Wall inspection of chest normal and palpation of chest normal Breast/Axilla Inspection: Negative for other Resp normal respiratory effort and clear to auscultation bilaterally Effort and Inspection: Negative for pain with movement Auscultation: Negative for rales, rhonchi or wheezes Cardio regular rhythm, S1 normal heart sound, S2 normal heart sound and no murmurs Jugular Venous Distention: Negative for other Palpation: Negative for palpable S3 or palpable S4 Rate: regular rate GI normal to inspection, nondistended, normoactive bowel sounds, non-tender, non-distended and no masses Inspection: Negative for abdominal distention Auscultation: normoactive bowel sounds Palpation: soft; Negative for tender or guarding Back/Spine normal to inspection and no thoracic nor lumbar tenderness General Back: Negative for CVA tenderness Thoracic Spine / Upper Back: Negative for thoracic spinal tenderness Extremity normal to inspection and full ROM General Extremety ED: Negative for deformity or edema General Extremity: Negative for deformity or edema Neuro oriented x3, CN's II-XII intact bilaterally, moves all extremities and no focal motor deficits Jeremy Coma Scale: document GCS findings Spontaneous Obeys Commands Oriented 15 Sensorium / Orientation: alert, oriented to person, oriented to place and oriented to time; Negative for orientation impaired or lethargic Motor Exam: strength 5/5 throughout Psych mental status grossly normal and thought process normal Appearance: Negative for unkempt Attitude: No agitated Mood & Affect: Negative for depressed, anxious or tearful Skin no rashes or lesions noted and No no wounds Skin Narrative: Right eyebrow and eyelid laceration Rashes: No rashes noted Trauma: Negative for abrasion PROC Procedures Lacerations Right medial eyebrow laceration repair:: Length: 2 in Depth: Sub Q Shape: Irregular Prep: Shure-Clens Laceration repair: Irrigated, Lidocaine, Local and Skin sutures Number of Sutures/Chelle: 6 Suture Information: Ethilon, Simple and 5-0 Comment: Right medial eyebrow laceration about 2 inches in length. Involves the skin and subcu tissue. Very irregular. Cleaned using Shur-Clens. Locally anesthetized. Washed and irrigated with saline. Explored. Closed using 6 simple interrupted 5-0 Ethilon sutures. Proper hemostasis and wound closure is obtained. Patient tolerated procedure well. Her and her were instructed on wound care and suture removal. MDM MDM MDM Narrative Medical decision making narrative: 81-year-old female rolled out of bed this morning around 1 AM struck her face on a nightstand causing a laceration. This will need repaired. Her exam otherwise is normal. Her neurologic exam is normal. She is on no blood thinners. She had no LOC and she has a normal exam she does not need a CAT scan. The area will be repaired. Tetanus will be updated. Re-eval post suturing patient doing well. Awake and alert. I instructed her and her on how to take care of the laceration repair and sutures out in a week. Discharge Plan Triage Chief Complaint: Laceration ED Provider: Kenny Lux Dx/Rx/DC Orders Clinical Impression: Facial laceration, Fall Instructions: ED Laceration: All Closures Prescriptions: No Action ProAir HFA 90 mcg/actuation HFA aerosol inhaler 2 puff INHALATION Q6H PRN (Reason: Cough) olanzapine 5 mg tablet 5 mg PO Label Comments: TAKE 1 TABLET BY MOUTH AT BEDTIME fluticasone propionate 1 SPRAY spray,suspension 1 spray NASAL DAILY omeprazole 20 mg Tablet,Disintegrat, Delay Rel 20 mg PO DAILY atorvastatin 20 mg tablet 20 mg PO DAILY lisinopril 20 mg tablet 1 tab PO DAILY Label Comments: Take 1 tablet by mouth daily latanoprost 0.005 % drops 1 drp RIGHT EYE QHS Label Comments: Instill 1 drop in right eye at bedtime zolpidem 5 mg tablet 5 tab PO QHS PRN PRN (Reason: Sleep) Label Comments: TAKE 1 TABLET BY MOUTH EVERY DAY AT BEDTIME NEEDED FOR INSOMNIA amlodipine 5 mg Tablet 5 mg PO DAILY 30 Days Qty: 30 0RF paroxetine HCl 10 mg tablet 20 mg PO DAILY Qty: 90 3RF calcium carbonate [Calcium 600] 600 mg calcium (1,500 mg) Tablet 600 mg PO DAILY cholecalciferol (vitamin D3) [Vitamin D3] 50 mcg (2,000 unit) Capsule 50 mcg PO DAILY carvedilol 12.5 mg tablet 25 mg PO BID hydrochlorothiazide 12.5 mg tablet 12.5 mg PO DAILY Qty: 90 3RF Primary Care Provider: Demario Rivera Referrals: Demario Rivera MD [Primary Care Provider] - 7 Days for suture removal Activity Restrictions/Additional Instructions: Tylenol for pain. Clean the wound daily with soap and water. Apply antibiotic ointment. Ice to decrease pain and swelling. 4-5 times a day for 30 minutes per time for the next 3 days. Do not be surprised if you get swelling around your eye or your cheek. That should improve over time. Stitches out in 7 days. Watch for any signs of infection is seen return. Your tetanus was updated and is good for 10 years. Disposition Disposition: Home, Self Care
[2022-06-18] MEDS: Diphth,Pertuss(Acell),Tet Vac 0.5 ML Vial IM (10:17)
== END 2022-06-18 10:32 | disposition home or self-care (01) ==
PROVIDERS: Emergency Provider Emergency Medicine; PCP Family Medicine; Visit Provider Emergency Medicine
DX: S01.111A Laceration without foreign body of right eyelid and periocular area, initial encounter (principal); J44.9 Chronic obstructive pulmonary disease, unspecified; I10 Essential (primary) hypertension; Z87.891 Personal history of nicotine dependence; E78.00 Pure hypercholesterolemia, unspecified; W06.XXXA Fall from bed, initial encounter; J45.909 Unspecified asthma, uncomplicated; K21.9 Gastro-esophageal reflux disease without esophagitis; F32.A Depression, unspecified; Z79.899 Other long term (current) drug therapy
CPT/HCPCS: 12013; 90715; 99283

== ENCOUNTER → 2022-07-21 | Outpatient (CLI) | payer MEDICARE, SELFPAY | END | disposition home or self-care (01) | LOC: LABSPEC 17:48 | PROVIDERS: PCP Family Medicine; Visit Provider Family Medicine | DX: N39.0 Urinary tract infection, site not specified (principal) | CPT/HCPCS: 87077; 87086; 87088; 87186 ==

== ENCOUNTER → 2023-01-25 | Outpatient (CLI) | payer MEDICARE, SELFPAY ==
[2023-01-25 15:15] LABS: Absolute Lymphocyte Count 2.41 X10^3/uL (0.83-4.51); Basophil# 0.07 X10^3/uL; Basophil% 0.8 % (0-1); Eosinophil# 0.14 X10^3/uL; Eosinophils% 1.5 % (0-5); Hematocrit 42.9 % (37-47); Hemoglobin 13.8 g/dL (12.0-15.0); Lymphocyte # 2.41 X10^3/ul (0.83-4.51); Lymphocyte % 25.8 % (19-41); Mean Corp Hgb Conc 32.2 g/dL (32-36); Mean Corpuscular Hgb 29.3 pg (27.0-32.0); Mean Corpuscular Volume 91.1 fL (81-99); Mean Platelet Vol. 11.4 fl (6.2-12.0); Monocyte# 0.71 X10^3/uL; Monocyte% 7.6 % (0-10); NRBC Flagged by Analyzer 0 % (0-5); Neutrophil # 5.97 X10^3/uL (2.7-7.7); Platelet Count 300 K/mm3 (150-450); RBC Distribution Width CV 13.1 % (11.6-14.6); RBC Distribution Width SD 44.1 fl (35.1-43.9); Red Blood Count 4.71 M/mm3 (4.2-5.4); White Blood Count 9.3 K/mm3 (4.4-11.0)
[2023-01-25 15:34] LABS: ALB/GLOB Ratio 0.9 RATIO (0.9-2.4); AST(SGOT) 16 U/L (15-37); Alanine Aminotransfer ALT/SGPT 14 U/L (13-56); Albumin, Serum 3.8 g/dL (3.2-5.0); Alkaline Phosphatase 76 U/L (45-117); Anion Gap 4 (5-15); BUN 17 mg/dL (7-18); BUN/Creat Ratio 20.1 RATIO (10-20); Calcium,Total 9.1 mg/dL (8.5-10.1); Chloride 108 mmol/L (98-107); Cholesterol 182 mg/dL (200); Creatinine, Serum 0.84 mg/dL (0.55-1.02); EST Glomerular Filtration Rate 69 mL/min (>60); Est Glom Filt Rate - Afr Amer 83 mL/min (>60); Globulin 4.1 g/dL (2.2-4.2); Glucose 97 mg/dL (74-106); High Density Lipoprotein 68 mg/dL; Potassium 4.1 mmol/L (3.5-5.1); Protein, Total 7.9 g/dL (6.4-8.2); Sodium Level 138 mmol/L (136-145); Triglycerides 109 mg/dL; Very Low Density Lipoprotein 22 mg/dL (5-40)
[2023-01-25 15:35] LABS: Hemoglobin A1c 5.6 % (3.8-5.6)
[2023-01-25 15:52] LABS: Vitamin D,25 Hydroxy 33.5 ng/mL
[2023-01-26 11:27] LABS: Vitamin B12 425 pg/mL (211-911)
[2023-01-26 11:33] LABS: Thyroid Stim Hormone (TSH) 0.72 uIU/mL (0.358-3.74)
== END | disposition home or self-care (01) ==
LOC: MFPLAB 13:37
PROVIDERS: PCP Family Medicine; Visit Provider Family Medicine
DX: E78.00 Pure hypercholesterolemia, unspecified (principal); M81.0 Age-related osteoporosis without current pathological fracture; R41.3 Other amnesia; I10 Essential (primary) hypertension; R73.09 Other abnormal glucose; R73.02 Impaired glucose tolerance (oral)
CPT/HCPCS: 36415; 80053; 80061; 82306; 82607; 83036; 84443; 85025

== ENCOUNTER → 2023-08-11 | Outpatient (CLI) | payer MEDICARE, SELFPAY ==
[2023-08-11 15:28] LABS: Absolute Lymphocyte Count 2.33 X10^3/uL (0.83-4.51); Absolute Neutrophil Count 7.1 X10^3/uL (2.0-7.7); Basophil# 0.06 X10^3/uL; Basophil% 0.6 % (0-1); Eosinophil# 0.15 X10^3/uL; Eosinophils% 1.5 % (0-5); Hematocrit 43.8 % (37-47); Hemoglobin 13.8 g/dL (12.0-15.0); Lymphocyte # 2.33 X10^3/ul (0.83-4.51); Lymphocyte % 22.5 % (19-41); Mean Corp Hgb Conc 31.5 g/dL (32-36); Mean Corpuscular Hgb 28.8 pg (27.0-32.0); Mean Corpuscular Volume 91.4 fL (81-99); Mean Platelet Vol. 11.3 fl (6.2-12.0); Monocyte# 0.69 X10^3/uL; Monocyte% 6.7 % (0-10); NRBC Flagged by Analyzer 0 % (0-5); Neutrophil # 7.07 X10^3/uL (2.7-7.7); Neutrophil % 68.3 % (47-70); Platelet Count 330 K/mm3 (150-450); RBC Distribution Width SD 43.9 fl (35.1-43.9); Red Blood Count 4.79 M/mm3 (4.2-5.4); White Blood Count 10.3 K/mm3 (4.4-11.0)
[2023-08-11 16:14] LABS: AST(SGOT) 16 U/L (15-37); Alanine Aminotransfer ALT/SGPT 12 U/L (13-56); Alkaline Phosphatase 76 U/L (45-117); Anion Gap 6 (5-15); BUN 21 mg/dL (7-18); BUN/Creat Ratio 23.3 RATIO (10-20); Calcium,Total 9.7 mg/dL (8.5-10.1); Chloride 107 mmol/L (98-107); Cholesterol 174 mg/dL (200); EST Glomerular Filtration Rate 63 mL/min (>60); Est Glom Filt Rate - Afr Amer 77 mL/min (>60); Globulin 3.9 g/dL (2.2-4.2); Glucose 108 mg/dL (74-106); High Density Lipoprotein 69 mg/dL; Magnesium 2.3 mg/dL (1.6-2.6); Potassium 4.7 mmol/L (3.5-5.1); Protein, Total 7.9 g/dL (6.4-8.2); Sodium Level 138 mmol/L (136-145); Thyroid Stim Hormone (TSH) 0.96 uIU/mL (0.358-3.74); Triglycerides 157 mg/dL; Very Low Density Lipoprotein 31 mg/dL (5-40)
[2023-08-11 16:24] LABS: Vitamin D,25 Hydroxy 23.4 ng/mL
[2023-08-11 17:17] LABS: Hemoglobin A1c 5.6 % (3.8-5.6)
== END | disposition home or self-care (01) ==
PROVIDERS: PCP Family Medicine; Visit Provider Family Medicine
DX: R73.02 Impaired glucose tolerance (oral) (principal); E78.5 Hyperlipidemia, unspecified; I10 Essential (primary) hypertension; M81.0 Age-related osteoporosis without current pathological fracture
CPT/HCPCS: 36415; 80053; 80061; 82306; 83036; 83735; 84443; 85025

== ENCOUNTER → 2023-12-27 | Outpatient (CLI) | payer MEDICARE, SELFPAY ==
--- NOTE | 2023-12-27 15:27 | RAD_ITS ---
EXAM: XR ABDOMEN, 2 VIEWS AND XR CHEST, 1 VIEW CLINICAL INDICATION: diarrhea, evaluate for overflow incont/constipation TECHNIQUE: Frontal view of the chest, frontal view of the abdomen/pelvis and upright or decubitus view of the abdomen. COMPARISON: No relevant prior studies available. FINDINGS: CHEST: LUNGS AND PLEURAL SPACES: Normal. No consolidation or edema. No pneumothorax. No effusion. HEART: Normal. Normal heart size. MEDIASTINUM: No mediastinal or hilar mass. ABDOMEN: INTRAPERITONEAL SPACE: No free air. GASTROINTESTINAL TRACT: No evidence of significant stool burden within the large bowel. ORGANS: Unremarkable as visualized. No organomegaly. No abnormal calcifications. TUBES, LINES AND DEVICES: None. BONES/JOINTS: Right hip prosthesis in place. Surgical fixation of the left femoral neck. Chronic compression deformities of the lower thoracic and upper lumbar vertebral bodies. SOFT TISSUES: No acute findings. RAD/Acute Abdomen Inc Chest IMPRESSION: 1. No acute cardiopulmonary abnormality. 2. No acute abdominal abnormality. Electronically Signed: Franco Remy MD at 16:31 EDT ,
== END | disposition home or self-care (01) ==
LOC: MTRAD 15:27
PROVIDERS: PCP Family Medicine; Referring Provider Family Medicine; Visit Provider Family Medicine
DX: R19.7 Diarrhea, unspecified (principal)
CPT/HCPCS: 74022

== ENCOUNTER → 2024-01-26 | Outpatient (CLI) | payer MEDICARE, SELFPAY ==
[2024-01-26 17:46] LABS: Absolute Lymphocyte Count 2.67 X10^3/uL (0.83-4.51); Absolute Neutrophil Count 5.5 X10^3/uL (2.0-7.7); Basophil# 0.07 X10^3/uL; Basophil% 0.8 % (0-1); Eosinophil# 0.32 X10^3/uL; Eosinophils% 3.4 % (0-5); Hemoglobin 12.9 g/dL (12.0-15.0); Lymphocyte # 2.67 X10^3/ul (0.83-4.51); Lymphocyte % 28.6 % (19-41); Mean Corp Hgb Conc 30.7 g/dL (32-36); Mean Corpuscular Hgb 28.5 pg (27.0-32.0); Mean Corpuscular Volume 92.9 fL (81-99); Mean Platelet Vol. 12.7 fl (6.2-12.0); Monocyte# 0.75 X10^3/uL; NRBC Flagged by Analyzer 0 % (0-5); Neutrophil # 5.47 X10^3/uL (2.7-7.7); Neutrophil % 58.7 % (47-70); Platelet Count 233 K/mm3 (150-450); RBC Distribution Width CV 13.2 % (11.6-14.6); RBC Distribution Width SD 44.9 fl (35.1-43.9); Red Blood Count 4.52 M/mm3 (4.2-5.4); White Blood Count 9.3 K/mm3 (4.4-11.0)
[2024-01-26 18:13] LABS: ALB/GLOB Ratio 0.9 RATIO (0.9-2.4); AST(SGOT) 19 U/L (15-37); Alanine Aminotransfer ALT/SGPT 18 U/L (13-56); Albumin, Serum 3.5 g/dL (3.2-5.0); Alkaline Phosphatase 94 U/L (45-117); Anion Gap 5 (5-15); BUN 23 mg/dL (7-18); BUN/Creat Ratio 25.7 RATIO (10-20); Calcium,Total 8.9 mg/dL (8.5-10.1); Chloride 107 mmol/L (98-107); Cholesterol 164 mg/dL (200); Creatinine, Serum 0.89 mg/dL (0.55-1.02); EST Glomerular Filtration Rate 64 mL/min (>60); Est Glom Filt Rate - Afr Amer 77 mL/min (>60); Globulin 3.8 g/dL (2.2-4.2); Glucose 100 mg/dL (74-106); High Density Lipoprotein 69 mg/dL; Magnesium 1.9 mg/dL (1.6-2.6); Potassium 3.8 mmol/L (3.5-5.1); Protein, Total 7.3 g/dL (6.4-8.2); Sodium Level 139 mmol/L (136-145); Thyroid Stim Hormone (TSH) 0.716 uIU/mL (0.358-3.740); Triglycerides 179 mg/dL; Very Low Density Lipoprotein 36 mg/dL (5-40)
[2024-01-26 18:30] LABS: Vitamin D,25 Hydroxy 17.8 ng/mL
[2024-01-26 19:11] LABS: Hemoglobin A1c 5.8 % (3.8-5.6)
== END | disposition home or self-care (01) ==
LOC: MTLAB 15:15
PROVIDERS: PCP Family Medicine; Referring Provider Family Medicine; Visit Provider Family Medicine
DX: M81.0 Age-related osteoporosis without current pathological fracture (principal); I10 Essential (primary) hypertension; E78.00 Pure hypercholesterolemia, unspecified; R73.02 Impaired glucose tolerance (oral)
CPT/HCPCS: 36415; 80053; 80061; 82306; 83036; 83735; 84443; 85025

== ENCOUNTER 2024-01-27 14:17 | Outpatient (CLI) | payer MEDICARE, SELFPAY ==
[2024-01-27 14:20] LABS: Mucous, Urine 0 SEEN /hpf (<or=2+); Red Blood Cells-Urine 0 SEEN /hpf (0-5)
[2024-01-27 17:30] LABS: Color, Urine Yellow (Yellow); Glucose, Dipstick Normal (Normal); Ketone-Dipstick Negative (Negative); Leukocyte Esterase-Dipstick 25 /ul (Negative); Nitrite-Dipstick Positive (Negative); Occult Blood-Urine 10 /ul (Negative); Protein-Dipstick 15 mg/dl (Negative); Urine Bilirubin Dipstick Negative (Negative); Urine Clarity Sl. Cloudy (Clear); Urine Urobilinogen Normal (Normal)
[2024-01-27 17:44] LABS: Bacteria 4+ /hpf (None Seen); Squamous Epithelial Cells - UA 0-5 SEEN /hpf (5-10); White Blood Cells 0-5 SEEN /hpf (0-5)
== END 2024-01-27 23:59 | disposition home or self-care (01) ==
LOC: LABSPEC 14:17
PROVIDERS: PCP Family Medicine; Visit Provider Family Medicine
DX: I10 Essential (primary) hypertension (principal)
CPT/HCPCS: 81001

== ENCOUNTER → 2024-03-13 | Outpatient (CLI) | payer MEDICARE, SELFPAY ==
--- NOTE | 2024-03-13 12:35 | RAD_ITS ---
INDICATION: PAIN EXAMINATION/TECHNIQUE: X-RAY - LEFT XR Knee Complete 4 Views or More 4 VIEWS COMPARISON: FINDINGS: SOFT TISSUES: No soft tissue swelling or gas. No radiopaque foreign body. Suprapatellar effusion. BONES/JOINTS: No acute fracture or subluxation.. Minimal spurring at the femorotibial compartments and patellofemoral compartment. Partially visualized intramedullary [place] in the femur. Slight narrowing of the medial femorotibial compartment.. No sclerotic or destructive changes observed. RAD/Knee 4 or More Views IMPRESSION: Mild degenerative changes with effusion. Electronically Signed: Nathaniel Eldridge DO at 15:41 EST Reading Location ID and State: [facility] [address] / [place] Tel [phone], Service support ,
--- NOTE | 2024-03-13 12:35 | RAD_ITS ---
INDICATION: knee pain EXAMINATION/TECHNIQUE: X-RAY - RIGHT XR Knee Complete 4 Views COMPARISON: FINDINGS: SOFT TISSUES: No soft tissue swelling or gas. No radiopaque foreign body. BONES/JOINTS: No acute fracture or subluxation.. Normal alignment. Preservation of the joint space.. No sclerotic or destructive changes observed. RAD/Knee 4 or More Views IMPRESSION: No acute bony injury. Electronically Signed: Nathaniel Elrdidge DO at 16:07 EST ,
== END | disposition home or self-care (01) ==
LOC: MTRAD 12:33
PROVIDERS: PCP Family Medicine; Referring Provider Family Medicine; Visit Provider Family Medicine
DX: M25.561 Pain in right knee (principal); M25.562 Pain in left knee
CPT/HCPCS: 73564